=== PATIENT | male | born 1955 | race Caucasian/White ===

== ENCOUNTER → 2016-12-18 | Outpatient (CLI) | payer OTHER | END | disposition home or self-care (01) | LOC: C.PATHSPEC 14:05 | PROVIDERS: ATTEND Dermatology | DX: L83 Acanthosis nigricans (principal); L85.9 Epidermal thickening, unspecified; L30.9 Dermatitis, unspecified ==

== ENCOUNTER → 2016-12-18 | Outpatient (CLI) | payer OTHER | END | disposition home or self-care (01) | LOC: C.LABSPEC 13:50 | PROVIDERS: ATTEND Dermatology | DX: L30.9 Dermatitis, unspecified (principal) ==

== ENCOUNTER → 2017-02-26 | Outpatient (CLI) | payer OTHER | END | disposition home or self-care (01) | LOC: C.LABSPEC 16:31 | PROVIDERS: ATTEND Dermatology | DX: Z86.19 Personal history of other infectious and parasitic diseases (principal) ==

== ENCOUNTER → 2017-04-24 | Outpatient (CLI) | payer OTHER | END | disposition home or self-care (01) | LOC: C.PATHSPEC 16:40 | PROVIDERS: ATTEND Dermatology | DX: L57.0 Actinic keratosis (principal); L72.0 Epidermal cyst ==

== ENCOUNTER → 2017-06-12 | Outpatient (CLI) | payer OTHER ==
[2017-06-12 13:32] LABS: ALT/SGPT 70 U/L (12-78); AST/SGOT 31 U/L (15-37); BLOOD UREA NITROGEN 14 mg/dl (7-18); CALCIUM 9.4 mg/dl (8.5-10.1); CARBON DIOXIDE 23 mmol/L (21-32); CHLORIDE 109 mmol/L (98-107); CHOLESTEROL 190 mg/dl (0-200); GLUCOSE 113 mg/dl (70-99); SODIUM 140 mmol/L (136-145); TRIGLYCERIDES 226 mg/dl (0-150); VERY LOW DENSITY LIPOPROT CALC 45 mg/dl
[2017-06-12 13:35] LABS: HDL CHOLESTEROL 27 mg/dl; LDL CHOLESTEROL CALCULATED 118 mg/dl
== END | disposition home or self-care (01) ==
LOC: C.LABMFLN 09:15
PROVIDERS: ATTEND Family Medicine
DX: N40.0 Benign prostatic hyperplasia without lower urinary tract symptoms (principal); E78.5 Hyperlipidemia, unspecified; Z11.59 Encounter for screening for other viral diseases

== ENCOUNTER → 2017-12-24 | Outpatient (CLI) | payer OTHER ==
[2017-12-24 18:10] LABS: ALT/SGPT 70 U/L (12-78); AST/SGOT 33 U/L (15-37); BLOOD UREA NITROGEN 17 mg/dl (7-18); CALCIUM 9.5 mg/dl (8.5-10.1); CARBON DIOXIDE 23 mmol/L (21-32); CHOLESTEROL 187 mg/dl (0-200); CREATININE 1.01 mg/dl (0.60-1.40); GLUCOSE 107 mg/dl (70-99); POTASSIUM 4.1 mmol/L (3.5-5.1); SODIUM 138 mmol/L (136-145)
[2017-12-24 18:14] LABS: LDL CHOLESTEROL CALCULATED 124 mg/dl
== END | disposition home or self-care (01) ==
LOC: C.LABMFLN 10:53
PROVIDERS: ATTEND Family Medicine
DX: Z12.5 Encounter for screening for malignant neoplasm of prostate (principal); E78.5 Hyperlipidemia, unspecified

== ENCOUNTER → 2018-07-17 | Outpatient (CLI) | payer OTHER | END | disposition home or self-care (01) | LOC: C.LABMFLN 10:08 | PROVIDERS: ATTEND Family Medicine | DX: E78.5 Hyperlipidemia, unspecified (principal) ==

== ENCOUNTER 2025-02-16 07:48 | Inpatient (IN) ==
--- NOTE | 2025-02-16 08:07 | Emergency Department Note ---
Impression & Plan Hypoxia, Right-sided chest pain, Metastatic primary lung cancer ED Provider Note HISTORY OF PRESENT ILLNESS: Patient is a 69-year-old male presenting with shortness of breath and right- sided chest pain. Patient reports that he had a biopsy done of a right lung nodule 6 days ago. He reports he has had progressively worsening pain in his right chest ever since. He had called his doctor last night and they referred him to the emergency department. Patient reports that he cannot lay flat or even lay on his left side secondary to how short of breath he is and how much pain he has in his right lung. He denies any anticoagulation use. Denies any DVT or PE history. He denies any recent fevers. He has had a cough productive of white sputum. He denies any hemoptysis other than the day after his biopsy. He does state that he has been having blood when he blows his nose. He denies any fevers. Denies any recent sick contact exposures. ROS: as above PHYSICAL EXAM: Constitutional: Patient appears in no acute distress. HENT: Head: Normocephalic and atraumatic. Eyes: EOMI, PERRL Mouth/Throat: Mucous membranes moist. Neck: Trachea midline. Neck supple. Cardiovascular: RRR, No murmurs, rubs or gallops. Intact distal pulses. Pulmonary/Chest: No respiratory distress. Breath sounds clear and equal bilaterally. No wheezes or rales. Abdominal: Abdomen soft, no tenderness, rebound or guarding. Musculoskeletal: No edema, tenderness or deformity noted. Skin: Warm and dry. No rash, erythema, pallor or cyanosis Psychiatric: Appropriate mood and affect for situation. Neurological: Alert and keenly responsive. CN II-XII grossly intact, moving all extremities equally and fully. MDM: - Vitals signs showed tachycardia and borderline hypoxia - History obtained via patient. History as above. - Chronic conditions affecting care: BPH; HLD; COPD; right lung mass; HTN - Differential diagnoses include, but are not limited to: Congestive heart failure; acute coronary syndrome; COPD/asthma exacerbation; pulmonary edema; pulmonary embolism; pneumonia; pneumothorax; viral syndrome - Order placed for continuous cardiac monitoring. At this time, monitor showed rate of 80 bpm with normal sinus rhythm, per my interpretation. - External medical records reviewed. Procedure note dated 02/11/2025 was reviewed. Patient had an endobronchial ultrasound and transbronchial needle aspiration of lymph nodes. - EKG image interpreted by myself showed normal sinus rhythm. Rate 88 bpm. QT 356. No acute ischemic changes. Noted to have significant artifact on EKG - Laboratory workup interpreted by myself showed slight leukocytosis (WBC 11.46); normal PT/INR; stable electrolytes; elevated ALT (55); normal troponin - Viral respiratory panel negative - CXR image reviewed by myself showed what looks like a potential pneumonia in the right lung base, per my interpretation. - Patient was borderline hypoxic on arrival. Given 0.5 mg IV Dilaudid for pain management and patient became hypoxic to 88%. He was placed on 4 L nasal cannula. - CT chest with IV contrast negative for acute abnormality. Noted to have cervical, thoracic and abdominal lymphadenopathy. Noted to have an infiltrative mass in the right hilum. Also noted to have interval development of T8 vertebral body fracture likely pathologic. - Discussed results with patient and his son at bedside. Patient initially was appearing very comfortable after Dilaudid, but he is now complaining of increasing pain. Given additional 50 mcg IV fentanyl. Will admit the patient for his new hypoxia and for pain management to the hospitalist service - Discussion was had with business case analyst about patient's case and need for admission - Hospitalist, Dr. Casillas, consulted for admission - Patient admitted to [facility] hospitalist service for further evaluation and management. ASSESSMENT AND PLAN: Diagnosis: Hypoxia; right-sided chest pain; metastatic primary lung cancer Plan: Admit Past Med/Surg History Problem List (Updated 02/16/25 @ 12:14 by Kellie Saavedra MD) Metastatic primary lung cancer (Acute) Right-sided chest pain (Acute) Hypoxia (Acute) Lung cancer Mass of right lung Pleuritic chest pain Open wound of left foot Intractable left upper quadrant abdominal pain COPD exacerbation Cervical lymphadenopathy Bacterial sinusitis Anxiety and depression Hypertension, benign essential, goal below 140/90 Dyslipidemia Left foot drop Left lumbar radiculitis Postlaminectomy syndrome of lumbosacral region Lumbar facet joint syndrome Colon cancer screening Prediabetes Chronic low back pain Hx of adenomatous colonic polyps Colon cancer screening Prostate cancer screening Steatohepatitis Elevated liver function tests Prostate cancer screening COPD (chronic obstructive pulmonary disease) with chronic bronchitis Hyperlipidemia (Acute) GERD without esophagitis (Acute) Essential hypertriglyceridemia (Acute) Chronic obstructive pulmonary disease (Acute) Allergic rhinitis BPH (benign prostatic hyperplasia) Medicare annual wellness visit, subsequent Prostate cancer screening Constipation (Acute) Situational anxiety (Acute) Medical History Hyperlipidemia Surgical History H/O hernia repair History of back surgery Family History Mother Osteoarthritis Other No pertinent family history Social History Smoking Status: Former smoker Tobacco Type: Cigarettes Age Started Using Tobacco: 17; Age Quit Using Tobacco: 58; packs per day: 2; Second Hand Exposure: No; Do You Dip or Chew Tobacco: No; Hx Alcohol Use: No Hx Substance Use: No Preferred Language: Norwegian Beliefs That Will Affect Care: None marital status: Current Living Situation: Spouse current occupational status: disabled Feels Safe at Home: Yes caffeine: Yes Seatbelt Use: always Assistive Devices: Glasses Allergies Allergies Allergy/AdvReac Type Severity Reaction Status Date / Time No Known Drug Allergies Allergy Unknown Verified 02/11/25 07:30 Home Meds Home Medications Medication Instructions Recorded Confirmed Medical Marijuana 1 inh inhalation DAILY 04/29/23 02/16/25 Previous Rx's Medication Instructions Recorded fluticasone propionate 50 2 sprays intranasal DAILY #47.4 06/01/19 mcg/actuation nasal grams spray,suspension omeprazole 20 mg capsule,delayed 20 mg PO DAILY #90 caps 06/01/19 release ketoconazole 2 % shampoo 1 applic topical DAILY #120 mL 06/30/20 triamcinolone acetonide 0.1 % 1 applic topical BID PRN skin 03/27/21 topical cream irritation #80 grams amlodipine 10 mg tablet 10 mg PO DAILY #90 tabs 03/11/24 finasteride 5 mg tablet 5 mg PO DAILY #100 tabs 03/12/24 tamsulosin 0.4 mg capsule 0.8 mg (2 x 0.4 mg) PO DAILY #200 03/12/24 caps fluticasone fur. 200 mcg-umeclid 1 inh inhalation DAILY #180 ea 03/17/24 62.5 mcg-vilant 25 mcg inhalat.powder (Trelegy Ellipta) fluorouracil 5 % topical cream 1 applic topical DAILY #40 grams 11/09/24 albuterol sulfate 90 mcg/actuation 2 puff inhalation Q4H PRN 01/31/25 aerosol inhaler shortness of breath or wheezing #6.7 grams Results & Data (ED) Vital Signs Vital Signs - 24 hr 02/16/25 07:54 02/16/25 08:06 02/16/25 08:31 Temperature 36.4 C L Temperature Source Temporal Artery Scan Pulse Rate 94 H 92 H Pulse Rate [Right] 80 Pulse Rhythm Pulse Rhythm [Right] Regular Pulse Strength [Right] Normal Respiratory Rate 24 20 Respiratory Effort / Characteristics Non-Labored Respiratory Depth Normal Respiratory Pattern Regular Blood Pressure 134/90 Blood Pressure [Right Arm] 146/93 H Blood Pressure Mean 104 Blood Pressure Mean [Right Arm] 110 Blood Pressure Position [Right Arm] Pulse Oximetry 91 92 Oxygen Delivery Method Room Air Nasal Cannula Oxygen Flow Rate 4 Sepsis New/Unexplained Change in Mental Status No Sepsis Action Taken by Nursing No Action Required 02/16/25 08:34 02/16/25 08:40 02/16/25 08:46 Temperature Temperature Source Pulse Rate 85 Pulse Rate [Right] 84 Pulse Rhythm Regular Pulse Rhythm [Right] Regular Pulse Strength [Right] Normal Respiratory Rate 20 21 Respiratory Effort / Characteristics Respiratory Depth Normal Respiratory Pattern Regular Blood Pressure Blood Pressure [Right Arm] 137/98 Blood Pressure Mean Blood Pressure Mean [Right Arm] 111 Blood Pressure Position [Right Arm] Lying Pulse Oximetry 91 92 92 Oxygen Delivery Method Room Air Nasal Cannula Nasal Cannula Oxygen Flow Rate 4 4 Sepsis New/Unexplained Change in Mental Status Sepsis Action Taken by Nursing 02/16/25 10:00 Temperature Temperature Source Pulse Rate Pulse Rate [Right] 79 Pulse Rhythm Pulse Rhythm [Right] Regular Pulse Strength [Right] Normal Respiratory Rate 20 Respiratory Effort / Characteristics Non-Labored Respiratory Depth Normal Respiratory Pattern Regular Blood Pressure Blood Pressure [Right Arm] 146/93 H Blood Pressure Mean Blood Pressure Mean [Right Arm] 110 Blood Pressure Position [Right Arm] Lying Pulse Oximetry 92 Oxygen Delivery Method Nasal Cannula Oxygen Flow Rate 4 Sepsis New/Unexplained Change in Mental Status Sepsis Action Taken by Nursing Laboratory Data 02/16/25 08:29 02/16/25 09:55 Lab Results 02/16/25 02/16/25 02/16/25 Range/Units 08:29 08:43 09:55 WBC 11.46 H (4.8-10.8) K/ul RBC 5.83 (4.70-6.10) M/uL Hgb 17.6 (14.0-18.0) g/dl Hct 52.2 H (42.0-52.0) % MCV 89.5 (80.0-100.0) fL MCH 30.2 (25.0-34.0) pg MCHC 33.7 (32.0-36.0) g/dL RDW Std Deviation 46.1 (36.4-46.3) fL RDW Coeff of Benjamin 14.3 (11.5-14.5) % Plt Count 288 (130-400) K/uL MPV 11.5 (9.4-12.4) fL Immature Gran % (Auto) 1.0 % Neut % (Auto) 74.1 % Lymph % (Auto) 17.5 % [place] % (Auto) 6.1 % Eos % (Auto) 0.8 % Baso % (Auto) 0.5 % Neut # (Auto) 8.48 H (1.40-6.50) K/uL Lymph # (Auto) 2.01 (1.20-3.40) K/uL [place] # (Auto) 0.70 H (0.11-0.59) K/uL Eos # (Auto) 0.09 (0.00-0.50) K/uL Baso # (Auto) 0.06 (0.00-0.20) K/uL Immature Gran # (Auto) 0.12 (0.01-0.20) K/uL PT Cancelled 11.4 INR Cancelled 1.1 Sodium TNP 137 Potassium TNP 3.6 Chloride 104 (98-107) mmol/L Carbon Dioxide 26 (21-32) mmol/L Anion Gap TNP BUN 15 (6-23) mg/dl Creatinine 0.96 (0.6-1.4) mg/dl Est Cr Clr Drug Dosing Not Reportable eGFR 86.63 BUN/Creatinine Ratio 15.6 (10-20) Glucose 116 H (70-99(Fasting)) mg/dl Calcium 10.0 (8.6-10.3) mg/dl Magnesium TNP 1.8 Total Bilirubin 0.7 (0.2-1.0) mg/dl AST TNP 30 ALT 55 H (7-52) U/L Alkaline Phosphatase 123 H (34-104) U/L Troponin I High Sens 4.9 (0-20) pg/ml Total Protein 7.2 (6.0-8.3) gm/dl Albumin 4.2 (3.4-5.0) gm/dl Globulin 3.0 (2.5-4.0) gm/dl Albumin/Globulin Ratio 1.4 (0.9-2) Adenovirus (PCR) Not Detected (NotDetected) B. pertussis DNA (PCR) Not Detected (NotDetected) B.parapertussis DNA PCR Not Detected (NotDetected) C. pneumoniae DNA (PCR) Not Detected (NotDetected) Coronavirus OC43 (PCR) Not Detected (NotDetected) Coronavirus HKU1 (PCR) Not Detected (NotDetected) Coronavirus 229E (PCR) Not Detected (NotDetected) SARS-CoV-2 (PCR) Not Detected (NotDetected) Coronavirus NL63 (PCR) Not Detected (NotDetected) Human Metapneumovir PCR Not Detected (NotDetected) Influenza Type A (PCR) Not Detected (NotDetected) Influenza Type B (PCR) Not Detected (NotDetected) M. pneumoniae (PCR) Not Detected (NotDetected) Parainfluenza 1 (PCR) Not Detected (NotDetected) Parainfluenza 2 (PCR) Not Detected (NotDetected) Parainfluenza 3 (PCR) Not Detected (NotDetected) Parainfluenza 4 (PCR) Not Detected (NotDetected) RSV (PCR) Not Detected (NotDetected) Entero/Rhino (PCR) Not Detected (NotDetected) Administered Medications Discontinued Medications Hydromorphone HCl (Hydromorphone Inj 0.5 Mg/0.5 Ml Syr) 0.5 mg IV NOW STA Stop: 02/16/25 08:20 Last Admin: 02/16/25 08:41 Dose: 0.5 mg Documented By: CLAUDIA Ioversol (Optiray 320 100ml) 94 ml IV ONCE ONE Stop: 02/16/25 09:44 Last Admin: 02/16/25 09:43 Dose: 94 ml Documented By: OBINNA Imaging Data Radiologist's Impression: Chest X-Ray 02/16/25 08:06 XR chest 1V portable CLINICAL HISTORY: Dyspnea COMPARISON STUDY: 02/08/2025 FINDINGS: Large right hilar mass with adjacent mild reticular pulmonary opacity is stable. There is stable emphysema. There is increased stranding opacity at the right base with partial obscuration of the right hemidiaphragm. No pleural effusion or pneumothorax. IMPRESSION: Increased atelectasis versus pneumonia right lung base. ACT 112: Negative or not required by law. Electronically signed by: Estevan Huston M.D. 02/16/2025 8:[address] 02/16/25 08:19 CT OF THE CHEST WITH IV CONTRAST CLINICAL HISTORY: Right sided chest pain s/p biopsy. COMPARISON STUDY: Chest CT February 08, 2025. Chest radiograph performed earlier today. TECHNIQUE: Following IV administration of 94 mL of Optiray, helical axial images of the chest were obtained. Sagittal and coronal reconstructions were viewed as well as maximal intensity projections on an independent 3-D workstation. Automated exposure control was utilized for the study. A dose lowering technique was utilized adhering to the principles of ALARA. CT DOSE: 957.82 mGy.cm FINDINGS: There is no pneumothorax or mediastinal hematoma. No pneumomediastinum is present. A trace pericardial effusion is unchanged. The size the heart is normal. Extensive cervical, mediastinal, right hilar, bilateral axillary and upper abdominal lymphadenopathy is again noted. This is similar to CT of February 08, 2025. Index right supraclavicular lymph node on image 19 of 269 measures 2.9 x 2.3 cm. Right paratracheal lymph node measures 5.3 x 3.7 cm. A peripancreatic lymph node measures 3.3 x 2.6 cm. An infiltrative mass like opacity centered on the right hilum measures 7.9 x 7.7 cm. This may represent the central lung mass or conglomerate adenopathy. As before, the right upper lobe bronchus and bronchus intermedius are occluded. Severe narrowing of the right lower lobe bronchus has increased. Right lower lobe airspace opacities with volume loss have progressed since prior exam. Multiple nodular opacities within the right lung are again noted. There is asymmetric interlobular septal thickening within the right lung with numerous small nodules. Additional small nodules within the left lung are noted. There is underlying emphysema. Trace right pleural effusion is unchanged. A 2.5 x 1 cm pleural implant within the posterior right lower hemithorax is present. There is mild loss of height of the superior endplate of T8 consistent with a fracture is developed since prior CT. There is a probable underlying lytic lesion. Additional smaller lytic lesions within the thoracic spine cannot be excluded IMPRESSION: 1. No pneumothorax. No pneumomediastinum. No mediastinal hematoma. 2. Redemonstration of extensive lower cervical, thoracic and upper abdominal lymphadenopathy consistent with jo ann spread of malignancy. Lymphoma is within the differential but considered less likely. 3. Infiltrative mass centered on the right hilum which measures approximately 7.9 x 7.7 cm which results in extensive airway narrowing, as described above. This may represent a central lung malignancy or conglomerate adenopathy. Severe narrowing of the right lower lobe bronchus which has increased with increasing right lower lobe volume atelectasis. 4. Interval development of a T8 vertebral body fracture likely representing a pathologic fracture underlying lytic lesion. 5. 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 6. Emphysema. ACT 112: Negative or not required by law. Electronically signed by: Freddie Stubbs M.D. 02/16/2025 10:11 AM Discharge Plan Visit Data Chief Complaint: Shortness of Breath/Dyspnea Stated Complaint: LOW/VARIABLE OX AND SEVERE RT LUNG PAIN, SOB ED Provider: Kellie Saavedra Discharge Problem: Hypoxia, Right-sided chest pain, Metastatic primary lung cancer Forms Stand Alone Forms: My [facility] Prescriptions Prescriptions: No Action amlodipine 10 mg tablet 10 mg PO DAILY Qty: 90 3RF finasteride 5 mg tablet 5 mg PO DAILY Qty: 100 3RF tamsulosin 0.4 mg capsule 0.8 mg PO DAILY Qty: 200 3RF fluorouracil 5 % cream 1 applic topical DAILY Qty: 40 0RF Rx Instructions: Apply to areas of the face daily at bedtime x 3 weeks as directed. Wash off in AM. Medical Marijuana 1 inh inhalation DAILY Rx Instructions: Unable to verify OTC meds at this date/time. fluticasone propionate 50 mcg/actuation spray,suspension 2 sprays intranasal DAILY Qty: 47.4 3RF omeprazole 20 mg capsule,delayed release(DR/EC) 20 mg PO DAILY Qty: 90 3RF Rx Instructions: Not on file w/ pharmacy ketoconazole 2 % shampoo 1 applic TOP DAILY Qty: 120 2RF Rx Instructions: Wash scalp 2-3 times weekly. Let sit for 3-5 minutes prior to rinsing. triamcinolone acetonide 0.1 % cream 1 applic topical BID PRN (Reason: skin irritation) Qty: 80 3RF albuterol sulfate 90 mcg/actuation HFA aerosol inhaler 2 puff inhalation Q4H PRN (Reason: shortness of breath or wheezing) Qty: 6.7 5RF Trelegy Ellipta 200-62.5-25 mcg blister with device 1 inh inhalation DAILY Qty: 180 3RF Referrals Referrals: Dinesh Washington MD [Primary Care Provider] -
--- NOTE | 2025-02-16 08:25 | XRay Report ---
XR chest 1V portable CLINICAL HISTORY: Dyspnea COMPARISON STUDY: 02/08/2025 FINDINGS: Large right hilar mass with adjacent mild reticular pulmonary opacity is stable. There is s table emphysema. There is increased stranding opacity at the right base with partial obscuration of t he right hemidiaphragm. No pleural effusion or pneumothorax. IMPRESSION: Increased atelectasis versus pneumonia right lung base. ACT 112: Negative or not required by law. Electronically signed by: Estevan Huston M.D. 02/16/2025 8:24 AM
[2025-02-16] MEDS: HYDROmorphone INJ 0.5 MG/0.5 ML SYR IV STA (08:41)
[2025-02-16 08:52] LABS: Basophils # (auto) 0.06 K/uL (0.00-0.20); Basophils % (auto) 0.5 %; Eosinophils # (auto) 0.09 K/uL (0.00-0.50); Eosinophils % (auto) 0.8 %; Hematocrit (blood only) 52.2 % (42.0-52.0); Hemoglobin 17.6 g/dl (14.0-18.0); Immature Granulocytes # (auto) 0.12 K/uL (0.01-0.20); Lymphocytes # (auto) 2.01 K/uL (1.20-3.40); Lymphocytes % (auto) 17.5 %; Mean Corpuscular Hemoglobin 30.2 pg (25.0-34.0); Mean Corpuscular Hgb Conc 33.7 g/dL (32.0-36.0); Mean Corpuscular Volume 89.5 fL (80.0-100.0); Mean Platelet Volume 11.5 fL (9.4-12.4); Monocytes % (auto) 6.1 %; Neutrophils # (auto) 8.48 K/uL (1.40-6.50); Neutrophils % (auto) 74.1 %; Platelet Count 288 K/uL (130-400); RDW Coefficient of Variation 14.3 % (11.5-14.5); RDW Standard Deviation 46.1 fL (36.4-46.3); Red Blood Count 5.83 M/uL (4.70-6.10); White Blood Count 11.46 K/ul (4.8-10.8)
[2025-02-16 09:16] LABS: Alanine Aminotransferase 55 U/L (7-52); Albumin Globulin Ratio 1.4 (0.9-2); Albumin Level 4.2 gm/dl (3.4-5.0); Alkaline Phosphatase 123 U/L (34-104); BUN Creatinine Ratio 15.6 (10-20); Bilirubin,Total 0.7 mg/dl (0.2-1.0); Blood Urea Nitrogen 15 mg/dl (6-23); Carbon Dioxide 26 mmol/L (21-32); Chloride 104 mmol/L (98-107); Glucose 116 mg/dl (70-99(Fasting)); Total Protein 7.2 gm/dl (6.0-8.3)
[2025-02-16 09:22] LABS: Troponin I High Sensitivity 4.9 pg/ml (0-20)
[2025-02-16] MEDS: OPTIRAY 320 100ml IV ONE ×2 (09:43→21:10)
[2025-02-16 09:53] LABS: Adenovirus PCR Not Detected (NotDetected); Bordetella parapertussis PCR Not Detected (NotDetected); Bordetella pertussis PCR Not Detected (NotDetected); Chlamydia pneumoniae PCR Not Detected (NotDetected); Coronavirus 229E PCR Not Detected (NotDetected); Coronavirus CoV-2 (COVID19)PCR Not Detected (NotDetected); Coronavirus HKU1 PCR Not Detected (NotDetected); Coronavirus NL63 PCR Not Detected (NotDetected); Coronavirus OC43PCR Not Detected (NotDetected); Human Metapneumovirus PCR Not Detected (NotDetected); Influenza A PCR Not Detected (NotDetected); Influenza B PCR Not Detected (NotDetected); Mycoplasma pneumoniae PCR Not Detected (NotDetected); Parainfluenza Virus 1 PCR Not Detected (NotDetected); Parainfluenza Virus 2 PCR Not Detected (NotDetected); Parainfluenza Virus 3 PCR Not Detected (NotDetected); Parainfluenza Virus 4 PCR Not Detected (NotDetected); Respiratory Syncytial VirusPCR Not Detected (NotDetected); Rhinovirus/Enterovirus PCR Not Detected (NotDetected)
--- NOTE | 2025-02-16 10:12 | CT Scan Report ---
CT OF THE CHEST WITH IV CONTRAST CLINICAL HISTORY: Right sided chest pain s/p biopsy. COMPARISON STUDY: Chest CT February 08, 2025. Chest radiograph performed earlier today. TECHNIQUE: Following IV administration of 94 mL of Optiray, helical axial images of the chest were o btained. Sagittal and coronal reconstructions were viewed as well as maximal intensity projections o n an independent 3-D workstation. Automated exposure control was utilized for the study. A dose low ering technique was utilized adhering to the principles of ALARA. CT DOSE: 957.82 mGy.cm FINDINGS: There is no pneumothorax or mediastinal hematoma. No pneumomediastinum is present. A trace pericardial effusion is unchanged. The size the heart is normal. Extensive cervical, mediastinal, ri ght hilar, bilateral axillary and upper abdominal lymphadenopathy is again noted. This is similar to CT of February 08, 2025. Index right supraclavicular lymph node on image 19 of 269 measures 2.9 x 2.3 cm . Right paratracheal lymph node measures 5.3 x 3.7 cm. A peripancreatic lymph node measures 3.3 x 2.6 cm. An infiltrative mass like opacity centered on the right hilum measures 7.9 x 7.7 cm. This may re present the central lung mass or conglomerate adenopathy. As before, the right upper lobe bronchus an d bronchus intermedius are occluded. Severe narrowing of the right lower lobe bronchus has increased. Right lower lobe airspace opacities with volume loss have progressed since prior exam. Multiple nodu lar opacities within the right lung are again noted. There is asymmetric interlobular septal thickeni ng within the right lung with numerous small nodules. Additional small nodules within the left lung a re noted. There is underlying emphysema. Trace right pleural effusion is unchanged. A 2.5 x 1 cm pleu ral implant within the posterior right lower hemithorax is present. There is mild loss of height of t he superior endplate of T8 consistent with a fracture is developed since prior CT. There is a probabl e underlying lytic lesion. Additional smaller lytic lesions within the thoracic spine cannot be exclu ded IMPRESSION: 1. No pneumothorax. No pneumomediastinum. No mediastinal hematoma. 2. Redemonstration of extensive lower cervical, thoracic and upper abdominal lymphadenopathy consiste nt with jo ann spread of malignancy. Lymphoma is within the differential but considered less likely. 3. Infiltrative mass centered on the right hilum which measures approximately 7.9 x 7.7 cm which resu lts in extensive airway narrowing, as described above. This may represent a central lung malignancy o r conglomerate adenopathy. Severe narrowing of the right lower lobe bronchus which has increased with increasing right lower lobe volume atelectasis. 4. Interval development of a T8 vertebral body fracture likely representing a pathologic fracture und erlying lytic lesion. 5. Numerous pulmonary metastases and findings suggestive of lymphangitic carcinomatosis within the ri ght lung. 6. Emphysema. ACT 112: Negative or not required by law. Electronically signed by: Freddie Stubbs M.D. 02/16/2025 10:11 AM
[2025-02-16 10:44] LABS: Magnesium 1.8 mg/dl (1.7-2.4); Potassium 3.6 mmol/L (3.5-5.1)
[2025-02-16 10:53] LABS: INR 1.1 (0.9-1.1); Prothrombin Time 11.4 Seconds (9.0-12.0)
--- NOTE | 2025-02-16 11:38 | Electrocardiogram Report ---
Test Reason : Blood Pressure : */* mmHG Vent. Rate : 88 BPM Atrial Rate : 88 BPM P-R Int : 150 ms QRS Dur : 78 ms QT Int : 356 ms P-R-T Axes : 44 35 62 degrees QTcB Int : 430 ms Normal sinus rhythm No previous ECGs available Confirmed by Dre Norwood ([id number]) on 02/16/2025 11:38:29 AM Referred By: Confirmed By: Dre Norwood
--- NOTE | 2025-02-16 11:45 | History & Physical Report ---
<Statement entered by Alise Casillas MD - 02/16/25 18:07> I have reviewed vital signs, chart notes, labs and imaging. I have personally seen, evaluated and examined the patient. I have also discussed the management of the patient with the ZOILA and I agree with the exam findings documented in the history and physical examination and the documented assessment and plan unless otherwise stated below. I saw Mr. Swanson after arriving up to 3 W. he is currently having right-sided chest pain that he describes as fairly severe. He states that when he is at rest it is a reasonable amount of pain but as soon as he is coughing it goes straight to a 10 out of 10. He has been having frequent coughing. On my exam he is awake alert sitting in the edge of the bed lungs are diminished in both bases. He is tender to palpation of his right anterior chest wall, he has mild tenderness to palpation at the T8 level. He denies any pain radiating around his chest from T8. the right chest wall pain is at a higher level, above the nipple line newly diagnosed small cell carcinoma which is widespread, we have consulted medical oncology . Plan for tonight will be pain control for his right-sided chest pain is probably some component of cancer related pain also he feels that he pulled a muscle in his right anterior chest this is possible it is severely aggravated by coughing. Current dose of morphine 2 mg IV every 2 has not been adequate after 2 doses will increase to 4 mg IV. If this is ineffective we can try hydromorphone. He is on Tessalon and we added cough syrup with codeine. We will consult palliative care to help with pain and symptom management, he is not ready to talk about hospice/comfort measures he is likely to need home oxygen at this time, will obtain a two-step Date of Service February 16, 2025 Assessment & Plan (1) Metastatic primary lung cancer: (2) Hypoxia: (3) Compression fracture of T8 vertebra: Plan Christopher is a 69M with a PMHx of tobacco use, COPD, GERD, HLD who presents to the ED with shortness of breath and uncontrollable pain. He had a recent bronchoscopy [facility] Dr. 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 Now requiring supplemental oxygen. CT chest without signs of infection or fluid overload. Admit for pain control, oncology evaluation, possible palliative consultation. #Small cell carcinoma | Hypoxia | Intractable Pain CT chest without infectious cause/fluid overload - suspect hypoxia is related to metastasis. Continue home maintenance inhalers. PRN nebs Reports "wants aggressive treatment" open to chemo and/or radiation. However, if things are working reports "okay with going home with hospice" - oncology consulted. Palliative consult for help with symptom management Would like cut off saw operator visit later in stay (not consulted on admission) Scheduled Mucinex and prn robutussuin/coedine, prn Tessalon for symptom control for cough/mucus Pain control: prn morphine - deferred PO on admission, suspect MS Contin could be utilized in this pt, so stick with IV morphine for now for dose titration Bowel regimen: schedule miralax and senna, prn miralax Mild leukocytosis (11.4) - possibly stress induced, no other signs on infection, will trend. Baseline is room air, wean as oxygen as able. #T8 Compression fracture Area is tender to palpation. Mild Alk Phos elevation probably due to fracture/bone mets Calcitonin Nasal spray. Lidocaine patch HTN - continue amlodipine BPH - continue finasteride, flomax. Dispo: admit to med surg DVT proh: lovenox CODE STATUS: CONDITIONAL CODE (no chest compression) - please revisit as stay progresses, is considering DNR/DNI History of Present Illness Chief Complaint: pain and SOB Primary Care Provider: Dinesh Washington MD Christopher is a 69M with a PMHx of tobacco use, COPD, GERD, HLD who presents to the ED with shortness of breath and uncontrollable pain. He had a recent bronchoscopy wt Dr. 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 He has not seen oncology outpatient yet. Has been having to use his albuterol more frequently, does feel like it helps. Has been using medical marijuana for the pain. Reports that he has a plethora of narcotic pain medi cations at home for his lower back pain and history of fusion. He has not been taking these. He states that Dr. Monteiro instructed him to come last night but he could not get to the ER until this morning. States that he is here to try to get his pain controlled and get things figured out from an oncology perspective as he is having no quality of life at home. For now he states he wants to be aggressive and do everything possible, but knows that this ultimately might end up with him returning home with hospice. Pain is worse when he is coughing or trying to blow his nose. Has had increased mucus production over the last 2 to 3 weeks sometimes coughing up full handfuls. Has been trying to avoid coughing up mucus because it is painful however coughing up usually makes him feel better Lives alone about 1 hour from here, his son is his major support system who lives about 1 hour away from him. He would like to be a conditional code he is okay with defibrillation and intubation if needed and other life-saving measures he just does not want chest compressions. He states to me that he will likely become a DNR this admission. Patient is very insightful and has been doing his own research onto possible options for his oncologic treatment ED course: Dilaudid 0.5mg IV x1 Fentanyl 50 mcq IV Allergies Allergy/AdvReac Type Severity Reaction Status Date / Time No Known Drug Allergies Allergy Unknown Verified 02/11/25 07:30 Home Medications Medication Instructions Recorded Confirmed Type fluticasone propionate 50 2 sprays intranasal DAILY #47.4 06/01/19 02/16/25 Rx mcg/actuation nasal grams spray,suspension omeprazole 20 mg capsule,delayed 20 mg PO DAILY #90 caps 06/01/19 02/16/25 Rx release ketoconazole 2 % shampoo 1 applic topical DAILY #120 mL 06/30/20 02/16/25 Rx triamcinolone acetonide 0.1 % 1 applic topical BID PRN skin 03/27/21 02/16/25 Rx topical cream irritation #80 grams Medical Marijuana 1 inh inhalation DAILY 04/29/23 02/16/25 History amlodipine 10 mg tablet 10 mg PO DAILY #90 tabs 03/11/24 02/16/25 Rx finasteride 5 mg tablet 5 mg PO DAILY #100 tabs 03/12/24 02/16/25 Rx tamsulosin 0.4 mg capsule 0.8 mg (2 x 0.4 mg) PO DAILY #200 03/12/24 02/16/25 Rx caps fluticasone fur. 200 mcg-umeclid 1 inh inhalation DAILY #180 ea 03/17/24 02/16/25 Rx 62.5 mcg-vilant 25 mcg inhalat.powder (Trelegy Ellipta) fluorouracil 5 % topical cream 1 applic topical DAILY #40 grams 11/09/24 02/16/25 Rx albuterol sulfate 90 mcg/actuation 2 puff inhalation Q4H PRN 01/31/25 02/16/25 Rx aerosol inhaler shortness of breath or wheezing #6.7 grams Past Med/Surg History Problem List (Updated 02/16/25 @ 13:52 by Jenny Wolfe PA-C) Compression fracture of T8 vertebra Metastatic primary lung cancer (Acute) Right-sided chest pain (Acute) Hypoxia (Acute) Lung cancer Mass of right lung Pleuritic chest pain Open wound of left foot Intractable left upper quadrant abdominal pain COPD exacerbation Cervical lymphadenopathy Bacterial sinusitis Anxiety and depression Hypertension, benign essential, goal below 140/90 Dyslipidemia Left foot drop Left lumbar radiculitis Postlaminectomy syndrome of lumbosacral region Lumbar facet joint syndrome Colon cancer screening Prediabetes Chronic low back pain Hx of adenomatous colonic polyps Colon cancer screening Prostate cancer screening Steatohepatitis Elevated liver function tests Prostate cancer screening COPD (chronic obstructive pulmonary disease) with chronic bronchitis Hyperlipidemia (Acute) GERD without esophagitis (Acute) Essential hypertriglyceridemia (Acute) Chronic obstructive pulmonary disease (Acute) Allergic rhinitis BPH (benign prostatic hyperplasia) Medicare annual wellness visit, subsequent Prostate cancer screening Constipation (Acute) Situational anxiety (Acute) Medical History Hyperlipidemia Surgical History H/O hernia repair History of back surgery Family History Mother Osteoarthritis Other No pertinent family history Social History Smoking Status: Former smoker Tobacco Type: Cigarettes Age Started Using Tobacco: 17; Age Quit Using Tobacco: 58; packs per day: 2; Second Hand Exposure: No; Do You Dip or Chew Tobacco: No; Hx Alcohol Use: No Hx Substance Use: No Preferred Language: Chinese Communication Ability: Effective Beliefs That Will Affect Care: None marital status: Current Living Situation: Spouse current occupational status: disabled Feels Safe at Home: Yes caffeine: Yes Seatbelt Use: always Assistive Devices: Cane Review of Systems Review of Systems: All systems reviewed & are unremarkable except as noted in Subjective Physical Exam Physical Exam: General: NAD, VS as above, appears painful, tearing at times when talking about the pain that he is indoors at home Resp: normal respiratory effort, diminished in the bases, on 4 L nasal cannula CV: RRR, no murmur, Abd: normal bowel sounds, non tender, soft Extremities: Moves all extremities, Neuro: A&O x3, Results & Data Results & Data Vital Signs (Past 12 Hours) Vital Signs Temp Pulse Pulse Resp BP BP Pulse Ox 02/16/25 10:00 79 20 146/93 H 92 02/16/25 08:46 92 02/16/25 08:40 84 21 137/98 92 02/16/25 08:34 85 20 91 02/16/25 08:31 92 H 02/16/25 08:06 80 20 146/93 H 92 02/16/25 07:54 97.5 F L 94 H 24 134/90 91 O2 Del Method O2 Flow Rate 02/16/25 10:00 Nasal Cannula 4 02/16/25 08:46 Nasal Cannula 4 02/16/25 08:40 Nasal Cannula 4 02/16/25 08:34 Room Air 02/16/25 08:31 02/16/25 08:06 Nasal Cannula 4 02/16/25 07:54 Room Air Laboratory Results CBC, chemistry, coagulation reviewed UA reviewed Respiratory BioFire reviewed Diagnostic Findings chest x-ray reviewed Chest CT reviewed PG Care Time/CCT Total # of Minutes Spent Total Time Spent with Patient: Total time spent is greater than 50% in coordination of care (as documented) at patient's floor/unit and/or counseling patient: Coding Level of Care Code 31577 INT INP/OBS CARE 3/75MIN Diagnoses Metastatic primary lung cancer C34.90 Hypoxia R09.02 Compression fracture of T8 vertebra S22.060A
[2025-02-16] MEDS: guaiFENesin 600 MG TABCR PO SCH ×2 (12:08→20:06)
[2025-02-16] MEDS: fentaNYL citrate PF 100 MCG/2 ML VIAL IV STA (12:12)
[2025-02-16 12:14] LABS: Appearance Urine Clear (Clear); Bilirubin Urine Negative (Negative); Blood Urine Negative (Negative); Color Urine Yellow; Glucose Urine UA Negative (Negative); Ketones Urine Negative (Negative); Leukocyte Esterase Urine Negative (Negative); Nitrite Urine Negative (Negative); Protein Urine Negative (Negative); Specific Gravity Urine > 1.045 (1.000-1.030); Urobilinogen Urine Negative (Negative)
[2025-02-16] MEDS: POLYETHYLENE (MIRALAX) 17 GM PACK PO SCH (14:30)
[2025-02-16] MEDS: CALCITONIN SALMON NA 200 IU/AC 3.7 ML BTL SCH (14:30)
[2025-02-16] MEDS: MoRPHine SULFATE 2 MG/ML CARP IV PRN (14:41)
[2025-02-16] MEDS: Patient's HEIGHT &/or WEIGHT Needed SCH (15:40)
[2025-02-16] MEDS: BENZONATATE 100 MG CAPSULE PO PRN (15:52)
--- NOTE | 2025-02-16 17:32 | Oncology Consultation ---
Date of Consultation February 16, 2025 Assessment & Plan (1) Metastatic primary lung cancer: (2) Compression fracture of T8 vertebra: (3) Right-sided chest pain: (4) Lung cancer: Plan -Gentleman recently diagnosed with metastatic small cell lung cancer. Presents with increasing symptoms. He understands that he has stage IV disease for which goals of treatment would be to prolong life and improve symptoms and indicates he wants to be aggressive. Recommend inpatient chemotherapy with carboplatin AUC 5-day 1/etoposide 100 mg/m day 1-3 q. 21-day cycle x 4 cycles. Will add atezolizumab to treatment regimen upon discharge from hospital. -Recommend obtaining CT abdomen and pelvis and brain MRI since he has not had complete staging.Will plan to obtain PET/CT upon discharge from hospital. Thank you for this consult. Will continue following patient while in the hospital. Please feel free to call if you have any further questions. History of Present Illness Reason for Consultation: Metastatic small cell lung cancer Attending Physician: Alise Casillas MD History of Present Illness 69-year-old gentleman who was recently diagnosed with extensive stage/metastatic small cell lung cancer. Presented to the ER with shortness of breath and chest pain. Admitted for hypoxia and intractable pain due to metastasis. Oncology consulted to discuss role of inpatient chemotherapy. He complains of chest pain, shortness of breath. Has not had full imaging studies with brain MRI/PET/CT. 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 Allergies Allergy/AdvReac Type Severity Reaction Status Date / Time No Known Drug Allergies Allergy Unknown Verified 02/11/25 07:30 Home Medications Medication Instructions Recorded Confirmed Type fluticasone propionate 50 2 sprays intranasal DAILY #47.4 06/01/19 02/16/25 Rx mcg/actuation nasal grams spray,suspension omeprazole 20 mg capsule,delayed 20 mg PO DAILY #90 caps 06/01/19 02/16/25 Rx release ketoconazole 2 % shampoo 1 applic topical DAILY #120 mL 06/30/20 02/16/25 Rx triamcinolone acetonide 0.1 % 1 applic topical BID PRN skin 03/27/21 02/16/25 Rx topical cream irritation #80 grams Medical Marijuana 1 inh inhalation DAILY 04/29/23 02/16/25 History amlodipine 10 mg tablet 10 mg PO DAILY #90 tabs 03/11/24 02/16/25 Rx finasteride 5 mg tablet 5 mg PO DAILY #100 tabs 03/12/24 02/16/25 Rx tamsulosin 0.4 mg capsule 0.8 mg (2 x 0.4 mg) PO DAILY #200 03/12/24 02/16/25 Rx caps fluticasone fur. 200 mcg-umeclid 1 inh inhalation DAILY #180 ea 03/17/24 02/16/25 Rx 62.5 mcg-vilant 25 mcg inhalat.powder (Trelegy Ellipta) fluorouracil 5 % topical cream 1 applic topical DAILY #40 grams 11/09/24 02/16/25 Rx albuterol sulfate 90 mcg/actuation 2 puff inhalation Q4H PRN 01/31/25 02/16/25 Rx aerosol inhaler shortness of breath or wheezing #6.7 grams Patient History Medical History Hyperlipidemia Surgical History H/O hernia repair History of back surgery Family History Mother Osteoarthritis Other No pertinent family history Social History Smoking Status: Former smoker Tobacco Type: Cigarettes Age Started Using Tobacco: 17; Age Quit Using Tobacco: 58; packs per day: 2; Second Hand Exposure: No; Do You Dip or Chew Tobacco: No; Hx Alcohol Use: No Hx Substance Use: No Preferred Language: Ukrainian Communication Ability: Effective Beliefs That Will Affect Care: None marital status: Current Living Situation: Spouse current occupational status: disabled Feels Safe at Home: Yes caffeine: Yes Seatbelt Use: always Assistive Devices: Cane Results & Data Vital Signs (Past 12 Hours) Vital Signs Temp Pulse Pulse Resp BP BP Pulse Ox 02/16/25 13:30 95 H 22 125/89 90 02/16/25 13:06 90 24 136/93 91 02/16/25 12:30 97 H 26 H 142/92 H 90 02/16/25 12:29 88 02/16/25 12:09 92 H 26 H 161/108 H 92 02/16/25 10:00 79 20 146/93 H 92 02/16/25 08:46 92 02/16/25 08:40 84 21 137/98 92 02/16/25 08:34 85 20 91 02/16/25 08:31 92 H 02/16/25 08:06 80 20 146/93 H 92 02/16/25 07:54 36.4 C L 94 H 24 134/90 91 O2 Del Method O2 Flow Rate 02/16/25 13:30 Nasal Cannula 4 02/16/25 13:06 Nasal Cannula 4 02/16/25 12:30 Nasal Cannula 4 02/16/25 12:29 02/16/25 12:09 Nasal Cannula 4 02/16/25 10:00 Nasal Cannula 4 02/16/25 08:46 Nasal Cannula 4 02/16/25 08:40 Nasal Cannula 4 02/16/25 08:34 Room Air 02/16/25 08:31 02/16/25 08:06 Nasal Cannula 4 02/16/25 07:54 Room Air
[2025-02-16] MEDS: MoRPHine SULFATE 2 MG/ML CARP IV STA ×2 (18:30→20:36)
[2025-02-16] MEDS: ENOXAPARIN INJ 40 MG/0.4 ML SYR SQ SCH (20:07)
[2025-02-16] MEDS: ACETAMINOPHEN 500 MG TAB PO PRN (20:39)
--- NOTE | 2025-02-16 21:55 | CT Scan Report ---
Exam(s): CT ABDOMEN + PELVIS With Contrast EXAM: CT Abdomen and Pelvis With Intravenous Contrast CLINICAL HISTORY: Reason for exam: lung cancer, r/o mets. TECHNIQUE: Axial computed tomography images of the abdomen and pelvis with intravenous contrast. CTDI is 21.8 mGy and DLP is 1114.58 mGy-cm. Automated exposure control was utilized for the study. A dose lowering technique was utilized adhering to the principles of ALARA. CONTRAST: Contrast type and volume not available at completion of the exam. COMPARISON: CT abdomen and pelvis: 01/31/2025 FINDINGS: Lung bases: There is increase in right infrahilar and right basilar consolidation suggestive of pneumonia. Postobstructive pneumonia is not excluded. Follow-up evaluation with a complete CT chest with IV contrast is recommended. . Heart: There are mild scattered coronary artery atherosclerotic calcifications. There is a small pericardial effusion. ABDOMEN: Liver: Unremarkable. No mass. Gallbladder and bile ducts: There is focal fundal gallbladder wall thickening and a small retained gallstones. Findings are suggestive of a phrygian cap. No intrahepatic bile duct dilatation is noted. Pancreas: Unremarkable. No mass. No ductal dilation. Spleen: Unremarkable. No splenomegaly. Adrenals: Unremarkable. No mass. Kidneys and ureters: There is a small simple left renal cyst. No solid renal mass or hydronephrosis. Stomach and bowel: There is a moderate stool burden suggestive of constipation. No bowel thickening or obstruction. No free air or abscess. PELVIS: Appendix: No findings to suggest acute appendicitis. Bladder: Unremarkable. No mass. Reproductive: Unremarkable as visualized. ABDOMEN and PELVIS: Intraperitoneal space: See above. Bones/joints: No acute fracture. No dislocation. Soft tissues: Unremarkable. Vasculature: There is scattered aortoiliac atherosclerotic calcifications. There is mid aortic ectasia measuring up to 2.8 cm. No abdominal aortic aneurysm. Lymph nodes: There are bulky enlarged genaro hepatis lymph node suspicious for metastatic jo ann disease. The largest periportal lymph node measures up to 2.4 cm. IMPRESSION: 1. There is increase in right infrahilar and right basilar consolidation suggestive of pneumonia. Postobstructive pneumonia is a consideration. Follow-up evaluation with a complete CT chest with IV contrast is recommended to evaluate for an associated right hilar lung mass.. 2. There are bulky enlarged genaro hepatis lymph node suspicious for metastatic jo ann disease. The largest periportal lymph node measures up to 2.4 cm. 3. Mild to moderate stool burden suggestive of constipation. Electronically signed by: Sebas Diaz MD 02/16/25 21:54 PM
[2025-02-17] MEDS: GADOBUTROL 65ML VIAL IV ONE (00:03)
[2025-02-17] MEDS: MoRPHine SULFATE 2 MG/ML CARP IV PRN (00:30)
--- NOTE | 2025-02-17 01:26 | Magnetic Resonance Report ---
EXAM: MR brain wo/w con CLINICAL HISTORY: lung cancer, r/o mets TECHNIQUE: MRI of the brain was performed with and without intravenous 8cc gadavist contrast administration. Sequences obtained include pre-contrast and post-contrast T1-weighted, T2-weighted, FLAIR (Fluid-Attenuated Inversion Recovery), DWI (Diffusion-Weighted Imaging), and ADC (Apparent Diffusion Coefficient) sequences. COMPARISON: No previous studies are available for comparison. FINDINGS: Brain Parenchyma: No evidence of infarction or hemorrhage. Mild diffuse T2 and FLAIR hyperintense signals are identified in the periventricular deep white matter Few tiny FLAIR hyperintense signals are identified periventricular region bilaterally Monsalve-white matter differentiation is preserved. No abnormal signal-intensity lesions identified. Post-Contrast Findings: No abnormal enhancement of the brain parenchyma or meninges. Ventricles and Sulci: Age-appropriate changes seen in the brain parenchyma with mild to moderate widening of sulci and mild dilatation of the ventricular system seen. Brainstem and Cerebellum: Normal appearance of the brainstem and cerebellum without focal lesions or abnormal enhancement. Vessels: Intracranial vessels appear normal without evidence of vascular malformations or aneurysms. Skull and Calvarium: No evidence of skull vault lesions or abnormal marrow signal within the calvarium. Mild mucosal thickening identified in bilateral ethmoid sinus IMPRESSION: 1. No lesions identified in brain parenchyma to suggest metastatic deposits. 2. Age appropriate volume loss in brain parenchyma and bilateral periventricular deep white matter ischemic changes. 3. Few tiny FLAIR hyperintense signals are identified in periventricular deep white matter likely due to microvascular ischemic changes. 4. Mild bilateral ethmoid sinusitis. 5. Electronically signed by Abelardo Ocasio 02-17-2025 01:25 AM
[2025-02-17] MEDS: ALBUT/IPRATROP 3MG/0.5MG NEB 3 ML VIAL NEB PRN (05:27)
[2025-02-17 07:22] LABS: Hematocrit (blood only) 47.6 % (42.0-52.0); Mean Corpuscular Hemoglobin 30.7 pg (25.0-34.0); Mean Corpuscular Hgb Conc 33.6 g/dL (32.0-36.0); Mean Corpuscular Volume 91.2 fL (80.0-100.0); Platelet Count 277 K/uL (130-400); RDW Coefficient of Variation 14.3 % (11.5-14.5); RDW Standard Deviation 47.8 fL (36.4-46.3); Red Blood Count 5.22 M/uL (4.70-6.10); White Blood Count 8.78 K/ul (4.8-10.8)
[2025-02-17 07:47] LABS: BUN Creatinine Ratio 13.7 (10-20); Calcium 9.2 mg/dl (8.6-10.3); Creatinine Clr Calc Pharmacy 74.8 ml/min; Potassium 4.1 mmol/L (3.5-5.1)
[2025-02-17] MEDS: FINASTERIDE 5 MG TAB PO SCH (08:17)
[2025-02-17] MEDS: PANTOprazole 40 MG TAB PO SCH (08:18)
[2025-02-17] MEDS: TAMSULOSIN HCL 0.4 MG CAP PO SCH (08:18)
[2025-02-17] MEDS: amLODIPine BESYLATE 5 MG TAB PO SCH (08:18)
[2025-02-17] MEDS: FLUTICASONE PROPIONATE NA SPR 16 GM BTL SCH (08:19)
[2025-02-17] MEDS: UMECLIDINIUM/VILANTEROL 62.5/25MCG 7 PUFFS/INHALER INH SCH (08:19)
[2025-02-17] MEDS: FLUTICASONE FUROATE 200MCG 14 PUFFS/INHALER INH SCH (08:19)
[2025-02-17] MEDS: LIDOCAINE 5% 1 PATCH TD SCH (08:25)
[2025-02-17] MEDS: DOCUSATE SODIUM/SENNA 50/8.6MG TAB PO SCH (08:30)
[2025-02-17] MEDS: ONDANSETRON INJ 2 MG/ML 2 ML VIAL IV PRN (08:40)
[2025-02-17] MEDS: ALUMINUM/MAGNESIUM/SIMETH (MAALOX MAX) 30 ML UDC PO ONE (11:32)
[2025-02-17] MEDS: PALONOSETRON 0.25 MG, dexAMETHasone 12 MG in DEXTROSE 5% 50 ML IV SCH (11:43)
[2025-02-17] MEDS: FOSAPREPITANT DIMEGLUMINE 150 MG in SODIUM CHLORIDE 0.9% 145 ML IV ONE (11:44)
--- NOTE | 2025-02-17 12:10 | Radiation OncologyConsultation ---
Date of Consultation February 17, 2025 Assessment & Plan (1) Extensive stage primary small cell carcinoma of lung: Plan ATTENDING ADDENDUM Assessment: Mr. Sawnson is a 69-year-old gentleman who presents with extensive stage small cell lung carcinoma. The patient is currently symptomatic with chest pain associated with his lung mass. The patient was going to be seen in the outpatient setting however his symptoms were getting progressively worse and he did present to the emergency room and has been admitted. The patient has been seen by Dr. Jones for medical oncology who is recommending inpatient chemotherapy. We have been asked to evaluate the patient regarding the role of radiation therapy. Plan: 1. Inpatient chemotherapy. 2. No role for radiation therapy at this point. Radiation therapy can be reconsidered if patient is not tolerating chemotherapy well or is having a poor response to chemotherapy and require symptomatic relief. 3. Consider palliative care consultation. 4. Please call us with any further questions or concerns. History of Present Illness Reason for Consultation: Metastatic small cell carcinoma with pathologic fracture of T8 Requesting Physician: Alise Casillas MD Attending Physician: Alise Casillas MD History of Present Illness Patient has a [id number] history of smoking. He quit 15 years ago. He has had ongoing back pain. He then followed by pain management. Saw primary care due to abdominal pain and cervical lymphadenopathy. CT scans were ordered. Referral to interventional radiology for biopsy of lymph nodes was ordered. 02/08/2025. CTA of the chest. 1. No definite sign of pulmonary embolism 2. Large 13 cm invasive mass involving the right hilum and mediastinum, consistent with bronchogenic carcinoma. This encases and narrows the right pulmonary artery and occludes the right middle lobe and right upper lobe bronchi 3. Mediastinal, axillary, and supraclavicular adenopathy, consistent with metastatic disease 4. Multiple pulmonary nodules, concerning for metastatic disease 5. Right middle lobe collapse 6. Severe emphysema 7. Irregular alveolar opacities in the right upper lobe and right lower lobe that could be due to postobstructive pneumonia 02/08/2025. CT of the neck. Bilateral cervical adenopathy, concerning for lymphoma. Multiple enlarged cervical lymph nodes with loss of CMD. Requires histopathologic correlation. 02/08/2025. Primary care follow-up. Patient has been found to have a right lung mass. Referral to pulmonary. 02/11/2025. Pulmonary consultation (Dr. Monteiro). Recommendation for navigational bronchoscopy with biopsies. 02/11/2025. Fiberoptic bronchoscopy. Endobronchial ultrasound and transit bronchial needle aspiration of lymph nodes at 2 stations. 1. Abnormal respiratory mucosa extending from the right mainstem bronchus down into the right lower lobe bronchus consistent with malignancy. 2. Bulky adenopathy present within the level 7 and level 4R station status post biopsy with 21-gauge needle under ultrasound guidance. Await final path. 02/11/2025. Pathology report reveals: Lymph node, ST 7 (fine-needle aspiration): - Metastatic small cell carcinoma of pulmonary origin is seen. Lung, 4 R lymph node (fine-needle aspiration): - Metastatic small cell carcinoma of pulmonary origin is seen. 02/16/2025. Patient presented to the emergency room with intractable pain. He was having pain in the mid back. He also had a pain of the right upper chest region. 02/16/2025. CT of the chest. 1. No pneumothorax. No pneumomediastinum. No mediastinal hematoma. 2. Redemonstration of extensive lower cervical, thoracic and upper abdominal lymphadenopathy consistent with jo ann spread of malignancy. Lymphoma is within the differential but considered less likely. 3. Infiltrative mass centered on the right hilum which measures approximately 7.9 x 7.7 cm which results in extensive airway narrowing, as described above. This may represent a central lung malignancy or conglomerate adenopathy. Severe narrowing of the right lower lobe bronchus which has increased with increasing right lower lobe volume atelectasis. 4. Interval development of a T8 vertebral body fracture likely representing a pathologic fracture underlying lytic lesion. 5. 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 6. Emphysema. 02/16/2025. CT of the abdomen and pelvis. 1. There is increase in right infrahilar and right basilar consolidation suggestive of pneumonia. Postobstructive pneumonia is a consideration. Follow- up evaluation with a complete CT chest with IV contrast is recommended to evaluate for an associated right hilar lung mass.. 2. There are bulky enlarged genaro hepatis lymph node suspicious for metastatic jo ann disease. The largest periportal lymph node measures up to 2.4 cm. 3. Mild to moderate stool burden suggestive of constipation. 02/16/2025. MRI of the brain. 1. No lesions identified in brain parenchyma to suggest metastatic deposits. 2. Age appropriate volume loss in brain parenchyma and bilateral periventricular deep white matter ischemic changes. 3. Few tiny FLAIR hyperintense signals are identified in periventricular deep white matter likely due to microvascular ischemic changes. 4. Mild bilateral ethmoid sinusitis. 02/16/2025. Medical oncology consultation (Dr. Jones). Patient has stage IV small cell carcinoma of the lung. Recommendation for inpatient chemotherapy. Carboplatin and etoposide. After discharge atezolizumab will be added to the regimen of therapy. 02/17/2025. Radiation oncology consultation ([facility]/John). Our office was consulted due to the patient's intractable back pain on admission. Since he was admitted he has been receiving morphine. His pain is now tolerable in his back. He has a pain level of 3 out of 10. Pain of the right anterior chest is also improved. He now gives a pain level of 5 out of 10. He has completed the recommended brain MRI. This did not show metastatic disease. He has been seen by medical oncology. He will start inpatient chemotherapy. Patient has stated he wants to be aggressive with treatment. There are plans for PET/CT following discharge. Allergies Allergy/AdvReac Type Severity Reaction Status Date / Time No Known Drug Allergies Allergy Unknown Verified 02/11/25 07:30 Home Medications Medication Instructions Recorded Confirmed Type fluticasone propionate 50 2 sprays intranasal DAILY #47.4 06/01/19 02/16/25 Rx mcg/actuation nasal grams spray,suspension omeprazole 20 mg capsule,delayed 20 mg PO DAILY #90 caps 06/01/19 02/16/25 Rx release ketoconazole 2 % shampoo 1 applic topical DAILY #120 mL 06/30/20 02/16/25 Rx triamcinolone acetonide 0.1 % 1 applic topical BID PRN skin 03/27/21 02/16/25 Rx topical cream irritation #80 grams Medical Marijuana 1 inh inhalation DAILY 04/29/23 02/16/25 History amlodipine 10 mg tablet 10 mg PO DAILY #90 tabs 03/11/24 02/16/25 Rx finasteride 5 mg tablet 5 mg PO DAILY #100 tabs 03/12/24 02/16/25 Rx tamsulosin 0.4 mg capsule 0.8 mg (2 x 0.4 mg) PO DAILY #200 03/12/24 02/16/25 Rx caps fluticasone fur. 200 mcg-umeclid 1 inh inhalation DAILY #180 ea 03/17/24 02/16/25 Rx 62.5 mcg-vilant 25 mcg inhalat.powder (Trelegy Ellipta) fluorouracil 5 % topical cream 1 applic topical DAILY #40 grams 11/09/24 02/16/25 Rx albuterol sulfate 90 mcg/actuation 2 puff inhalation Q4H PRN 01/31/25 02/16/25 Rx aerosol inhaler shortness of breath or wheezing #6.7 grams Patient History Medical History Hyperlipidemia Surgical History H/O hernia repair History of back surgery Family History Mother Osteoarthritis Other No pertinent family history Social History Smoking Status: Former smoker Tobacco Type: Cigarettes Age Started Using Tobacco: 17; Age Quit Using Tobacco: 58; packs per day: 2; Second Hand Exposure: No; Do You Dip or Chew Tobacco: No; Hx Alcohol Use: No Hx Substance Use: Yes (Medical marijuana) Last Used Substance: Days (ago) Last Used Substance Other:: 3 weeks ago Preferred Language: Taiwanese Communication Ability: Effective Group Fitness Manager Required: No Beliefs That Will Affect Care: None marital status: Current Living Situation: Alone current occupational status: disabled Other Information That Helps Us Care for You: Yes (Currently under a lot of stress with mother's affairs.) Feels Safe at Home: Yes Safety Concerns: Feels Safe At This Time caffeine: Yes Seatbelt Use: always Assistive Devices: Cane Review of Systems Review of Systems: 13 point review of systems completed. F indings in the history of present illness. Physical Exam Constitutional: WD/WN, vitals as above He is on oxygen therapy via nasal cannula. Eyes: PERRL, conjunctivae normal, anicteric sclerae ENMT: Ears: no hearing impairment Neck: trachea midline, no thyromegaly Conglomeration of enlarged lymph nodes of the right cervical chain. Adenopathy extends from the supraclavicular area to the upper neck. Respiratory: normal respiratory effort, lungs clear to auscultation Auscultation: + diminished lung sounds Cardiovascular: RRR, no murmur, no edema Chest (Breasts): Additional Comments: Mild tenderness noted of the right anterior upper chest. Gastrointestinal (Abdomen): normal bowel sounds, soft, nontender, no hepatosplenomegaly Skin: no rashes, warm and dry Psychiatric: A+Ox3, euthymic affect Lymphatic: + cervical lymphadenopathy (Left) and + subclavicular lymphadenopathy (Left) Results (Rad Onc) Pathology Results: were reviewed and pertinent findings noted in HPI Imaging Studies: were reviewed and pertinent findings noted in HPI Time Spent Midlevel I spent [20] minutes in preparation for this follow up evaluation including reviewing all the clinical records, reviewing laboratory studies, pathology reports and imaging results. I spent [20] minutes with direct face to face interaction with the patient and/or family including performing a physical exam and answering all questions. I spent [10] minutes documenting this patient's visit. Attending I spent 20 minutes taking care of this patient including reviewing the patient's chart, reviewing the clinical findings with the mid-level provider and providing treatment recommendations. PG Care Time/CCT Total # of Minutes Spent Total Time Spent with Patient: Total time spent is greater than 50% in coordination of care (as documented) at patient's floor/unit and/or counseling patient: [place] [address] IN/OBS CONSULT LVL 5,80M Patient Type New History Problem Focused Exam Problem Focused Medical Decision Making Low Complexity Diagnoses Extensive stage primary small cell carcinoma of lung C34.90
[2025-02-17] MEDS ORDERED: ETOPOSIDE 200 MG in SODIUM CHLORIDE 0.9% 500 ML IV SCH (12:30)
[2025-02-17] MEDS: ETOPOSIDE 200 MG in SODIUM CHLORIDE 0.9% 500 ML IV SCH (12:42)
--- NOTE | 2025-02-17 13:14 | Palliative Care Consultation ---
Date of Consultation February 17, 2025 Assessment & Plan (1) Palliative care by specialist: Introduced Palliative Medicine and explained our role in advanced care planning, symptom management and navigation through the progression of life limiting disease. Patient was receptive to palliative services for goals of care discussions. Reviewed we are different from hospice, a home health nurse visiting service. (2) Right-sided chest pain: Pt describes pain as heartburn like as well as muscular and is nonradiating. He states it is brought on by stress and relieved with morphine and zofran. He does have associated nausea and anxiety. Pt states pain currently well managed with morphine q3h and denies need for any change in regime. Discussed need to transition away from IV analgesia prior to discharge. Pt has been consistently using PRNs every 3-4hrs. No changes in medication at this time, will reassess tomorrow and use 24hr use to assist dose finding to transition to long acting analgesia. (3) Anxiety associated with cancer diagnosis: Pt states that he has long standing anxiety and depression and has been on "mood medications" previously, but they did not help. He shares that he has much anxiety lately Re: mother's and possibility of loosing becoming homeless as her home (in which he has lived) is currently in probate and he may not be able to return to it on discharge. Throughout our conversation he was focused on his fear and anxiety provoked by thoughts of discharge. He shared hope that his chemotherapy could continue as an inpatient as he has no way to get back and forth from home to oncology clinic. He shared that prior to his hospitalization he was managing his anxiety with marijuana which has been both medical and non-medical grade. He states he has used marijuana since his early 20s for both mood stabilization and recreation. He currently consumes marijuana through vape and edibles when available, but mostly through smoking, multiple times per day. He denied offer of mood stabil izing medication or anxiolytic, but did agree to PRN order for ativan, which has been placed. (4) Counseling regarding advanced directives and goals of care: Met with pt at bedside and discussed GOC and AD for 35 minutes. Patient exhibits current decisional capacity based on the ability to convey understanding of personal PMHx, current medical condition, treatment options nor the risks / benefits of those options, and lack of ability to make decisions based on such knowledge. Hospital does not have written documentation of patient wishes concerning his chosen proxy for medical decisions. Per PA [id number], in absence of written documentation of patient wishes, pt's proxy for medical decisions would be his adult son Estevan Swanson and a daughter who lives in [place] with equal authority. However, pt reports that he has been estranged from his daughter for many years and would not want her involved in medical decisions for him. He reports that he is very close with his son and would like Estevan to be first contact and his MDM proxy in event he lacks decisional capacity during this or any future admissions. Pt currently does not require a proxy for medical decisions. We discussed importance of establishing an advanced directive to document his chosen MDM proxy and his wishes for EOL care. Pt agrees with importance of this and paperwork supplied for him to review. Pt clearly stated that he knows that he has wide spread cancer and that it will kill him at some point, but he wants to "get aggressive treatment to attack and kill this cancer". He expressed understanding that his cancer can not be cured, but is eager to start chemotherapy with goal of prolonging his life. His goals of care arae well established for ongoing life prolonging and cancer directed treatments. Discussed code status and helped him understand that CPR is only done after a person has and involves uncomfortable and invasive procedures that, if successful. have high risk of multiple complications including but not limited to rib fractures, pneumo/hemothorax, ALEXANDRA, ventilator dependence, anoxic brain injury, and buttermaker helper/permanent cognitive and functional deficits. CPR survival: Only about 10% of patients who have [id number] sudden cardiac arrest survive to hospital discharge, with many survivors having neur ologic impairment. This rate is even lower among patients with serious coexisting conditions, ie chance of survival to hospital discharge for in- hospital CPR in older people is low to moderate (15%) and decreases with age, comorbidities, performance status and frailty: for pts > 70 yo, more than half of the patients who initially survived resuscitation in the hospital before hospital discharge. The pooled survival to discharge after in-hospital CPR was 18% for patients between 70 and 79 years old, 15% for patients between 80 and 89 years old and 11% for patients of 90 years and older. (Clarence JACOBO, Juan J LJ, Glen F, et al. Trends in short- and long-term survival among [id number] cardiac arrest patients alive at hospital arrival. Circulation 2014;130:1883- 1890. AND Toya C, Leena T, Patricia R, et al. Performance of clinical risk scores to predict mortality and neurological outcome in cardiac arrest patients. 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 He is acceptant of intubation for respiratory failure but not long-term mechanical ventilation. Plan as above History of Present Illness Reason for Consultation: pain management iso grossly metastatic SCLC Requesting Physician: Jenny Wolfe Attending Physician: Alise Casillas MD History of Present Illness 69-year-old gentleman who was recently diagnosed with extensive stage/metastatic small cell lung cancer. Presented to the ER with shortness of breath and chest pain. Admitted for hypoxia and intractable pain due to metastasis. Oncology co nsulted and pt has been started on inpatient chemotherapy. He complains of chest pain, shortness of breath. 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 Palliative care has been consulted for pain management and navigation. Allergies Allergy/AdvReac Type Severity Reaction Status Date / Time No Known Drug Allergies Allergy Unknown Verified 02/11/25 07:30 Home Medications Medication Instructions Recorded Confirmed Type fluticasone propionate 50 2 sprays intranasal DAILY #47.4 06/01/19 02/16/25 Rx mcg/actuation nasal grams spray,suspension omeprazole 20 mg capsule,delayed 20 mg PO DAILY #90 caps 06/01/19 02/16/25 Rx release ketoconazole 2 % shampoo 1 applic topical DAILY #120 mL 06/30/20 02/16/25 Rx triamcinolone acetonide 0.1 % 1 applic topical BID PRN skin 03/27/21 02/16/25 Rx topical cream irritation #80 grams Medical Marijuana 1 inh inhalation DAILY 04/29/23 02/16/25 History amlodipine 10 mg tablet 10 mg PO DAILY #90 tabs 03/11/24 02/16/25 Rx finasteride 5 mg tablet 5 mg PO DAILY #100 tabs 03/12/24 02/16/25 Rx tamsulosin 0.4 mg capsule 0.8 mg (2 x 0.4 mg) PO DAILY #200 03/12/24 02/16/25 Rx caps fluticasone fur. 200 mcg-umeclid 1 inh inhalation DAILY #180 ea 03/17/24 02/16/25 Rx 62.5 mcg-vilant 25 mcg inhalat.powder (Trelegy Ellipta) fluorouracil 5 % topical cream 1 applic topical DAILY #40 grams 11/09/24 02/16/25 Rx albuterol sulfate 90 mcg/actuation 2 puff inhalation Q4H PRN 01/31/25 02/16/25 Rx aerosol inhaler shortness of breath or wheezing #6.7 grams Patient History Medical History Hyperlipidemia Surgical History H/O hernia repair History of back surgery Family History Mother Osteoarthritis Other No pertinent family history Social History Smoking Status: Former smoker Tobacco Type: Cigarettes Age Started Using Tobacco: 17; Age Quit Using Tobacco: 58; packs per day: 2; Second Hand Exposure: No; Do You Dip or Chew Tobacco: No; Hx Alcohol Use: No Hx Substance Use: Yes (Medical marijuana) Last Used Substance: Days (ago) Last Used Substance Other:: 3 weeks ago Preferred Language: Croatian Communication Ability: Effective Bar Host Required: No Beliefs That Will Affect Care: None marital status: Current Living Situation: Alone current occupational status: disabled Other Information That Helps Us Care for You: Yes (Currently under a lot of stress with mother's affairs.) Feels Safe at Home: Yes Safety Concerns: Feels Safe At This Time caffeine: Yes Seatbelt Use: always Assistive Devices: Cane Review of Systems Review of Systems: All systems reviewed & are unremarkable except as noted in HPI & below Gastrointestinal: + heartburn and + nausea Musculoskeletal: + back pain and + muscle weakness Psychiatric: + anxiety Physical Exam Constitutional: + ill appearing, + thin, + frail appeari ng and cooperative Eyes: PERRL, conjunctivae normal, anicteric sclerae ENMT: external ear and nose normal, oropharynx normal Neck: trachea midline, no thyromegaly Respiratory: normal respiratory effort, lungs clear to auscultation Cardiovascular: RRR, no murmur, no edema Gastrointestinal (Abdomen): normal bowel sounds, soft, nontender, no hepatosplenomegaly Musculoskeletal: no cyanosis or clubbing, extremities motor strength 5/5 Neurologic: PERRL, EOMI, accommodation nl, no face palsy, no dysarthria Psychiatric: Orientation: alert, oriented x 3 and cooperative Eye Contact: good eye contact Speech: + pressured speech Affect: + anxious affect, + tearful affect and + labile affect Thought Process: goal directed thought process Thought Content: + preoccupation Judgment: good judgement Pt preoccupied with discharge and concerned about being homeless Results & Data Vital Signs (Past 12 Hours) Vital Signs Temp Pulse Pulse Resp BP Pulse Ox O2 Del Method 02/17/25 09:43 Nasal Cannula 02/17/25 07:45 Nasal Cannula 02/17/25 07:45 36.6 C 75 18 132/92 93 Nasal Cannula 02/17/25 05:27 82 18 92 Nasal Cannula O2 Flow Rate 02/17/25 09:43 4 02/17/25 07:45 4 02/17/25 07:45 4 02/17/25 05:27 4 Laboratory Results Abnormal lab results 02/17/25 Range/Units 06:33 RDW Std Deviation 47.8 H (36.4-46.3) fL Glucose 112 H (70-99(Fasting)) mg/dl Diagnostic Findings Chest X-Ray 02/16/25 08:06 XR chest 1V portable CLINICAL HISTORY: Dyspnea COMPARISON STUDY: 02/08/2025 FINDINGS: Large right hilar mass with adjacent mild reticular pulmonary opacity is stable. There is stable emphysema. There is increased stranding opacity at the right base with partial obscuration of the right hemidiaphragm. No pleural effusion or pneumothorax. IMPRESSION: Increased atelectasis versus pneumonia right lung base. ACT 112: Negative or not required by law. Electronically signed by: Estevan Huston M.D. 02/16/2025 8:[address] 02/16/25 08:19 CT OF THE CHEST WITH IV CONTRAST CLINICAL HISTORY: Right sided chest pain s/p biopsy. COMPARISON STUDY: Chest CT February 08, 2025. Chest radiograph performed earlier today. TECHNIQUE: Following IV administration of 94 mL of Optiray, helical axial images of the chest were obtained. Sagittal and coronal reconstructions were viewed as well as maximal intensity projections on an independent 3-D workstation. Automated exposure control was utilized for the study. A dose lowering technique was utilized adhering to the principles of ALARA. CT DOSE: 957.82 mGy.cm FINDINGS: There is no pneumothorax or mediastinal hematoma. No pneumomed iastinum is present. A trace pericardial effusion is unchanged. The size the heart is normal. Extensive cervical, mediastinal, right hilar, bilateral axillary and upper abdominal lymphadenopathy is again noted. This is similar to CT of February 08, 2025. Index right supraclavicular lymph node on image 19 of 269 measures 2.9 x 2.3 cm. Right paratracheal lymph node measures 5.3 x 3.7 cm. A peripancreatic lymph node measures 3.3 x 2.6 cm. An infiltrative mass like opacity centered on the right hilum measures 7.9 x 7.7 cm. This may represent the central lung mass or conglomerate adenopathy. As before, the right upper lobe bronchus and bronchus intermedius are occluded. Severe narrowing of the right lower lobe bronchus has increased. Right lower lobe airspace opacities with volume loss have progressed since prior exam. Multiple nodular opacities within the right lung are again noted. There is asymmetric interlobular septal thickening within the right lung with numerous small nodules. Additional small nodules within the left lung are noted. There is underlying emphysema. Trace right pleural effusion is unchanged. A 2.5 x 1 cm pleural implant within the posterior right lower hemithorax is present. There is mild loss of height of the superior endplate of T8 consistent with a fracture is developed since prior CT. There is a probable underlying lytic lesion. Additional smaller lytic lesions within the thoracic spine cannot be excluded IMPRESSION: 1. No pneumothorax. No pneumomediastinum. No mediastinal hematoma. 2. Redemonstration of extensive lower cervical, thoracic and upper abdominal lymphadenopathy consistent with jo ann spread of malignancy. Lymphoma is within the differential but considered less likely. 3. Infiltrative mass centered on the right hilum which measures approximately 7.9 x 7.7 cm which results in extensive airway narrowing, as described above. This may represent a central lung malignancy or conglomerate adenopathy. Severe narrowing of the right lower lobe bronchus which has increased with increasing right lower lobe volume atelectasis. 4. Interval development of a T8 vertebral body fracture likely representing a pathologic fracture underlying lytic lesion. 5. 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 6. Emphysema. ACT 112: Negative or not required by law. Electronically signed by: Freddie Stubbs M.D. 02/16/2025 10:11 AM Abdomen/Pelvis CT 02/16/25 18:16 Exam(s): CT ABDOMEN + PELVIS With Contrast EXAM: CT Abdomen and Pelvis With Intravenous Contrast CLINICAL HISTORY: Reason for exam: lung cancer, r/o mets. TECHNIQUE: Axial computed tomography images of the abdomen and pelvis with intravenous contrast. CTDI is 21.8 mGy and DLP is 1114.58 mGy-cm. Automated exposure control was utilized for the study. A dose lowering technique was utilized adhering to the principles of ALARA. CONTRAST: Contrast type and volume not available at completion of the exam. COMPARISON: CT abdomen and pelvis: 01/31/2025 FINDINGS: Lung bases: There is increase in right infrahilar and right basilar consolidation suggestive of pneumonia. Postobstructive pneumonia is not excluded. Follow-up evaluation with a complete CT chest with IV contrast is recommended. . Heart: There are mild scattered coronary artery atherosclerotic calcifications. There is a small pericardial effusion. ABDOMEN: Liver: Unremarkable. No mass. Gallbladder and bile ducts: There is focal fundal gallbladder wall thickening and a small retained gallstones. Findings are suggestive of a phrygian cap. No intrahepatic bile duct dilatation is noted. Pancreas: Unremarkable. No mass. No ductal dilation. Spleen: Unremarkable. No splenomegaly. Adrenals: Unremarkable. No mass. Kidneys and ureters: There is a small simple left renal cyst. No solid renal mass or hydronephrosis. Stomach and bowel: There is a moderate stool burden suggestive of constipation. No bowel thickening or obstruction. No free air or abscess. PELVIS: Appendix: No findings to suggest acute appendicitis. Bladder: Unremarkable. No mass. Reproductive: Unremarkable as visualized. ABDOMEN and PELVIS: Intraperitoneal space: See above. Bones/joints: No acute fracture. No dislocation. Soft tissues: Unremarkable. Vasculature: There is scattered aortoiliac atherosclerotic calcifications. There is mid aortic ectasia measuring up to 2.8 cm. No abdominal aortic aneurysm. Lymph nodes: There are bulky enlarged genaro hepatis lymph node suspicious for metastatic jo ann disease. The largest periportal lymph node measures up to 2.4 cm. IMPRESSION: 1. There is increase in right infrahilar and right basilar consolidation suggestive of pneumonia. Postobstructive pneumonia is a consideration. Follow-up evaluation with a complete CT chest with IV contrast is recommended to evaluate for an associated right hilar lung mass.. 2. There are bulky enlarged genaro hepatis lymph node suspicious for metastatic jo ann disease. The largest periportal lymph node measures up to 2.4 cm. 3. Mild to moderate stool burden suggestive of constipation. Electronically signed by: Sebas Diaz MD 02/16/25 21:54 PM Brain MRI 02/16/25 18:16 EXAM: MR brain wo/w con CLINICAL HISTORY: lung cancer, r/o mets TECHNIQUE: MRI of the brain was performed with and without intravenous 8cc gadavist contrast administration. Sequences obtained include pre-contrast and post-contrast T1-weighted, T2-weighted, FLAIR (Fluid-Attenuated Inversion Recovery), DWI (Diffusion-Weighted Imaging), and ADC (Apparent Diffusion Coefficient) sequences. COMPARISON: No previous studies are available for comparison. FINDINGS: Brain Parenchyma: No evidence of infarction or hemorrhage. Mild diffuse T2 and FLAIR hyperintense signals are identified in the periventricular deep white matter Few tiny FLAIR hyperintense signals are identified periventricular region bilaterally Monsalve-white matter differentiation is preserved. No abnormal signal-intensity lesions identified. Post-Contrast Findings: No abnormal enhancement of the brain parenchyma or meninges. Ventricles and Sulci: Age-appropriate changes seen in the brain parenchyma with mild to moderate widening of sulci and mild dilatation of the ventricular system seen. Brainstem and Cerebellum: Normal appearance of the brainstem and cerebellum without focal lesions or abnormal enhancement. Vessels: Intracranial vessels appear normal without evidence of vascular malformations or aneurysms. Skull and Calvarium: No evidence of skull vault lesions or abnormal marrow signal within the calvarium. Mild mucosal thickening identified in bilateral ethmoid sinus IMPRESSION: 1. No lesions identified in brain parenchyma to suggest metastatic deposits. 2. Age appropriate volume loss in brain parenchyma and bilateral periventricular deep white matter ischemic changes. 3. Few tiny FLAIR hyperintense signals are identified in periventricular deep white matter likely due to microvascular ischemic changes. 4. Mild bilateral ethmoid sinusitis. 5. Electronically signed by Abelardo Ocasio 02-17-2025 01:25 AM Medications Administered Current Inpatient Medications Acetaminophen (Acetaminophen 500 Mg Tab) 1,000 mg PO Q8H PRN PRN Reason: Fever Stop: 03/18/25 13:14 Last Admin: 02/17/25 04:29 Dose: 1,000 mg Albuterol (Albut/Ipratrop 3mg/0.5mg Neb 3 Ml Vial) 3 ml NEB Q4R PRN; Protocol PRN Reason: Shortness Of Breath Or Wheezing Stop: 03/18/25 14:07 Last Admin: 02/17/25 05:27 Dose: 3 ml Amlodipine Besylate (Amlodipine Besylate 5 Mg Tab) 10 mg PO DAILY [facility] Stop: 03/19/25 08:59 Last Admin: 02/17/25 08:18 Dose: 10 mg Benzonatate (Benzonatate 100 Mg Capsule) 100 mg PO TID PRN PRN Reason: Cough Stop: 03/18/25 13:59 Last Admin: 02/17/25 00:30 Dose: 100 mg Calcitonin [place]on (Calcitonin [place] Na 200 Iu/Ac 3.7 Ml Btl) 1 sprays NA DAILY [place] Stop: 03/18/25 13:29 Last Admin: 02/17/25 08:20 Dose: 1 sprays Calcium Carbonate (Calcium Carbonate 500 Mg Chewable Tab) 1,000 mg PO Q6H PRN PRN Reason: Indigestion Stop: 03/19/25 13:22 Dexamethasone (Dexamethasone 4 Mg Tab) 8 mg PO DAILY@1130 [facility] Stop: 02/19/25 11:31 Enoxaparin Sodium (Enoxaparin Inj 40 Mg/0.4 Ml Syr) 40 mg SQ Q24H [place] Stop: 03/18/25 20:59 Last Admin: 02/16/25 20:07 Dose: 40 mg Filgrastim (Filgrastim 480 Mcg/1.6 Ml Vial) 480 mcg SQ DAILY [place] Stop: 02/21/25 09:01 Finasteride (Finasteride 5 Mg Tab) 5 mg PO DAILY [place] Stop: 03/19/25 08:59 Last Admin: 02/17/25 08:17 Dose: 5 mg Fluticasone Furoate (Fluticasone Furoate 200mcg 14 Puffs/Inhaler) 1 puffs INH DAILY [facility] Stop: 03/19/25 08:59 Last Admin: 02/17/25 08:19 Dose: 1 puffs Fluticasone Propionate (Fluticasone Propionate Na Spr 16 Gm Btl) 2 sprays NA DAILY [facility] Stop: 03/19/25 08:59 Last Admin: 02/17/25 08:19 Dose: 2 sprays Guaifenesin (Guaifenesin 600 Mg Tabcr) 600 mg PO Q12 [facility] Stop: 03/18/25 20:59 Last Admin: 02/17/25 08:18 Dose: 600 mg Guaifenesin/Codeine Phosphate (Guaifenesin/Codeine 200mg/20mg 10ml Udc) 10 ml PO Q6H PRN PRN Reason: Cough Stop: 03/18/25 17:19 Last Admin: 02/17/25 04:29 Dose: 10 ml Palonosetron 0.25 mg/ Syringe 5 mls @ 10 mls/min IV TODAY@1130 [facility] Stop: 02/19/25 11:31 Etoposide 200 mg/ Sodium (Chloride) 510 mls @ 510 mls/hr IV DAILY@1200 [facility]; Protocol Stop: 02/19/25 12:59 Lidocaine (Lidocaine 5% 1 Patch) 1 patch TD QAM [facility] Stop: 03/19/25 08:59 Last Admin: 02/17/25 08:25 Dose: 1 patch Melatonin (Melatonin 3 Mg Tab) 3 mg PO HS PRN PRN Reason: Insomnia Stop: 03/18/25 13:14 Miscellaneous (Remove Lidoderm Patch) 1 each N/A DAILY@2100 [facility] Stop: 03/18/25 20:59 Last Admin: 02/16/25 20:06 Dose: Not Given Morphine Sulfate (Morphine Sulfate 2 Mg/Ml Carp) 4 mg IV Q3H PRN PRN Reason: Pain Stop: 03/02/25 12:03 Last Admin: 02/17/25 11:32 Dose: 4 mg Nystatin (Nystatin 500,000 Unit Tab) 500,000 units PO QID [facility] Stop: 02/27/25 12:59 Ondansetron HCl (Ondansetron Inj 2 Mg/Ml 2 Ml Vial) 4 mg IV Q6H PRN PRN Reason: Nausea Stop: 03/18/25 13:14 Last Admin: 02/17/25 08:40 Dose: 4 mg Pantoprazole Sodium (Pantoprazole 40 Mg Tab) 40 mg PO DAILY [facility] Stop: 03/19/25 08:59 Last Admin: 02/17/25 08:18 Dose: 40 mg Polyethylene Glycol (Polyethylene (Miralax) 17 Gm Pack) 17 gm PO DAILY PRN PRN Reason: Constipation Stop: 03/18/25 13:14 Polyethylene Glycol (Polyethylene (Miralax) 17 Gm Pack) 17 gm PO DAILY [facility] Stop: 03/18/25 13:14 Last Admin: 02/17/25 08:30 Dose: 17 gm Senna/Docusate Sodium (Docusate Sodium/Senna 50/8.6mg Tab) 1 tab PO QAM [facility] Stop: 03/19/25 08:59 Last Admin: 02/17/25 08:30 Dose: 1 tab Tamsulosin HCl (Tamsulosin Hcl 0.4 Mg Cap) 0.8 mg PO DAILY [facility] Stop: 03/19/25 08:59 Last Admin: 02/17/25 08:18 Dose: 0.8 mg Umeclidinium/Vilanterol (Umeclidinium/Vilanterol 62.5/25mcg 7 Puffs/Inhaler) 1 puffs INH DAILY [facility] Stop: 03/19/25 08:59 Last Admin: 02/17/25 08:19 Dose: 1 puffs PG Care Time/CCT Total # of Minutes Spent Total Time Spent with Patient: Total time spent is greater than 50% in coordination of care (as documented) at patient's floor/unit and/or counseling patient: Advanced Care Planning 46465 Advanced Care Planning 30 [place] [address] IN/OBS CONSULT LVL 3,45M Patient Type New Medical Decision Making Moderate Complexity Diagnoses Palliative care by specialist Z51.5 Right-sided chest pain R07.9 Anxiety associated with cancer diagnosis F41.1; C80.1 Counseling regarding advanced directives and goals of care Z71.89 Additional Codes Advanced Care Planning - 25916 Advanced Care Planning 30 Min: 99784 Advanced Care Planning 30 Min ([id number])
[2025-02-17] MEDS: NYSTATIN 500,000 UNIT TAB PO SCH (13:39)
[2025-02-17] MEDS: CALCIUM CARBONATE 500 MG CHEWABLE TAB PO PRN (13:39)
--- NOTE | 2025-02-17 14:33 | Hematology/Oncology Prog Note ---
Date of Service February 17, 2025 Assessment & Plan (1) Extensive stage primary small cell carcinoma of lung: Plan Plan to proceed with cycle 1, day 1 of treatment today with carboplatin/etoposide. Admission and Anticipated Discharge Date Admission Date: February 16, 2025 Results & Data Vital Signs (Past 12 Hours) Vital Signs Temp Pulse Pulse Resp BP BP Pulse Ox 02/17/25 13:42 120/75 02/17/25 09:43 02/17/25 07:45 02/17/25 07:45 36.6 C 75 18 132/92 93 02/17/25 05:27 82 18 92 O2 Del Method O2 Flow Rate 02/17/25 13:42 02/17/25 09:43 Nasal Cannula 4 02/17/25 07:45 Nasal Cannula 4 02/17/25 07:45 Nasal Cannula 4 02/17/25 05:27 Nasal Cannula 4
[2025-02-17] MEDS: FAMOTIDINE 20MG IV PUSH 20 MG/5 ML SYR IV STA (15:15)
[2025-02-17] MEDS: SODIUM CHLORIDE 0.65% NA SOLN 45 ML (OCEAN) ONE (18:42)
--- NOTE | 2025-02-17 19:14 | Hospitalist Progress Note ---
Date of Service February 17, 2025 Assessment & Plan (1) Metastatic primary lung cancer: (2) Hypoxia: (3) Compression fracture of T8 vertebra: Plan Christopher is a 69M with a PMHx of tobacco use, COPD, GERD, HLD who presents to the ED with shortness of breath and uncontrollable pain. He had a recent bronchoscopy wt Dr. 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 Now requiring supplemental oxygen. CT chest without signs of infection or fluid overload though right lower lobe bronchus appears obstructed. Admitted for pain control, oncology evaluation. Review of imaging in ED and on admission: - large right hilar primary mass obstructing RLL bronchus, numerous pulmonary mets, lymphangitic carcinomatosis, extensive lymphadenopathy above and below the diaphragm on CT chest, abd/pelvis. brain MRI negative for mets #Metastatic small cell lung carcinoma #Pathologic T8 vertebral fracture caused by underlying metastasis #severe cancer related pain -reviewed recommendations by Dr. Jones - day /3 of cycle 1 carboplatin/etoposide -radiation oncology consulted -palliative care consulted - discussed plan of care with Jennifer Magallon - continue morphine 4 mg IV prn for now, reviewed PDMP no recent rx's, may transition to fentanyl patch for discharge -scheduled and PRN antitussives since cough severely aggravates pain -I doubt postobstructive pneumonia at this time, though he is at risk of this -hypoxia related to metastatic lung cancer - dyspnea better on supp O2, will need 2-step prior to discharge #T8 Compression fracture Not an area where TLSO bracing is effective Calcitonin Nasal spray. Lidocaine patch, opioids as above #severe heartburn. Just got antiemetics for chemo -TUMS partially effective, maalox not effective -already on PPI -ordered pepcid 20 mg IV HTN - continue amlodipine BPH - continue finasteride, flomax. CBC, BMP reviewed today - Hg normal 16, Cr 1, potassium and Na normal Social difficulties - discussed with palliative care. He is about to lose his house which is in probate and will be sold. Son is helping but is few hours away, lives in [facility]. Its a 5-6h round trip for his son to bring him to [place] for appointments. Has been getting by poorly alone at home last few weeks because of severe pain. We are making referral to outpatient case management. DVT proh: lovenox CODE STATUS: CONDITIONAL CODE (no chest compression) - please revisit as stay progresses, is considering DNR/DNI Admission and Anticipated Discharge Date Admission Date: February 16, 2025 Subjective chest pain is controlled with morphine 4 mg IV prn, back pain improved with lidoderm and morphine currently having severe heartburn, partially improved by tums no nausea/emesis chemo infusion running now Physical Exam 2 Physical Exam: PHYSICAL EXAMINATION Last 24h vital signs reviewed, see documentation in flowsheet General: comfortable appearing, no distress, lying in bed HEENT: Normocephalic, atraumatic, pupils round and equal, sclerae anicteric, no conjunctival injection, moist mucus membranes Lungs: Normal respiratory effort. Clear to auscultation bilaterally. No RRW Heart: Regular rate and rhythm, no murmurs. No JVD Abdomen: Soft, nontender, nondistended. Bowel sounds present. Extremities: Warm, dry, well-perfused. No extremity edema. Neuro: Alert and oriented x 4, face symmetric, moves 4 extremities well Psych: Normal affect and behavior Results & Data Results & Data Vital Signs (Past 12 Hours) Vital Signs Temp Pulse Resp BP BP Pulse Ox O2 Del Method 02/17/25 15:38 36.4 C L 85 20 135/82 92 Nebulizer 02/17/25 15:34 18 Nasal Cannula 02/17/25 13:42 120/75 02/17/25 09:43 Nasal Cannula 02/17/25 07:45 Nasal Cannula 02/17/25 07:45 36.6 C 75 18 132/92 93 Nasal Cannula O2 Flow Rate 02/17/25 15:38 02/17/25 15:34 4 02/17/25 13:42 02/17/25 09:43 4 02/17/25 07:45 4 02/17/25 07:45 4 Laboratory Results 02/17/25 06:33 02/17/25 06:33 PG Care Time/CCT Total # of Minutes Spent Total Time Spent with Patient: Total time spent is greater than 50% in coordination of care (as documented) at patient's floor/unit and/or counseling patient: Coding Level of Care Code 41350 SUB INP/OBS CARE 3/50MIN Diagnoses Metastatic primary lung cancer C34.90 Hypoxia R09.02 Compression fracture of T8 vertebra S22.060A
[2025-02-17] MEDS: POLYETHYLENE (MIRALAX) 17 GM PACK PO PRN (20:17)
[2025-02-18] MEDS: MoRPHine SULFATE 4 MG/ML 1 ML CARP\\VIAL IV ONE ×2 (09:45→12:24)
[2025-02-18] MEDS: dexAMETHasone 4 MG TAB PO SCH (11:35)
[2025-02-18] MEDS: ETOPOSIDE 200 MG in SODIUM CHLORIDE 0.9% 500 ML IV SCH (12:20)
[2025-02-18] MEDS: ONDANSETRON INJ 2 MG/ML 2 ML VIAL IV SCH (12:34)
[2025-02-18] MEDS: fentaNYL 25 MCG/HR TDSY TD SCH (12:35)
[2025-02-18] MEDS: LORazepam 2 MG/1 ML VIAL IV STA (12:39)
--- NOTE | 2025-02-18 14:06 | Palliative Care Progress Note ---
Date of Service February 18, 2025 Assessment & Plan (1) Palliative care by specialist: Plan: Palliative care will continue to follow for ongoing symptom management and patient support. Pt will follow with outpt palliative care team after discharge. (2) Anxiety associated with cancer diagnosis: Plan: Pt appears very anxious, refusing any anxiolytics or mood stabilizing medications. PRN ativan is ordered and encouraged with pt. Discussed that pain and insomnia can be lessened with an anxiolytic. Helped pt understand that anxiety can cause insomnia as well as worsen pain. He again denied anxiety of need for mood stabilizing medication. He refuses any "psych meds". (3) Counseling regarding advanced directives and goals of care: Plan: Goals of carea clearly established for ongoing life prolonging therapy and cancer directed treatments. (4) Cancer related pain: Plan: Pt continues to require frequent IV morphine for pain. Discussed adding Duragesic and Remeron to his medications for better pain control and better sleep. Pt acceptant of Duragesic, but refuses any "psych meds". He again denied anxiety of need for mood stabilizing medication. Pt consistently using morphine q3-4h, with 28mg IVP over last 24h (84OMEs). Pt is not opiate naive and OME equivalency would amount to approximately 42mg/hr TD fentanyl. Will start pt on one 25mcg/hr duragesic patch q72h and continue 4mg IV morphine q3h prn for BTP. Will reassess on Friday for adequate dosing. Discussed with pt, who is agreeable, and attending Dr. Casillas. Plan as above Admission and Anticipated Discharge Date Admission Date: February 16, 2025 Subjective Assessed pt at bedside today, he was being prepared for chemotherapy infusion and appeared very anxious although he denied anxiety. He expressed concern and fear about his cancer and that he continues to have pain "around my tumor" that requires frequent morphine. He shared that he did not sleep last night and has not moved hi bowels in five days other than a very small black BM this morning. He is concerned for GIB. Review of Systems Review of Systems: All systems reviewed & are unremarkable except as noted in HPI & below Right shoulder/chest pain continues as previous Gastrointestinal: + heartburn and + nausea Musculoskeletal: + back pain and + muscle weakness Psychiatric: + anxiety Physical Exam Constitutional: + ill appearing, + thin, + frail appeari ng and cooperative Eyes: PERRL, conjunctivae normal, anicteric sclerae ENMT: external ear and nose normal, oropharynx normal Neck: trachea midline, no thyromegaly Respiratory: normal respiratory effort, lungs clear to auscultation Cardiovascular: RRR, no murmur, no edema Gastrointestinal (Abdomen): normal bowel sounds, soft, nontender, no hepatosplenomegaly Musculoskeletal: no cyanosis or clubbing, extremities motor strength 5/5 Neurologic: PERRL, EOMI, accommodation nl, no face palsy, no dysarthria Psychiatric: Orientation: alert, oriented x 3 and cooperative Eye Contact: good eye contact Speech: + pressured speech Affect: + anxious affect, + tearful affect and + labile affect Thought Process: goal directed thought process Thought Content: + preoccupation Judgment: good judgement Pt preoccupied with discharge and concerned about being homeless Results & Data Vital Signs (Past 12 Hours) Vital Signs Temp Pulse Resp BP Pulse Ox O2 Del Method O2 Flow Rate 02/18/25 12:02 80 20 130/72 92 Nasal Cannula 4 02/18/25 11:16 76 16 91 Nasal Cannula 4 02/18/25 11:07 36.6 C 63 22 132/65 89 L Nasal Cannula 4 02/18/25 07:29 36.4 C L 81 20 114/71 90 Nasal Cannula 4 Diagnostic Findings Chest X-Ray 02/16/25 08:06 XR chest 1V portable CLINICAL HISTORY: Dyspnea COMPARISON STUDY: 02/08/2025 FINDINGS: Large right hilar mass with adjacent mild reticular pulmonary opacity is stable. There is stable emphysema. There is increased stranding opacity at the right base with partial obscuration of the right hemidiaphragm. No pleural effusion or pneumothorax. IMPRESSION: Increased atelectasis versus pneumonia right lung base. ACT 112: Negative or not required by law. Electronically signed by: Estevan Huston M.D. 02/16/2025 8:[address] 02/16/25 08:19 CT OF THE CHEST WITH IV CONTRAST CLINICAL HISTORY: Right sided chest pain s/p biopsy. COMPARISON STUDY: Chest CT February 08, 2025. Chest radiograph performed earlier today. TECHNIQUE: Following IV administration of 94 mL of Optiray, helical axial images of the chest were obtained. Sagittal and coronal reconstructions were viewed as well as maximal intensity projections on an independent 3-D workstation. Automated exposure control was utilized for the study. A dose lowering technique was utilized adhering to the principles of ALARA. CT DOSE: 957.82 mGy.cm FINDINGS: There is no pneumothorax or mediastinal hematoma. No pneumomediastinum is present. A trace pericardial effusion is unchanged. The size the heart is normal. Extensive cervical, mediastinal, right hilar, bilateral axillary and upper abdominal lymphadenopathy is again noted. This is similar to CT of February 08, 2025. Index right supraclavicular lymph node on image 19 of 269 measures 2.9 x 2.3 cm. Right paratracheal lymph node measures 5.3 x 3.7 cm. A peripancreatic lymph node measures 3.3 x 2.6 cm. An infiltrative mass like opacity centered on the right hilum measures 7.9 x 7.7 cm. This may represent the central lung mass or conglomerate adenopathy. As before, the right upper lobe bronchus and bronchus intermedius are occluded. Severe narrowing of the right lower lobe bronchus has increased. Right lower lobe airspace opacities with volume loss have progressed since prior exam. Multiple nodular opacities within the right lung are again noted. There is asymmetric interlobular septal thickening within the right lung with numerous small nodules. Additional small nodules within the left lung are noted. There is underlying emphysema. Trace right pleural effusion is unchanged. A 2.5 x 1 cm pleural implant within the posterior right lower hemithorax is present. There is mild loss of height of the superior endplate of T8 consistent with a fracture is developed since prior CT. There is a probable underlying lytic lesion. Additional smaller lytic lesions within the thoracic spine cannot be excluded IMPRESSION: 1. No pneumothorax. No pneumomediastinum. No mediastinal hematoma. 2. Redemonstration of extensive lower cervical, thoracic and upper abdominal lymphadenopathy consistent with jo ann spread of malignancy. Lymphoma is within the differential but considered less likely. 3. Infiltrative mass centered on the right hilum which measures approximately 7.9 x 7.7 cm which results in extensive airway narrowing, as described above. This may represent a central lung malignancy or conglomerate adenopathy. Severe narrowing of the right lower lobe bronchus which has increased with increasing right lower lobe volume atelectasis. 4. Interval development of a T8 vertebral body fracture likely representing a pathologic fracture underlying lytic lesion. 5. 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 6. Emphysema. ACT 112: Negative or not required by law. Electronically signed by: Freddie Stubbs M.D. 02/16/2025 10:11 AM Abdomen/Pelvis CT 02/16/25 18:16 Exam(s): CT ABDOMEN + PELVIS With Contrast EXAM: CT Abdomen and Pelvis With Intravenous Contrast CLINICAL HISTORY: Reason for exam: lung cancer, r/o mets. TECHNIQUE: Axial computed tomography images of the abdomen and pelvis with intravenous contrast. CTDI is 21.8 mGy and DLP is 1114.58 mGy-cm. Automated exposure control was utilized for the study. A dose lowering technique was utilized adhering to the principles of ALARA. CONTRAST: Contrast type and volume not available at completion of the exam. COMPARISON: CT abdomen and pelvis: 01/31/2025 FINDINGS: Lung bases: There is increase in right infrahilar and right basilar consolidation suggestive of pneumonia. Postobstructive pneumonia is not excluded. Follow-up evaluation with a complete CT chest with IV contrast is recommended. . Heart: There are mild scattered coronary artery atherosclerotic calcifications. There is a small pericardial effusion. ABDOMEN: Liver: Unremarkable. No mass. Gallbladder and bile ducts: There is focal fundal gallbladder wall thickening and a small retained gallstones. Findings are suggestive of a phrygian cap. No intrahepatic bile duct dilatation is noted. Pancreas: Unremarkable. No mass. No ductal dilation. Spleen: Unremarkable. No splenomegaly. Adrenals: Unremarkable. No mass. Kidneys and ureters: There is a small simple left renal cyst. No solid renal mass or hydronephrosis. Stomach and bowel: There is a moderate stool burden suggestive of constipation. No bowel thickening or obstruction. No free air or abscess. PELVIS: Appendix: No findings to suggest acute appendicitis. Bladder: Unremarkable. No mass. Reproductive: Unremarkable as visualized. ABDOMEN and PELVIS: Intraperitoneal space: See above. Bones/joints: No acute fracture. No dislocation. Soft tissues: Unremarkable. Vasculature: There is scattered aortoiliac atherosclerotic calcifications. There is mid aortic ectasia measuring up to 2.8 cm. No abdominal aortic aneurysm. Lymph nodes: There are bulky enlarged genaro hepatis lymph node suspicious for metastatic jo ann disease. The largest periportal lymph node measures up to 2.4 cm. IMPRESSION: 1. There is increase in right infrahilar and right basilar consolidation suggestive of pneumonia. Postobstructive pneumonia is a consideration. Follow-up evaluation with a complete CT chest with IV contrast is recommended to evaluate for an associated right hilar lung mass.. 2. There are bulky enlarged genaro hepatis lymph node suspicious for metastatic jo ann disease. The largest periportal lymph node measures up to 2.4 cm. 3. Mild to moderate stool burden suggestive of constipation. Electronically signed by: Sebas Diaz MD 02/16/25 21:54 PM Brain MRI 02/16/25 18:16 EXAM: MR brain wo/w con CLINICAL HISTORY: lung cancer, r/o mets TECHNIQUE: MRI of the brain was performed with and without intravenous 8cc gadavist contrast administration. Sequences obtained include pre-contrast and post-contrast T1-weighted, T2-weighted, FLAIR (Fluid-Attenuated Inversion Recovery), DWI (Diffusion-Weighted Imaging), and ADC (Apparent Diffusion Coefficient) sequences. COMPARISON: No previous studies are available for comparison. FINDINGS: Brain Parenchyma: No evidence of infarction or hemorrhage. Mild diffuse T2 and FLAIR hyperintense signals are identified in the periventricular deep white matter Few tiny FLAIR hyperintense signals are identified periventricular region bilaterally Monsalve-white matter differentiation is preserved. No abnormal signal-intensity lesions identified. Post-Contrast Findings: No abnormal enhancement of the brain parenchyma or meninges. Ventricles and Sulci: Age-appropriate changes seen in the brain parenchyma with mild to moderate widening of sulci and mild dilatation of the ventricular system seen. Brainstem and Cerebellum: Normal appearance of the brainstem and cerebellum without focal lesions or abnormal enhancement. Vessels: Intracranial vessels appear normal without evidence of vascular malformations or aneurysms. Skull and Calvarium: No evidence of skull vault lesions or abnormal marrow signal within the calvarium. Mild mucosal thickening identified in bilateral ethmoid sinus IMPRESSION: 1. No lesions identified in brain parenchyma to suggest metastatic deposits. 2. Age appropriate volume loss in brain parenchyma and bilateral periventricular deep white matter ischemic changes. 3. Few tiny FLAIR hyperintense signals are identified in periventricular deep white matter likely due to microvascular ischemic changes. 4. Mild bilateral ethmoid sinusitis. 5. Electronically signed by Abelardo Ocasio 02-17-2025 01:25 AM Medications Administered Current Inpatient Medications Acetaminophen (Acetaminophen 500 Mg Tab) 1,000 mg PO Q8H PRN PRN Reason: Fever Stop: 03/18/25 13:14 Last Admin: 02/18/25 12:16 Dose: 1,000 mg Albuterol (Albut/Ipratrop 3mg/0.5mg Neb 3 Ml Vial) 3 ml NEB Q4R PRN; Protocol PRN Reason: Shortness Of Breath Or Wheezing Stop: 03/18/25 14:07 Last Admin: 02/18/25 11:15 Dose: 3 ml Amlodipine Besylate (Amlodipine Besylate 5 Mg Tab) 10 mg PO DAILY [facility] Stop: 03/19/25 08:59 Last Admin: 02/18/25 09:06 Dose: 10 mg Benzonatate (Benzonatate 100 Mg Capsule) 100 mg PO TID PRN PRN Reason: Cough Stop: 03/18/25 13:59 Last Admin: 02/18/25 06:50 Dose: 100 mg Calcitonin Scott (Calcitonin Scott Na 200 Iu/Ac 3.7 Ml Btl) 1 sprays NA DAILY [facility] Stop: 03/18/25 13:29 Last Admin: 02/18/25 09:07 Dose: 1 sprays Calcium Carbonate (Calcium Carbonate 500 Mg Chewable Tab) 1,000 mg PO Q6H PRN PRN Reason: Indigestion Stop: 03/19/25 13:22 Last Admin: 02/17/25 20:07 Dose: 1,000 mg Dexamethasone (Dexamethasone 4 Mg Tab) 8 mg PO DAILY@1130 [facility] Stop: 02/19/25 11:31 Last Admin: 02/18/25 11:35 Dose: 8 mg Enoxaparin Sodium (Enoxaparin Inj 40 Mg/0.4 Ml Syr) 40 mg SQ Q24H [facility] Stop: 03/18/25 20:59 Last Admin: 02/17/25 20:08 Dose: Not Given Fentanyl (Fentanyl 25 Mcg/Hr Tdsy) 1 patch TD Q3D [facility] Stop: 03/04/25 12:29 Last Admin: 02/18/25 12:35 Dose: 1 patch Filgrastim (Filgrastim 480 Mcg/1.6 Ml Vial) 480 mcg SQ DAILY [facility] Stop: 02/21/25 09:01 Finasteride (Finasteride 5 Mg Tab) 5 mg PO DAILY [facility] Stop: 03/19/25 08:59 Last Admin: 02/18/25 10:00 Dose: 5 mg Fluticasone Furoate (Fluticasone Furoate 200mcg 14 Puffs/Inhaler) 1 puffs INH DAILY [facility] Stop: 03/19/25 08:59 Last Admin: 02/18/25 09:09 Dose: 1 puffs Fluticasone Propionate (Fluticasone Propionate Na Spr 16 Gm Btl) 2 sprays NA DAILY [facility] Stop: 03/19/25 08:59 Last Admin: 02/18/25 09:07 Dose: 2 sprays Guaifenesin (Guaifenesin 600 Mg Tabcr) 600 mg PO Q12 [facility] Stop: 03/18/25 20:59 Last Admin: 02/18/25 09:06 Dose: 600 mg Guaifenesin/Codeine Phosphate (Guaifenesin/Codeine 200mg/20mg 10ml Udc) 10 ml PO Q6H PRN PRN Reason: Cough Stop: 03/18/25 17:19 Last Admin: 02/18/25 09:47 Dose: 10 ml Palonosetron 0.25 mg/ Syringe 5 mls @ 10 mls/min IV TODAY@1130 [facility] Stop: 02/19/25 11:31 Etoposide 200 mg/ Sodium (Chloride) 510 mls @ 510 mls/hr IV DAILY@1200 [facility]; Protocol Stop: 02/19/25 12:59 Last Admin: 02/18/25 12:20 Dose: 510 mls/hr Pantoprazole Sodium (Protonix) 40 mg in 10 mls @ 5 mls/min IV BID [facility] Stop: 03/20/25 20:59 Lidocaine (Lidocaine 5% 1 Patch) 1 patch TD QAM [facility] Stop: 03/19/25 08:59 Last Admin: 02/18/25 09:06 Dose: 1 patch Lorazepam (Lorazepam 2 Mg/1 Ml Vial) 0.5 mg IV Q6H PRN PRN Reason: Anxiety/Agitation Stop: 03/20/25 12:15 Melatonin (Melatonin 3 Mg Tab) 3 mg PO HS PRN PRN Reason: Insomnia Stop: 03/18/25 13:14 Miscellaneous (Remove Lidoderm Patch) 1 each N/A DAILY@2100 [facility] Stop: 03/18/25 20:59 Last Admin: 02/17/25 20:09 Dose: 1 each Miscellaneous (Fentanyl Patch Remove & Waste) 1 each N/A Q3D [facility] Stop: 03/20/25 12:29 Last Admin: 02/18/25 12:35 Dose: Not Given Miscellaneous (Check Fentanyl Patch Placement) 1 each N/A QS [facility] Stop: 03/20/25 15:59 Morphine Sulfate (Morphine Sulfate 2 Mg/Ml Carp) 4 mg IV Q3H PRN PRN Reason: Pain Stop: 03/02/25 12:03 Last Admin: 02/18/25 12:15 Dose: 4 mg Nystatin (Nystatin 500,000 Unit Tab) 500,000 units PO QID [facility] Stop: 02/27/25 12:59 Last Admin: 02/18/25 12:35 Dose: 500,000 units Ondansetron HCl (Ondansetron Inj 2 Mg/Ml 2 Ml Vial) 4 mg IV Q6H [facility] Stop: 03/20/25 12:29 Last Admin: 02/18/25 12:34 Dose: 4 mg Pantoprazole Sodium (Pantoprazole 40 Mg Tab) 40 mg PO DAILY [facility] Stop: 03/19/25 08:59 Last Admin: 02/18/25 09:06 Dose: 40 mg Polyethylene Glycol (Polyethylene (Miralax) 17 Gm Pack) 17 gm PO DAILY PRN PRN Reason: Constipation Stop: 03/18/25 13:14 Last Admin: 02/18/25 06:46 Dose: 17 gm Polyethylene Glycol (Polyethylene (Miralax) 17 Gm Pack) 17 gm PO DAILY [facility] Stop: 03/18/25 13:14 Last Admin: 02/17/25 20:16 Dose: 17 gm Senna/Docusate Sodium (Docusate Sodium/Senna 50/8.6mg Tab) 1 tab PO QAM [facility] Stop: 03/19/25 08:59 Last Admin: 02/18/25 09:12 Dose: Not Given Tamsulosin HCl (Tamsulosin Hcl 0.4 Mg Cap) 0.8 mg PO DAILY [facility] Stop: 03/19/25 08:59 Last Admin: 02/18/25 09:06 Dose: 0.8 mg Umeclidinium/Vilanterol (Umeclidinium/Vilanterol 62.5/25mcg 7 Puffs/Inhaler) 1 puffs INH DAILY [facility] Stop: 03/19/25 08:59 Last Admin: 02/18/25 09:08 Dose: 1 puffs PG Care Time/CCT Total # of Minutes Spent Total Time Spent with Patient: Total time spent is greater than 50% in coordination of care (as documented) at patient's floor/unit and/or counseling patient: Coding [place] [address] SUB INP/OBS CARE 350MIN Patient Type Established History Problem Focused Exam Expanded Problem Focused Medical Decision Making Moderate Complexity Diagnoses Palliative care by specialist Z51.5 Anxiety associated with cancer diagnosis F41.1; C80.1 Counseling regarding advanced directives and goals of care Z71.89 Cancer related pain G89.3
[2025-02-18] MEDS: CHECK fentaNYL PATCH PLACEMENT SCH (15:19)
[2025-02-18] MEDS: MoRPHine SULFATE 2 MG/ML CARP IV PRN (15:19)
--- NOTE | 2025-02-18 16:02 | XRay Report ---
XR chest 1V portable CLINICAL HISTORY: cough COMPARISON STUDY: 02/16/2025 FINDINGS: There is abrupt cut off of the right mainstem bronchus with interval opacification of the m ajority of the right hemithorax with shift of the heart and mediastinum to the right suggesting volum e loss. Left lung remains well aerated. No pneumothorax. IMPRESSION: Likely obstruction of the right mainstem bronchus with partial collapse of the right romero g. Underlying lung mass, pulmonary consolidation, and pleural fluid not excluded. ACT 112: Negative or not required by law. Electronically signed by: Estevan Huston M.D. 02/18/2025 4:00 PM
--- NOTE | 2025-02-18 17:24 | Hospitalist Progress Note ---
Date of Service February 18, 2025 Assessment & Plan (1) Metastatic primary lung cancer: (2) Hypoxia: (3) Compression fracture of T8 vertebra: Plan Christopher is a 69M with a PMHx of tobacco use, COPD, GERD, HLD who presents to the ED with shortness of breath and uncontrollable pain. He had a recent bronchoscopy [facility] Dr. 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 Now requiring supplemental oxygen. CT chest without signs of infection or fluid overload though right lower lobe bronchus appears obstructed. Admitted for pain control, oncology evaluation. Review of imaging in ED and on admission: - large right hilar primary mass obstructing RLL bronchus, numerous pulmonary mets, lymphangitic carcinomatosis, extensive lymphadenopathy above and below the diaphragm on CT chest, abd/pelvis. brain MRI negative for mets #Metastatic small cell lung carcinoma #Pathologic T8 vertebral fracture caused by underlying metastasis #severe cancer related pain -chemo per Dr. Jones - day 2/3 of cycle 1 carboplatin/etoposide -radiation oncology consulted -palliative care consulted - discussed plan of care with Jennifer Magallon - starting 25 mcg fentanyl patch. Required increase in morphine dose from 4-->6 mg for pain today. -scheduled and PRN antitussives since cough severely aggravates pain -hypoxia related to metastatic lung cancer - dyspnea better on supp O2, will need 2-step prior to discharge #Postobstructive pneumonia - today he had increased purulent sputum, increased chest pain (same location) and increased O2 requirement. CXR with RLL collapse, opacification of right middle and lower escalera, some apical infiltrate per my interpretation of the film. Significantly worse than admission film -start pip-tazo -sputum culture and MRSA nares -recheck procal in AM, CBC, BMP #Black stool - reports black stool this AM, not seen by myself or nursing. Is at risk for upper GI bleeding from esophagitis, ulcers etc. Had severe heartburn yesterday. Changed PPI to IV bid. Ordered midday CBC but it was never done - reordered. AM CBC. Held enoxaparin. May need GI consult #T8 Compression fracture Not an area where TLSO bracing is effective Calcitonin Nasal spray. Lidocaine patch, opioids as above HTN - continue amlodipine BPH - continue finasteride, flomax. Social difficulties - He is about to lose his house which is in probate and will be sold. Son is helping but is few hours away, lives in [facility]. Its a 5-6h round trip for his son to bring him to [place] for appointments. Has been getting by poorly alone at home last few weeks because of severe pain. made referral to outpatient case management. PT/OT evals ordered DVT proh: lovenox - HELD CODE STATUS: CONDITIONAL CODE (no chest compression) - please revisit as stay progresses, is considering DNR/DNI Admission and Anticipated Discharge Date Admission Date: February 16, 2025 Subjective R chest pain - same pain but seems worse today. got several doses of morphine early and req dose increase Coughing up thick sputum Physical Exam 2 Physical Exam: PHYSICAL EXAMINATION Last 24h vital signs reviewed, see documentation in flowsheet General: sitting on EOB HEENT: Normocephalic, atraumatic, pupils round and equal, sclerae anicteric, no conjunctival injection, moist mucus membranes Lungs: Normal respiratory effort. breath sounds diminished R mid/base Heart: Regular rate and rhythm, no murmurs. No JVD Abdomen: Soft, nontender, nondistended. Bowel sounds present. Extremities: Warm, dry, well-perfused. No extremity edema. Neuro: Alert and oriented x 4, face symmetric, moves 4 extremities well Psych: Normal affect and behavior Results & Data Results & Data Vital Signs (Past 12 Hours) Vital Signs Temp Pulse Resp BP Pulse Ox O2 Del Method O2 Flow Rate 02/18/25 15:28 36.7 C 66 17 148/75 H 88 L Nasal Cannula 4 02/18/25 12:02 80 20 130/72 92 Nasal Cannula 4 02/18/25 11:16 76 16 91 Nasal Cannula 4 02/18/25 11:07 36.6 C 63 22 132/65 89 L Nasal Cannula 4 02/18/25 09:00 Nasal Cannula 4 02/18/25 07:29 36.4 C L 81 20 114/71 90 Nasal Cannula 4 Laboratory Results 02/17/25 06:33 02/17/25 06:33 PG Care Time/CCT Total # of Minutes Spent Total Time Spent with Patient: Total time spent is greater than 50% in coordination of care (as documented) at patient's floor/unit and/or counseling patient: Coding Level of Care Code 34746 SUB INP/OBS CARE 3/50MIN Diagnoses Metastatic primary lung cancer C34.90 Hypoxia R09.02 Compression fracture of T8 vertebra S22.060A
[2025-02-18 17:47] LABS: Hematocrit (blood only) 49.4 % (42.0-52.0); Hemoglobin 16.6 g/dl (14.0-18.0); Mean Corpuscular Hemoglobin 31.1 pg (25.0-34.0); Mean Corpuscular Hgb Conc 33.6 g/dL (32.0-36.0); Mean Corpuscular Volume 92.7 fL (80.0-100.0); Mean Platelet Volume 11.8 fL (9.4-12.4); Platelet Count 324 K/uL (130-400); RDW Coefficient of Variation 14.4 % (11.5-14.5); RDW Standard Deviation 48.7 fL (36.4-46.3); Red Blood Count 5.33 M/uL (4.70-6.10); White Blood Count 18.75 K/ul (4.8-10.8)
[2025-02-18 18:01] LABS: BUN Creatinine Ratio 30.6 (10-20); Calcium 9.6 mg/dl (8.6-10.3); Creatinine Clr Calc Pharmacy 77.9 ml/min; Potassium 4.9 mmol/L (3.5-5.1)
[2025-02-18] MEDS: PIPERACILLIN/TAZOBACTAM 4.5 GM/100 ML BAG IV STA (18:30)
[2025-02-18] MEDS: PANTOprazole 40 MG/10 ML SYR IV SCH (20:38)
[2025-02-18] MEDS: PIPERACILLIN/TAZOBACTAM 4.5 GM/100 ML BAG IV SCH (21:31)
[2025-02-19 06:25] LABS: Hematocrit (blood only) 47.3 % (42.0-52.0); Hemoglobin 15.6 g/dl (14.0-18.0); Mean Corpuscular Hemoglobin 30.9 pg (25.0-34.0); Mean Corpuscular Volume 93.7 fL (80.0-100.0); Mean Platelet Volume 12.2 fL (9.4-12.4); Platelet Count 293 K/uL (130-400); RDW Coefficient of Variation 14.5 % (11.5-14.5); RDW Standard Deviation 49.8 fL (36.4-46.3); Red Blood Count 5.05 M/uL (4.70-6.10); White Blood Count 16.39 K/ul (4.8-10.8)
[2025-02-19 07:07] LABS: Calcium 9.2 mg/dl (8.6-10.3); Creatinine Clr Calc Pharmacy 68.2 ml/min; Potassium 4.9 mmol/L (3.5-5.1)
--- NOTE | 2025-02-19 08:58 | Pulmonary Consultation ---
Date of Consultation February 19, 2025 Assessment & Plan (1) Extensive stage primary small cell carcinoma of lung: (2) Metastatic primary lung cancer: (3) Pleuritic chest pain: (4) COPD (chronic obstructive pulmonary disease) with chronic bronchitis: (5) Situational anxiety: (6) Multifocal pneumonia: (7) Postobstructive pneumonia: Plan CT chest 02/16/2025 personally reviewed: Centrilobular emphysema appreciated bilaterally Bulky mediastinal as well as right hilar lymphadenopathy with significant narrowing of the RBI Consolidative changes appreciated in the right middle as well as right lower lobe likely postobstructive pneumonia Supraclavicular as well as axillary lymphadenopathy appreciated --Acute hypoxic respiratory failure There is worsening on the chest x-ray compared to the time of presentation especially on the right side This is likely from tumor obstructing the RBI. He also has postobstructive pneumonia in the right lower lobe as well as right middle lobe Procalcitonin 0.86, nasal MRSA negative Respiratory BioFire was negative for everything -- Extensive small cell lung cancer Diagnosed 02/11/2025 MRI of the brain was negative for any lesions Currently getting chemotherapy Plan: Continue with broad-spectrum antibiotics Unsure if the patient is aspirating especially given that he is given pain medication for the intractable pain I think majority of the issue is extensive compression of the RBI from the bulky mediastinal and hilar lymphadenopathy Trial of hypertonic saline with flutter valve could be thought of, keeping in mind that he is in pain from the metastatic disease that he has. Pain management along with this might be the best option here along with antibiotics I do not think intervention like bronchoscopy is going to make any difference here given that it is anatomical issue. If the patient's oxygen requirement continues to increase then high flow would be a better option the nasal cannula. I would recommend against intubation in this patient in future because the issue is anatomical secondary to the hilar lymphadenopathy and mass and it would not be reversible with intubation. Overall prognosis is guarded Case was discussed with primary team as well as RN at bedside Please note the above document was generated using voice recognition software. It may contain grammatical, syntax or spelling errors.Any formal questions or concerns about the content, text or information contained within the body of this dictation should be directly addressed to the provider for clarification. History of Present Illness Attending Physician: Alise Casillas MD History of Present Illness 69-year-old male was admitted to the hospital for shortness of breath and uncontrollable pain Past medical history: Recently diagnosed extensive small cell lung cancer, COPD, GERD, dyslipidemia Pulmonary consulted for worsening right sided opacity At the time of examination patient had just returned from the washroom. He had taken his inhalers which is Arnuity and Anoro. His saturation was 79-80% on 5 L nasal cannula., I initially bumped oxygen to 8 L but he was still 85-86% so had to increase it to 10 L He does seem to have some underlying anxiety. He was on morphine 6 mg but it was decreased to 4 mg as his oxygen requirement went up overnight. He was concerned about that and he was still complaining of significant chest pain on the right side which is worse when he is coughing or taking deep breaths in. When he came in his phlegm was very thick and difficult to bring up. It has improved in the sense that is less thick but still not easy to bring up He denies any hemoptysis right now. No abdominal pain No unusual headache or blurry vision No fever or chills Social history: [id number]-[id number] smoking history, quit at the age of 58 Allergies Allergy/AdvReac Type Severity Reaction Status Date / Time No Known Drug Allergies Allergy Unknown Verified 02/11/25 07:30 Home Medications Medication Instructions Recorded Confirmed Type fluticasone propionate 50 2 sprays intranasal DAILY #47.4 06/01/19 02/16/25 Rx mcg/actuation nasal grams spray,suspension omeprazole 20 mg capsule,delayed 20 mg PO DAILY #90 caps 06/01/19 02/16/25 Rx release ketoconazole 2 % shampoo 1 applic topical DAILY #120 mL 06/30/20 02/16/25 Rx triamcinolone acetonide 0.1 % 1 applic topical BID PRN skin 03/27/21 02/16/25 Rx topical cream irritation #80 grams Medical Marijuana 1 inh inhalation DAILY 04/29/23 02/16/25 History amlodipine 10 mg tablet 10 mg PO DAILY #90 tabs 03/11/24 02/16/25 Rx finasteride 5 mg tablet 5 mg PO DAILY #100 tabs 03/12/24 02/16/25 Rx tamsulosin 0.4 mg capsule 0.8 mg (2 x 0.4 mg) PO DAILY #200 03/12/24 02/16/25 Rx caps fluticasone fur. 200 mcg-umeclid 1 inh inhalation DAILY #180 ea 03/17/24 02/16/25 Rx 62.5 mcg-vilant 25 mcg inhalat.powder (Trelegy Ellipta) fluorouracil 5 % topical cream 1 applic topical DAILY #40 grams 11/09/24 02/16/25 Rx albuterol sulfate 90 mcg/actuation 2 puff inhalation Q4H PRN 01/31/25 02/16/25 Rx aerosol inhaler shortness of breath or wheezing #6.7 grams Patient History Medical History Hyperlipidemia Surgical History H/O hernia repair History of back surgery Family History Mother Osteoarthritis Other No pertinent family history Social History Smoking Status: Former smoker Tobacco Type: Cigarettes Age Started Using Tobacco: 17; Age Quit Using Tobacco: 58; packs per day: 2; Second Hand Exposure: No; Do You Dip or Chew Tobacco: No; Hx Alcohol Use: No Hx Substance Use: Yes (Medical marijuana) Last Used Substance: Days (ago) Last Used Substance Other:: 3 weeks ago Preferred Language: Chinese Communication Ability: Effective Credit Assistant Required: No Beliefs That Will Affect Care: None marital status: Current Living Situation: Alone current occupational status: disabled Other Information That Helps Us Care for You: Yes (Currently under a lot of stress with mother's affairs.) Feels Safe at Home: Yes Safety Concerns: Feels Safe At This Time caffeine: Yes Seatbelt Use: always Assistive Devices: Cane Review of Systems 2 Review of Systems: All systems reviewed & are unremarkable except as noted in HPI & below Physical Exam 2 Physical Exam: Constitutional: No acute distress HEENT: EOMI, PERRLA Respiratory system: Decreased air entry on the right side, no wheeze, no rhonchi, positive crackles appreciated on the right side, Velcro-like in the right lower lobe CVS: S1-S2 positive, no murmurs or gallops Abdomen: Soft, nontender, nondistended, positive bowel sounds x4 Extremities: +2 pulses bilaterally radialis/ dorsalis pedis, no cyanosis, no edema Neuro: Awake alert oriented x3 Psych: Normal mood and affect G/U: No Zamarripa Skin: no rashes, warm and dry Lymphatic: no cervical or axillary lymphadenopathy Results & Data Results & Data Vital Signs (Past 12 Hours) Vital Signs Temp Pulse Resp BP Pulse Ox O2 Del Method O2 Flow Rate 02/19/25 07:49 86 L Nasal Cannula 5 02/19/25 07:47 36.8 C 75 19 139/83 85 L Nasal Cannula 5 Laboratory Results 02/19/25 05:38 02/19/25 05:38 PG Care Time/CCT Total # of Minutes Spent Total Time Spent with Patient: Total time spent is greater than 50% in coordination of care (as documented) at patient's floor/unit and/or counseling patient: Coding Level of Care Code 55896 INT INP/OBS CARE 3/75MIN Diagnoses Extensive stage primary small cell carcinoma of lung C34.90 Metastatic primary lung cancer C34.90 Pleuritic chest pain R07.81 COPD (chronic obstructive pulmonary disease) with chronic bronchitis J44.9 Situational anxiety F41.8 Multifocal pneumonia J18.9 Postobstructive pneumonia J18.9
[2025-02-19] MEDS ORDERED: BENZONATATE 100 MG CAPSULE PO PRN (09:00)
--- NOTE | 2025-02-19 09:14 | Hospitalist Progress Note ---
Date of Service February 19, 2025 Assessment & Plan (1) Metastatic primary lung cancer: (2) Hypoxia: (3) Compression fracture of T8 vertebra: Plan Christopher is a 69M with a PMHx of tobacco use, COPD, GERD, HLD who presents to the ED with shortness of breath and uncontrollable pain. He had a recent bronchoscopy wt Dr. 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 Now requiring supplemental oxygen. Admission CT chest without signs of infection or fluid overload though right lower lobe bronchus obstructed. Admitted for pain control, oncology evaluation. Review of imaging in ED and on admission: - large right hilar primary mass obstructing RLL bronchus, numerous pulmonary mets, lymphangitic carcinomatosis, extensive lymphadenopathy above and below the diaphragm on CT chest, abd/pelvis. brain MRI negative for mets #Metastatic small cell lung carcinoma #Pathologic T8 vertebral fracture caused by underlying metastasis #severe cancer related pain -chemo per Dr. Jones - day 3 of cycle 1 carboplatin/etoposide -radiation oncology consulted -palliative care consulted - 25 mcg fentanyl patch started 02/18. Required increase in morphine dose from 4-->6 mg for pain - 4 mg not effective this AM and increased back to 6 which was effective -consider adding gabapentin in case neuropathic component -scheduled and PRN antitussives since cough severely aggravates pain - increased guaifenasin/tessalon -hypoxia related to metastatic lung cancer - will need 2-step prior to discharge #Postobstructive pneumonia, RLL collapse progressed on CXR 02/18, RML collapse new, acute hypoxic respiratory failure needing 8-10L oxygen pnc this am (previously 2L) -pip-tazo started 02/18. Leukocytosis 16K relatively unchanged may be all or in part from filgrastim. Serial procal only minimally elevated. Sputum culture pending. MRSA nares negative. Sputum has thinned since yest -Repeat CXR report reviewed, film not loaded - unchanged from yesterday. Transfer PCU. Consulted Dr. Galeas, pulmonology - discussed with him. cont abx chemo flutter valve, trial saline nebs and/or Mucomyst nebs. Procedural intervention unlikely to be helpful at this time. #Black stool - reported black stool 02/18, not seen by myself or nursing. Nursing recorded large BROWN stool last night. Christopher reports another black stool this AM Is at risk for upper GI bleeding from esophagitis, ulcers etc. Has had severe heartburn type pain, improved. Cont PPI IV bid. Hg has gone down from 16-->15.6. Held enoxaparin. Monitor stools. #T8 Compression fracture Not an area where TLSO bracing is effective Calcitonin Nasal spray. Lidocaine patch, opioids as above HTN - continue amlodipine BPH - continue finasteride, flomax. Social difficulties - He is about to lose his house which is in probate and will be sold. Son is helping but is few hours away, lives in the [facility]. Its a 5-6h round trip for his son to bring him to [facility] for appointments. Has been getting by poorly alone at home last few weeks because of severe pain. made referral to outpatient case management. PT/OT evals ordered, not completed yesterday since getting chemo DVT proh: lovenox - HELD - resume tonight or tomorrow AM if no further concern for GI bleeding CODE STATUS: CONDITIONAL CODE (no chest compression) - please revisit as stay progresses, is considering DNR/DNI Admission and Anticipated Discharge Date Admission Date: February 16, 2025 Subjective increased hypoxia - 2L yesterday AM now 5L sats mid 80s - turned up to 8-10L and satting 87-88%. Doesn't feel short of breath. Stabbing Rt upper chest pain continues - 6 mg of morphine was effective but 4 mg was not this am Coughing up sputum - thinner today compared to prior 48h Physical Exam 2 Physical Exam: PHYSICAL EXAMINATION Last 24h vital signs reviewed, see documentation in flowsheet General: up on EOB HEENT: Normocephalic, atraumatic, pupils round and equal, sclerae anicteric, no conjunctival injection, moist mucus membranes Lungs: Normal respiratory effort. breath sounds diminished to absent R mid/base, clear on L Heart: Regular rate and rhythm, no murmurs. No JVD. Rt upper chest wall is tender Abdomen: Soft, nontender, nondistended. Bowel sounds present. Extremities: Warm, dry, well-perfused. No extremity edema. Neuro: Alert and oriented x 4, face symmetric, moves 4 extremities well Psych: anxious affect and behavior Results & Data Results & Data Vital Signs (Past 12 Hours) Vital Signs Temp Pulse Resp BP Pulse Ox O2 Del Method O2 Flow Rate 02/19/25 07:49 86 L Nasal Cannula 5 02/19/25 07:47 36.8 C 75 19 139/83 85 L Nasal Cannula 5 Laboratory Results 02/19/25 05:38 02/19/25 05:38 PG Care Time/CCT Total # of Minutes Spent Total Time Spent with Patient: Total time spent is greater than 50% in coordination of care (as documented) at patient's floor/unit and/or counseling patient: Coding Level of Care Code 48066 SUB INP/OBS CARE 3/50MIN Diagnoses Metastatic primary lung cancer C34.90 Hypoxia R09.02 Compression fracture of T8 vertebra S22.060A
[2025-02-19] MEDS: MoRPHine SULFATE 2 MG/ML CARP IV PRN ×2 (09:29→12:47)
[2025-02-19] MEDS: guaiFENesin 600 MG TABCR PO SCH (09:51)
--- NOTE | 2025-02-19 10:09 | XRay Report ---
XR chest 1V portable CLINICAL HISTORY: postobstructive pneumonia COMPARISON STUDY: Chest CT February 16, 2025. Chest radiograph February 18, 2025. FINDINGS: There is no pneumothorax. Extensive opacification of the right hemithorax with volume loss is unchanged since chest radiograph of February 18, 2025. This has significantly increased since chest r adiograph and chest CT of February 16, 2025. There is no pneumothorax. Suspected small right pleural eff usion. Pulmonary vascular congestion persists. Mediastinal and right hilar lymphadenopathy and [place]ire[place] central right lung mass are better depicted on chest CT of February 16, 2025. IMPRESSION: 1. Extensive right lung airspace opacity with volume loss, similar to chest radiograph of February 18 but increased since earlier exam of February 16, 2025. This represents partial right lung collapse d ue to underlying lymphadenopathy/central right lung mass better depicted on chest CT. 2. Pulmonary vascular congestion with possible mild pulmonary edema. ACT 112: Negative or not required by law. Electronically signed by: Freddie Stubbs M.D. 02/19/2025 10:06 AM
[2025-02-19] MEDS: MoRPHine SULFATE 2 MG/ML CARP IV STA (10:39)
[2025-02-19] MEDS: PALONOSETRON 0.25 MG in SYRINGE 0 ML IV SCH (12:46)
[2025-02-19] MEDS: FAMOTIDINE 20MG IV PUSH 20 MG/5 ML SYR IV PRN (14:33)
[2025-02-19] MEDS: SODIUM CHLOR 7% 4 ML NEB NEB SCH (19:46)
[2025-02-19] MEDS: MELATONIN 3 MG TAB PO PRN (20:51)
[2025-02-20 06:37] LABS: Hematocrit (blood only) 44.8 % (42.0-52.0); Hemoglobin 14.8 g/dl (14.0-18.0); Mean Corpuscular Hemoglobin 30.3 pg (25.0-34.0); Mean Corpuscular Volume 91.8 fL (80.0-100.0); Mean Platelet Volume 11.7 fL (9.4-12.4); Platelet Count 230 K/uL (130-400); RDW Standard Deviation 47.4 fL (36.4-46.3); Red Blood Count 4.88 M/uL (4.70-6.10); White Blood Count 9.32 K/ul (4.8-10.8)
[2025-02-20 06:54] LABS: Calcium 8.8 mg/dl (8.6-10.3); Creatinine Clr Calc Pharmacy 90.9 ml/min; Potassium 4.3 mmol/L (3.5-5.1)
[2025-02-20] MEDS: FILGRASTIM 480 MCG/1.6 ML VIAL SQ SCH (10:15)
--- NOTE | 2025-02-20 12:12 | Pulmonology Progress Note ---
Date of Service February 20, 2025 Assessment & Plan (1) Extensive stage primary small cell carcinoma of lung: (2) Metastatic primary lung cancer: (3) Pleuritic chest pain: (4) COPD (chronic obstructive pulmonary disease) with chronic bronchitis: (5) Situational anxiety: (6) Multifocal pneumonia: (7) Postobstructive pneumonia: Plan CT chest 02/16/2025 personally reviewed: Centrilobular emphysema appreciated bilaterally Bulky mediastinal as well as right hilar lymphadenopathy with significant narrowing of the RBI Consolidative changes appreciated in the right middle as well as right lower lobe likely postobstructive pneumonia Supraclavicular as well as axillary lymphadenopathy appreciated --Acute hypoxic respiratory failure There is worsening on the chest x-ray compared to the time of presentation especially on the right side This is likely from tumor obstructing the RBI. He also has postobstructive pneumonia in the right lower lobe as well as right middle lobe Procalcitonin 0.86, nasal MRSA negative Respiratory BioFire was negative for everything -- Extensive small cell lung cancer Diagnosed 02/11/2025 MRI of the brain was negative for any lesions Currently getting chemotherapy Plan: I think majority of the issue is extensive compression of the RBI from the bulky mediastinal and hilar lymphadenopathy Pain management along with this might be the best option here along with antibiotics I do not think intervention like bronchoscopy is going to make any difference here given that it is anatomical issue. Continue with antibiotics Continue with hypertonic saline along with flutter valve If the patient's oxygen requirement continues to increase then high flow would be a better option the nasal cannula. I would recommend against intubation in this patient in future because the issue is anatomical secondary to the hilar lymphadenopathy and mass and it would not be reversible with intubation. Overall prognosis is guarded Case was discussed with RN at bedside Please note the above document was generated using voice recognition software. It may contain grammatical, syntax or spelling errors.Any formal questions or concerns about the content, text or information contained within the body of this dictation should be directly addressed to the provider for clarification. Admission and Anticipated Discharge Date Admission Date: February 16, 2025 Subjective Patient seen and examined at bedside. No acute distress, no adverse events overnight Patient was saturating 88-89% on 6 L nasal cannula He has been getting morphine [id number] along with lidocaine patch Still complaining of pain. He says the cough is easier to bring up now. Still has pain when he takes deep breath or coughs Review of Systems 2 Review of Systems: All systems reviewed & are unremarkable except as noted in Subjective Physical Exam 2 Physical Exam: Constitutional: No acute distress HEENT: EOMI, PERRLA Respiratory system: Decreased air entry on the right side, no wheeze, no rhonchi, positive crackles appreciated on the right side, Velcro-like in the right lower lobe CVS: S1-S2 positive, no murmurs or gallops Abdomen: Soft, nontender, nondistended, positive bowel sounds x4 Extremities: +2 pulses bilaterally radialis/ dorsalis pedis, no cyanosis, no edema Neuro: Awake alert oriented x3 Psych: Normal mood and affect G/U: No Zamarripa Skin: no rashes, warm and dry Lymphatic: no cervical or axillary lymphadenopathy Results & Data Results & Data Vital Signs (Past 12 Hours) Vital Signs Temp Pulse Resp BP Pulse Ox O2 Del Method O2 Flow Rate 02/20/25 11:25 37.1 C 73 20 108/67 93 Nasal Cannula 6.0 02/20/25 08:06 36.9 C 86 141/95 H 91 Nasal Cannula 6 02/20/25 07:16 86 18 936 H Nasal Cannula 7 02/20/25 05:03 36.7 C 89 18 150/90 H 90 Nasal Cannula 8 02/20/25 04:12 96 H 17 91 Nasal Cannula 8 Laboratory Results 02/20/25 06:06 02/20/25 06:06 PG Care Time/CCT Total # of Minutes Spent Total Time Spent with Patient: Total time spent is greater than 50% in coordination of care (as documented) at patient's floor/unit and/or counseling patient: Coding Level of Care Code 18850 SUB INP/OBS CARE 2/35MIN Diagnoses Extensive stage primary small cell carcinoma of lung C34.90 Metastatic primary lung cancer C34.90 Pleuritic chest pain R07.81 COPD (chronic obstructive pulmonary disease) with chronic bronchitis J44.9 Situational anxiety F41.8 Multifocal pneumonia J18.9 Postobstructive pneumonia J18.9
[2025-02-20] MEDS ORDERED: MoRPHine Bolus from PCA IV PRN (14:10)
[2025-02-20] MEDS ORDERED: MoRPHine Bolus from PCA IV STA (14:10)
[2025-02-20] MEDS ORDERED: NALOXONE HCL 0.4 MG/1 ML VIAL/CARP IV PRN ×2 (14:10→16:42)
[2025-02-20] MEDS: SODIUM CHLORIDE 0.9% 1,000 ML IV SCH (15:44)
[2025-02-20] MEDS: SODIUM CHLOR 7% 4 ML NEB NEB SCH (15:53)
--- NOTE | 2025-02-20 16:59 | Hospitalist Progress Note ---
Date of Service February 20, 2025 Assessment & Plan (1) Metastatic primary lung cancer: (2) Hypoxia: (3) Compression fracture of T8 vertebra: Plan Christopher is a 69M with a PMHx of tobacco use, COPD, GERD, HLD who presents to the ED with shortness of breath and uncontrollable pain. He had a recent bronchoscopy wt Dr. 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 Now requiring supplemental oxygen. Admission CT chest without signs of infection or fluid overload though right lower lobe bronchus obstructed. Admitted for pain control, oncology evaluation. Review of imaging in ED and on admission: - large right hilar primary mass obstructing RLL bronchus, numerous pulmonary mets, lymphangitic carcinomatosis, extensive lymphadenopathy above and below the diaphragm on CT chest, abd/pelvis. brain MRI negative for mets #Metastatic small cell lung carcinoma #Pathologic T8 vertebral fracture caused by underlying metastasis #severe cancer related pain -chemo per Dr. 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 Leukocytosis 16K relatively unchanged may be all or in part from filgrastim. Serial procal only minimally elevated. Sputum culture grew normal godwin. MRSA nares negative. - continue pip-tazo, flutter valve, I-S - reviewed pulmonary recs in Dr. Galeas's note - hypertonic saline nebs ordered, chest x-ray ordered for tomorrow #Black stool - reported black stool 02/18, not seen by myself or nursing. Nursing recorded large BROWN stool last night. Christopher reports another black stool this AM Is at risk for upper GI bleeding from esophagitis, ulcers etc. Has had severe heartburn type pain, improved. Cont PPI IV bid. Held enoxaparin. Monitor stools. - no stools today, hemoglobin adequate at 14.8 - possibly this was related to swallowed blood prior to admission he had been coughing up bloody mucus #T8 Compression fracture Not an area where TLSO bracing is effective Calcitonin Nasal spray. Lidocaine patch, opioids as above HTN - continue amlodipine BPH - continue finasteride, flomax. Social difficulties - He is about to lose his house which is in probate and will be sold. Son is helping but is few hours away, lives in [facility]. Its a 5-6h round trip for his son to bring him to [place] for appointments. Has been getting by poorly alone at home last few weeks because of severe pain. made referral to outpatient case management. PT/OT evals ordered, not completed yesterday since getting chemo DVT proh: lovenox - HELD resume when no further concern for GI bleeding CODE STATUS: CONDITIONAL CODE (no chest compression) - please revisit as stay progresses, is considering DNR/DNI Admission and Anticipated Discharge Date Admission Date: February 16, 2025 Subjective continues to have severe right-sided chest pain "like a knife" whenever he is coughing, has been on 6 mg IV morphine every 3 on the clock he feels sleepier today did sleep for a while last night today feels lightheaded when he gets up to go to the bathroom continues to cough up large quantity of thick green mucus no BMs today Physical Exam 2 Physical Exam: PHYSICAL EXAMINATION Last 24h vital signs reviewed, see documentation in flowsheet General: awake sitting on the edge of the bed no change to exam 02/20, he did cough up some globs of green mucus into a cup for me HEENT: Normocephalic, atraumatic, pupils round and equal, sclerae anicteric, no conjunctival injection, moist mucus membranes Lungs: Normal respiratory effort. breath sounds diminished to absent R mid/base, clear on L Heart: Regular rate and rhythm, no murmurs. No JVD. Rt upper chest wall is tender Abdomen: Soft, nontender, nondistended. Bowel sounds present. Extremities: Warm, dry, well-perfused. No extremity edema. Neuro: Alert and oriented x 4, face symmetric, moves 4 extremities well Psych: anxious affect and behavior Results & Data Results & Data Vital Signs (Past 12 Hours) Vital Signs Temp Pulse Resp BP Pulse Ox O2 Del Method O2 Flow Rate 02/20/25 15:06 37.0 C 95 H 20 158/82 H 89 L Nasal Cannula 6.0 02/20/25 11:25 37.1 C 73 20 108/67 93 Nasal Cannula 6.0 02/20/25 08:06 36.9 C 86 141/95 H 91 Nasal Cannula 6 02/20/25 07:16 86 18 936 H Nasal Cannula 7 02/20/25 05:03 36.7 C 89 18 150/90 H 90 Nasal Cannula 8 Laboratory Results 02/20/25 06:06 02/20/25 06:06 PG Care Time/CCT Total # of Minutes Spent Total Time Spent with Patient: Total time spent is greater than 50% in coordination of care (as documented) at patient's floor/unit and/or counseling patient: Coding Level of Care Code 82139 SUB INP/OBS CARE 3/50MIN Diagnoses Metastatic primary lung cancer C34.90 Hypoxia R09.02 Compression fracture of T8 vertebra S22.060A
[2025-02-20] MEDS: MoRPHine SULFATE PCA 30 MG/30 ML IV PRN (17:38)
[2025-02-21 01:40] LABS: Magnesium 1.9 mg/dl (1.7-2.4)
[2025-02-21] MEDS: MoRPHine Bolus from PCA IV PRN (03:14)
[2025-02-21] MEDS: METOPROLOL TARTRATE 25 MG TAB PO STA (06:24)
--- NOTE | 2025-02-21 07:30 | Pulmonology Progress Note ---
Date of Service February 21, 2025 Assessment & Plan (1) Extensive stage primary small cell carcinoma of lung: (2) Metastatic primary lung cancer: (3) Pleuritic chest pain: (4) COPD (chronic obstructive pulmonary disease) with chronic bronchitis: (5) Situational anxiety: (6) Multifocal pneumonia: (7) Postobstructive pneumonia: Plan CT chest 02/16/2025 personally reviewed: Centrilobular emphysema appreciated bilaterally Bulky mediastinal as well as right hilar lymphadenopathy with significant narrowing of the RBI Consolidative changes appreciated in the right middle as well as right lower lobe likely postobstructive pneumonia Supraclavicular as well as axillary lymphadenopathy appreciated --Acute hypoxic respiratory failure There is worsening on the chest x-ray compared to the time of presentation especially on the right side This is likely from tumor obstructing the RBI. He also has postobstructive pneumonia in the right lower lobe as well as right middle lobe Procalcitonin 0.86, nasal MRSA negative Respiratory BioFire was negative for everything -- Extensive small cell lung cancer Diagnosed 02/11/2025 MRI of the brain was negative for any lesions Currently getting chemotherapy Plan: I think majority of the issue is extensive compression of the RBI from the bulky mediastinal and hilar lymphadenopathy Pain management along with this might be the best option here along with antibiotics I do not think intervention like bronchoscopy is going to make any difference here given that it is anatomical issue. Continue with antibiotics Continue with hypertonic saline along with flutter valve. Add Mucomyst to the regimen If the patient's oxygen requirement continues to increase then high flow would be a better option the nasal cannula. I would recommend against intubation in this patient in future because the issue is anatomical secondary to the hilar lymphadenopathy and mass and it would not be reversible with intubation. Overall prognosis is guarded Case was discussed with RN at bedside Please note the above document was generated using voice recognition software. It may contain grammatical, syntax or spelling errors.Any formal questions or concerns about the content, text or information contained within the body of this dictation should be directly addressed to the provider for clarification. Admission and Anticipated Discharge Date Admission Date: February 16, 2025 Subjective Patient seen and examined at bedside. 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 He was saturating 90% on 9 L nasal cannula Has been complaining of dryness in the nose. Appetite is fair. Still complaining of diffuse pain especially in the back as well as right anterior chest when he takes a deep breath and No hemoptysis The phlegm seems to be still thick and difficult to bring up Review of Systems 2 Review of Systems: All systems reviewed & are unremarkable except as noted in Subjective Physical Exam 2 Physical Exam: Constitutional: No acute distress HEENT: EOMI, PERRLA Respiratory system: Decreased air entry on the right side, no wheeze, no rhonchi, positive crackles appreciated on the right side CVS: S1-S2 positive, no murmurs or gallops Abdomen: Soft, nontender, nondistended, positive bowel sounds x4 Extremities: +2 pulses bilaterally radialis/ dorsalis pedis, no cyanosis, no edema Neuro: Awake alert oriented x3 Psych: Normal mood and affect G/U: No Zamarripa Skin: no rashes, warm and dry Lymphatic: no cervical or axillary lymphadenopathy Results & Data Results & Data Vital Signs (Past 12 Hours) Vital Signs Temp Pulse Pulse Resp BP Pulse Ox O2 Del Method 02/21/25 07:12 105 H 20 89 L Nasal Cannula 02/21/25 02:59 36.8 C 84 20 112/74 89 L Nasal Cannula 02/20/25 23:01 36.8 C 146 H 18 116/61 88 L Nasal Cannula 02/20/25 21:52 108 H 02/20/25 21:00 High Flow Nasal Cannula 02/20/25 19:55 104 H 18 85 L Nasal Cannula 02/20/25 19:41 36.5 C 67 18 117/70 89 L Nasal Cannula O2 Flow Rate 02/21/25 07:12 10 02/21/25 02:59 10.0 02/20/25 23:01 10.0 02/20/25 21:52 02/20/25 21:00 10 02/20/25 19:55 9 02/20/25 19:41 8.0 Laboratory Results 02/20/25 06:06 02/20/25 06:06 PG Care Time/CCT Total # of Minutes Spent Total Time Spent with Patient: Total time spent is greater than 50% in coordination of care (as documented) at patient's floor/unit and/or counseling patient: Coding Level of Care Code 91953 SUB INP/OBS CARE 2/35MIN Diagnoses Extensive stage primary small cell carcinoma of lung C34.90 Metastatic primary lung cancer C34.90 Pleuritic chest pain R07.81 COPD (chronic obstructive pulmonary disease) with chronic bronchitis J44.9 Situational anxiety F41.8 Multifocal pneumonia J18.9 Postobstructive pneumonia J18.9
[2025-02-21 08:53] LABS: BUN Creatinine Ratio 25.4 (10-20); Calcium 8.5 mg/dl (8.6-10.3); Creatinine Clr Calc Pharmacy 64.7 ml/min
[2025-02-21] MEDS ORDERED: METOPROLOL TARTRATE 25 MG TAB PO SCH (09:00)
[2025-02-21] MEDS: METOPROLOL TARTRATE 25 MG TAB PO SCH (09:25)
--- NOTE | 2025-02-21 10:19 | Hospitalist Progress Note ---
Date of Service February 21, 2025 Assessment & Plan (1) Metastatic primary lung cancer: (2) Hypoxia: (3) Compression fracture of T8 vertebra: Plan Christopher is a 69M with a PMHx of tobacco use, COPD, GERD, HLD who presents to the ED with shortness of breath and uncontrollable pain. He had a recent bronchoscopy [facility] Dr. 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 Now requiring supplemental oxygen. Admission CT chest without signs of infection or fluid overload though right lower lobe bronchus obstructed. Admitted for pain control, oncology evaluation. initial imaging with large right hilar primary mass obstructing RLL bronchus, numerous pulmonary mets, lymphangitic carcinomatosis, extensive lymphadenopathy above and below the diaphragm on CT chest, abd/pelvis. brain MRI negative for mets #Metastatic small cell lung carcinoma #Pathologic T8 vertebral fracture caused by underlying metastasis #severe cancer related pain -chemo per Dr. 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 Leukocytosis 16K may be all or in part from filgrastim. Serial procal only minimally elevated. Sputum culture grew normal godwin. MRSA nares negative. - continue pip-tazo, flutter valve, I-S - reviewed pulmonary note recs by Dr. Galeas today - hypertonic saline and Mucomyst nebscontinue - continue Mucomyst and antitussives - continues to have severe hypoxia requiring high flow 8 L, we are going to relax his sat goals because he experiences hiccups whenever his sats are above 92% or so - keep sat 88-90% as long as asymptomatic - chest x-ray done this morning - no report yet, I reviewed film - continues to show RML, RLL collapse with mediastinal shift, increased opacity RUL and visible part of RML, left lung field fairly clear atelectasis in LLL # sinus tachycardia with ectopyPVCs and fusion complexes, PACs overnight - tachycardia resolved, magnesium ordered this morning was normal, chemistry panel this morning with normal potassium - ordered some extra IV magnesium to bring his level 2.0 or greater - the tachycardia and ectopy could be hypoxia related and aggravated by pain - continue metoprolol #Black stool - reported black stool 02/18 and 02/20, intermittently was brown Is at risk for upper GI bleeding from esophagitis, ulcers etc. Has had severe heartburn type pain, improved. Cont PPI IV bid. Held enoxaparin. Monitor stools. - a.m. CBC - possibly this was related to swallowed blood prior to admission he had been coughing up bloody mucus #T8 Compression fracture Not an area where TLSO bracing is effective Calcitonin Nasal spray. Lidocaine patch, opioids as above he reports lightheadedness and tunnel vision when he is sitting on the commode trying to urinate or have a bowel movement, this sounds like vagal reaction, gave liter of normal saline since yesterday but symptoms did not change HTN - continue amlodipine, metoprolol BPH - continue finasteride, flomax. Social difficulties - He is about to lose his house which is in probate and will be sold. Son is helping but is few hours away, lives in [facility]. Its a 5-6h round trip for his son to bring him to [place] for appointments. Has been getting by poorly alone at home last few weeks because of severe pain. made referral to outpatient case management. PT/OT evals ordered, not completed over the weekend DVT proh: lovenox - HELD resume when no further concern for GI bleeding - probably tomorrow CODE STATUS: CONDITIONAL CODE (no chest compression) - please revisit as stay progresses, is considering DNR/DNI Admission and Anticipated Discharge Date Admission Date: February 16, 2025 Subjective continues with right sided chest pain that is very severe and never get aggravated by coughing, he notes that when his oxygen level gets above 92% he starts to have hiccups Pain still not well-controlled and went through to 30 mg TRANSMISSION CALIBRATION ENGINEER cartridges since yesterday afternoon problem is when he has coughing episode he needs more than a 1 mg dose to control his pain, only to 2 mg nurse boluses given overnight today coughing up very very thick brown sputum, ED he is tolerating the nebulizers and he thinks they are helping with mucus clearance he had tachycardia episode last night with ectopy, telemetry and EKG showed sinus tachycardia with lots of PVCs and PACs Physical Exam 2 Physical Exam: PHYSICAL EXAMINATION Last 24h vital signs reviewed, see documentation in flowsheet General: awake lying in bed HEENT: Normocephalic, atraumatic, pupils round and equal, sclerae anicteric, no conjunctival injection, moist mucus membranes Lungs: Normal respiratory effort. Heart: deferred Abdomen: nondistended Extremities: Warm, dry, well-perfused. No extremity edema. Neuro: Alert and oriented x 4, face symmetric, moves 4 extremities well Psych: anxious affect and behavior Results & Data Results & Data Vital Signs (Past 12 Hours) Vital Signs Temp Pulse Resp BP Pulse Ox O2 Del Method O2 Flow Rate 02/21/25 08:00 High Flow Nasal Cannula 02/21/25 07:56 36.4 C L 80 18 125/71 90 High Flow Nasal Cannula 9 02/21/25 07:12 105 H 20 89 L Nasal Cannula 10 02/21/25 02:59 36.8 C 84 20 112/74 89 L Nasal Cannula 10.0 02/20/25 23:01 36.8 C 146 H 18 116/61 88 L Nasal Cannula 10.0 FiO2 02/21/25 08:00 10 02/21/25 07:56 02/21/25 07:12 02/21/25 02:59 02/20/25 23:01 Laboratory Results 02/20/25 06:06 02/21/25 00:57 Diagnostic Findings personally reviewed EKG tracing shows sinus rhythm with PVCs and fusion beats otherwise normal PG Care Time/CCT Total # of Minutes Spent Total Time Spent with Patient: Total time spent is greater than 50% in coordination of care (as documented) at patient's floor/unit and/or counseling patient: Coding Level of Care Code 94223 SUB INP/OBS CARE 3/50MIN Diagnoses Metastatic primary lung cancer C34.90 Hypoxia R09.02 Compression fracture of T8 vertebra S22.060A
[2025-02-21] MEDS: ACETYLCYSTEINE 20% INHAL SOLN 4ML ***DISPENSED BY RESP. INH SCH (10:23)
--- NOTE | 2025-02-21 10:44 | XRay Report ---
XR chest 1V portable CLINICAL HISTORY: f/u COMPARISON STUDY: 02/19/2025 FINDINGS: Stable cardiomegaly without pulmonary vascular congestion. Stable opacity at the right mid and lower lung with obscuration of the right hemidiaphragm and shift of the heart and mediastinum to the right consistent with volume loss due to the central right lung mass better seen on the prior CT. There is stable stranding opacity at the left base. No pneumothorax. IMPRESSION: Stable exam. ACT 112: Negative or not required by law. Electronically signed by: Estevan Huston M.D. 02/21/2025 10:42 AM
[2025-02-21] MEDS: MAGNESIUM SULFATE / D5W 1 GM/100 ML BAG IV SCH (11:35)
--- NOTE | 2025-02-21 14:26 | Electrocardiogram Report ---
Test Reason : Blood Pressure : */* mmHG Vent. Rate : 95 BPM Atrial Rate : 95 BPM P-R Int : 130 ms QRS Dur : 88 ms QT Int : 356 ms P-R-T Axes : 51 43 45 degrees QTcB Int : 447 ms Sinus rhythm with frequent Premature ventricular complexes and Fusion complexes Otherwise normal ECG When compared with ECG of 16-Feb-2025 08:12, Fusion complexes are now Present Premature ventricular complexes are now Present Criteria for Septal infarct are no longer Present Confirmed by Kush Patterson ([id number]) on 02/21/2025 2:26:29 PM Referred By: Dinesh Washington Confirmed By: Kush Patterson
--- NOTE | 2025-02-21 16:07 | Palliative Care Progress Note ---
Date of Service February 21, 2025 Assessment & Plan (1) Palliative care by specialist: Plan: Palliative care will continue to follow for ongoing symptom management and patient support. Pt will follow with outpt palliative care team after discharge. (2) Anxiety associated with cancer diagnosis: Plan: Pt appears very anxious, refusing any anxiolytics or mood stabilizing medications. PRN ativan is ordered and encouraged with pt. Again discussed that pain and insomnia can be lessened with an anxiolytic. Helped pt understand that anxiety can cause insomnia as well as worsen pain. He again denied anxiety of need for mood stabilizing medication. He refuses any "psych meds". (3) Counseling regarding advanced directives and goals of care: Plan: Goals of carea clearly established for ongoing life prolonging therapy and cancer directed treatments. (4) Cancer related pain: Plan: Pt has been placed on COST REPORT CLERK morphine for pain and c/o no sleep for days 2/2 pain. Discussed increasing Duragesic dosing for better pain control and better sleep. Pt acceptant of Duragesic increase, but continues to refuse any "psych meds". He again denied anxiety of need for mood stabilizing medication, despite overt signs of anxiety. Pt has frequent retching and nausea during my visit, but is refusing zofran as well. He attributes his pain and nausea to a high pulse ox reading and continues to refuse treatment other than reducing oxygen delivery until his pulse ox is under 85%. Attempted to address with him that hyoxia can aggravate pain and confusion, he defends his belief that his "body works best at a oxygen level lower that 86". Pt consistently using morphine COST REPORT CLERK with with significantly more attempts at COST REPORT CLERK than medication delivered. Pt is adamant that he is at the 'right COST REPORT CLERK dose for me" and resistant to any changesin COST REPORT CLERK dosing - including increase in dose for better pain mgmt. He shared fear of over dose and we discussed that COST REPORT CLERK is designed to prevent pt from receiving too much opiate. He remains steadfast in his desire for no change in COST REPORT CLERK, but agrees to change in Duragesic. Will increase duragesic to 50mcg/hr duragesic patch q72h and continue COST REPORT CLERK morphine for BTP. Will reassess after 24h for adequate dosing. Discussed with pt, who is agreeable, and attending Dr. Casillas. increase duragesic to 50ucg/hr TD q72h continue COST REPORT CLERK morphine 2mg/20min with NO continuous and clinician bolus of 4mg morphine q1h PRN Additional lidocaine patch for lower back pain(2 patches QD) Plan as above Given pt's mulitple psychosocial and financial challenges that may impede care, Carolina Gann was notified for assistance in identifying resources to housing and possible financial assistance for medications and food. Admission and Anticipated Discharge Date Admission Date: February 16, 2025 Subjective Assessed pt at bedside, he was drowsy but arousable and focused on getting sleep. He aired muliple complaints about needing to sleep today and that he would "need to limit the number of people allowed to be in" his room. He remains on duragesic 25ucg/hr TD and has been started on morphine COST REPORT CLERK over weekend with frequent COST REPORT CLERK use. Review of Systems Review of Systems: All systems reviewed & are unremarkable except as noted in HPI & below Right shoulder/chest pain continues as previous Gastrointestinal: + heartburn and + nausea Musculoskeletal: + back pain and + muscle weakness Psychiatric: + anxiety Physical Exam Constitutional: + ill appearing, + thin, + frail appeari ng and cooperative Eyes: PERRL, conjunctivae normal, anicteric sclerae ENMT: external ear and nose normal, oropharynx normal Neck: trachea midline, no thyromegaly Respiratory: normal respiratory effort, lungs clear to auscultation Cardiovascular: RRR, no murmur, no edema Gastrointestinal (Abdomen): normal bowel sounds, soft, nontender, no hepatosplenomegaly Musculoskeletal: no cyanosis or clubbing, extremities motor strength 5/5 Neurologic: PERRL, EOMI, accommodation nl, no face palsy, no dysarthria Psychiatric: Orientation: alert, oriented x 3 and cooperative Eye Contact: good eye contact Speech: + pressured speech Affect: + anxious affect, + tearful affect and + labile affect Thought Process: goal directed thought process Thought Content: + preoccupation Judgment: good judgement Pt preoccupied with discharge and lack of sleep through day 2/2 multiple caretakers interrupting him. Results & Data Vital Signs (Past 12 Hours) Vital Signs Temp Pulse Pulse Resp BP Pulse Ox O2 Del Method 02/21/25 11:30 36.8 C 90 22 124/74 87 L High Flow Nasal Cannula 02/21/25 10:24 87 20 89 L Nasal Cannula 02/21/25 08:00 High Flow Nasal Cannula 02/21/25 07:56 36.4 C L 80 18 125/71 90 High Flow Nasal Cannula 02/21/25 07:12 105 H 20 89 L Nasal Cannula O2 Flow Rate FiO2 02/21/25 11:30 6 02/21/25 10:24 8 02/21/25 08:00 10 02/21/25 07:56 9 02/21/25 07:12 10 Laboratory Results Abnormal lab results 02/21/25 Range/Units 00:57 BUN 30 H (6-23) mg/dl BUN/Creatinine Ratio 25.4 H (10-20) Glucose 120 H (70-99(Fasting)) mg/dl Calcium 8.5 L (8.6-10.3) mg/dl Diagnostic Findings Chest CT 02/16/25 08:19 CT OF THE CHEST WITH IV CONTRAST CLINICAL HISTORY: Right sided chest pain s/p biopsy. COMPARISON STUDY: Chest CT February 08, 2025. Chest radiograph performed earlier today. TECHNIQUE: Following IV administration of 94 mL of Optiray, helical axial images of the chest were obtained. Sagittal and coronal reconstructions were viewed as well as maximal intensity projections on an independent 3-D workstation. Automated exposure control was utilized for the study. A dose lowering technique was utilized adhering to the principles of ALARA. CT DOSE: 957.82 mGy.cm FINDINGS: There is no pneumothorax or mediastinal hematoma. No pneumomediastinum is present. A trace pericardial effusion is unchanged. The size the heart is normal. Extensive cervical, mediastinal, right hilar, bilateral axillary and upper abdominal lymphadenopathy is again noted. This is similar to CT of February 08, 2025. Index right supraclavicular lymph node on image 19 of 269 measures 2.9 x 2.3 cm. Right paratracheal lymph node measures 5.3 x 3.7 cm. A peripancreatic lymph node measures 3.3 x 2.6 cm. An infiltrative mass like opacity centered on the right hilum measures 7.9 x 7.7 cm. This may represent the central lung mass or conglomerate adenopathy. As before, the right upper lobe bronchus and bronchus intermedius are occluded. Severe narrowing of the right lower lobe bronchus has increased. Right lower lobe airspace opacities with volume loss have progressed since prior exam. Multiple nodular opacities within the right lung are again noted. There is asymmetric interlobular septal thickening within the right lung with numerous small nodules. Additional small nodules within the left lung are noted. There is underlying emphysema. Trace right pleural effusion is unchanged. A 2.5 x 1 cm pleural implant within the posterior right lower hemithorax is present. There is mild loss of height of the superior endplate of T8 consistent with a fracture is developed since prior CT. There is a probable underlying lytic lesion. Additional smaller lytic lesions within the thoracic spine cannot be excluded IMPRESSION: 1. No pneumothorax. No pneumomediastinum. No mediastinal hematoma. 2. Redemonstration of extensive lower cervical, thoracic and upper abdominal lymphadenopathy consistent with jo ann spread of malignancy. Lymphoma is within the differential but considered less likely. 3. Infiltrative mass centered on the right hilum which measures approximately 7.9 x 7.7 cm which results in extensive airway narrowing, as described above. This may represent a central lung malignancy or conglomerate adenopathy. Severe narrowing of the right lower lobe bronchus which has increased with increasing right lower lobe volume atelectasis. 4. Interval development of a T8 vertebral body fracture likely representing a pathologic fracture underlying lytic lesion. 5. 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 6. Emphysema. ACT 112: Negative or not required by law. Electronically signed by: Freddie Stubbs M.D. 02/16/2025 10:11 AM Abdomen/Pelvis CT 02/16/25 18:16 Exam(s): CT ABDOMEN + PELVIS With Contrast EXAM: CT Abdomen and Pelvis With Intravenous Contrast CLINICAL HISTORY: Reason for exam: lung cancer, r/o mets. TECHNIQUE: Axial computed tomography images of the abdomen and pelvis with intravenous contrast. CTDI is 21.8 mGy and DLP is 1114.58 mGy-cm. Automated exposure control was utilized for the study. A dose lowering technique was utilized adhering to the principles of ALARA. CONTRAST: Contrast type and volume not available at completion of the exam. COMPARISON: CT abdomen and pelvis: 01/31/2025 FINDINGS: Lung bases: There is increase in right infrahilar and right basilar consolidation suggestive of pneumonia. Postobstructive pneumonia is not excluded. Follow-up evaluation with a complete CT chest with IV contrast is recommended. . Heart: There are mild scattered coronary artery atherosclerotic calcifications. There is a small pericardial effusion. ABDOMEN: Liver: Unremarkable. No mass. Gallbladder and bile ducts: There is focal fundal gallbladder wall thickening and a small retained gallstones. Findings are suggestive of a phrygian cap. No intrahepatic bile duct dilatation is noted. Pancreas: Unremarkable. No mass. No ductal dilation. Spleen: Unremarkable. No splenomegaly. Adrenals: Unremarkable. No mass. Kidneys and ureters: There is a small simple left renal cyst. No solid renal mass or hydronephrosis. Stomach and bowel: There is a moderate stool burden suggestive of constipation. No bowel thickening or obstruction. No free air or abscess. PELVIS: Appendix: No findings to suggest acute appendicitis. Bladder: Unremarkable. No mass. Reproductive: Unremarkable as visualized. ABDOMEN and PELVIS: Intraperitoneal space: See above. Bones/joints: No acute fracture. No dislocation. Soft tissues: Unremarkable. Vasculature: There is scattered aortoiliac atherosclerotic calcifications. There is mid aortic ectasia measuring up to 2.8 cm. No abdominal aortic aneurysm. Lymph nodes: There are bulky enlarged genaro hepatis lymph node suspicious for metastatic jo ann disease. The largest periportal lymph node measures up to 2.4 cm. IMPRESSION: 1. There is increase in right infrahilar and right basilar consolidation suggestive of pneumonia. Postobstructive pneumonia is a consideration. Follow-up evaluation with a complete CT chest with IV contrast is recommended to evaluate for an associated right hilar lung mass.. 2. There are bulky enlarged genaro hepatis lymph node suspicious for metastatic jo ann disease. The largest periportal lymph node measures up to 2.4 cm. 3. Mild to moderate stool burden suggestive of constipation. Electronically signed by: Sebas Diaz MD 02/16/25 21:54 PM Brain MRI 02/16/25 18:16 EXAM: MR brain wo/w con CLINICAL HISTORY: lung cancer, r/o mets TECHNIQUE: MRI of the brain was performed with and without intravenous 8cc gadavist contrast administration. Sequences obtained include pre-contrast and post-contrast T1-weighted, T2-weighted, FLAIR (Fluid-Attenuated Inversion Recovery), DWI (Diffusion-Weighted Imaging), and ADC (Apparent Diffusion Coefficient) sequences. COMPARISON: No previous studies are available for comparison. FINDINGS: Brain Parenchyma: No evidence of infarction or hemorrhage. Mild diffuse T2 and FLAIR hyperintense signals are identified in the periventricular deep white matter Few tiny FLAIR hyperintense signals are identified periventricular region bilaterally Monsalve-white matter differentiation is preserved. No abnormal signal-intensity lesions identified. Post-Contrast Findings: No abnormal enhancement of the brain parenchyma or meninges. Ventricles and Sulci: Age-appropriate changes seen in the brain parenchyma with mild to moderate widening of sulci and mild dilatation of the ventricular system seen. Brainstem and Cerebellum: Normal appearance of the brainstem and cerebellum without focal lesions or abnormal enhancement. Vessels: Intracranial vessels appear normal without evidence of vascular malformations or aneurysms. Skull and Calvarium: No evidence of skull vault lesions or abnormal marrow signal within the calvarium. Mild mucosal thickening identified in bilateral ethmoid sinus IMPRESSION: 1. No lesions identified in brain parenchyma to suggest metastatic deposits. 2. Age appropriate volume loss in brain parenchyma and bilateral periventricular deep white matter ischemic changes. 3. Few tiny FLAIR hyperintense signals are identified in periventricular deep white matter likely due to microvascular ischemic changes. 4. Mild bilateral ethmoid sinusitis. 5. Electronically signed by Abelardo Ocasio 02-17-2025 01:25 AM Chest X-Ray 02/21/25 07:00 XR chest 1V portable CLINICAL HISTORY: f/u COMPARISON STUDY: 02/19/2025 FINDINGS: Stable cardiomegaly without pulmonary vascular congestion. Stable opacity at the right mid and lower lung with obscuration of the right hemidiaphragm and shift of the heart and mediastinum to the right consistent with volume loss due to the central right lung mass better seen on the prior CT. There is stable stranding opacity at the left base. No pneumothorax. IMPRESSION: Stable exam. ACT 112: Negative or not required by law. Electronically signed by: Estevan Huston M.D. 02/21/2025 10:42 AM Medications Administered Current Inpatient Medications Acetaminophen (Acetaminophen 500 Mg Tab) 1,000 mg PO Q8H PRN PRN Reason: Fever Stop: 03/18/25 13:14 Last Admin: 02/20/25 15:46 Dose: 1,000 mg Acetylcysteine (Acetylcysteine 20% Inhal Soln 4ml Dispensed By Resp.) 5 ml INH Q12R [place] Stop: 03/23/25 09:29 Last Admin: 02/21/25 10:23 Dose: 5 ml Albuterol (Albut/Ipratrop 3mg/0.5mg Neb 3 Ml Vial) 3 ml NEB Q4R PRN; Protocol PRN Reason: Shortness Of Breath Or Wheezing Stop: 03/18/25 14:07 Last Admin: 02/21/25 10:23 Dose: 3 ml Amlodipine Besylate (Amlodipine Besylate 5 Mg Tab) 10 mg PO DAILY [place] Stop: 03/19/25 08:59 Last Admin: 02/21/25 09:45 Dose: 10 mg Benzonatate (Benzonatate 100 Mg Capsule) 100 mg PO TID PRN PRN Reason: Cough Stop: 03/18/25 13:59 Last Admin: 02/19/25 20:51 Dose: 100 mg Calcitonin Lolo (Calcitonin Lolo Na 200 Iu/Ac 3.7 Ml Btl) 1 sprays NA DAILY [place] Stop: 03/18/25 13:29 Last Admin: 02/21/25 09:48 Dose: 1 sprays Calcium Carbonate (Calcium Carbonate 500 Mg Chewable Tab) 1,000 mg PO Q6H PRN PRN Reason: Indigestion Stop: 03/19/25 13:22 Last Admin: 02/19/25 10:40 Dose: 1,000 mg Enoxaparin Sodium (Enoxaparin Inj 40 Mg/0.4 Ml Syr) 40 mg SQ Q24H [place] Stop: 03/18/25 20:59 Last Admin: 02/17/25 20:08 Dose: Not Given Fentanyl (Fentanyl 25 Mcg/Hr Tdsy) 1 patch TD Q3D [place] Stop: 02/24/25 12:29 Last Admin: 02/21/25 11:35 Dose: 1 patch Finasteride (Finasteride 5 Mg Tab) 5 mg PO DAILY [place] Stop: 03/19/25 08:59 Last Admin: 02/21/25 08:07 Dose: 5 mg Fluticasone Furoate (Fluticasone Furoate 200mcg 14 Puffs/Inhaler) 1 puffs INH DAILY [place] Stop: 03/19/25 08:59 Last Admin: 02/21/25 08:15 Dose: 1 puffs Fluticasone Propionate (Fluticasone Propionate Na Spr 16 Gm Btl) 2 sprays NA DAILY [place] Stop: 03/19/25 08:59 Last Admin: 02/21/25 09:48 Dose: 2 sprays Guaifenesin (Guaifenesin 600 Mg Tabcr) 1,200 mg PO Q12 [place] Stop: 03/21/25 08:59 Last Admin: 02/21/25 09:49 Dose: 1,200 mg Guaifenesin/Codeine Phosphate (Guaifenesin/Codeine 200mg/20mg 10ml Udc) 10 ml PO Q6H PRN PRN Reason: Cough Stop: 03/18/25 17:19 Last Admin: 02/18/25 09:47 Dose: 10 ml Pantoprazole Sodium (Protonix) 40 mg in 10 mls @ 5 mls/min IV BID [facility] Stop: 03/20/25 20:59 Last Admin: 02/21/25 08:18 Dose: 5 mls/min Piperacillin Sod/Tazobactam Sod (Zosyn) 4.5 gm in 100 mls @ 25 mls/hr IV Q8H [facility]; Protocol Stop: 02/23/25 21:59 Last Admin: 02/21/25 14:41 Dose: 25 mls/hr Famotidine (Pepcid 20mg Iv Push) 20 mg in 5 mls @ 2.5 mls/min IV DAILY PRN PRN Reason: severe heartburn Stop: 03/21/25 13:27 Last Admin: 02/19/25 14:33 Dose: 2.5 mls/min Lidocaine (Lidocaine 5% 1 Patch) 1 patch TD QAM [facility] Stop: 03/19/25 08:59 Last Admin: 02/21/25 08:16 Dose: 1 patch Lorazepam (Lorazepam 2 Mg/1 Ml Vial) 0.5 mg IV Q6H PRN PRN Reason: Anxiety/Agitation Stop: 03/20/25 12:15 Melatonin (Melatonin 3 Mg Tab) 3 mg PO HS PRN PRN Reason: Insomnia Stop: 03/18/25 13:14 Last Admin: 02/19/25 20:51 Dose: 3 mg Metoprolol Tartrate (Metoprolol Tartrate 25 Mg Tab) 25 mg PO DAILY [facility] Stop: 03/23/25 00:54 Last Admin: 02/21/25 09:25 Dose: Not Given Miscellaneous (Remove Lidoderm Patch) 1 each N/A DAILY@2100 [facility] Stop: 03/18/25 20:59 Last Admin: 02/20/25 23:05 Dose: 1 each Miscellaneous (Fentanyl Patch Remove & Waste) 1 each N/A Q3D [facility] Stop: 03/20/25 12:29 Last Admin: 02/21/25 11:36 Dose: 1 each Miscellaneous (Check Fentanyl Patch Placement) 1 each N/A QS [facility] Stop: 03/20/25 15:59 Last Admin: 02/21/25 09:47 Dose: 1 each Miscellaneous (Remove Lidoderm Patch) 1 each N/A DAILY@2100 [facility] Stop: 03/23/25 20:59 Morphine Sulfate (Morphine Sulfate Machinery Mechanic 30 Mg/30 Ml) 30 mg IV PRN PRN; Protocol PRN Reason: COST REPORT CLERK Pain Titration Stop: 03/06/25 16:41 Last Admin: 02/21/25 10:58 Dose: 30 mg Morphine Sulfate (Morphine Bolus From Machinery Mechanic) 2 mg IV Q2H PRN PRN Reason: cough/prior to neb Stop: 03/06/25 16:41 Last Admin: 02/21/25 06:26 Dose: 2 mg Naloxone HCl (Naloxone Hcl 0.4 Mg/1 Ml Vial/Carp) 0.1 mg IV Q5M PRN; Protocol PRN Reason: Oversedation/Resp Depression Stop: 03/06/25 16:41 Nystatin (Nystatin 500,000 Unit Tab) 500,000 units PO QID [facility] Stop: 02/27/25 12:59 Last Admin: 02/21/25 14:41 Dose: 500,000 units Ondansetron HCl (Ondansetron Inj 2 Mg/Ml 2 Ml Vial) 4 mg IV Q6H [facility] Stop: 03/20/25 12:29 Last Admin: 02/21/25 11:39 Dose: 4 mg Pantoprazole Sodium (Pantoprazole 40 Mg Tab) 40 mg PO DAILY [facility] Stop: 03/19/25 08:59 Last Admin: 02/18/25 09:06 Dose: 40 mg Polyethylene Glycol (Polyethylene (Miralax) 17 Gm Pack) 17 gm PO DAILY PRN PRN Reason: Constipation Stop: 03/18/25 13:14 Last Admin: 02/18/25 06:46 Dose: 17 gm Polyethylene Glycol (Polyethylene (Miralax) 17 Gm Pack) 17 gm PO DAILY [facility] Stop: 03/18/25 13:14 Last Admin: 02/21/25 09:46 Dose: 17 gm Senna/Docusate Sodium (Docusate Sodium/Senna 50/8.6mg Tab) 1 tab PO QAM [facility] Stop: 03/19/25 08:59 Last Admin: 02/21/25 09:46 Dose: 1 tab Sodium Chloride (Sodium Chlor 7% 4 Ml Neb) 4 ml NEB BIDR [facility] Stop: 03/21/25 18:59 Last Admin: 02/21/25 07:11 Dose: 4 ml Tamsulosin HCl (Tamsulosin Hcl 0.4 Mg Cap) 0.8 mg PO DAILY [place] Stop: 03/19/25 08:59 Last Admin: 02/21/25 08:07 Dose: 0.8 mg Umeclidinium/Vilanterol (Umeclidinium/Vilanterol 62.5/25mcg 7 Puffs/Inhaler) 1 puffs INH DAILY [place] Stop: 03/19/25 08:59 Last Admin: 02/21/25 08:15 Dose: 1 puffs PG Care Time/CCT Total # of Minutes Spent Total Time Spent with Patient: Total time spent is greater than 50% in coordination of care (as documented) at patient's floor/unit and/or counseling patient: Coding [place] [id number] SUB INP/OBS CARE 3/50MIN Patient Type Established Medical Decision Making Moderate Complexity Diagnoses Palliative care by specialist Z51.5 Anxiety associated with cancer diagnosis F41.1; C80.1 Counseling regarding advanced directives and goals of care Z71.89 Cancer related pain G89.3
[2025-02-21] MEDS: LIDOCAINE 5% 1 PATCH TD STA (16:18)
[2025-02-21] MEDS: fentaNYL 25 MCG/HR TDSY TD ONE (16:24)
[2025-02-22] MEDS ORDERED: ONDANSETRON INJ 2 MG/ML 2 ML VIAL IV PRN (01:13)
[2025-02-22 08:36] LABS: Hematocrit (blood only) 45.4 % (42.0-52.0); Mean Corpuscular Hemoglobin 30.7 pg (25.0-34.0); Mean Platelet Volume 12.2 fL (9.4-12.4); Platelet Count 208 K/uL (130-400); RDW Coefficient of Variation 13.9 % (11.5-14.5); RDW Standard Deviation 47.6 fL (36.4-46.3); Red Blood Count 4.88 M/uL (4.70-6.10)
[2025-02-22] MEDS: CHECK fentaNYL PATCH PLACEMENT SCH (08:57)
[2025-02-22] MEDS: fentaNYL 50 MCG/HR TDSY TD SCH (08:57)
--- NOTE | 2025-02-22 08:57 | Pulmonology Progress Note ---
Date of Service February 22, 2025 Assessment & Plan (1) Extensive stage primary small cell carcinoma of lung: (2) Metastatic primary lung cancer: (3) Pleuritic chest pain: (4) COPD (chronic obstructive pulmonary disease) with chronic bronchitis: (5) Situational anxiety: (6) Multifocal pneumonia: (7) Postobstructive pneumonia: Plan CT chest 02/16/2025 personally reviewed: Centrilobular emphysema appreciated bilaterally Bulky mediastinal as well as right hilar lymphadenopathy with significant narrowing of the RBI Consolidative changes appreciated in the right middle as well as right lower lobe likely postobstructive pneumonia Supraclavicular as well as axillary lymphadenopathy appreciated --Acute hypoxic respiratory failure There is worsening on the chest x-ray compared to the time of presentation especially on the right side This is likely from tumor obstructing the RBI. He also has postobstructive pneumonia in the right lower lobe as well as right middle lobe Procalcitonin 0.86, nasal MRSA negative Respiratory BioFire was negative for everything -- Extensive small cell lung cancer Diagnosed 02/11/2025 MRI of the brain was negative for any lesions Currently getting chemotherapy Admission and Anticipated Discharge Date Admission Date: February 16, 2025 Supervising Physician Co-Signing Physician Notes I saw and evaluated the patient with Fernandez Angel PA-C, and agree with findings and plan as documented in the note. Patient seen and examined at bedside. No acute distress, no adverse events overnight He was saturating 90% on 4 L nasal cannula. I added Mucomyst to his regimen yesterday and he did find benefit from it He is able to bring up the phlegm without any issues Denies any hemoptysis Getting morphine through [employer] MAIL CLERK. Constitutional: No acute distress HEENT: EOMI, PERRLA Respiratory system: Decreased air entry on the right side, no wheeze, no rhonchi, positive crackles appreciated on the right side CVS: S1-S2 positive, no murmurs or gallops Abdomen: Soft, nontender, nondistended, positive bowel sounds x4 Extremities: +2 pulses bilaterally radialis/ dorsalis pedis, no cyanosis, no edema Neuro: Awake alert oriented x3 Psych: Normal mood and affect G/U: No Zamarripa Plan: I think majority of the issue is extensive compression of the RBI from the bulky mediastinal and hilar lymphadenopathy Pain management along with this might be the best option here along with antibiotics I do not think intervention like bronchoscopy is going to make any difference here given that it is anatomical issue. Chest x-ray from today shows improvement compared to 2 days ago, mediastinal shift to the right with collapse of the right lung still present Continue with antibiotics Continue with hypertonic saline along with flutter valve and Mucomyst. Continue with goal O2 saturation of 88-92% (Patient requests to be maintained between 87-90% as he "feels weird" when above 90%. I would recommend against intubation in this patient in future because the issue is anatomical secondary to the hilar lymphadenopathy and mass and it would not be reversible with intubation. Overall prognosis is guarded Case was discussed with RN and primary team No further recommendation from pulmonary perspective, will sign off Please call directly with any questions Please note the above document was generated using voice recognition software. It may contain grammatical, syntax or spelling errors.Any formal questions or concerns about the content, text or information contained within the body of this dictation should be directly addressed to the provider for clarification. Subjective Patient seen and evaluated at bedside. He reports the best night sleep he has had since being in the hospital. He is requesting his oxygen levels remain below 90. He has been out of bed today and his main complaint is pain to the RIGHT sided chest which is worse with coughing. He does feel as though the DIRECT MAIL CLERK pump has been effective, however. No hemoptysis. No new symptoms otherwise. Review of Systems Review of Systems: Per subjective Physical Exam Physical Exam: VITAL SIGNS Vital signs and nursing notes were reviewed. GENERAL 69-year-old male appearing his stated age who is in no acute distress. Communicates well with provider and answers questions appropriately. NOSE Midline and without cyanosis. MOUTH/OROPHARYNX Without perioral cyanosis. LUNGS Chest wall evaluation demonstrates a normal chest wall A:P diameter. Auscultation reveals diminished breath sounds with slight end expiratory wheeze. CARDIAC RRR with S1/S2. No murmur, rubs, or gallops appreciated. PSYCH A&Ox3 and cooperates fully with examiner. Pt is very pleasant and interacts well with examiner. Skin: no rashes, warm and dry Lymphatic: no cervical or axillary lymphadenopathy Results & Data Results & Data Vital Signs (Past 12 Hours) Vital Signs Temp Pulse Pulse Pulse Resp BP BP 02/22/ 08:06 36.4 C L 91 H 22 157/101 H 02/22/25 07:13 93 H 18 02/22/25 02:00 36.8 C 94 H 16 154/86 H 02/21/25 22:56 36.5 C 79 18 119/73 02/21/25 21:55 85 Pulse Ox O2 Del Method O2 Flow Rate 02/22/25 08:06 88 L Nasal Cannula 02/22/25 07:13 87 L Nasal Cannula 7 02/22/25 02:00 93 Nasal Cannula 4 02/21/25 22:56 90 Room Air 02/21/25 21:55 PG Care Time/CCT Total # of Minutes Spent Total Time Spent with Patient: Total time spent is greater than 50% in coordination of care (as documented) at patient's floor/unit and/or counseling patient: Coding Level of Care Code 41415 SUB INP/OBS CARE 2/35MIN Diagnoses Extensive stage primary small cell carcinoma of lung C34.90 Metastatic primary lung cancer C34.90 Pleuritic chest pain R07.81 COPD (chronic obstructive pulmonary disease) with chronic bronchitis J44.9 Situational anxiety F41.8 Multifocal pneumonia J18.9 Postobstructive pneumonia J18.9
[2025-02-22 09:02] LABS: Calcium 8.6 mg/dl (8.6-10.3)
[2025-02-22 09:17] LABS: BUN Creatinine Ratio 25.3 (10-20); Creatinine Clr Calc Pharmacy 96.6 ml/min
[2025-02-22] MEDS: MoRPHine SULFATE PCA 30 MG/30 ML ONE (09:48)
[2025-02-22] MEDS: LIDOCAINE 5% 1 PATCH TD STA (10:51)
--- NOTE | 2025-02-22 11:08 | XRay Report ---
XR chest 1V portable CLINICAL HISTORY: f/u COMPARISON STUDY: 02/21/2025 FINDINGS: Stable dense opacity at the right mid and lower lung with shift of the heart and mediastinu m to the right consistent with known obstructing central right lung mass and postobstructive consolid ation/collapse. No pneumothorax. Stable mild stranding opacity at the left lung base. IMPRESSION: Stable exam. ACT 112: Negative or not required by law. Electronically signed by: Estevan Huston M.D. 02/22/2025 11:07 AM
--- NOTE | 2025-02-22 15:03 | Hospitalist Progress Note ---
Date of Service February 22, 2025 Assessment & Plan (1) Metastatic primary lung cancer: (2) Hypoxia: (3) Compression fracture of T8 vertebra: Plan Christopher is a 69M with a PMHx of tobacco use, COPD, GERD, HLD who presents to the ED with shortness of breath and uncontrollable right chest pain. He had a recent bronchoscopy wt Dr. 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 Now requiring supplemental oxygen. Admission CT chest without signs of infection or fluid overload though right lower lobe bronchus obstructed. Admitted for pain control, oncology evaluation. initial imaging with large right hilar primary mass obstructing RLL bronchus, numerous pulmonary mets, lymphangitic carcinomatosis, extensive lymphadenopathy above and below the diaphragm on CT chest, abd/pelvis. brain MRI negative for mets. he underwent his first cycle of chemotherapy last week. He also developed worsening collapse of the right lung including right lower lobe and right middle lobe and acute hypoxic respiratory failure. this issue has now started to improve though remains significantly more hypoxic than he was at admission #Metastatic small cell lung carcinoma #Pathologic T8 vertebral fracture caused by underlying metastasis #severe cancer related pain -chemo per Dr. Jones - completed 3 days of cycle 1 carboplatin/etoposide ending 02/18 -radiation oncology consulted - no immediate plans -palliative care consulted - discussed with MIKE Magallon today -hypoxia related to metastatic lung cancer - will need 2-step prior to discharge - follow CBC for approaching florentin. W16 and Hg, Plt normal today. 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 fentanyl patch increased to 50 mcg 02/22 [employer]OMATION SOFTWARE ENGINEER started 02/20 evening, still with inadequate pain control he thinks that he would be better off on 2 mg bolus with 20-minute lockout rather than the reverse, which is equivalent dosing overall so I made this change in the past he has been refusing Tylenol, I discussed option of adding a gabapentinoid with him because there may be a neuropathic component he wants to think about this -has anxiety and depressive symptoms but has refused medication for this #Postobstructive pneumonia, RLL collapse progressed on CXR 02/18, RML collapse new, acute hypoxic respiratory failure -pip-tazo started 02/18. Leukocytosis 16K may be all or in part from filgrastim. Serial procal only minimally elevated. Sputum culture grew normal godwin. MRSA nares negative. - pulmonary consulted, discussed with Dr. Galeas today - signed off - continue pip-tazo, flutter valve, I-S - hypertonic saline and Mucomyst nebscontinue - continue antitussives, guaifenasin - continues to have severe hypoxia but has improved now on 5L pnc. - keep sat 88-90% as long as asymptomatic. he says he feels bad when sats 90% or higher. high 80s is ok - chest x-ray today reviewed film RML RLL collapse persists, RUL infiltrate unchanged, mediastinal shift, LLL linear opacity improved - pneumonia vs atelectasis # sinus tachycardia with ectopyPVCs and fusion complexes, PACs overnight 02/20- 02/21 - replaced electrolytes, cont metoprolol - ectopy much improved, no longer tachycardic. may have been related to hypoxia and slightly low mag #Black stool - reported black stool 02/18 and 02/20, intermittently was brown Is at risk for upper GI bleeding from esophagitis, ulcers etc. Has had severe heartburn type pain, improved. Was treated with IV PPI bid, enox was held. No further melena and Hg remains normal. 15 today - monitor CBC - possibly this was related to swallowed blood prior to admission he had been coughing up bloody mucus - changed PPI to po and resumed DVT ppx with enoxaparin #T8 Compression fracture Not an area where TLSO bracing is effective Calcitonin Nasal spray. Lidocaine patch, opioids as above he reports lightheadedness and tunnel vision when he is sitting on the commode trying to urinate or have a bowel movement, this sounds like vagal reaction, gave liter of normal saline but symptoms did not change HTN - continue amlodipine, metoprolol BPH - continue finasteride, flomax. Social difficulties - He is about to lose his house which is in probate and will be sold. Son is helping but is few hours away, lives in [facility]. Its a 5-6h round trip for his son to bring him to [place] for appointments. Has been getting by poorly alone at home last few weeks because of severe pain. made referral to outpatient case management. PT/OT evals ordered- he refused. I encouraged him to participate to preserve his ambulatory status. 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 left side is clear right side with diminished breath sounds in mid and basilar escalera however I can now hear air movement in these areas which is a big improvement, coarse breath sounds right lung no wheezing Heart: regular no murmurs rubs or gallops no JVD Abdomen: nondistended Extremities: Warm, dry, well-perfused. No extremity edema. Neuro: Alert and oriented x 4, face symmetric, moves 4 extremities well Psych: anxious affect and behavior Results & Data Results & Data Vital Signs (Past 12 Hours) Vital Signs Temp Pulse Pulse Resp BP BP Pulse Ox 02/22/25 11:00 88 02/22/25 10:57 36.4 C L 81 20 128/76 90 02/22/25 09:00 02/22/25 08:06 36.4 C L 91 H 22 157/101 H 88 L 02/22/25 07:13 93 H 18 87 L O2 Del Method O2 Flow Rate 02/22/25 11:00 02/22/25 10:57 Nasal Cannula 4 02/22/25 09:00 Nasal Cannula 4 02/22/25 08:06 Nasal Cannula 02/22/25 07:13 Nasal Cannula 7 Laboratory Results 02/22/25 07:55 02/22/25 07:55 PG Care Time/CCT Total # of Minutes Spent Total Time Spent with Patient: Total time spent is greater than 50% in coordination of care (as documented) at patient's floor/unit and/or counseling patient: Coding Level of Care Code 69828 SUB INP/OBS CARE 3/50MIN Diagnoses Metastatic primary lung cancer C34.90 Hypoxia R09.02 Compression fracture of T8 vertebra S22.060A
--- NOTE | 2025-02-22 15:37 | Palliative Care Progress Note ---
Date of Service February 22, 2025 Assessment & Plan (1) Palliative care by specialist: Plan: Palliative care will continue to follow for ongoing symptom management and patient support. Pt will follow with outpt palliative care team after discharge. (2) Anxiety associated with cancer diagnosis: Plan: Pt appears less anxious, has refused any anxiolytics or mood stabilizing medications. PRN ativan is ordered and encouraged with pt. Again discussed that pain and insomnia can be lessened with an anxiolytic. Helped pt understand that anxiety can cause insomnia as well as worsen pain. He again denied anxiety of need for mood stabilizing medication. He has refused any "psych meds". (3) Counseling regarding advanced directives and goals of care: Plan: Goals of carea clearly established for ongoing life prolonging therapy and cancer directed treatments. (4) Cancer related pain: Plan: Pt shared that his pain is well managed and he had a "great night with very deep sleep". He shared that his pain is well managed and wants no changes in current medications today. We discussed plan to balance his TD fentanyl dosing against the BLACK[employer] PAVER OPERATOR to offer more consistent 24hr pain management and better rest. He c/o hiccups again today that he believes are triggered by normal oxygen saturation and requests reducing oxygen delivery until his pulse ox is under 85%. Attempted to address with him that hyoxia can aggravate pain and confusi on, he defends his belief that his "body works best at a oxygen level lower that 86". No changes at this time, will reassess after 24h for continued titration off iv pain medications. Discussed with pt, who is agreeable, and attending Dr. Casillas. Continue duragesic to 50ucg/hr TD q72h continue BLACKTOP PAVER OPERATOR morphine 2mg/20min with NO continuous and clinician bolus of 4mg morphine q1h PRN 5% Lidoderm patch x2 for back pain Plan as above Admission and Anticipated Discharge Date Admission Date: February 16, 2025 Subjective Assessed pt at bedside, he was more alert and pleasantly communicative today. He shared that he slept much better last night with the increase in duragesic dose. He remains on duragesic 50ucg/hr TD with morphine BLACKTOP PAVER OPERATOR for BTP Review of Systems Review of Systems: All systems reviewed & are unremarkable except as noted in HPI & below Right shoulder/chest pain continues as previous Musculoskeletal: + back pain and + muscle weakness Psychiatric: + anxiety Physical Exam Constitutional: + ill appearing, + thin, + frail appeari ng and cooperative Eyes: PERRL, conjunctivae normal, anicteric sclerae ENMT: external ear and nose normal, oropharynx normal Neck: trachea midline, no thyromegaly Respiratory: normal respiratory effort, lungs clear to auscultation Cardiovascular: RRR, no murmur, no edema Gastrointestinal (Abdomen): normal bowel sounds, soft, nontender, no hepatosplenomegaly Musculoskeletal: no cyanosis or clubbing, extremities motor strength 5/5 Neurologic: PERRL, EOMI, accommodation nl, no face palsy, no dysarthria Psychiatric: Orientation: alert, oriented x 3 and cooperative Eye Contact: good eye contact Speech: + pressured speech Affect: + anxious affect, + tearful affect and + labile affect Thought Process: goal directed thought process Thought Content: + preoccupation Judgment: good judgement Pt preoccupied with discharge and lack of sleep through day 01/02 multiple caretakers interrupting him. Results & Data Vital Signs (Past 12 Hours) Vital Signs Temp Pulse Pulse Resp BP BP Pulse Ox 02/22/25 11:00 88 02/22/25 10:57 36.4 C L 81 20 128/76 90 02/22/25 09:00 02/22/25 08:06 36.4 C L 91 H 22 157/101 H 88 L 02/22/25 07:13 93 H 18 87 L O2 Del Method O2 Flow Rate 02/22/25 11:00 02/22/25 10:57 Nasal Cannula 4 02/22/25 09:00 Nasal Cannula 4 02/22/25 08:06 Nasal Cannula 02/22/25 07:13 Nasal Cannula 7 Laboratory Results Abnormal lab results 02/22/25 Range/Units 07:55 WBC 16.60 H (4.8-10.8) K/ul RDW Std Deviation 47.6 H (36.4-46.3) fL Carbon Dioxide 34 H (21-32) mmol/L Anion Gap 2 L (3-11) BUN/Creatinine Ratio 25.3 H (10-20) Medications Administered Current Inpatient Medications Acetaminophen (Acetaminophen 500 Mg Tab) 1,000 mg PO Q8H PRN PRN Reason: Fever Stop: 03/18/25 13:14 Last Admin: 02/22/25 08:57 Dose: 1,000 mg Acetylcysteine (Acetylcysteine 20% Inhal Soln 4ml Dispensed By Resp.) 5 ml INH Q12R [place] Stop: 03/23/25 09:29 Last Admin: 02/22/25 07:13 Dose: 5 ml Albuterol (Albut/Ipratrop 3mg/0.5mg Neb 3 Ml Vial) 3 ml NEB Q4R PRN; Protocol PRN Reason: Shortness Of Breath Or Wheezing Stop: 03/18/25 14:07 Last Admin: 02/22/25 07:13 Dose: 3 ml Amlodipine Besylate (Amlodipine Besylate 5 Mg Tab) 10 mg PO DAILY [place] Stop: 03/19/25 08:59 Last Admin: 02/22/25 08:46 Dose: 10 mg Benzonatate (Benzonatate 100 Mg Capsule) 100 mg PO TID PRN PRN Reason: Cough Stop: 03/18/25 13:59 Last Admin: 02/22/25 08:57 Dose: 100 mg Calcitonin Everson (Calcitonin Everson Na 200 Iu/Ac 3.7 Ml Btl) 1 sprays NA DAILY [place] Stop: 03/18/25 13:29 Last Admin: 02/22/25 08:46 Dose: 1 sprays Calcium Carbonate (Calcium Carbonate 500 Mg Chewable Tab) 1,000 mg PO Q6H PRN PRN Reason: Indigestion Stop: 03/19/25 13:22 Last Admin: 02/19/25 10:40 Dose: 1,000 mg Enoxaparin Sodium (Enoxaparin Inj 40 Mg/0.4 Ml Syr) 40 mg SQ Q24H [place] Stop: 03/18/25 20:59 Last Admin: 02/17/25 20:08 Dose: Not Given Fentanyl (Fentanyl 50 Mcg/Hr Tdsy) 1 patch TD Q3D [place] Stop: 03/08/25 07:59 Last Admin: 02/22/25 08:57 Dose: 1 patch Finasteride (Finasteride 5 Mg Tab) 5 mg PO DAILY [place] Stop: 03/19/25 08:59 Last Admin: 02/22/25 08:48 Dose: 5 mg Fluticasone Furoate (Fluticasone Furoate 200mcg 14 Puffs/Inhaler) 1 puffs INH DAILY [facility] Stop: 03/19/25 08:59 Last Admin: 02/22/25 08:49 Dose: 1 puffs Fluticasone Propionate (Fluticasone Propionate Na Spr 16 Gm Btl) 2 sprays NA DAILY [facility] Stop: 03/19/25 08:59 Last Admin: 02/22/25 08:45 Dose: 2 sprays Guaifenesin (Guaifenesin Sugar Free 200 Mg/10 Ml Udc) 200 mg PO QID [facility] Stop: 03/24/25 16:59 Guaifenesin/Codeine Phosphate (Guaifenesin/Codeine 200mg/20mg 10ml Udc) 10 ml PO Q6H PRN PRN Reason: Cough Stop: 03/18/25 17:19 Last Admin: 02/18/25 09:47 Dose: 10 ml Piperacillin Sod/Tazobactam Sod (Zosyn) 4.5 gm in 100 mls @ 25 mls/hr IV Q8H [facility]; Protocol Stop: 02/23/25 21:59 Last Admin: 02/22/25 14:25 Dose: 25 mls/hr Famotidine (Pepcid 20mg Iv Push) 20 mg in 5 mls @ 2.5 mls/min IV DAILY PRN PRN Reason: severe heartburn Stop: 03/21/25 13:27 Last Admin: 02/19/25 14:33 Dose: 2.5 mls/min Lansoprazole (Lansoprazole 30 Mg Soltab) 30 mg PO BID [facility] Stop: 03/24/25 20:59 Lidocaine (Lidocaine 5% 1 Patch) 2 patch TD QAM [facility] Stop: 03/25/25 08:59 Lorazepam (Lorazepam 2 Mg/1 Ml Vial) 0.5 mg IV Q6H PRN PRN Reason: Anxiety/Agitation Stop: 03/20/25 12:15 Melatonin (Melatonin 3 Mg Tab) 3 mg PO HS PRN PRN Reason: Insomnia Stop: 03/18/25 13:14 Last Admin: 02/19/25 20:51 Dose: 3 mg Metoprolol Tartrate (Metoprolol Tartrate 25 Mg Tab) 25 mg PO DAILY [facility] Stop: 03/23/25 00:54 Last Admin: 02/22/25 08:46 Dose: 25 mg Miscellaneous (Remove Lidoderm Patch) 1 each N/A DAILY@2100 [facility] Stop: 03/18/25 20:59 Last Admin: 02/21/25 20:07 Dose: 1 each Miscellaneous (Remove Lidoderm Patch) 1 each N/A DAILY@2100 [facility] Stop: 03/23/25 20:59 Last Admin: 02/21/25 20:07 Dose: 1 each Miscellaneous (Fentanyl Patch Remove & Waste) 1 each N/A Q3D [facility] Stop: 03/24/25 07:59 Last Admin: 02/22/25 08:57 Dose: 1 each Miscellaneous (Check Fentanyl Patch Placement) 1 each N/A QS [facility] Stop: 03/24/25 07:59 Last Admin: 02/22/25 08:57 Dose: 1 each Miscellaneous (Remove Lidoderm Patch) 1 each N/A DAILY@2100 [facility] Stop: 03/24/25 20:59 Morphine Sulfate (Morphine Sulfate Specimen Processor 30 Mg/30 Ml) 30 mg IV PRN PRN; Protocol PRN Reason: BLACK[employer] PAVER OPERATOR Pain Titration Stop: 03/06/25 16:41 Last Admin: 02/22/25 10:16 Dose: 30 mg Morphine Sulfate (Morphine Bolus From Specimen Processor) 2 mg IV Q2H PRN PRN Reason: cough/prior to neb Stop: 03/06/25 16:41 Last Admin: 02/21/25 06:26 Dose: 2 mg Naloxone HCl (Naloxone Hcl 0.4 Mg/1 Ml Vial/Carp) 0.1 mg IV Q5M PRN; Protocol PRN Reason: Oversedation/Resp Depression Stop: 03/06/25 16:41 Nystatin (Nystatin 500,000 Unit Tab) 500,000 units PO QID [facility] Stop: 02/27/25 12:59 Last Admin: 02/22/25 14:25 Dose: 500,000 units Ondansetron HCl (Ondansetron Inj 2 Mg/Ml 2 Ml Vial) 4 mg IV Q6H PRN PRN Reason: Nausea Stop: 03/20/25 12:29 Polyethylene Glycol (Polyethylene (Miralax) 17 Gm Pack) 17 gm PO DAILY PRN PRN Reason: Constipation Stop: 03/18/25 13:14 Last Admin: 02/18/25 06:46 Dose: 17 gm Polyethylene Glycol (Polyethylene (Miralax) 17 Gm Pack) 17 gm PO DAILY [facility] Stop: 03/18/25 13:14 Last Admin: 02/22/25 08:57 Dose: 17 gm Sennosides (Sennosides 8.8 Mg/5 Ml Udc) 8.8 mg PO QAM [facility] Stop: 03/25/25 08:59 Sodium Chloride (Sodium Chlor 7% 4 Ml Neb) 4 ml NEB BIDR [facility] Stop: 03/21/25 18:59 Last Admin: 02/22/25 08:02 Dose: 4 ml Tamsulosin HCl (Tamsulosin Hcl 0.4 Mg Cap) 0.8 mg PO DAILY [facility] Stop: 03/19/25 08:59 Last Admin: 02/22/25 08:46 Dose: 0.8 mg Umeclidinium/Vilanterol (Umeclidinium/Vilanterol 62.5/25mcg 7 Puffs/Inhaler) 1 puffs INH DAILY [facility] Stop: 03/19/25 08:59 Last Admin: 02/22/25 08:48 Dose: 1 puffs PG Care Time/CCT Total # of Minutes Spent Total Time Spent with Patient: Total time spent is greater than 50% in coordination of care (as documented) at patient's floor/unit and/or counseling patient: Coding [place] [address] SUB INP/OBS CARE 3/50MIN Patient Type Established History Expanded Problem Focused Exam Expanded Problem Focused Medical Decision Making Moderate Complexity Diagnoses Palliative care by specialist Z51.5 Anxiety associated with cancer diagnosis F41.1; C80.1 Counseling regarding advanced directives and goals of care Z71.89 Cancer related pain G89.3
[2025-02-22] MEDS: guaiFENesin SUGAR FREE 200 MG/10 ML UDC PO SCH (17:50)
[2025-02-22] MEDS: LANSOPRAZOLE 30 MG SOLTAB PO SCH (20:46)
[2025-02-23 06:07] LABS: Hematocrit (blood only) 43.6 % (42.0-52.0); Hemoglobin 14.8 g/dl (14.0-18.0); Mean Corpuscular Hgb Conc 33.9 g/dL (32.0-36.0); Mean Corpuscular Volume 91.4 fL (80.0-100.0); Mean Platelet Volume 11.8 fL (9.4-12.4); Platelet Count 214 K/uL (130-400); RDW Coefficient of Variation 13.5 % (11.5-14.5); RDW Standard Deviation 46.2 fL (36.4-46.3); Red Blood Count 4.77 M/uL (4.70-6.10); White Blood Count 9.52 K/ul (4.8-10.8)
[2025-02-23 06:20] LABS: BUN Creatinine Ratio 21.8 (10-20); Calcium 8.6 mg/dl (8.6-10.3); Creatinine Clr Calc Pharmacy 97.9 ml/min
[2025-02-23] MEDS: LIDOCAINE 5% 1 PATCH TD SCH (09:13)
[2025-02-23] MEDS: LORazepam 2 MG/1 ML VIAL IV PRN (09:19)
[2025-02-23] MEDS: SENNOSIDES 8.8 MG/5 ML UDC PO SCH (09:20)
[2025-02-23 10:58] LABS: ALC (manual) 1.33 K/uL (1.2-3.4); Blast Cells % (manual) 1 %; Eosinophils % (manual) 1 %; Lymphocytes # (manual) 1.33 K/uL (1.2-3.4); Lymphocytes % (manual) 14 %; Monocytes % (manual) 1 %; Neutrophils % (manual) 83 %
--- NOTE | 2025-02-23 15:27 | Hospitalist Progress Note ---
Date of Service February 23, 2025 Assessment & Plan (1) Metastatic primary lung cancer: (2) Hypoxia: (3) Compression fracture of T8 vertebra: Plan 69yo male with h/o tobacco use, COPD, GERD, Hyperlipidemia. Presented with shortness of breath and uncontrollable right chest pain. s/p recent bronchoscopy by Dr. Douglas Monteiro on 02/11 with biopsies confirming metastatic small cell lung cancer. 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 * Pathologic T8 vertebral fracture * brain MRI negative for mets. * s/p cycle 1 of carboplatin/etoposide ending 02/18/25 * appreciate oncology & palliative care consults/recs * rad onc consult - no plans for any radiation at this time (could consider T8 XRT if pain remains refractory) #acute hypoxic respiratory failure - * 2nd to post-obstructive RML/RLL pneumonia * 2nd to extensive small cell lung ca * right hilar mass is obstructing the RLL and RML bronchi with resulting collapse of these lobes * cont nebs, antibiotics, O2, supportive care #Pathologic T8 vertebral fracture caused by underlying metastasis - * cont fentanyl patch - just increased to 50mcg q3d on 02/22/25 * 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 #severe cancer related pain - as above #RML/RLL post-obstructive pneumonia - * cont IV zosyn - day # 5 of such * plan 7 days in total * cont mucomyst BID and saline nebs BID * duonebs prn * mucinex #Black stool - * reported black stool 02/18 and 02/20; intermittently brown * H/H stable * cont PPI * observe carefully * ?possibly this was related to swallowed blood prior to admission as he had been coughing up bloody mucus at home? #opiate-induced constipation - * cont miralax daily * increase senna to 17.6mg daily #COPD - cont inhalers, nebs, O2, etc. #HTN - continue amlodipine, metoprolol #BPH - continue finasteride, flomax #Insomnia - schedule melatonin; offered him a dedicated sleep aid - declined for now. #Social difficulties - He is about to lose his house which is in probate and will be sold. Son is helping but is few hours away, lives in [facility]. It is a 5-6h round trip for his son to bring him to [facility] for appointments. Has been getting by poorly alone at home last few weeks because of severe pain. made referral to outpatient case management. PT/OT ann ordered- he refused. He is willing to sit in recliner chair - nursing to secure one. Dispo is very uncertain at this time. #DVT prophylaxis - lovenox daily CODE STATUS: CONDITIONAL CODE (no chest compression) - was considering DNR/DNI status but on 02/22 he reported he wants to continue aggressive treatment for cancer Admission and Anticipated Discharge Date Admission Date: February 16, 2025 Subjective overnight - tele with NSR morphine SPRAYER LEATHER - 8 total doses delivered between 11pm and 7am this am patient reports feeling very tired but having significant difficulties with sleep he is nearly afraid to go to sleep for fear of having difficulty with breathing he declines a dedicated sleep aid he reports that the timing of our evening neb treatments (7pm) causes coughing for several hours, sometimes 8 hours later, and this messes with his sleep as well cough is productive at times he reports ongoing pain in his back from the vertebral fracture appetite is fair last BM about 3 days ago he has chronic constipation even at home and typically takes miralax daily at home for such he knows he has to get out of bed and 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 Review of Systems Review of Systems: gen - no fevers cv - no chest pain (previous right-sided chest discomfort now resolved) pulm - cough, congested, wheezing GI - no N/V Physical Exam Physical Exam: gen - no distress, talkative, pleasant neck - no JVD mouth - MMM, no lesions heart - RRR, s1 s2, no murmur; heart tones are distant lungs - mild end-exp wheezing; decreased BS right base about 1/[address] up back; only RUL has air movement; left lung clear; no respiratory distress abd - mildly distended, BS+, NT, no HSM, no masses ext - no edema, pulses 2+ b/l psych - flat effect, poor eye contact Results & Data Results & Data Vital Signs (Past 12 Hours) Vital Signs Temp Pulse Resp BP Pulse Ox O2 Del Method O2 Flow Rate 02/23/25 14:00 88 20 88 L Nasal Cannula 4 02/23/25 10:58 36.6 C 58 L 19 128/73 92 Nasal Cannula 2 02/23/25 10:00 78 89 L Nasal Cannula 4 02/23/25 08:00 Nasal Cannula 4 02/23/25 07:41 36.5 C 50 L 20 150/68 H 90 Aerosol Mask 2 Laboratory Results Laboratory Results - last 24 hr 02/23/25 05:38 WBC 9.52 RBC 4.77 Hgb 14.8 Hct 43.6 MCV 91.4 MCH 31.0 MCHC 33.9 RDW Std Deviation 46.2 RDW Coeff of Benjamin 13.5 Plt Count 214 MPV 11.8 Neutrophils % (Manual) 83 Lymphocytes % (Manual) 14 Monocytes % (Manual) 1 Eosinophils % (Manual) 1 Blast Cells % (Manual) 1 Neutrophils # (Manual) 7.90 H Total Absolute Neuts 7.90 H Lymphocytes # (Manual) 1.33 Total Abs Lymphocytes 1.33 Monocytes # (Manual) 0.10 L Eosinophils # (Manual) 0.10 Blast Cells # (Man) 0.10 H Blood Smear Review Sodium 136 Potassium 4.0 Chloride 100 Carbon Dioxide 33 H Anion Gap 3 BUN 17 Creatinine 0.78 Est Cr Clr Drug Dosing 97.9 eGFR 97.74 BUN/Creatinine Ratio 21.8 H Glucose 101 H Calcium 8.6 PG Care Time/CCT Total # of Minutes Spent Total Time Spent with Patient: Total time spent is greater than 50% in coordination of care (as documented) at patient's floor/unit and/or counseling patient: Coding Level of Care Code 04211 SUB INP/OBS CARE 3/50MIN Diagnoses Metastatic primary lung cancer C34.90 Hypoxia R09.02 Compression fracture of T8 vertebra S22.060A
[2025-02-23] MEDS: MELATONIN 3 MG TAB PO SCH (20:53)
[2025-02-24] MEDS: SODIUM CHLOR 7% 4 ML NEB NEB SCH ×2 (06:03→17:50)
[2025-02-24] MEDS: ACETYLCYSTEINE 20% INHAL SOLN 4ML ***DISPENSED BY RESP. INH SCH ×2 (06:03→17:49)
[2025-02-24] MEDS: SENNOSIDES 8.8 MG/5 ML UDC PO SCH (08:57)
[2025-02-24] MEDS: FAMOTIDINE 20 MG TAB PO PRN (08:57)
[2025-02-24] MEDS: fentaNYL 12 MCG/HR TDSY TD SCH (11:45)
[2025-02-24] MEDS: fentaNYL 50 MCG/HR TDSY TD SCH (11:45)
[2025-02-24] MEDS: [UNRECOGNIZED DRUG - REMARK] SCH (11:47)
--- NOTE | 2025-02-24 12:19 | Hospitalist Progress Note ---
Date of Service February 24, 2025 Assessment & Plan (1) Metastatic primary lung cancer: (2) Hypoxia: (3) Compression fracture of T8 vertebra: Plan 69yo male with h/o tobacco use, COPD, GERD, Hyperlipidemia. Presented with shortness of breath and uncontrollable right chest pain. s/p recent bronchoscopy by Dr. Douglas Monteiro on 02/11 with biopsies confirming metastatic small cell lung cancer. 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 * Pathologic T8 vertebral fracture * brain MRI negative for mets. * s/p cycle 1 of carboplatin/etoposide ending 02/18/25 * appreciate oncology & palliative care consults/recs * rad onc consult - no plans for any radiation at this time (could consider T8 XRT if pain remains refractory) #acute hypoxic respiratory failure - * 2nd to post-obstructive RML/RLL pneumonia * 2nd to extensive small cell lung ca * right hilar mass is obstructing the RLL and RML bronchi with resulting collapse of these lobes * cont nebs, antibiotics, O2, supportive care * add dexamethasone 4mg daily for pain control (bone pain, etc) as well as wheezing #Pathologic T8 vertebral fracture caused by underlying metastasis - * cont fentanyl patch - increased to 50mcg q3d on 02/22/25, and increased again to 62mcg today by palliative care * 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 #severe cancer related pain - as above #RML/RLL post-obstructive pneumonia - * cont IV zosyn - day # 6 of such * plan 7 days in total * cont mucomyst and saline nebs - at least once daily * duonebs prn * mucinex #Black stool - * reported black stool 02/18 and 02/20; intermittently brown * H/H stable * cont PPI * observe carefully * ?possibly this was related to swallowed blood prior to admission as he had been coughing up bloody mucus at home? #opiate-induced constipation - * cont miralax daily * cont senna 17.6mg daily #COPD - cont inhalers, nebs, O2, etc. #HTN - continue amlodipine, metoprolol #BPH - continue finasteride, flomax #Insomnia - schedule melatonin; offered him a dedicated sleep aid - declined #Social difficulties - Pt reports his house is about to listed for sale. His son is helping with the above process. Son lives in [place] in a trailer. Today case management spoke with the pt's son. Son confirmed that his father CAN return to the pt's home in contrary to what the patient is telling me (patient stated he could not return to his house post- discharge). Son is prepping a bedroom on the first floor for post-d/c. Increase mobility; PT/OT when able. #DVT prophylaxis - lovenox daily CODE STATUS: CONDITIONAL CODE (no chest compression) - was considering DNR/DNI status but on 02/22 he reported he wants to continue aggressive treatment for cancer Admission and Anticipated Discharge Date Admission Date: February 16, 2025 Subjective tele overnight wnl patient slept better last night he was up in the middle of the night for about an hour, but before and after such he rested well breathing is improved in comparison to earlier this admission can take deeper breaths he still has coughing fits along with dyspnea on exertion he continues with thoracic back pain 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 last 48 hours eating improved son visited yesterday when asked about where he will go post-d/c Mr Swanson stated his house is being put up for sale he states his house is all boxed up and his beds are disassembled, etc he states he can't return to his home because of this he also mentions he can't go live with his son as his son's trailer is "too small" when asked where he will go post-d/c Mr Swanson states he doesn't know patient refused his neb treatments this am has been up to the commode today and has sat in in the chair Review of Systems Review of Systems: cv - no chest pain pulm - cough, occasional mucous, no dyspnea at rest GI - no abd pain, no N/V Physical Exam Physical Exam: gen - looks better today, NAD, less anxious as well neck - no JVD mouth - MMM, no lesions heart - RRR, s1 s2, no murmur; heart tones distant lungs - mild end-exp wheezing; decreased BS right base; left lung clear abd - soft, BS+, NT, no HSM, no masses ext - no edema, pulses 2+ b/l psych - affect more full today Results & Data Results & Data Vital Signs (Past 12 Hours) Vital Signs Temp Pulse Resp BP Pulse Ox O2 Del Method O2 Flow Rate 02/24/25 09:02 Nasal Cannula 3 02/24/25 08:07 36.7 C 96 H 20 113/88 88 L Nasal Cannula 2 02/24/25 03:39 36.6 C 91 H 18 119/77 88 L Nasal Cannula PG Care Time/CCT Total # of Minutes Spent Total Time Spent with Patient: Total time spent is greater than 50% in coordination of care (as documented) at patient's floor/unit and/or counseling patient: Coding Level of Care Code 61678 SUB INP/OBS CARE 2/35MIN Diagnoses Metastatic primary lung cancer C34.90 Hypoxia R09.02 Compression fracture of T8 vertebra S22.060A
--- NOTE | 2025-02-24 12:31 | Palliative Care Progress Note ---
Date of Service February 24, 2025 Assessment & Plan (1) Palliative care by specialist: Plan: Palliative care will continue to follow for ongoing symptom management and patient support. Pt will follow with outpt palliative care team after discharge. (2) Anxiety associated with cancer diagnosis: Plan: Pt appears relaxed today, sitting up in chair. He has previously refused any anxiolytics or mood stabilizing "psych meds". PRN ativan is ordered and encouraged with pt. Again discussed that pain and insomnia can be lessened with an anxiolytic. Helped pt understand that anxiety can cause insomnia as well as worsen pain. (3) Counseling regarding advanced directives and goals of care: Plan: Goals of carea clearly established for ongoing life prolonging therapy and cancer directed treatments. (4) Cancer related pain: Plan: Pt shared that his pain is well managed and he continues to sleep well. He shared that his pain is well managed at this time with only occasional BTP requiring clinician bolus. We discussed increasing TD fentanyl dosing again based on 24hr FIRE CH[employer] use. He is in agreement. His [employer] use has decreased significantly with initiation of duragesic. We discussed liberation from the [employer] CH[employer] to offer more consistent 24hr pain management and better rest. Christopher is agreeable and remains hopeful to continue to "kill as many cancer cells as I can". He seems motivated for outpt follow up with oncology team to pursue "any cutting edge treatment that will help me get revenge on cancer". Pt agreeable to titrating duragesic to allow for weaning of IV analgesia. Will plan to reassess need for FIRE CH[employer] DE[employer]Y tomorrow. Increase duragesic to 62ucg/hr TD q72h continue FI[employer] CHIE[employer]Y morphine 2mg/20min with NO continuous and clinician bolus of 4mg morphine q1h PRN 5% Lidoderm patch x2 for back pain Plan as above Admission and Anticipated Discharge Date Admission Date: February 16, 2025 Subjective Assessed pt at bedside, he was sitting upright in chair and pleasantly communicative. He shared that he feels tired despite sleeping well and that his pain is well controlled with current regime. Review of Systems Review of Systems: All systems reviewed & are unremarkable except as noted in HPI & below Right shoulder/chest pain continues as previous Musculoskeletal: + back pain and + muscle weakness Psychiatric: + anxiety Physical Exam Constitutional: + ill appearing, + thin, + frail appeari ng and cooperative Eyes: PERRL, conjunctivae normal, anicteric sclerae ENMT: external ear and nose normal, oropharynx normal Neck: trachea midline, no thyromegaly Respiratory: normal respiratory effort, lungs clear to auscultation Cardiovascular: RRR, no murmur, no edema Gastrointestinal (Abdomen): normal bowel sounds, soft, nontender, no hepatosplenomegaly Musculoskeletal: no cyanosis or clubbing, extremities motor strength 5/5 Neurologic: PERRL, EOMI, accommodation nl, no face palsy, no dysarthria Psychiatric: Orientation: alert, oriented x 3 and cooperative Eye Contact: good eye contact Speech: + pressured speech Affect: + anxious affect, + tearful affect and + labile affect Thought Process: goal directed thought process Thought Content: + preoccupation Judgment: good judgement Pt preoccupied with discharge and lack of sleep through day 01/02 multiple caretakers interrupting him. Results & Data Vital Signs (Past 12 Hours) Vital Signs Temp Pulse Resp BP Pulse Ox O2 Del Method O2 Flow Rate 02/24/25 09:02 Nasal Cannula 3 02/24/25 08:07 36.7 C 96 H 20 113/88 88 L Nasal Cannula 2 02/24/25 03:39 36.6 C 91 H 18 119/77 88 L Nasal Cannula Diagnostic Findings Chest CT 02/16/25 08:19 CT OF THE CHEST WITH IV CONTRAST CLINICAL HISTORY: Right sided chest pain s/p biopsy. COMPARISON STUDY: Chest CT February 08, 2025. Chest radiograph performed earlier today. TECHNIQUE: Following IV administration of 94 mL of Optiray, helical axial images of the chest were obtained. Sagittal and coronal reconstructions were vi ewed as well as maximal intensity projections on an independent 3-D workstation. Automated exposure control was utilized for the study. A dose lowering technique was utilized adhering to the principles of ALARA. CT DOSE: 957.82 mGy.cm FINDINGS: There is no pneumothorax or mediastinal hematoma. No pneumomediastinum is present. A trace pericardial effusion is unchanged. The size the heart is normal. Extensive cervical, mediastinal, right hilar, bilateral axillary and upper abdominal lymphadenopathy is again noted. This is similar to CT of February 08, 2025. Index right supraclavicular lymph node on image 19 of 269 measures 2.9 x 2.3 cm. Right paratracheal lymph node measures 5.3 x 3.7 cm. A peripancreatic lymph node measures 3.3 x 2.6 cm. An infiltrative mass like opacity centered on the right hilum measures 7.9 x 7.7 cm. This may represent the central lung mass or conglomerate adenopathy. As before, the right upper lobe bronchus and bronchus intermedius are occluded. Severe narrowing of the right lower lobe bronchus has increased. Right lower lobe airspace opacities with volume loss have progressed since prior exam. Multiple nodular opacities within the right lung are again noted. There is asymmetric interlobular septal thickening within the right lung with numerous small nodules. Additional small nodules within the left lung are noted. There is underlying emphysema. Trace right pleural effusion is unchanged. A 2.5 x 1 cm pleural implant within the posterior right lower hemithorax is present. There is mild loss of height of the superior endplate of T8 consistent with a fracture is developed since prior CT. There is a probable underlying lytic lesion. Additional smaller lytic lesions within the thoracic spine cannot be excluded IMPRESSION: 1. No pneumothorax. No pneumomediastinum. No mediastinal hematoma. 2. Redemonstration of extensive lower cervical, thoracic and upper abdominal lymphadenopathy consistent with jo ann spread of malignancy. Lymphoma is within the differential but considered less likely. 3. Infiltrative mass centered on the right hilum which measures approximately 7.9 x 7.7 cm which results in extensive airway narrowing, as described above. This may represent a central lung malignancy or conglomerate adenopathy. Severe narrowing of the right lower lobe bronchus which has increased with increasing right lower lobe volume atelectasis. 4. Interval development of a T8 vertebral body fracture likely representing a pathologic fracture underlying lytic lesion. 5. 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 6. Emphysema. ACT 112: Negative or not required by law. Electronically signed by: Freddie Stubbs M.D. 02/16/2025 10:11 AM Abdomen/Pelvis CT 02/16/25 18:16 Exam(s): CT ABDOMEN + PELVIS With Contrast EXAM: CT Abdomen and Pelvis With Intravenous Contrast CLINICAL HISTORY: Reason for exam: lung cancer, r/o mets. TECHNIQUE: Axial computed tomography images of the abdomen and pelvis with intravenous contrast. CTDI is 21.8 mGy and DLP is 1114.58 mGy-cm. Automated exposure control was utilized for the study. A dose lowering technique was utilized adhering to the principles of ALARA. CONTRAST: Contrast type and volume not available at completion of the exam. COMPARISON: CT abdomen and pelvis: 01/31/2025 FINDINGS: Lung bases: There is increase in right infrahilar and right basilar consolidation suggestive of pneumonia. Postobstructive pneumonia is not excluded. Follow-up evaluation with a complete CT chest with IV contrast is recommended. . Heart: There are mild scattered coronary artery atherosclerotic calcifications. There is a small pericardial effusion. ABDOMEN: Liver: Unremarkable. No mass. Gallbladder and bile ducts: There is focal fundal gallbladder wall thickening and a small retained gallstones. Findings are suggestive of a phrygian cap. No intrahepatic bile duct dilatation is noted. Pancreas: Unremarkable. No mass. No ductal dilation. Spleen: Unremarkable. No splenomegaly. Adrenals: Unremarkable. No mass. Kidneys and ureters: There is a small simple left renal cyst. No solid renal mass or hydronephrosis. Stomach and bowel: There is a moderate stool burden suggestive of constipation. No bowel thickening or obstruction. No free air or abscess. PELVIS: Appendix: No findings to suggest acute appendicitis. Bladder: Unremarkable. No mass. Reproductive: Unremarkable as visualized. ABDOMEN and PELVIS: Intraperitoneal space: See above. Bones/joints: No acute fracture. No dislocation. Soft tissues: Unremarkable. Vasculature: There is scattered aortoiliac atherosclerotic calcifications. There is mid aortic ectasia measuring up to 2.8 cm. No abdominal aortic aneurysm. Lymph nodes: There are bulky enlarged genaro hepatis lymph node suspicious for metastatic jo ann disease. The largest periportal lymph node measures up to 2.4 cm. IMPRESSION: 1. There is increase in right infrahilar and right basilar consolidation suggestive of pneumonia. Postobstructive pneumonia is a consideration. Follow-up evaluation with a complete CT chest with IV contrast is recommended to evaluate for an associated right hilar lung mass.. 2. There are bulky enlarged genaro hepatis lymph node suspicious for metastatic jo ann disease. The largest periportal lymph node measures up to 2.4 cm. 3. Mild to moderate stool burden suggestive of constipation. Electronically signed by: Sebas Diaz MD 02/16/25 21:54 PM Brain MRI 02/16/25 18:16 EXAM: MR brain wo/w con CLINICAL HISTORY: lung cancer, r/o mets TECHNIQUE: MRI of the brain was performed with and without intravenous 8cc gadavist contrast administration. Sequences obtained include pre-contrast and post-contrast T1-weighted, T2-weighted, FLAIR (Fluid-Attenuated Inversion Recovery), DWI (Diffusion-Weighted Imaging), and ADC (Apparent Diffusion Coefficient) sequences. COMPARISON: No previous studies are available for comparison. FINDINGS: Brain Parenchyma: No evidence of infarction or hemorrhage. Mild diffuse T2 and FLAIR hyperintense signals are identified in the periventricular deep white matter Few tiny FLAIR hyperintense signals are identified periventricular region bilaterally Monsalve-white matter differentiation is preserved. No abnormal signal-intensity lesions identified. Post-Contrast Findings: No abnormal enhancement of the brain parenchyma or meninges. Ventricles and Sulci: Age-appropriate changes seen in the brain parenchyma with mild to moderate widening of sulci and mild dilatation of the ventricular system seen. Brainstem and Cerebellum: Normal appearance of the brainstem and cerebellum without focal lesions or abnormal enhancement. Vessels: Intracranial vessels appear normal without evidence of vascular malformations or aneurysms. Skull and Calvarium: No evidence of skull vault lesions or abnormal marrow signal within the calvarium. Mild mucosal thickening identified in bilateral ethmoid sinus IMPRESSION: 1. No lesions identified in brain parenchyma to suggest metastatic deposits. 2. Age appropriate volume loss in brain parenchyma and bilateral periventricular deep white matter ischemic changes. 3. Few tiny FLAIR hyperintense signals are identified in periventricular deep white matter likely due to microvascular ischemic changes. 4. Mild bilateral ethmoid sinusitis. 5. Electronically signed by Abelardo Ocasio 02-17-2025 01:25 AM Chest X-Ray 02/22/25 08:51 XR chest 1V portable CLINICAL HISTORY: f/u COMPARISON STUDY: 02/21/2025 FINDINGS: Stable dense opacity at the right mid and lower lung with shift of the heart and mediastinum to the right consistent with known obstructing central right lung mass and postobstructive consolidation/collapse. No pneumothorax. Stable mild stranding opacity at the left lung base. IMPRESSION: Stable exam. ACT 112: Negative or not required by law. Electronically signed by: Estevan Huston M.D. 02/22/2025 11:07 AM Medications Administered Current Inpatient Medications Acetaminophen (Acetaminophen 500 Mg Tab) 1,000 mg PO Q8H PRN PRN Reason: Fever Stop: 03/18/25 13:14 Last Admin: 02/24/25 08:56 Dose: 1,000 mg Acetylcysteine (Acetylcysteine 20% Inhal Soln 4ml Dispensed By Resp.) 5 ml INH DAILY@1700 [facility] Stop: 03/26/25 16:59 Albuterol (Albut/Ipratrop 3mg/0.5mg Neb 3 Ml Vial) 3 ml NEB Q4R PRN; Protocol PRN Reason: Shortness Of Breath Or Wheezing Stop: 03/18/25 14:07 Last Admin: 02/23/25 17:50 Dose: 3 ml Amlodipine Besylate (Amlodipine Besylate 5 Mg Tab) 10 mg PO DAILY [facility] Stop: 03/19/25 08:59 Last Admin: 02/24/25 08:50 Dose: 10 mg Benzonatate (Benzonatate 100 Mg Capsule) 100 mg PO TID PRN PRN Reason: Cough Stop: 03/18/25 13:59 Last Admin: 02/24/25 08:55 Dose: 100 mg Calcitonin [place] (Calcitonin [place] Na 200 Iu/Ac 3.7 Ml Btl) 1 sprays NA DAILY [facility] Stop: 03/18/25 13:29 Last Admin: 02/24/25 08:50 Dose: 1 sprays Calcium Carbonate (Calcium Carbonate 500 Mg Chewable Tab) 1,000 mg PO Q6H PRN PRN Reason: Indigestion Stop: 03/19/25 13:22 Last Admin: 02/19/25 10:40 Dose: 1,000 mg Enoxaparin Sodium (Enoxaparin Inj 40 Mg/0.4 Ml Syr) 40 mg SQ Q24H [facility] Stop: 03/18/25 20:59 Last Admin: 02/23/25 20:53 Dose: 40 mg Famotidine (Famotidine 20 Mg Tab) 20 mg PO DAILY PRN PRN Reason: SEVERE HEARTBURN Stop: 03/25/25 13:50 Last Admin: 02/24/25 08:57 Dose: 20 mg Fentanyl (Fentanyl 12 Mcg/Hr Tdsy) 1 patch TD Q72H [facility] Stop: 03/10/25 09:59 Last Admin: 02/24/25 11:45 Dose: 1 patch Fentanyl (Fentanyl 50 Mcg/Hr Tdsy) 1 patch TD Q72H [facility] Stop: 03/10/25 09:59 Last Admin: 02/24/25 11:45 Dose: 1 patch Finasteride (Finasteride 5 Mg Tab) 5 mg PO DAILY [facility] Stop: 03/19/25 08:59 Last Admin: 02/24/25 08:50 Dose: 5 mg Fluticasone Furoate (Fluticasone Furoate 200mcg 14 Puffs/Inhaler) 1 puffs INH DAILY [facility] Stop: 03/19/25 08:59 Last Admin: 02/24/25 08:50 Dose: 1 puffs Fluticasone Propionate (Fluticasone Propionate Na Spr 16 Gm Btl) 2 sprays NA DAILY [facility] Stop: 03/19/25 08:59 Last Admin: 02/24/25 08:50 Dose: 2 sprays Guaifenesin (Guaifenesin Sugar Free 200 Mg/10 Ml Udc) 200 mg PO QID [facility] Stop: 03/24/25 16:59 Last Admin: 02/24/25 08:49 Dose: 200 mg Guaifenesin/Codeine Phosphate (Guaifenesin/Codeine 200mg/20mg 10ml Udc) 10 ml PO Q6H PRN PRN Reason: Cough Stop: 03/18/25 17:19 Last Admin: 02/18/25 09:47 Dose: 10 ml Lansoprazole (Lansoprazole 30 Mg Soltab) 30 mg PO BID [facility] Stop: 03/24/25 20:59 Last Admin: 02/24/25 08:49 Dose: 30 mg Lidocaine (Lidocaine 5% 1 Patch) 2 patch TD QAM [facility] Stop: 03/25/25 08:59 Last Admin: 02/24/25 08:49 Dose: 2 patch Lorazepam (Lorazepam 2 Mg/1 Ml Vial) 0.5 mg IV Q6H PRN PRN Reason: Anxiety/Agitation Stop: 03/20/25 12:15 Last Admin: 02/23/25 09:19 Dose: 0.5 mg Melatonin (Melatonin 3 Mg Tab) 3 mg PO HS [facility] Stop: 03/25/25 20:59 Last Admin: 02/23/25 20:53 Dose: 3 mg Metoprolol Tartrate (Metoprolol Tartrate 25 Mg Tab) 25 mg PO DAILY [facility] Stop: 03/23/25 00:54 Last Admin: 02/24/25 08:51 Dose: 25 mg Miscellaneous (Remove Lidoderm Patch) 1 each N/A DAILY@2100 [facility] Stop: 03/24/25 20:59 Last Admin: 02/23/25 20:59 Dose: 1 each Miscellaneous (12mcg Patch: Fentanyl Patch Remove & Waste) 1 each N/A Q72H [facility] Stop: 03/29/25 09:58 Miscellaneous (12mcg Patch: Check Fentanyl Patch Placement) 1 each N/A QS [facility] Stop: 03/26/25 15:59 Miscellaneous (50mcg Patch: Fentanyl Patch Remove & Waste) 1 each N/A Q72H [facility] Stop: 03/26/25 09:58 Last Admin: 02/24/25 11:47 Dose: 1 each Miscellaneous (50mcg Patch: Check Fentanyl Patch Placement) 1 each N/A QS [facility] Stop: 03/26/25 15:59 Morphine Sulfate (Morphine Sulfate Tuber Helper 30 Mg/30 Ml) 30 mg IV PRN PRN; Protocol PRN Reason: [employer] Pain Titration Stop: 03/06/25 16:41 Last Admin: 02/23/25 18:58 Dose: 30 mg Morphine Sulfate (Morphine Bolus From Tuber Helper) 2 mg IV Q2H PRN PRN Reason: cough/prior to neb Stop: 03/06/25 16:41 Last Admin: 02/23/25 12:00 Dose: 2 mg Naloxone HCl (Naloxone Hcl 0.4 Mg/1 Ml Vial/Carp) 0.1 mg IV Q5M PRN; Protocol PRN Reason: Oversedation/Resp Depression Stop: 03/06/25 16:41 Nystatin (Nystatin 500,000 Unit Tab) 500,000 units PO QID [facility] Stop: 02/27/25 12:59 Last Admin: 02/24/25 08:49 Dose: 500,000 units Ondansetron HCl (Ondansetron Inj 2 Mg/Ml 2 Ml Vial) 4 mg IV Q6H PRN PRN Reason: Nausea Stop: 03/20/25 12:29 Polyethylene Glycol (Polyethylene (Miralax) 17 Gm Pack) 17 gm PO DAILY PRN PRN Reason: Constipation Stop: 03/18/25 13:14 Last Admin: 02/18/25 06:46 Dose: 17 gm Polyethylene Glycol (Polyethylene (Miralax) 17 Gm Pack) 17 gm PO DAILY [facility] Stop: 03/18/25 13:14 Last Admin: 02/24/25 08:57 Dose: 17 gm Sennosides (Sennosides 8.8 Mg/5 Ml Udc) 17.6 mg PO QAM [facility] Stop: 03/26/25 08:59 Last Admin: 02/24/25 08:57 Dose: 17.6 mg Sodium Chloride (Sodium Chlor 7% 4 Ml Neb) 4 ml NEB DAILY@1700 [facility] Stop: 03/26/25 16:59 Tamsulosin HCl (Tamsulosin Hcl 0.4 Mg Cap) 0.8 mg PO DAILY [facility] Stop: 03/19/25 08:59 Last Admin: 02/24/25 08:49 Dose: 0.8 mg Umeclidinium/Vilanterol (Umeclidinium/Vilanterol 62.5/25mcg 7 Puffs/Inhaler) 1 puffs INH DAILY [facility] Stop: 03/19/25 08:59 Last Admin: 02/24/25 08:50 Dose: 1 puffs PG Care Time/CCT Total # of Minutes Spent Total Time Spent with Patient: Total time spent is greater than 50% in coordination of care (as documented) at patient's floor/unit and/or counseling patient: Coding [place] [address] SUB INP/OBS CARE 3/50MIN Patient Type Established History Expanded Problem Focused Exam Expanded Problem Focused Medical Decision Making Moderate Complexity Diagnoses Palliative care by specialist Z51.5 Anxiety associated with cancer diagnosis F41.1; C80.1 Counseling regarding advanced directives and goals of care Z71.89 Cancer related pain G89.3
[2025-02-24] MEDS: CHECK FENTANYL SCH ×2 (16:18)
[2025-02-24] MEDS: dexAMETHasone 4 MG TAB PO SCH (17:15)
[2025-02-25] MEDS ORDERED: oxyCODONE HCL IR 5 MG TAB (IMMEDIATE RELEASE) PO PRN (12:48)
--- NOTE | 2025-02-25 13:00 | Palliative Care Progress Note ---
Date of Service February 25, 2025 Assessment & Plan (1) Palliative care by specialist: Plan: Pt will follow with outpt palliative care team follow for ongoing symptom management and patient support, appt scheduled for 02/28. (2) Anxiety associated with cancer diagnosis: Plan: Pt appears relaxed today, sitting up in chair. He has previously refused any anxiolytics or mood stabilizing "psych meds". PRN ativan is ordered and encouraged with pt. Again discussed that pain and insomnia can be lessened with an anxiolytic. Helped pt understand that anxiety can cause insomnia as well as worsen pain. (3) Counseling regarding advanced directives and goals of care: Plan: Goals of carea clearly established for ongoing life prolonging therapy and cancer directed treatments. Pt has expressed awareness that his prognosis is poor with short life expectancy and is eager to return home to spend time with his son and his pets. (4) Cancer related pain: Plan: Pt shared that his pain is well managed and he continues to sleep well. He has had NO prn use overnight. He is requesting ROASTER HELPER be discontinued and PIV be removed in preparation for discharge. He remains motivated for outpt follow up with oncology team to pursue "any cutting edge treatment that will help me get revenge on cancer". Palliative care will continue to manage pain in outpt clinic after discharge.. Continue duragesic to 62ucg/hr TD q72h Discontinue ROASTER HELPER morphine Add OxyIR 5mg q6h for BTP continue 5% Lidoderm patch x2 for back pain (5) Therapeutic opioid-induced constipation (OIC): Plan: Discusssed OIC and need for daily OIC prevention with pt, he verbalized understanding that he will require preventative bowel regime as long as he remains on scheduled opiate pain medications, likely for the remainder of his life. Continue scheduled senna/miralax as outpt. (6) POLST (Physician Orders for Life-Sustaining Treatment): Plan: Pt shared that he would like to discuss code status and prepare a POLST to reflect previous discussions. Pt initially stated that although he would not want CPR in the event of his , but he would still want everything done to prolong his life while he is still alive. He shared that although he does not want chest compressions, he would want cardiac medications injected directly into his heart tissue and would want defibrillation without CPR. He shared that a nurse had told him that he could have medications injected directly into the heart to avoid the need for chest compressions. Discussed code status and helped pt understand that CPR is only done after a person has and involves uncomfortable and invasive procedures that, if successful. have high risk of multiple complications including but not limited to rib fractures, pneumo/hemothorax, ALEXANDRA, ventilator dependence, anoxic brain injury, and intermediate project manager/permanent cognitive and functional deficits. CPR survival: Only about 10% of patients who have alv-rd-rbhguaac sudden cardiac arrest survive to hospital discharge, with many survivors having neurologic impairment. This rate is even lower among patients with serious coexisting conditions, ie chance of survival to hospital discharge for in- hospital CPR in older people is low to moderate (15%) and decreases with age, comorbidities, performance status and frailty: for pts > 70 yo, more than half of the patients who initially survived resuscitation in the hospital before hospital discharge. The pooled survival to discharge after in-hospital CPR was 18% for patients between 70 and 79 years old, 15% for patients between 80 and 89 years old and 11% for patients of 90 years and older. (Clarence JACOBO, Juan J LJ, Glen F, et al. Trends in short- and long-term survival among [id number] cardiac arrest patients alive at hospital arrival. Circulation 2014;130:1883- 1890. AND Toya C, Leena T, Patricia R, et al. Performance of clinical risk scores to predict mortality and neurological outcome in cardiac arrest patients. Resuscitation 2019;136:21-29.) Pt verbalized understanding of the above and requests NO resuscitation if his heart were to stop, but requests that while his heart is beating we do all interventions medically indicated to keep it beating. POLST for completed to indicate pt wishes for no resuscitation in event of cardiac arrest, however continue all therapies to prevent cardiac arrest, including mechanical ventilation and tube feedings if indicated. Pt did express desire to revisit this discussion should his condition deteriorate to the point of limiting his quality of life. Plan as above Ongoing symptom mgmt and GOC/POLST discussed with pt from 10:00 - 10:40 Admission and Anticipated Discharge Date Admission Date: February 16, 2025 Subjective Assessed pt at bedside, he was sitting upright in chair and pleasantly communicative. He shared that his pain is well controlled with duragesic alone, and he does not need ROASTER HELPER. he reports sleeping well and that he would like to be discharged to home as soon as medically cleared. Review of Systems Review of Systems: All systems reviewed & are unremarkable except as noted in HPI & below Right shoulder/chest pain continues as previous Musculoskeletal: + back pain and + muscle weakness Psychiatric: no anxiety Physical Exam Constitutional: + ill appearing, + thin, + frail appeari ng and cooperative Eyes: PERRL, conjunctivae normal, anicteric sclerae ENMT: external ear and nose normal, oropharynx normal Neck: trachea midline, no thyromegaly Respiratory: normal respiratory effort, lungs clear to auscultation Cardiovascular: RRR, no murmur, no edema Gastrointestinal (Abdomen): normal bowel sounds, soft, nontender, no hepatosplenomegaly Musculoskeletal: no cyanosis or clubbing, extremities motor strength 5/5 Neurologic: PERRL, EOMI, accommodation nl, no face palsy, no dysarthria Psychiatric: Orientation: alert, oriented x 3 and cooperative Eye Contact: good eye contact Speech: + pressured speech Affect: + anxious affect, + tearful affect and + labile affect Thought Process: goal directed thought process Thought Content: + preoccupation Judgment: good judgement Pt preoccupied with discharge and lack of sleep through day 2/ multiple care takers interrupting him. Results & Data Vital Signs (Past 12 Hours) Vital Signs Temp Pulse Resp BP Pulse Ox O2 Del Method O2 Flow Rate 02/25/25 09:07 Nasal Cannula 4 02/25/25 08:00 36.8 C 79 18 118/78 95 Oxymask 3.0 02/25/25 03:20 36.8 C 86 20 128/95 91 Oxymask 3.0 Medications Administered Current Inpatient Medications Acetaminophen (Acetaminophen 500 Mg Tab) 1,000 mg PO Q8H PRN PRN Reason: Fever Stop: 03/18/25 13:14 Last Admin: 02/24/25 08:56 Dose: 1,000 mg Acetylcysteine (Acetylcysteine 20% Inhal Soln 4ml Dispensed By Resp.) 5 ml INH DAILY@1700 [place] Stop: 03/26/25 16:59 Last Admin: 02/24/25 17:49 Dose: 5 ml Albuterol (Albut/Ipratrop 3mg/0.5mg Neb 3 Ml Vial) 3 ml NEB Q4R PRN; Protocol PRN Reason: Shortness Of Breath Or Wheezing Stop: 03/18/25 14:07 Last Admin: 02/24/25 17:49 Dose: 3 ml Amlodipine Besylate (Amlodipine Besylate 5 Mg Tab) 10 mg PO DAILY [place] Stop: 03/19/25 08:59 Last Admin: 02/25/25 08:54 Dose: 10 mg Benzonatate (Benzonatate 100 Mg Capsule) 100 mg PO TID PRN PRN Reason: Cough Stop: 03/18/25 13:59 Last Admin: 02/24/25 08:55 Dose: 100 mg Calcitonin [place] (Calcitonin [place] Na 200 Iu/Ac 3.7 Ml Btl) 1 sprays NA DAILY [place] Stop: 03/18/25 13:29 Last Admin: 02/25/25 08:55 Dose: 1 sprays Calcium Carbonate (Calcium Carbonate 500 Mg Chewable Tab) 1,000 mg PO Q6H PRN PRN Reason: Indigestion Stop: 03/19/25 13:22 Last Admin: 02/19/25 10:40 Dose: 1,000 mg Dexamethasone (Dexamethasone 4 Mg Tab) 4 mg PO DAILY [facility] Stop: 03/26/25 16:14 Last Admin: 02/25/25 08:53 Dose: 4 mg Enoxaparin Sodium (Enoxaparin Inj 40 Mg/0.4 Ml Syr) 40 mg SQ Q24H [facility] Stop: 03/18/25 20:59 Last Admin: 02/24/25 21:44 Dose: 40 mg Famotidine (Famotidine 20 Mg Tab) 20 mg PO DAILY PRN PRN Reason: SEVERE HEARTBURN Stop: 03/25/25 13:50 Last Admin: 02/24/25 08:57 Dose: 20 mg Fentanyl (Fentanyl 12 Mcg/Hr Tdsy) 1 patch TD Q72H [place] Stop: 03/10/25 09:59 Last Admin: 02/24/25 11:45 Dose: 1 patch Fentanyl (Fentanyl 50 Mcg/Hr Tdsy) 1 patch TD Q72H [place] Stop: 03/10/25 09:59 Last Admin: 02/24/25 11:45 Dose: 1 patch Finasteride (Finasteride 5 Mg Tab) 5 mg PO DAILY [place] Stop: 03/19/25 08:59 Last Admin: 02/25/25 08:53 Dose: 5 mg Fluticasone Furoate (Fluticasone Furoate 200mcg 14 Puffs/Inhaler) 1 puffs INH DAILY [facility] Stop: 03/19/25 08:59 Last Admin: 02/25/25 08:54 Dose: 1 puffs Fluticasone Propionate (Fluticasone Propionate Na Spr 16 Gm Btl) 2 sprays NA DAILY [place] Stop: 03/19/25 08:59 Last Admin: 02/25/25 08:55 Dose: 2 sprays Guaifenesin (Guaifenesin Sugar Free 200 Mg/10 Ml Udc) 200 mg PO QID [facility] Stop: 03/24/25 16:59 Last Admin: 02/25/25 08:54 Dose: 200 mg Guaifenesin/Codeine Phosphate (Guaifenesin/Codeine 200mg/20mg 10ml Udc) 10 ml PO Q6H PRN PRN Reason: Cough Stop: 03/18/25 17:19 Last Admin: 02/18/25 09:47 Dose: 10 ml Lansoprazole (Lansoprazole 30 Mg Soltab) 30 mg PO BID [facility] Stop: 03/24/25 20:59 Last Admin: 02/25/25 08:55 Dose: 30 mg Lidocaine (Lidocaine 5% 1 Patch) 2 patch TD QAM [place] Stop: 03/25/25 08:59 Last Admin: 02/25/25 08:53 Dose: 2 patch Lorazepam (Lorazepam 2 Mg/1 Ml Vial) 0.5 mg IV Q6H PRN PRN Reason: Anxiety/Agitation Stop: 03/20/25 12:15 Last Admin: 02/23/25 09:19 Dose: 0.5 mg Melatonin (Melatonin 3 Mg Tab) 3 mg PO HS [place] Stop: 03/25/25 20:59 Last Admin: 02/24/25 21:46 Dose: 3 mg Metoprolol Tartrate (Metoprolol Tartrate 25 Mg Tab) 25 mg PO DAILY [facility] Stop: 03/23/25 00:54 Last Admin: 02/25/25 08:55 Dose: 25 mg Miscellaneous (Remove Lidoderm Patch) 1 each N/A DAILY@2100 [facility] Stop: 03/24/25 20:59 Last Admin: 02/24/25 21:51 Dose: 1 each Miscellaneous (12mcg Patch: Fentanyl Patch Remove & Waste) 1 each N/A Q72H [facility] Stop: 03/29/25 09:58 Miscellaneous (12mcg Patch: Check Fentanyl Patch Placement) 1 each N/A QS [facility] Stop: 03/26/25 15:59 Last Admin: 02/25/25 08:53 Dose: 1 each Miscellaneous (50mcg Patch: Fentanyl Patch Remove & Waste) 1 each N/A Q72H [place] Stop: 03/26/25 09:58 Last Admin: 02/24/25 11:47 Dose: 1 each Miscellaneous (50mcg Patch: Check Fentanyl Patch Placement) 1 each N/A QS [facility] Stop: 03/26/25 15:59 Last Admin: 02/25/25 08:53 Dose: 1 each Naloxone HCl (Naloxone Hcl 0.4 Mg/1 Ml Vial/Carp) 0.1 mg IV Q5M PRN; Protocol PRN Reason: Oversedation/Resp Depression Stop: 03/06/25 16:41 Nystatin (Nystatin 500,000 Unit Tab) 500,000 units PO QID [facility] Stop: 02/27/25 12:59 Last Admin: 02/25/25 08:53 Dose: 500,000 units Ondansetron HCl (Ondansetron Inj 2 Mg/Ml 2 Ml Vial) 4 mg IV Q6H PRN PRN Reason: Nausea Stop: 03/20/25 12:29 Oxycodone HCl (Oxycodone Hcl Ir 5 Mg Tab (Immediate Release)) 10 mg PO Q6H PRN PRN Reason: Pain Stop: 03/11/25 12:47 Polyethylene Glycol (Polyethylene (Miralax) 17 Gm Pack) 17 gm PO DAILY PRN PRN Reason: Constipation Stop: 03/18/25 13:14 Last Admin: 02/18/25 06:46 Dose: 17 gm Polyethylene Glycol (Polyethylene (Miralax) 17 Gm Pack) 17 gm PO DAILY [facility] Stop: 03/18/25 13:14 Last Admin: 02/25/25 09:13 Dose: Not Given Sennosides (Sennosides 8.8 Mg/5 Ml Udc) 17.6 mg PO QAM [facility] Stop: 03/26/25 08:59 Last Admin: 02/25/25 08:54 Dose: 17.6 mg Sodium Chloride (Sodium Chlor 7% 4 Ml Neb) 4 ml NEB DAILY@1700 [facility] Stop: 03/26/25 16:59 Last Admin: 02/24/25 17:50 Dose: Not Given Tamsulosin HCl (Tamsulosin Hcl 0.4 Mg Cap) 0.8 mg PO DAILY [place] Stop: 03/19/25 08:59 Last Admin: 02/25/25 08:54 Dose: 0.8 mg Umeclidinium/Vilanterol (Umeclidinium/Vilanterol 62.5/25mcg 7 Puffs/Inhaler) 1 puffs INH DAILY [place] Stop: 03/19/25 08:59 Last Admin: 02/25/25 08:54 Dose: 1 puffs PG Care Time/CCT Total # of Minutes Spent Total Time Spent with Patient: Total time spent is greater than 50% in coordination of care (as documented) at patient's floor/unit and/or counseling patient: Advanced Care Planning 22143 Advanced Care Planning 30 Min [place] [address] SUB INP/OBS CARE 2/35MIN Patient Type Established History Expanded Problem Focused Exam Expanded Problem Focused Medical Decision Making Moderate Complexity Diagnoses Palliative care by specialist Z51.5 Anxiety associated with cancer diagnosis F41.1; C80.1 Counseling regarding advanced directives and goals of care Z71.89 Cancer related pain G89.3 Therapeutic opioid-induced constipation (OIC) K59.03; T40.2X5A POLST (Physician Orders for Life-Sustaining Treatment) Z78.9 Additional Codes Advanced Care Planning - 39806 Advanced Care Planning 30 Min: 13365 Advanced Care Planning 30 Min ([id number])
--- NOTE | 2025-02-25 18:53 | Hospitalist Progress Note ---
Date of Service February 25, 2025 Assessment & Plan (1) Metastatic primary lung cancer: (2) Compression fracture of T8 vertebra: (3) Postobstructive pneumonia: (4) Therapeutic opioid-induced constipation (OIC): (5) Multifocal pneumonia: (6) Open wound of left foot: (7) Chronic obstructive pulmonary disease: (8) BPH (benign prostatic hyperplasia): (9) Situational anxiety: Plan 69yo male with h/o tobacco use, COPD, GERD, Hyperlipidemia. Presented with shortness of breath and uncontrollable right chest pain. s/p recent bronchoscopy by Dr. Douglas Monteiro on 02/11 with biopsies confirming metastatic small cell lung cancer. 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 * brain MRI negative for mets. * s/p cycle 1 of carboplatin/etoposide ending 02/18/25 * appreciate oncology & palliative care consults/recs * rad onc consult - no plans for any radiation at this time (could consider T8 XRT if pain remains refractory) * [facility] #acute hypoxic respiratory failure - * 2nd to post-obstructive RML/RLL pneumonia * 2nd to extensive small cell lung ca * right hilar mass is obstructing the RLL and RML bronchi with resulting collapse of these lobes * cont nebs, antibiotics, O2, supportive care * added dexamethasone 4mg daily for pain control (bone pain, etc) as well as wheezing - pain, affect, wheezing - all improved with steroids; plan 7 days of 4mg dex in total #Pathologic T8 vertebral fracture caused by underlying metastasis - * cont fentanyl patch - increased to 50mcg q3d on 02/22/25, and increased again to 62mcg 02/24 by palliative care * d/c 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 * oxy 5mg prn breakthrough pain * regimen at d/c --> fentanyl patches 62mcg q3d, next exchange on 02/27/25; oxy prn #severe cancer related pain - as above #RML/RLL post-obstructive pneumonia - * cont IV zosyn - day #7 of such * d/c abx today * cont mucomyst and saline nebs - dc home on saline nebs only; mucomyst is extremely hard to find at any outside pharmacy * duonebs prn; d/c home with such * mucinex #Black stool - * reported black stool 02/18 and 02/20; intermittently brown * H/H stable * cont PPI * observe carefully * ?possibly this was related to swallowed blood prior to admission as he had been coughing up bloody mucus at home? #opiate-induced constipation - * cont miralax daily * cont senna 17.6mg daily #COPD - cont inhalers, nebs, O2, etc. #HTN - continue amlodipine, metoprolol #BPH - continue finasteride, flomax #Insomnia - melatonin #chronic back pain - scheduled for facet joint injection by Dr Green, [facility]; I informed her of pt's newly dx cancer etc. Her office will contact him on Friday to determine if he is candidate for injection next week Will make patient aware #Social difficulties - Pt reports his house is about to listed for sale. His son is helping with the above process. Son lives in [place] in a trailer. Son has been working on the pt's house and has prepared a bedroom for his father on the first floor. Pt to return to his house tomorrow at d/c. Son likely to stay with his father to help. Set up home health services. #DVT prophylaxis - lovenox daily I updated pt's son Estevan by phone this afternoon he is ready to take his father home on 02/26 I spoke with 2 [employer] pharmacies about Mr Swanson's fentanyl patches (1 location did not have the 12mcg strength) care d/w Clementina from palliative care care d/w Dr Green via [facility] text communication care d/w social work and nursing multiple visits to pt's room today very complex care coordination total time spent on all care activities - 90 minutes Admission and Anticipated Discharge Date Admission Date: February 16, 2025 Subjective tele overnight wnl patient reported to Clementina from the palliative care team that he wanted to go home today he is feeling well, pain is largely controlled, and arrangements have been made for him to return to his home in [place] no new complaints moving bowels eating well morphine SECONDARY SPECIAL EDUCATION TEACHER - has not needed any demands in about 24 hours thus, SECONDARY SPECIAL EDUCATION TEACHER discontinued Review of Systems Review of Systems: CV - no chest pain pulm - mild BOWEN and cough but all pulmonary symptoms improved GI - no abd pain or N/V gen - feels good today; no fevers Physical Exam Physical Exam: gen - looks well today, walking around the room, NAD, comfortable neck - no JVD mouth - MMM, no lesions, no thrush heart - RRR, s1 s2, no murmur lungs - decreased BS right base; right apex airation improved; left lung clear; wheezes better; no increased work of breathing abd - soft, BS+, NT, no HSM, no masses ext - no edema, pulses 2+ b/l psych - affect full, a/o x 3, best he has looked all week skin - center of dorsal surface, left foot - scabbed lesion, about 1.5cm in size, no cellulitis Results & Data Results & Data Vital Signs (Past 12 Hours) Vital Signs Temp Pulse Pulse Pulse Pulse Pulse Resp 02/25/25 17:26 89 20 02/25/25 16:00 36.7 C 88 18 02/25/25 14:04 95 H 93 H 86 83 02/25/25 11:20 36.8 C 89 20 02/25/25 09:07 02/25/25 08:00 36.8 C 79 18 Resp Resp Resp Resp BP Pulse Ox Pulse Ox 02/25/25 17:26 86 L 02/25/25 16:00 125/74 02/25/25 14:04 18 18 18 18 86 L 02/25/25 11:20 114/69 96 02/25/25 09:07 02/25/25 08:00 118/78 95 Pulse Ox Pulse Ox Pulse Ox O2 Del Method O2 Flow Rate O2 Flow Rate O2 Flow Rate 02/25/25 17:26 Room Air 02/25/25 16:00 Nasal Cannula 2 02/25/25 14:04 91 85 L 90 2 3 02/25/25 11:20 Nasal Cannula 2 02/25/25 09:07 Nasal Cannula 4 02/25/25 08:00 Oxymask 3.0 PG Care Time/CCT Total # of Minutes Spent Total Time Spent with Patient: Total time spent is greater than 50% in coordination of care (as documented) at patient's floor/unit and/or counseling patient: Prolonged Care Time Prolonged Care Time: Yes Total Prolonged Care Time: 90 Coding Level of Care Code 39548 SUB INP/OBS CARE 3/50MIN (25 - SIGNIFICANT, SEPARATELY IDENTIFIABLE ) Diagnoses Metastatic primary lung cancer C34.90 Compression fracture of T8 vertebra S22.060A Postobstructive pneumonia J18.9 Therapeutic opioid-induced constipation (OIC) K59.03; T40.2X5A Multifocal pneumonia J18.9 Open wound of left foot S91.302A Chronic obstructive pulmonary disease J44.9 BPH (benign prostatic hyperplasia) N40.0 Situational anxiety F41.8 Additional Codes Prolonged Care Time - Prolonged Care Time: Yes ([id number])
[2025-02-25] MEDS: oxyCODONE HCL IR 5 MG TAB (IMMEDIATE RELEASE) PO PRN (22:05)
[2025-02-26 06:57] LABS: Hematocrit (blood only) 38.9 % (42.0-52.0); Hemoglobin 12.9 g/dl (14.0-18.0)
[2025-02-26 07:21] LABS: BUN Creatinine Ratio 27.5 (10-20); Calcium 8.5 mg/dl (8.6-10.3); Creatinine Clr Calc Pharmacy 95.4 ml/min; Potassium 3.9 mmol/L (3.5-5.1)
[2025-02-26 08:02] VITALS: RESP 20; TEMP 98.2; O2SAT 90
[2025-02-26 11:13] VITALS: BP 119/86; PULSE 88
--- NOTE | 2025-02-26 11:24 | Discharge Summary ---
Discharge Summary Date of Service February 26, 2025 Principal Dx & Hospital Course #1 = Principal Diagnosis (1) Metastatic primary lung cancer: (2) Compression fracture of T8 vertebra: (3) Postobstructive pneumonia: (4) Therapeutic opioid-induced constipation (OIC): (5) Multifocal pneumonia: (6) Open wound of left foot: (7) Chronic obstructive pulmonary disease: (8) BPH (benign prostatic hyperplasia): (9) Situational anxiety: Plan 69yo male with h/o tobacco use, COPD, GERD, Hyperlipidemia. Presented with shortness of breath and uncontrollable right chest pain. s/p recent bronchoscopy by Dr. Douglas Monteiro on 02/11 with biopsies confirming metastatic small cell lung cancer. 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 * brain MRI negative for mets. * s/p cycle 1 of carboplatin/etoposide ending 02/18/25 * appreciate oncology & palliative care consults/recs * rad onc consult - no plans for any radiation at this time (could consider T8 XRT if pain remains refractory) * [facility]2 [facility] #acute hypoxic respiratory failure - * 2nd to post-obstructive RML/RLL pneumonia * 2nd to extensive small cell lung ca * right hilar mass is obstructing the RLL and RML bronchi with resulting collapse of these lobes * cont nebs, antibiotics, O2, supportive care * added dexamethasone 4mg daily for pain control (bone pain, etc) as well as wheezing - pain, affect, wheezing - all improved with steroids; plan 7 days of 4mg dex in total #Pathologic T8 vertebral fracture caused by underlying metastasis - * cont fentanyl patch - increased to 50mcg q3d on 02/22/25, and increased again t o 62mcg 02/24 by palliative care * d/c morphine [employer] 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 * oxy 5mg prn breakthrough pain * regimen at d/c --> fentanyl patches 62mcg q3d, next exchange on 02/27/25; oxy prn #severe cancer related pain - as above #RML/RLL post-obstructive pneumonia - * cont IV zosyn - day #7 of such * d/c abx today * cont mucomyst and saline nebs - dc home on saline nebs only; mucomyst is extremely hard to find at any outside pharmacy * duonebs prn; d/c home with such * mucinex #Black stool - * reported black stool 02/18 and 02/20; intermittently brown * H/H stable * cont PPI * observe carefully * ?possibly this was related to swallowed blood prior to admission as he had been coughing up bloody mucus at home? #opiate-induced constipation - * cont miralax daily * cont senna 17.6mg daily #COPD - cont inhalers, nebs, O2, etc. #HTN - continue amlodipine, metoprolol #BPH - continue finasteride, flomax #Insomnia - melatonin #chronic back pain - scheduled for facet joint injection by Dr Green, [facility]; I informed her of pt's newly dx cancer etc. Her office will contact him on Friday to determine if he is candidate for injection next week Will make patient aware #Social difficulties - Pt reports his house is about to listed for sale. His son is helping with the above process. Son lives in [place] in a trailer. Son has been working on the pt's house and has prepared a bedroom for his father on the first floor. Pt to return to his house tomorrow at d/c. Son likely to stay with his father to help. Set up home health services. #DVT prophylaxis - lovenox daily I updated pt's son Estevan by phone this afternoon he is ready to take his father home on 02/26 I spoke with 2 [facility] pharmacies about Mr Swanson's fentanyl patches (1 location did not have the 12mcg strength) care d/w Clementina from palliative care care d/w Dr Green via [place] text communication care d/w social work and nursing multiple visits to pt's room today very complex care coordination total time spent on all care activities - 90 minutes Admission HPI Per Admitting Provider Christopher is a 69M with a PMHx of tobacco use, COPD, GERD, HLD who presents to the ED with shortness of breath and uncontrollable pain. He had a recent bronchoscopy wt Dr. 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 He has not seen oncology outpatient yet. Has been having to use his albuterol more frequently, does feel like it helps. Has been using medical marijuana for the pain. Reports that he has a plethora of narcotic pain medications at home for his lower back pain and history of fusion. He has not been taking these. He states that Dr. Monteiro instructed him to come last night but he could not get to the ER until this morning. States that he is here to try to get his pain controlled and get things figured out from an oncology perspective as he is having no quality of life at home. For now he states he wants to be aggressive and do everything possible, but knows that this ultimately might end up with him returning home with hospice. Pain is worse when he is coughing or trying to blow his nose. Has had increased mucus production over the last 2 to 3 weeks sometimes coughing up full handfuls. Has been trying to avoid coughing up mucus because it is painful however coughing up usually makes him feel better Lives alone about 1 hour from here, his son is his major support system who lives about 1 hour away from him. He would like to be a conditional code he is okay with defibrillation and intubation if needed and other life-saving measures he just does not want chest compressions. He states to me that he will likely become a DNR this admission. Patient is very insightful and has been doing his own research onto possible options for his oncologic treatment ED course: Dilaudid 0.5mg IV x1 Fentanyl 50 mcq IV Discharge Exam gen - looks well today, walking around the room, NAD, comfortable neck - no JVD mouth - MMM, no lesions, no thrush heart - RRR, s1 s2, no murmur lungs - decreased BS right base; right apex airation improved; left lung clear; wheezes better; no increased work of breathing abd - soft, BS+, NT, no HSM, no masses ext - no edema, pulses 2+ b/l psych - affect full, a/o x 3, best he has looked all week skin - center of dorsal surface, left foot - scabbed lesion, about 1.5cm in size, no cellulitis Discharge Plan Discharge Items Patient Disposition: Home - Home Health Services Reason For Visit: LUNG CANCER, HYPOXIA Discharge Diagnosis: 1. stage 4 lung cancer 2. right-sided pneumonia - resolved 3. need for home Oxygen - 2 liters while sitting/sleeping; 3 liters with any activity 4. T8 fracture (level 8 of the thoracic spine) - due to bone metastasis 5. COPD/emphysema 6. severe pain of back due to #4 7. severe pain of chest - multifactorial (cancer, possibly nerve pain from the fracture of T8, etc) Activity: As commented below Activity Comment: light activities only, as tolerated Non-emergency contact: Primary Care Provider and Specialist Call non-emergency contact if: you have any medication questions, your symptoms worsen, your pain is not controlled, your pain is worsening, your pain is unusual for you, your pain is concerning for you and you have a fever Follow-up/Referrals: Courtney Green DO [Physician] - (Dr Green's office to contact you on Friday, 02/28 to determine if injection can still be performed) Dinesh Washington MD [Primary Care Provider] - Mikala Galeas MD, [facility] [Physician] - 03/14/25 1:45 pm (Follow up scheduled for March 14, 2025 at 1:45 pm) Maya Chow DNP [Nurse Practitioner] - 02/28/25 1:00 pm (in [facility]) Nelly Jones MD [Physician] - 03/09/25 (follow-up at the [facility]) Diet: Regular Addtl Attending Provider Instructions: Robson Chaidez were admitted to [facility] due to shortness of breath and severe chest/back pain. You had evidence of pneumonia in the right lung and received a 7-day course of IV antibiotics. The cancer in the right lung is pushing on 2 of your bronchial tubes which contributes to difficulty breathing and low oxygen. During the stay we found that you have a fracture at thoracic level 8 in the middle of the your back. It appears the cancer moved to the T8 bone (metastasis). The fracture and the cancer in the bone itself causes significant pain. Oncology, radiation oncology, and pulmonary saw you during the hospitalization. You received your first cycle of chemotherapy while here. You did well with this. Palliative care also saw you and managed your pain with fentanyl patches and other pain medicine. With all of the above measures you made gradual improvement with your breathing and with your pains. Recommendations - 1. oxygen - please use 2 liters while sleeping, sitting, and at rest. With any activity increase the oxygen to 3 liters. 2. keep a pulse oximeter (reads your oxygen level on your finger) handy at home. You can check your oxygen levels as needed/as desired. Ideally your oxygen levels stay between 88% and 92%. If you are consistently less than 88% please seek medical attention. 3. pain control - * fentanyl patches -- 50mcg patch AND 12mcg patch (62mcg in total); change every 3 days * you are due to change your patches on Friday morning, 02/27/25 * remove the old patches and throw away * then simply put the new patches on your upper arm or upper back * [facility] in [place] to get the 12mcg fentanyl patch * the 50mcg patch of fentanyl and all other prescriptions have otherwise been sent to [facility] in [place] * for "breakthrough pain" you can use oxycodone pain killer medicine * for mild to moderate pain you can take 1 tablet by mouth every 6 hours as needed * for severe pain you can take 2 tablets by mouth every 6 hours as needed * the fentanyl patches and the oxycodone WILL CAUSE constipation * you will need to take a combination of miralax and senna tablets (both txuk-nfb-vdruqge) to keep your bowels regular * DO NOT drink alcohol or drive a car/operate heavy machinery at any time moving forward due to the ongoing narcotic/fentanyl usage and oxycodone usage * Please try to minimize marijuana use as the marijuana with the narcotics could cause sleepiness/sedation/confusion * if desired you can take dimg-ypk-ebmteci tylenol - 1000mg every 8 hours as needed for pain; maximum 3000mg in 24 hours * you can also use vejn-bdg-soozeli "Salonpas" patches - apply up to 3 patches to site(s) of pain for 12 hours, remove for 12 hours 4. dexamethasone steroid - take 1 tablet daily x 4 days starting 02/27/25 5. saline nebulizer treatments - you can do up to 2 treatments per day. BE SURE TO USE AN ALBUTEROL-IPRATROPIUM TREATMENT BEFORE TAKING THE SALINE NEB TREATMENT (in other words do the albuterol-iprotropium treatment first, then follow it up with the saline treatment). Plan to do the saline treatments once or twice a day for about a week, then simply use the saline as needed moving forward. The saline helps get mucous out of the lungs; thus, if you feel congested in the lungs, the saline will help with this. 6. note that the albuterol-iprotropium treatments can be used every 4 hours as needed for cough/wheezing/shortness of breath. Follow-up appointments - see separate section Know that we have set up home health care (visiting nurse) for you; date/time of first visit to be determined but usually within a few days of discharge Return to any hospital if - * your oxygen levels on your finger are consistently less than 88% * you have worsening shortness of breath * you have severe, uncontrolled pain in any location * you have severe diarrhea (3 or more liquid stools in 24 hours) * any other concerns It was our pleasure to care for you! -Dr Charles Pending Studies at Discharge: No Stand-Alone Forms: My [facility], Smoking Cessation Medications and DC Order Prescriptions: New (DME) nebulizers [facility] See Rx Instructions .Route Qty: 1 0RF Rx Instructions: As directed fentanyl 50 mcg/hr Patch 72 Hour 1 patch transdermal Q72H Qty: 10 0RF Rx Instructions: total dose every 3 days = 62mcg (50mcg patch + 12mcg patch) sodium chloride 7 % Solution For Nebulization 4 ml NEB BID Qty: 240 2RF Rx Instructions: take 1 treatment each morning and 1 treatment each evening. Be sure to take an albuterol neb treatment PRIOR to each saline neb. fentanyl 12 mcg/hr patch 72 hour 1 patch transdermal Q72H Qty: 10 0RF Rx Instructions: total 3 day dose = 62mcg (50mcg + 12mcg) polyethylene glycol 3350 [Miralax] 17 gram Powder In Packet 17 g PO DAILY Qty: 30 0RF Rx Instructions: purchase spxk-alq-eppionb. benzonatate 100 mg Capsule 100 - 200 mg PO TID PRN (Reason: cough) Qty: 30 0RF oxycodone 5 mg Tablet 5 mg PO Q6H PRN (Reason: pain) Qty: 30 0RF dexamethasone 4 mg tablet 4 mg PO DAILY 4 Days Qty: 4 0RF Rx Instructions: start 02/27/25, take with food. ipratropium-albuterol 0.5 mg-3 mg(2.5 mg base)/3 mL Solution For Nebulization 3 ml NEB Q4H PRN (Reason: shortness of breath or wheezing or cough) Qty: 180 0RF sennosides [senna] 8.6 mg tablet 17.2 mg PO DAILY Qty: 60 0RF Rx Instructions: purchase zbym-vmi-ebnehfb. (DME) Oxygen Home Liters Per Minute See Rx Instructions .ROUTE .MEDSUPPLY Qty: 1 0RF Rx Instructions: 2 liters with sleep/at rest/while sitting; 3 liters with any activity Continued amlodipine 10 mg tablet 10 mg PO DAILY Qty: 90 3RF finasteride 5 mg tablet 5 mg PO DAILY Qty: 100 3RF tamsulosin 0.4 mg capsule 0.8 mg PO DAILY Qty: 200 3RF fluorouracil 5 % cream 1 applic topical DAILY Qty: 40 0RF Rx Instructions: Apply to areas of the face daily at bedtime x 3 weeks as directed. Wash off in AM. Medical Marijuana 1 inh inhalation DAILY Rx Instructions: Unable to verify OTC meds at this date/time. fluticasone propionate 50 mcg/actuation spray,suspension 2 sprays intranasal DAILY Qty: 47.4 3RF ketoconazole 2 % shampoo 1 applic TOP DAILY Qty: 120 2RF Rx Instructions: Wash scalp 2-3 times weekly. Let sit for 3-5 minutes prior to rinsing. triamcinolone acetonide 0.1 % cream 1 applic topical BID PRN (Reason: skin irritation) Qty: 80 3RF albuterol sulfate 90 mcg/actuation HFA aerosol inhaler 2 puff inhalation Q4H PRN (Reason: shortness of breath or wheezing) Qty: 6.7 5RF Trelegy Ellipta 200-62.5-25 mcg blister with device 1 inh inhalation DAILY Qty: 180 3RF Changed omeprazole 20 mg capsule,delayed release(DR/EC) 20 mg PO BID Qty: 90 3RF Discharge Orders: Discharge Order (Routine); Ordered 02/26/25 Ordered By: Augustine Charles Admission Data Admit Date/Time: 02/16/25 11:55 Attending Provider: Augustine Charles Admit Provider: Alise Casillas Primary Care Provider: Dinesh Washington Other Providers: Alise Casillas; Nelly Jones; Inés Macdonald; Amado Lopez; Rogelio Lopez; Sarah Magallon; Myaa Chow; Mikala Galeas; [facility]; [facility] Stay Data Consultations 02/16/25 11:42 Consult Oncology Routine ED Decision to Admit Stat 02/16/25 14:44 Consult Radiation Oncology Routine 02/16/25 17:38 Consult Palliative Care Routine 02/19/25 08:57 Consult Pulmonology Routine Diagnostic Imagining Performed 02/16/25 08:19 CT chest diagnostic w con Stat 02/16/25 18:16 CT Abd and Pelvis [CT abd pelvis IV con only] Routine MRI Brain [MR brain wo/w con] Routine Pending Results Patient Have Any Pending Studies at Discharge: No Discharge Instructions Given to Patient (Per Discharging Provider) Robson Chaidez were admitted to [facility] due to shortness of breath and severe chest/back pain. You had evidence of pneumonia in the right lung and received a 7-day course of IV antibiotics. The cancer in the right lung is pushing on 2 of your bronchial tubes which contributes to difficulty breathing and low oxygen. During the stay we found that you have a fracture at thoracic level 8 in the middle of the your back. It appears the cancer moved to the T8 bone (metastasis). The fracture and the cancer in the bone itself causes significant pain. Oncology, radiation oncology, and pulmonary saw you during the hospitalization. You received your first cycle of chemotherapy while here. You did well with this. Palliative care also saw you and managed your pain with fentanyl patches and other pain medicine. With all of the above measures you made gradual improvement with your breathing and with your pains. Recommendations - 1. oxygen - please use 2 liters while sleeping, sitting, and at rest. With any activity increase the oxygen to 3 liters. 2. keep a pulse oximeter (reads your oxygen level on your finger) handy at home . You can check your oxygen levels as needed/as desired. Ideally your oxygen levels stay between 88% and 92%. If you are consistently less than 88% please seek medical attention. 3. pain control - * fentanyl patches -- 50mcg patch AND 12mcg patch (62mcg in total); change every 3 days * you are due to change your patches on Friday morning, 02/27/25 * remove the old patches and throw away * then simply put the new patches on your upper arm or upper back * [facility] in [place] to get the 12mcg fentanyl patch * the 50mcg patch of fentanyl and all other prescriptions have otherwise been sent to [facility] in [place] * for "breakthrough pain" you can use oxycodone pain killer medicine * for mild to moderate pain you can take 1 tablet by mouth every 6 hours as needed * for severe pain you can take 2 tablets by mouth every 6 hours as needed * the fentanyl patches and the oxycodone WILL CAUSE constipation * you will need to take a combination of miralax and senna tablets (both djbb-cbo-ayqmqhj) to keep your bowels regular * DO NOT drink alcohol or drive a car/operate heavy machinery at any time moving forward due to the ongoing narcotic/fentanyl usage and oxycodone usage * Please try to minimize marijuana use as the marijuana with the narcotics could cause sleepiness/sedation/confusion * if desired you can take xmky-fal-jyeywds tylenol - 1000mg every 8 hours as needed for pain; maximum 3000mg in 24 hours * you can also use uwyw-rno-bifjaus "Salonpas" patches - apply up to 3 patches to site(s) of pain for 12 hours, remove for 12 hours 4. dexamethasone steroid - take 1 tablet daily x 4 days starting 02/27/25 5. saline nebulizer treatments - you can do up to 2 treatments per day. BE SURE TO USE AN ALBUTEROL-IPRATROPIUM TREATMENT BEFORE TAKING THE SALINE NEB TREATMENT (in other words do the albuterol-iprotropium treatment first, then follow it up with the saline treatment). Plan to do the saline treatments once or twice a day for about a week, then simply use the saline as needed moving forward. The saline helps get mucous out of the lungs; thus, if you feel congested in the lungs, the saline will help with this. 6. note that the albuterol-iprotropium treatments can be used every 4 hours as needed for cough/wheezing/shortness of breath. Follow-up appointments - see separate section Know that we have set up home health care (visiting nurse) for you; date/time of first visit to be determined but usually within a few days of discharge Return to any hospital if - * your oxygen levels on your finger are consistently less than 88% * you have worsening shortness of breath * you have severe, uncontrolled pain in any location * you have severe diarrhea (3 or more liquid stools in 24 hours) * any other concerns It was our pleasure to care for you! -Dr Charles Coding Diagnoses Metastatic primary lung cancer C34.90 Compression fracture of T8 vertebra S22.060A Postobstructive pneumonia J18.9 Therapeutic opioid-induced constipation (OIC) K59.03; T40.2X5A Multifocal pneumonia J18.9 Open wound of left foot S91.302A Chronic obstructive pulmonary disease J44.9 BPH (benign prostatic hyperplasia) N40.0 Situational anxiety F41.8
[2025-02-27] MEDS ORDERED: 12mcg patch: fentaNYL PATCH REMOVE & WASTE SCH (09:59)
== END 2025-02-26 12:58 | disposition home health service (06) | DRG 180 ==
LOC: ED 07:48 → EDINP 11:55 → SUATTDRO 11:55 → EDINP 14:09 → 3W 15:38 → 3E 02-17 09:42 → 2E 02-19 08:44

== ENCOUNTER 2025-03-29 10:30 | Inpatient (IN) ==
[2025-03-29] MEDS ORDERED: HYDROmorphone INJ 0.5 MG/0.5 ML SYR IV PRN (11:00)
[2025-03-29] MEDS: SODIUM CHLORIDE 0.9% 1,000 ML IV SCH (11:11)
--- NOTE | 2025-03-29 11:11 | Emergency Department Note ---
Impression & Plan Weakness, Acute dehydration, Elevated lactic acid level, Acute narcotic withdrawal, Hypomagnesemia, Neutropenia ED Provider Note NAME: SAL JAUREGUI AGE: 69 SEX: M : 1955 ARRIVES VIA: Walk-In INFORMANT: [Patient][son] ED PROVIDER(S): [Dinesh Magallanes MD] CHIEF COMPLAINT: Back pain, weakness, vomiting HISTORY OF PRESENT ILLNESS: The patient is a 69-year-old male who saw his doctor's office today and was referred to the ED for failed outpatient management and hospitalization. The patient has small cell metastatic lung cancer. The patient states that he left the hospital about a month ago and was doing okay. The patient states that he has had around 2 weeks of nausea and vomiting. The patient felt it may be from his fentanyl. He stopped the fentanyl and all pain medication 3 days ago. He states that since stopping the pain meds, his gut is improved such that he is now tolerating some oral intake and he did have 2 large bowel movements however, now, he has severe back pain and feels shaky and chilled and on edge. The patient has lost a significant amount of weight. There has been no cough or respiratory complaint. No urinary complaint. He does have a diagnosis T12 fracture that he thinks is currently causing his complaint of back pain. The patient did have an episode of dizziness and syncope yesterday. He did not suffer any injury. He believes that he is quite dehydrated and that this led to the syncopal spell. PMHx/PSHx/Social Hx: See Below PHYSICAL EXAM: GENERAL: Patient is in mild distress, anxious, tearful HEENT: No acute trauma, normocephalic atraumatic, mucous membranes moist, no nasal congestion. NECK: No stridor, no adenopathy, no meningismus, trachea is midline. LUNGS: Clear to auscultation bilaterally, no wheeze, no rhonchi, breath sounds equal. Breath sounds are diminished bilaterally. HEART: Somewhat irregular rhythm, no obvious murmur, heart tones distant. ABDOMEN: Soft, mildly diffusely tender, no distention. EXTREMITIES: No cyanosis, full range of motion of all the joints without pain or difficulty. NEUROLOGIC: Oriented x 3, no acute motor or sensory deficits, no focal weakness. SKIN: No jaundice, no diaphoresis. Pale. DIFFERENTIAL DIAGNOSIS: Sepsis or bacteremia, UTI, electrolyte imbalance, dehydration, narcotic withdrawal, among others. EMERGENCY DEPARTMENT PROCEDURES: MEDICAL DECISION MAKING: There is no leukocytosis, in fact, the white count was somewhat low. A very mild anemia was seen. There was a slight elevation of the platelet count at 406. The patient was found to be neutropenic by CBC differential. INR is slightly high at 1.2. Magnesium is low at 1.6, no renal failure. Lactic acid level was elevated at over 4, consistent with infection and/or dehydration. No worrisome liver enzyme elevation. ECG showed a sinus rhythm, no obvious ischemia. Cardiac enzyme testing x 1 was not consistent with acute cardiac injury. Urinalysis did not show infection. Respiratory bio fire was negative. Chest x-ray did not show pneumonia or CHF. Abdominal and pelvis CT showed stable findings, no acute surgical process or findings of a source for infection. On exam, the patient was tearful, he was shaky, he appeared agitated and at times, seemed to be hyperventilating. Patient received IV saline for hydration. He received 2250 cc. He was given 30 cc/kg of fluid based on actual body weight. This should cover for sepsis protocol. He received IV cefepime as antibiotic coverage. He received IV Zofran, IV Phenergan and IV Dilaudid. He was given IV magnesium. With the above interventions, the patient has made marked improvement, he is much more comfortable and is no longer in any distress. His lactic acid level has cleared. Capillary refill is excellent. The patient's presentation is multifactorial. Part of his complaints today I believe were secondary to some narcotic withdrawal, h e is dehydrated, his initial lactic acid was quite high. In short, further care in the hospital is warranted. Certainly, sepsis is a consideration but at this time, I find no source. He has received IV fluids, he has received IV antibiotic therapy. I did speak with the patient and case management, the on-call hospitalist was consulted. Prior/Outside records/notes reviewed: Today's outpatient family practice note describing his presentation, findings and need for an ED referral. ECG per my interpretation: Indication was syncope. The ECG shows a sinus rhythm with frequent PVCs. The rate is 84. There is significant baseline artifact. No obvious ST elevation, QTc is 460 Continuous Cardiac Monitoring per my interpretation: An order was placed for continuous cardiac monitoring. The monitor shows a rate of 98 with sinus rhythm with PVCs. Imaging/x-ray results per my interpretation: Chest x-ray does not show pneumonia or CHF. Some chronic changes were seen. Chronic Medical/Social conditions affecting care: Metastatic lung cancer. Care/Management discussed with: Case management, the on-call hospitalist. Level of care consideration(s): After review of the information above and other included data: --I believe the patient requires escalation of care to admission Critical Care Note: I have personally spent 48 minutes of critical care time in the direct management of this patient. This includes bedside care, interpretation of diagnostic studies, and testing, discussion with consultants, patient, and family members, and other required patient management activities. This 48 minutes is in excess of all separately billable procedures. 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 Mass of right lung Open wound of left foot Intractable left upper quadrant abdominal pain COPD exacerbation Cervical lymphadenopathy Bacterial sinusitis Anxiety and depression Hypertension, benign essential, goal below 140/90 Dyslipidemia Left foot drop Left lumbar radiculitis Postlaminectomy syndrome of lumbosacral region Lumbar facet joint syndrome Colon cancer screening Prediabetes Chronic low back pain Hx of adenomatous colonic polyps Colon cancer screening Prostate cancer screening Steatohepatitis Elevated liver function tests Prostate cancer screening Hyperlipidemia (Acute) GERD without esophagitis (Acute) Essential hypertriglyceridemia (Acute) Chronic obstructive pulmonary disease (Acute) Allergic rhinitis BPH (benign prostatic hyperplasia) Medicare annual wellness visit, subsequent Prostate cancer screening Constipation (Acute) Medical History POLST (Physician Orders for Life-Sustaining Treatment) Therapeutic opioid-induced constipation (OIC) Postobstructive pneumonia Anxiety associated with cancer diagnosis Counseling regarding advanced directives and goals of care Cancer related pain Palliative care by specialist Extensive stage primary small cell carcinoma of lung (02/11/25) Compression fracture of T8 vertebra Metastatic primary lung cancer COPD (chronic obstructive pulmonary disease) with chronic bronchitis Situational anxiety Hyperlipidemia Surgical History H/O hernia repair History of back surgery Family History Mother Osteoarthritis Other No pertinent family history Social History Smoking Status: Former smoker Tobacco Type: Cigarettes Age Started Using Tobacco: 17; Age Quit Using Tobacco: 58; packs per day: 2; Second Hand Exposure: No; Do You Dip or Chew Tobacco: No; Hx Alcohol Use: No Hx Substance Use: Yes Last Used Substance: Unknown Last Used Substance Other:: 3 weeks ago Substance Use Type Other:: medica marijuana Preferred Language: Urdu Communication Ability: Effective Battery Tester Required: No Beliefs That Will Affect Care: None marital status: Current Living Situation: Alone current occupational status: disabled Other Information That Helps Us Care for You: No Feels Safe at Home: Yes Safety Concerns: Feels Safe At This Time caffeine: Yes Seatbelt Use: always Assistive Devices: Cane, Glasses and Other Allergies Allergies Allergy/AdvReac Type Severity Reaction Status Date / Time No Known Drug Allergies Allergy Unknown Verified 03/29/25 09:18 Home Meds Home Medications Medication Instructions Recorded Confirmed Medical Marijuana 1 inh inhalation DAILY 04/29/23 03/29/25 finasteride 5 mg tablet 5 mg PO UD 03/29/25 03/29/25 fluorouracil 5 % topical cream 1 applic topical UD 03/29/25 03/29/25 fluticasone fur. 200 mcg-umeclid 1 inh inhalation UD 03/29/25 03/29/25 62.5 mcg-vilant 25 mcg inhalat.powder (Trelegy Ellipta) fluticasone propionate 50 2 sprays intranasal UD 03/29/25 03/29/25 mcg/actuation nasal spray,suspension ketoconazole 2 % shampoo 1 applic topical UD 03/29/25 03/29/25 omeprazole 20 mg capsule,delayed 20 mg PO UD 03/29/25 03/29/25 release tamsulosin 0.4 mg capsule 0.8 mg PO UD 03/29/25 03/29/25 Previous Rx's Medication Instructions Recorded triamcinolone acetonide 0.1 % 1 applic topical BID PRN skin 03/27/21 topical cream irritation #80 grams albuterol sulfate 90 mcg/actuation 2 puff inhalation Q4H PRN 01/31/25 aerosol inhaler shortness of breath or wheezing #6.7 grams ipratropium 0.5 mg-albuterol 3 mg 3 ml NEB Q4H PRN shortness of 02/25/25 (2.5 mg base)/3 mL nebulization breath or wheezing or cough #180 mL soln nebulizers #1 ea 02/25/25 oxycodone 5 mg tablet 5 mg PO Q6H PRN pain #30 tabs 02/25/25 polyethylene glycol 3350 17 gram 17 g PO DAILY #30 ea 02/25/25 oral powder packet (Miralax) sennosides 8.6 mg tablet (senna) 17.2 mg (2 x 8.6 mg) PO DAILY #60 02/25/25 tabs sodium chloride 7 % for 4 ml NEB BID #240 mL 02/25/25 nebulization Oxygen Home #1 ea 02/26/25 nystatin 100,000 unit/mL oral 5 ml PO QID 14 days #280 mL 03/07/25 suspension ondansetron 8 mg disintegrating 8 mg PO Q8H PRN nausea and 03/29/25 tablet vomiting #90 tabs Results & Data (ED) Vital Signs Vital Signs - 24 hr 03/29/25 10:36 03/29/25 11:01 03/29/25 11:15 Temperature 36.3 C L Temperature Source Temporal Artery Scan Pulse Rate 98 H 85 Pulse Rate from SpO2 Sensor 87 Respiratory Rate 18 24 Blood Pressure 100/58 L Blood Pressure Mean 72 91 Blood Pressure Position Sitting Pulse Oximetry 94 88 L Oxygen Delivery Method Room Air Oxygen Flow Rate Sepsis Recent Fever Within 48 Hours No Sepsis New/Unexplained Change in Mental Status No Sepsis Action Taken by Nursing No Action Required 03/29/25 11:30 03/29/25 11:33 03/29/25 11:34 Temperature Temperature Source Pulse Rate 78 82 Pulse Rate from SpO2 Sensor 54 L Respiratory Rate 14 Blood Pressure 112/79 Blood Pressure Mean 98 Blood Pressure Position Pulse Oximetry 92 90 Oxygen Delivery Method Room Air Oxygen Flow Rate Sepsis Recent Fever Within 48 Hours Sepsis New/Unexplained Change in Mental Status Sepsis Action Taken by Nursing 03/29/25 11:34 03/29/25 11:42 03/29/25 11:47 Temperature Temperature Source Pulse Rate 75 Pulse Rate from SpO2 Sensor 49 L Respiratory Rate 16 Blood Pressure 105/61 109/67 Blood Pressure Mean 83 89 Blood Pressure Position Pulse Oximetry 92 Oxygen Delivery Method Oxygen Flow Rate Sepsis Recent Fever Within 48 Hours Sepsis New/Unexplained Change in Mental Status Sepsis Action Taken by Nursing 03/29/25 12:01 03/29/25 12:02 03/29/25 12:30 Temperature Temperature Source Pulse Rate 89 127 H Pulse Rate from SpO2 Sensor Respiratory Rate 27 H Blood Pressure 109/76 Blood Pressure Mean 84 Blood Pressure Position Pulse Oximetry Oxygen Delivery Method Oxygen Flow Rate Sepsis Recent Fever Within 48 Hours Sepsis New/Unexplained Change in Mental Status Sepsis Action Taken by Nursing 03/29/25 12:45 03/29/25 12:45 03/29/25 13:00 Temperature Temperature Source Pulse Rate 93 H 91 H Pulse Rate from SpO2 Sensor 68 83 Respiratory Rate 22 17 Blood Pressure 96/47 L 96/47 L Blood Pressure Mean 63 60 Blood Pressure Position Pulse Oximetry 97 98 Oxygen Delivery Method Oxygen Flow Rate Sepsis Recent Fever Within 48 Hours Sepsis New/Unexplained Change in Mental Status Sepsis Action Taken by Nursing 03/29/25 13:15 03/29/25 13:16 03/29/25 13:24 Temperature Temperature Source Pulse Rate 89 89 Pulse Rate from SpO2 Sensor 67 76 Respiratory Rate 23 25 H Blood Pressure 95/61 L 95/61 L Blood Pressure Mean 72 77 Blood Pressure Position Pulse Oximetry 99 100 Oxygen Delivery Method Nasal Cannula Oxygen Flow Rate 2 Sepsis Recent Fever Within 48 Hours Sepsis New/Unexplained Change in Mental Status Sepsis Action Taken by Nursing 03/29/25 13:31 03/29/25 13:33 03/29/25 13:45 Temperature Temperature Source Pulse Rate 94 H 92 H Pulse Rate from SpO2 Sensor 88 82 Respiratory Rate 18 19 Blood Pressure 91/55 L 114/76 Blood Pressure Mean 73 88 Blood Pressure Position Pulse Oximetry 98 98 Oxygen Delivery Method Nasal Cannula Nasal Cannula Oxygen Flow Rate 2 2 Sepsis Recent Fever Within 48 Hours Sepsis New/Unexplained Change in Mental Status Sepsis Action Taken by Nursing 03/29/25 14:00 03/29/25 14:03 03/29/25 14:09 Temperature Temperature Source Pulse Rate 84 81 Pulse Rate from SpO2 Sensor 82 64 Respiratory Rate 21 16 Blood Pressure 90/70 L Blood Pressure Mean 76 Blood Pressure Position Pulse Oximetry 98 98 Oxygen Delivery Method Nasal Cannula Nasal Cannula Oxygen Flow Rate 2 2 Sepsis Recent Fever Within 48 Hours Sepsis New/Unexplained Change in Mental Status Sepsis Action Taken by Nursing 03/29/25 14:15 Temperature Temperature Source Pulse Rate Pulse Rate from SpO2 Sensor Respiratory Rate Blood Pressure 102/61 Blood Pressure Mean 76 Blood Pressure Position Pulse Oximetry Oxygen Delivery Method Oxygen Flow Rate Sepsis Recent Fever Within 48 Hours Sepsis New/Unexplained Change in Mental Status Sepsis Action Taken by Half-Way Medications Current Medication List: was personally reviewed by me Laboratory Data Attestation: I reviewed the patient's lab results. 03/29/25 10:52 03/29/25 10:52 Lab Results 03/29/25 03/29/25 03/29/25 Range/Units 10:52 11:08 13:18 WBC 2.72 L (4.8-10.8) K/ul RBC 4.31 L (4.70-6.10) M/uL Hgb 13.2 L (14.0-18.0) g/dl Hct 38.4 L (42.0-52.0) % MCV 89.1 (80.0-100.0) fL MCH 30.6 (25.0-34.0) pg MCHC 34.4 (32.0-36.0) g/dL RDW Std Deviation 48.3 H (36.4-46.3) fL RDW Coeff of Benjamin 15.0 H (11.5-14.5) % Plt Count 406 H (130-400) K/uL MPV 10.8 (9.4-12.4) fL Immature Gran % (Auto) 1.5 % Neut % (Auto) 23.1 % Lymph % (Auto) 44.5 % Turner % (Auto) 30.1 % Eos % (Auto) 0.4 % Baso % (Auto) 0.4 % Neut # (Auto) 0.63 L* (1.40-6.50) K/uL Lymph # (Auto) 1.21 (1.20-3.40) K/uL Turner # (Auto) 0.82 H (0.11-0.59) K/uL Eos # (Auto) 0.01 (0.00-0.50) K/uL Baso # (Auto) 0.01 (0.00-0.20) K/uL Immature Gran # (Auto) 0.04 (0.01-0.20) K/uL PT 12.4 H (9.0-12.0) Seconds INR 1.2 H (0.9-1.1) APTT 27 (21-31) Seconds PTT Ratio 1.0 Sodium 140 (136-145) mmol/L Potassium 3.9 (3.5-5.1) mmol/L Chloride 107 (98-107) mmol/L Carbon Dioxide 22 (21-32) mmol/L Anion Gap 11 (3-11) BUN 17 (6-23) mg/dl Creatinine 1.00 (0.6-1.4) mg/dl Est Cr Clr Drug Dosing 64.7 ml/min eGFR 82.49 BUN/Creatinine Ratio 17.0 (10-20) Glucose 135 H (70-99(Fasting)) mg/dl Lactate 4.7 H* 1.7 (0.4-2.0) mmol/L Calcium 9.5 (8.6-10.3) mg/dl Magnesium 1.6 L (1.7-2.4) mg/dl Total Bilirubin 0.5 (0.2-1.0) mg/dl Direct Bilirubin 0.1 (0-0.2) mg/dl AST 22 (13-39) U/L ALT 26 (7-52) U/L Alkaline Phosphatase 166 H (34-104) U/L Troponin I High Sens 5.3 (0-20) pg/ml Total Protein 6.5 (6.0-8.3) gm/dl Albumin 3.9 (3.4-5.0) gm/dl Procalcitonin 0.04 (0-0.5) ng/ml Random Cortisol 17.07 mcg/dl Administered Medications Enoxaparin Sodium (Enoxaparin Inj 40 Mg/0.4 Ml Syr) 40 mg SQ Q24H [place] Stop: 04/28/25 17:59 Last Admin: 03/29/25 17:25 Dose: 40 mg Documented By: OO Fentanyl (Fentanyl 50 Mcg/Hr Tdsy) 1 patch TD Q3D [place] Stop: 04/12/25 17:14 Last Admin: 03/29/25 17:21 Dose: 1 patch Documented By: OO Lactated Ringer's (Lr) 1,000 mls @ 100 mls/hr IV .Q10H [place] Stop: 03/30/25 13:59 Last Admin: 03/29/25 15:00 Dose: 100 mls/hr Documented By: CEF Vancomycin HCl 1,500 mg/ (Sodium Chloride) 530 mls @ 200 mls/hr IV 1700 ONE Stop: 03/29/25 19:38 Last Admin: 03/29/25 17:19 Dose: 200 mls/hr Documented By: OJuliocesar Miscellaneous (Fentanyl Patch Remove & Waste) 1 each N/A Q3D [place] Stop: 04/28/25 17:14 Last Admin: 03/29/25 17:21 Dose: 1 each Documented By: OO Co-signed By: JO-ANN Nystatin (Nystatin Susp 500,000 U/5 Ml Udc) 5 ml PO QID [place] Stop: 04/08/25 16:59 Last Admin: 03/29/25 16:58 Dose: Not Given Documented By: OO Discontinued Medications Hydromorphone HCl (Hydromorphone Inj 0.5 Mg/0.5 Ml Syr) 0.5 mg IV NOW STA Stop: 03/29/25 11:01 Last Admin: 03/29/25 11:22 Dose: 0.5 mg Documented By: SOTO Sodium Chloride (Nss) 1,000 mls @ 999 mls/hr IV .Q1H1M [place] Stop: 03/29/25 12:00 Last Infusion: 03/29/25 12:45 Dose: Infused Documented By: Admin: 03/29/25 11:11 Dose: 999 mls/hr Documented By: SOTO Promethazine HCl (Phenergan) 6.25 mg in 50.25 mls @ 201 mls/hr IV NOW STA Stop: 03/29/25 11:14 Last Infusion: 03/29/25 11:40 Dose: Infused Documented By: Admin: 03/29/25 11:23 Dose: 201 mls/hr Documented By: SOTO Sodium Chloride (Nss) 1,000 mls @ 999 mls/hr IV .Q1H1M ONE Stop: 03/29/25 12:36 Last Infusion: 03/29/25 12:45 Dose: Infused Documented By: Admin: 03/29/25 11:43 Dose: 999 mls/hr Documented By: JOSEFA Sodium Chloride (Nss) 250 mls @ 999 mls/hr IV .Q16M ONE Stop: 03/29/25 11:51 Last Infusion: 03/29/25 12:46 Dose: Infused Documented By: Admin: 03/29/25 11:47 Dose: 999 mls/hr Documented By: GGG Cefepime HCl (Maxipime 2000mg) 2,000 mg in 20 mls @ 5 mls/min IV NOW STA; Protocol Stop: 03/29/25 11:39 Last Admin: 03/29/25 11:42 Dose: 5 mls/min Documented By: GGG Magnesium Sulfate/Dextrose (Magnesium Sulfate / D5w) 1 gm in 100 mls @ 100 mls/hr IV NOW STA Stop: 03/29/25 14:05 Last Infusion: 03/29/25 14:39 Dose: Infused Documented By: Admin: 03/29/25 13:18 Dose: 100 mls/hr Documented By: CEF Pantoprazole Sodium (Protonix) 40 mg in 10 mls @ 5 mls/min IV NOW ONE Stop: 03/29/25 13:58 Last Admin: 03/29/25 14:57 Dose: 5 mls/min Documented By: CEF Ioversol (Optiray 320 100ml) 94 ml IV ONCE ONE Stop: 03/29/25 12:12 Last Admin: 03/29/25 12:11 Dose: 94 ml Documented By: LUZMARIA Ondansetron HCl (Ondansetron Inj 2 Mg/Ml 2 Ml Vial) 4 mg IV NOW STA Stop: 03/29/25 11:01 Last Admin: 03/29/25 11:22 Dose: 4 mg Documented By: SOTO Imaging Data Radiologist's Impression: Chest X-Ray 03/29/25 10:46 XR chest 1V portable HISTORY: 69 years-old Male Sepsis COMPARISON: Head CT 03/16/2025 TECHNIQUE: AP view of the chest FINDINGS: Emphysema with chronic fibrotic changes. Asymmetric right hilar prominence again noted. Small nodular foci better seen on the prior PET/CT. No pneumothorax, pleural effusion or overt pulmonary edema. Degenerative changes of the shoulders and spine. IMPRESSION: 1. No acute process of the chest. 2. Emphysema with pulmonary nodules again noted, better seen on the prior PET/CT. ACT 112: Negative or not required by law. The above report was generated using voice recognition software. It may contain grammatical, syntax or spelling errors. Electronically signed by: Ziyad Paredes M.D. 03/29/2025 11:34 AM Abdomen/Pelvis CT 03/29/25 11:[address] WITH IV CONTRAST CT DOSE: 881.28 mGy.cm HISTORY: Acute onset abdominal pain with nausea and vomiting . Small cell lung cancer. diff pain, vomiting TECHNIQUE: Multiaxial CT images of the abdomen and pelvis were performed following the IV administration of 94 cc of Optiray, A dose lowering technique was utilized adhering to the principles of ALARA. COMPARISON STUDY: PET/CT 03/16/2025, CT abdomen and pelvis 02/17/2020 FINDINGS: Emphysema with pulmonary nodules redemonstrated, better characterized on the prior PET/CT. Mild dependent subsegmental bibasilar atelectasis. There is no pneumatosis or pneumoperitoneum. The spleen measures 13.7 cm in length. Unremarkable pancreas, and adrenal glands. Unchanged appearance of the gallbladder fundus suggestive of adenomyomatosis. The liver is within normal limits. Patency of the hepatic and portal veins. There are a few cysts noted within the kidneys. 3 mm nonobstructing calculus of the mid pole left kidney. Exophytic prominence of the inferior pole right kidney measuring 1.6 cm on image 143 series 3 is unchanged. No ureteral calculi or hydronephrosis. Prostatomegaly. Urinary bladder wall thickening with partial distention. Atherosclerosis of the aorta and branch vessels. Mild dilation of the infrarenal abdominal aorta measures 3.1 x 2.9 cm. Abdominal lymphadenopathy similar to prior including gastrohepatic 1.9 x 2.9 cm adenopathy on image 68. Inflammatory stranding surrounding several of the lymph nodes likely related to posttreatment related changes. No bowel obstruction or bowel wall thickening. Colonic diverticulosis without acute diverticulitis. Moderate colonic fecal retention. Biopsy clip of the cecum. Normal appendix. Tiny fat filled umbilical hernia. Osseous metastasis redemonstrated. Pathologic fracture of T12 is again seen. IMPRESSION: 1. No acute intra-abdominal or intrapelvic abnormality identified. 2. No bowel obstruction or bowel wall thickening. 3. Pulmonary nodules with pathologic lymphadenopathy of the abdomen along with osseous metastasis redemonstrated, stable from the March 16, 2025 PET/CT. 4. Pathologic T12 compression deformity again noted. 5. Additional findings as above. ACT 112: Negative or not required by law. The above report was generated using voice recognition software. It may contain grammatical, syntax or spelling errors. Electronically signed by: Ziyad Paredes M.D. 03/29/2025 12:45 PM Discharge Plan Visit Data Chief Complaint: Back Injury/Pain Stated Complaint: DEHYDRATED, BACK PAIN/INJURY ED Provider: Dinesh Magallanes Discharge Problem: Weakness, Acute dehydration, Elevated lactic acid level, Acute narcotic withdrawal, Hypomagnesemia, Neutropenia Patient Disposition: Admitted As Inpatient Condition: Serious Discharge Instructions Interventions: ED Discharge Assessment Last Done: 03/29/25 15:19 Discharge Problem: Neutropenia Qualifiers: Neutropenia type: unspecified Qualified Code(s): D70.9 - Neutropenia, unspecified
[2025-03-29 11:12] LABS: Hematocrit (blood only) 38.4 % (42.0-52.0); Hemoglobin 13.2 g/dl (14.0-18.0); Mean Corpuscular Hemoglobin 30.6 pg (25.0-34.0); Mean Corpuscular Hgb Conc 34.4 g/dL (32.0-36.0); Mean Corpuscular Volume 89.1 fL (80.0-100.0); Mean Platelet Volume 10.8 fL (9.4-12.4); Platelet Count 406 K/uL (130-400); RDW Standard Deviation 48.3 fL (36.4-46.3); Red Blood Count 4.31 M/uL (4.70-6.10); White Blood Count 2.72 K/ul (4.8-10.8)
[2025-03-29 11:21] LABS: INR 1.2 (0.9-1.1); Partial Thromboplastin Time 27 Seconds (21-31); Prothrombin Time 12.4 Seconds (9.0-12.0)
[2025-03-29] MEDS: HYDROmorphone INJ 0.5 MG/0.5 ML SYR IV STA (11:22)
[2025-03-29] MEDS: ONDANSETRON INJ 2 MG/ML 2 ML VIAL IV STA (11:22)
[2025-03-29] MEDS: PROMETHAZINE 6.25 MG/50.25 ML BAG IV STA (11:23)
--- NOTE | 2025-03-29 11:36 | XRay Report ---
XR chest 1V portable HISTORY: 69 years-old Male Sepsis COMPARISON: Head CT 03/16/2025 TECHNIQUE: AP view of the chest FINDINGS: Emphysema with chronic fibrotic changes. Asymmetric right hilar prominence again noted. Small nodular foci better seen on the prior PET/CT. No pneumothorax, pleural effusion or overt pulmonary edema. De generative changes of the shoulders and spine. IMPRESSION: 1. No acute process of the chest. 2. Emphysema with pulmonary nodules again noted, better seen on the prior PET/CT. ACT 112: Negative or not required by law. The above report was generated using voice recognition software. It may contain grammatical, syntax o r spelling errors. Electronically signed by: Ziyad Paredes M.D. 03/29/2025 11:34 AM
[2025-03-29 11:38] LABS: Albumin Level 3.9 gm/dl (3.4-5.0); Bilirubin Direct 0.1 mg/dl (0-0.2); Bilirubin,Total 0.5 mg/dl (0.2-1.0); Calcium 9.5 mg/dl (8.6-10.3); Magnesium 1.6 mg/dl (1.7-2.4); Potassium 3.9 mmol/L (3.5-5.1)
[2025-03-29 11:41] LABS: Basophils # (auto) 0.01 K/uL (0.00-0.20); Basophils % (auto) 0.4 %; Eosinophils # (auto) 0.01 K/uL (0.00-0.50); Eosinophils % (auto) 0.4 %; Immature Granulocytes # (auto) 0.04 K/uL (0.01-0.20); Immature Granulocytes % (auto) 1.5 %; Lymphocytes # (auto) 1.21 K/uL (1.20-3.40); Lymphocytes % (auto) 44.5 %; Monocytes # (auto) 0.82 K/uL (0.11-0.59); Monocytes % (auto) 30.1 %; Neutrophils # (auto) 0.63 K/uL (1.40-6.50); Neutrophils % (auto) 23.1 %
[2025-03-29 11:42] LABS: Troponin I High Sensitivity 5.3 pg/ml (0-20)
[2025-03-29] MEDS: CEFEPIME 2000MG 2,000 MG/20 ML SYR IV STA (11:42)
[2025-03-29] MEDS: SODIUM CHLORIDE 0.9% 1,000 ML IV ONE (11:43)
[2025-03-29 11:44] LABS: Creatinine Clr Calc Pharmacy 64.7 ml/min; Total Protein 6.5 gm/dl (6.0-8.3)
[2025-03-29] MEDS: SODIUM CHLORIDE 0.9% 250 ML IV ONE (11:47)
[2025-03-29] MEDS: OPTIRAY 320 100ml IV ONE (12:11)
--- NOTE | 2025-03-29 12:47 | CT Scan Report ---
ABDOMEN AND PELVIS CT WITH IV CONTRAST CT DOSE: 881.28 mGy.cm HISTORY: Acute onset abdominal pain with nausea and vomiting . Small cell lung cancer. diff pain, vomiting TECHNIQUE: Multiaxial CT images of the abdomen and pelvis were performed following the IV administrat ion of 94 cc of Optiray, A dose lowering technique was utilized adhering to the principles of ALARA. COMPARISON STUDY: PET/CT 03/16/2025, CT abdomen and pelvis 02/17/2020 FINDINGS: Emphysema with pulmonary nodules redemonstrated, better characterized on the prior PET/CT. Mild dependent subsegmental bibasilar atelectasis. There is no pneumatosis or pneumoperitoneum. The s pleen measures 13.7 cm in length. Unremarkable pancreas, and adrenal glands. Unchanged appearance of the gallbladder fundus suggestive of adenomyomatosis. The liver is within normal limits. Patency of t he hepatic and portal veins. There are a few cysts noted within the kidneys. 3 mm nonobstructing calculus of the mid pole left kid malka. Exophytic prominence of the inferior pole right kidney measuring 1.6 cm on image 143 series 3 is unchanged. No ureteral calculi or hydronephrosis. Prostatomegaly. Urinary bladder wall thickening wi th partial distention. Atherosclerosis of the aorta and branch vessels. Mild dilation of the infraren al abdominal aorta measures 3.1 x 2.9 cm. Abdominal lymphadenopathy similar to prior including gastro hepatic 1.9 x 2.9 cm adenopathy on image 68. Inflammatory stranding surrounding several of the lymph nodes likely related to posttreatment related changes. No bowel obstruction or bowel wall thickening. Colonic diverticulosis without acute diverticulitis. M oderate colonic fecal retention. Biopsy clip of the cecum. Normal appendix. Tiny fat filled umbilical hernia. Osseous metastasis redemonstrated. Pathologic fracture of T12 is again seen. IMPRESSION: 1. No acute intra-abdominal or intrapelvic abnormality identified. 2. No bowel obstruction or bowel wall thickening. 3. Pulmonary nodules with pathologic lymphadenopathy of the abdomen along with osseous metastasis red emonstrated, stable from the March 16, 2025 PET/CT. 4. Pathologic T12 compression deformity again noted. 5. Additional findings as above. ACT 112: Negative or not required by law. The above report was generated using voice recognition software. It may contain grammatical, syntax o r spelling errors. Electronically signed by: Ziyad Paredes M.D. 03/29/2025 12:45 PM
[2025-03-29] MEDS: MAGNESIUM SULFATE / D5W 1 GM/100 ML BAG IV STA (13:18)
--- NOTE | 2025-03-29 13:55 | History & Physical Report ---
Date of Service March 29, 2025 Assessment & Plan (1) Narcotic withdrawal: (2) Extensive stage primary small cell carcinoma of lung: (3) Pathologic compression fracture of lumbar vertebra: (4) Neutropenia: (5) Dehydration: (6) Chronic obstructive pulmonary disease: (7) BPH (benign prostatic hyperplasia): (8) GERD without esophagitis: (9) Hyperlipidemia: (10) Rigors: (11) Anorexia: (12) Hypomagnesemia: (13) Elevated lactic acid level: (14) Anxiety and depression: (15) Therapeutic opioid-induced constipation (OIC): (16) Syncope: (17) Severe protein-calorie malnutrition: Plan 69yo male with stage 4 small cell lung ca with bone mets - well known to me from 01/2025 hospitalization - along with COPD, BPH, GERD, chronic low back pain, HTN, and depression/anxiety -- who presents with severe fatigue, weakness, sleeping/laying in bed frequently, very poor PO intake with ongoing weight loss, nausea with vomiting intermittently for several weeks, severe constipation for several weeks, and an episode of syncope yesterday at home. EMS was summoned to his house yesterday but he declined transport to the hospital at that time. However, he came today after seeing his PCP who strongly recommended that he seek attention in the ER. #narcotic withdrawal - -I believe many of the presenting symptoms are from narcotic withdrawal -on 03/25 he abruptly stopped his fentanyl 75mcg patch and oxycodone prn -since then his back pain has been severe & debilitating, and he has had shivering/chills/nausea/stomach upset/etc. -he initially had told me he did not want to go back to narcotics, but when I consulted palliative care - and after he met with them today - he was agreeable to resuming fentanyl patch -thus, resume fentanyl patch at 50mcg q3d -allow dilaudid prn for severe breakthrough pain -toradol 15mg q6h prn pain #stage 4 small cell lung ca with extensive bony mets - -PET/CT mid-March showed a positive treatment response to his carboplatin/etoposide/atezolizumab -he was due for his 4th treatment tomorrow -he is following with Dr Jones -he is neutropenic today - severe, with ANC of 630 - likely due to recent chemo -viral respiratory panel is negative making viral suppression unlikely -repeat CBC in am -neutropenic precautions -much of his severe back pain is in the lumbar spine, presumably from the L4 met seen on recent PET/CT -I don't know if patient will comply with fentanyl patches at home - will ask rad onc to consult to see if he is candidate for palliative XRT #severe neutropenia - -with lactic acidosis at admission, neutropenia, shakes, vomiting, etc - can't rule out early infectious process -biofire panel neg -u/a negative -blood cx's sent -for empiric coverage while ruling out bacteremia place on IV cefepime/vanco; plan 48 hours of Rx and stop if cultures negative and no source of infection f ound #dehydration / low BP - -received 2.25 L of boluses in the ER -cont LR hydration -hold flomax due to low bp #syncope 03/28 at home - -had prodromal dizziness/lightheadedness -was likely due to low BP in setting of poor PO intake, etc -cortisol level checked & level adequate at 17 -place on telemetry - r/o arrhythmia -consider echo but hold off for now -certainly at HIGH risk of DVT/PE due to extensive cancer and fairly immobile at home - start with dopplers of legs to r/o DVT (he c/o spasms of legs) #opiate-induced constipation - -during prior admit in January and again today he has been counseled on the importance of bowel maintenance -resume miralax and senna -consider Movantik when he transitions back home #COPD - -no exacerbation at this time -at hospital d/c on 02/26/25 he was prescribed O2 -he used for 1 week then stopped it -o2 sats since then have been adequate -follow sats closely -cont home inhalers #BPH - -hold flomax due to low / low-normal BPs; resume flomax when able -cont finasteride #DVT proph - -lovenox 40mg daily #severe protein calorie malnutrition - -5kg weight loss in 1 month -2nd to advanced stage 4 lung ca -boost, MVI, etc #depression/anxiety - -not on meds for such -consider remeron or similar in light of progressive weight loss, mood, decreased PO intake, etc. History of Present Illness Chief Complaint: rigors, muscle spasms, syncope, failure to thrive Primary Care Provider: Dinesh Washington MD 69yo male with stage 4 small cell lung ca with bone mets - well known to me from 01/2025 hospitalization - along with COPD, BPH, GERD, chronic low back pain, HTN, and depression/anxiety -- who presents with severe fatigue, weakness, sleeping/laying in bed frequently, very poor PO intake, nausea with vomiting intermittently for several weeks, severe constipation, and an episode of syncope yesterday at home. EMS was summoned to his house yesterday but he declined transport to the hospital at that time. Patient was on fentanyl patch 75mcg (started 03/03/25 as outpatient) + oxycodone prn over the last month for severe back pain related to his metastatic disease. However, last FridayMarch 25 he abruptly stopped all narcotics thinking this would help his nausea, vomiting, bowel issues, and inability to eat. He has felt even more poorly since then with shivering, shakes, tremors, and inability to ambulate/function at home. He reports "spasms" in his legs b/l. His back pain has worsened significantly. He did have 2 BMs yesterday which made him feel better. He was able to eat a little more yesterday after having these bowel movements. Denies fevers. No dyspnea or BOWEN. He was prescribed O2 at the time of his discharge on 02/26/25 from [facility]. He used the O2 for about 1 week then weaned off, stating his o2 sats on his pulse oximeter were normal. He has not used the O2 since early March. With respect to the syncopal episode yesterday he reports he was very dizzy & lightheaded just prior to the passing out event. He lost consciousness for about 10 minutes. Last chemo was 1.5 weeks ago and was [facility]. Tomorrow's scheduled chemo would have been his 4th treatment. Current chemo regimen per records - Carboplatin/etoposide/atezolizumab. While visiting with him in the ER he was having uncontrollable shakes, looked very poorly, was tachycardic, and SBP was in the upper 90s. He received 2.25 L of fluid boluses prior to my visit. Allergies Allergy/AdvReac Type Severity Reaction Status Date / Time No Known Drug Allergies Allergy Unknown Verified 03/29/25 09:18 Home Medications Medication Instructions Recorded Confirmed Type triamcinolone acetonide 0.1 % 1 applic topical BID PRN skin 03/27/21 03/29/25 Rx topical cream irritation #80 grams Medical Marijuana 1 inh inhalation DAILY 04/29/23 03/29/25 History albuterol sulfate 90 mcg/actuation 2 puff inhalation Q4H PRN 01/31/25 03/29/25 Rx aerosol inhaler shortness of breath or wheezing #6.7 grams ipratropium 0.5 mg-albuterol 3 mg 3 ml NEB Q4H PRN shortness of 02/25/25 03/29/25 Rx (2.5 mg base)/3 mL nebulization breath or wheezing or cough #180 mL soln nebulizers #1 ea 02/25/25 03/29/25 Rx oxycodone 5 mg tablet 5 mg PO Q6H PRN pain #30 tabs 02/25/25 03/29/25 Rx polyethylene glycol 3350 17 gram 17 g PO DAILY #30 ea 02/25/25 03/29/25 Rx oral powder packet (Miralax) sennosides 8.6 mg tablet (senna) 17.2 mg (2 x 8.6 mg) PO DAILY #60 02/25/25 03/29/25 Rx tabs sodium chloride 7 % for 4 ml NEB BID #240 mL 02/25/25 03/29/25 Rx nebulization Oxygen Home #1 ea 02/26/25 03/29/25 Rx nystatin 100,000 unit/mL oral 5 ml PO QID 14 days #280 mL 03/07/25 03/29/25 Rx suspension finasteride 5 mg tablet 5 mg PO UD 03/29/25 03/29/25 History fluorouracil 5 % topical cream 1 applic topical UD 03/29/25 03/29/25 History fluticasone fur. 200 mcg-umeclid 1 inh inhalation UD 03/29/25 03/29/25 History 62.5 mcg-vilant 25 mcg inhalat.powder (Trelegy Ellipta) fluticasone propionate 50 2 sprays intranasal UD 03/29/25 03/29/25 History mcg/actuation nasal spray,suspension ketoconazole 2 % shampoo 1 applic topical UD 03/29/25 03/29/25 History omeprazole 20 mg capsule,delayed 20 mg PO UD 03/29/25 03/29/25 History release ondansetron 8 mg disintegrating 8 mg PO Q8H PRN nausea and 03/29/25 03/29/25 Rx tablet vomiting #90 tabs tamsulosin 0.4 mg capsule 0.8 mg PO UD 03/29/25 03/29/25 History Past Med/Surg History Problem List (Updated 03/30/25 @ 01:27 by Augustine Charles MD) Severe protein-calorie malnutrition Syncope Chronic back pain greater than 3 months duration (Chronic) Neutropenia (Acute) Hypomagnesemia (Acute) Acute narcotic withdrawal (Acute) Elevated lactic acid level (Acute) Acute dehydration (Acute) Weakness (Acute) Pathologic compression fracture of lumbar vertebra Small cell lung cancer Narcotic withdrawal Anorexia Rigors Dehydration 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 Mass of right lung Open wound of left foot Intractable left upper quadrant abdominal pain COPD exacerbation Cervical lymphadenopathy Bacterial sinusitis Anxiety and depression Hypertension, benign essential, goal below 140/90 Dyslipidemia Left foot drop Left lumbar radiculitis Postlaminectomy syndrome of lumbosacral region Lumbar facet joint syndrome Colon cancer screening Prediabetes Chronic low back pain Hx of adenomatous colonic polyps Colon cancer screening Prostate cancer screening Steatohepatitis Elevated liver function tests Prostate cancer screening Hyperlipidemia (Acute) GERD without esophagitis (Acute) Essential hypertriglyceridemia (Acute) Chronic obstructive pulmonary disease (Acute) Allergic rhinitis BPH (benign prostatic hyperplasia) Medicare annual wellness visit, subsequent Prostate cancer screening Constipation (Acute) Medical History POLST (Physician Orders for Life-Sustaining Treatment) Therapeutic opioid-induced constipation (OIC) Postobstructive pneumonia Anxiety associated with cancer diagnosis Counseling regarding advanced directives and goals of care Cancer related pain Palliative care by specialist Extensive stage primary small cell carcinoma of lung (02/11/25) Compression fracture of T8 vertebra Metastatic primary lung cancer COPD (chronic obstructive pulmonary disease) with chronic bronchitis Situational anxiety Hyperlipidemia Surgical History H/O hernia repair History of back surgery Family History Mother Osteoarthritis Other No pertinent family history Social History (Updated 03/30/25 @ 01:16 by Augustine Charles MD) Smoking Status: Former smoker Tobacco Type: Cigarettes Age Started Using Tobacco: 17; Age Quit Using Tobacco: 58; packs per day: 2; Second Hand Exposure: No; Do You Dip or Chew Tobacco: No; Hx Alcohol Use: No Hx Substance Use: Yes Last Used Substance: Unknown Last Used Substance Other:: 3 weeks ago Substance Use Type Other:: medica marijuana Preferred Language: Syriac Communication Ability: Effective Top Lift And Automatic Window Repairer Required: No Beliefs That Will Affect Care: None marital status: Current Living Situation: Alone Current Living Situation Comment: living with his son current occupational status: disabled Feels Safe at Home: Yes caffeine: Yes Seatbelt Use: always Assistive Devices: Cane, Glasses and Other Review of Systems Review of Systems: gen - no fevers, but chills; poor appetite/inability to eat; 5kg of weight loss in 1 month eyes - no vision changes HENT - mouth extremely dry, runny nose only today neck - no pain CV - no chest pain or pleuritic pain, no edema of legs pulm - no cough/wheeze/dyspnea/BOWEN today GI - abdominal upset, nausea/emesis, constipation - but did have 2 Bms yesterday; no blood per rectum - no LUTS at this time musculo - severe lumbar back pain; upper back pain is not as bad as previous psych - ongoing depression/anxiety skin - no rashes endo - no DM Physical Exam Physical Exam: gen - looks very poorly today, sickly, thin, cachectic, shaking eyes - PERRL HENT - TMs clear b/l, nose clear, mouth - dry MM; no thrush neck - no JVD, no lymph nodes, no goiter heart - tachycardic, s1 s2, no murmur lungs - improved airation in the right lung vs my prior exams in January; no wheeze today; no increased work of breathing abd - mildly distended, BS+, tender in multiple locations (mild), no HSM ext - no edema, thin legs, pulses b/l feet 2+ skin - no rash; some bruising on lower legs neuro - mild RLE weakness vs the LLE?; arm strength 5/5 b/l; no facial droop; speech clear musculo - no deformities psych - depressed, anxious, restricted affect Results & Data Results & Data Vital Signs (Past 12 Hours) Vital Signs Temp Pulse Resp BP Pulse Ox O2 Del Method 03/29/25 13:15 89 23 95/61 L 99 03/29/25 13:00 91 H 17 98 03/29/25 12:45 96/47 L 03/29/25 12:45 93 H 22 96/47 L 97 03/29/25 12:30 127 H 27 H 03/29/25 12:02 89 03/29/25 12:01 109/76 03/29/25 11:47 109/67 03/29/25 11:42 75 16 92 03/29/25 11:34 105/61 03/29/25 11:34 82 90 Room Air 03/29/25 11:33 78 14 92 03/29/25 11:30 112/79 03/29/25 11:15 85 24 88 L 03/29/25 10:36 36.3 C L 98 H 18 100/58 L 94 Room Air Laboratory Results Laboratory Results - last 24 hr 03/29/25 03/29/25 03/29/25 10:52 11:08 13:18 WBC 2.72 L RBC 4.31 L Hgb 13.2 L Hct 38.4 L MCV 89.1 MCH 30.6 MCHC 34.4 RDW Std Deviation 48.3 H RDW Coeff of Benjamin 15.0 H Plt Count 406 H MPV 10.8 Immature Gran % (Auto) 1.5 Neut % (Auto) 23.1 Lymph % (Auto) 44.5 Kinney % (Auto) 30.1 Eos % (Auto) 0.4 Baso % (Auto) 0.4 Neut # (Auto) 0.63 L* Lymph # (Auto) 1.21 Kinney # (Auto) 0.82 H Eos # (Auto) 0.01 Baso # (Auto) 0.01 Immature Gran # (Auto) 0.04 PT 12.4 H INR 1.2 H APTT 27 PTT Ratio 1.0 Sodium 140 Potassium 3.9 Chloride 107 Carbon Dioxide 22 Anion Gap 11 BUN 17 Creatinine 1.00 Est Cr Clr Drug Dosing 64.7 eGFR 82.49 BUN/Creatinine Ratio 17.0 Glucose 135 H Lactate 4.7 H* 1.7 Calcium 9.5 Magnesium 1.6 L Total Bilirubin 0.5 Direct Bilirubin 0.1 AST 22 ALT 26 Alkaline Phosphatase 166 H Troponin I High Sens 5.3 Total Protein 6.5 Albumin 3.9 Procalcitonin 0.04 Random Cortisol 17.07 Urine Color Urine Appearance Urine pH Ur Specific Dav[place] Urine Protein Urine Glucose (UA) Urine Ketones Urine Blood Urine Nitrite Urine Bilirubin Urine Urobilinogen Ur Leukocyte Esterase Adenovirus (PCR) B. pertussis DNA (PCR) B.parapertussis DNA PCR C. pneumoniae DNA (PCR) Coronavirus OC43 (PCR) Coronavirus HKU1 (PCR) Coronavirus 229E (PCR) SARS-CoV-2 (PCR) Coronavirus NL63 (PCR) Human Metapneumovir PCR Influenza Type A (PCR) Influenza Type B (PCR) M. pneumoniae (PCR) Parainfluenza 1 (PCR) Parainfluenza 2 (PCR) Parainfluenza 3 (PCR) Parainfluenza 4 (PCR) RSV (PCR) Entero/Rhino (PCR) 03/29/25 14:33 WBC RBC Hgb Hct MCV MCH MCHC RDW Std Deviation RDW Coeff of Benjamin Plt Count MPV Immature Gran % (Auto) Neut % (Auto) Lymph % (Auto) Kinney % (Auto) Eos % (Auto) Baso % (Auto) Neut # (Auto) Lymph # (Auto) Kinney # (Auto) Eos # (Auto) Baso # (Auto) Immature Gran # (Auto) PT INR APTT PTT Ratio Sodium Potassium Chloride Carbon Dioxide Anion Gap BUN Creatinine Est Cr Clr Drug Dosing eGFR BUN/Creatinine Ratio Glucose Lactate Calcium Magnesium Total Bilirubin Direct Bilirubin AST ALT Alkaline Phosphatase Troponin I High Sens Total Protein Albumin Procalcitonin Random Cortisol Urine Color Yellow Urine Appearance Clear Urine pH 6.0 Ur Specific [place] > 1.045 H Urine Protein Negative Urine Glucose (UA) Negative Urine Ketones Negative Urine Blood Negative Urine Nitrite Negative Urine Bilirubin Negative Urine Urobilinogen Negative Ur Leukocyte Esterase Negative Adenovirus (PCR) Not Detected B. pertussis DNA (PCR) Not Detected B.parapertussis DNA PCR Not Detected C. pneumoniae DNA (PCR) Not Detected Coronavirus OC43 (PCR) Not Detected Coronavirus HKU1 (PCR) Not Detected Coronavirus 229E (PCR) Not Detected SARS-CoV-2 (PCR) Not Detected Coronavirus NL63 (PCR) Not Detected Human Metapneumovir PCR Not Detected Influenza Type A (PCR) Not Detected Influenza Type B (PCR) Not Detected M. pneumoniae (PCR) Not Detected Parainfluenza 1 (PCR) Not Detected Parainfluenza 2 (PCR) Not Detected Parainfluenza 3 (PCR) Not Detected Parainfluenza 4 (PCR) Not Detected RSV (PCR) Not Detected Entero/Rhino (PCR) Not Detected Diagnostic Findings Chest X-Ray 03/29/25 10:46 XR chest 1V portable HISTORY: 69 years-old Male Sepsis COMPARISON: Head CT 03/16/2025 TECHNIQUE: AP view of the chest FINDINGS: Emphysema with chronic fibrotic changes. Asymmetric right hilar prominence again noted. Small nodular foci better seen on the prior PET/CT. No pneumothorax, pleural effusion or overt pulmonary edema. Degenerative changes of the shoulders and spine. IMPRESSION: 1. No acute process of the chest. 2. Emphysema with pulmonary nodules again noted, better seen on the prior PET/CT. ACT 112: Negative or not required by law. The above report was generated using voice recognition software. It may contain grammatical, syntax or spelling errors. Electronically signed by: Ziyad Paredes M.D. 03/29/2025 11:34 AM Abdomen/Pelvis CT 03/29/25 11:[address] WITH IV CONTRAST CT DOSE: 881.28 mGy.cm HISTORY: Acute onset abdominal pain with nausea and vomiting . Small cell lung cancer. diff pain, vomiting TECHNIQUE: Multiaxial CT images of the abdomen and pelvis were performed following the IV administration of 94 cc of Optiray, A dose lowering technique was utilized adhering to the principles of ALARA. COMPARISON STUDY: PET/CT 03/16/2025, CT abdomen and pelvis 02/17/2020 FINDINGS: Emphysema with pulmonary nodules redemonstrated, better characterized on the prior PET/CT. Mild dependent subsegmental bibasilar atelectasis. There is no pneumatosis or pneumoperitoneum. The spleen measures 13.7 cm in length. Unremarkable pancreas, and adrenal glands. Unchanged appearance of the gallbladder fundus suggestive of adenomyomatosis. The liver is within normal limits. Patency of the hepatic and portal veins. There are a few cysts noted within the kidneys. 3 mm nonobstructing calculus of the mid pole left kidney. Exophytic prominence of the inferior pole right kidney measuring 1.6 cm on image 143 series 3 is unchanged. No ureteral calculi or hydronephrosis. Prostatomegaly. Urinary bladder wall thickening with partial distention. Atherosclerosis of the aorta and branch vessels. Mild dilation of the infrarenal abdominal aorta measures 3.1 x 2.9 cm. Abdominal lymphadenopathy similar to prior including gastrohepatic 1.9 x 2.9 cm adenopathy on image 68. Inflammatory stranding surrounding several of the lymph nodes likely related to posttreatment related changes. No bowel obstruction or bowel wall thickening. Colonic diverticulosis without acute diverticulitis. Moderate colonic fecal retention. Biopsy clip of the cecum. Normal appendix. Tiny fat filled umbilical hernia. Osseous metastasis redemonstrated. Pathologic fracture of T12 is again seen. IMPRESSION: 1. No acute intra-abdominal or intrapelvic abnormality identified. 2. No bowel obstruction or bowel wall thickening. 3. Pulmonary nodules with pathologic lymphadenopathy of the abdomen along with osseous metastasis redemonstrated, stable from the March 16, 2025 PET/CT. 4. Pathologic T12 compression deformity again noted. 5. Additional findings as above. ACT 112: Negative or not required by law. The above report was generated using voice recognition software. It may contain grammatical, syntax or spelling errors. Electronically signed by: Ziyad Paredes M.D. 03/29/2025 12:45 PM Code Status & VTE Plan Code Status full code PG Care Time/CCT Total # of Minutes Spent Total Time Spent with Patient: Total time spent is greater than 50% in coordination of care (as documented) at patient's floor/unit and/or counseling patient: Coding Level of Care Code 31558 INT INP/OBS CARE 3/75MIN Diagnoses Narcotic withdrawal F11.93 Extensive stage primary small cell carcinoma of lung C34.90 Pathologic compression fracture of lumbar vertebra M48.56XA Neutropenia D70.9 Neutropenia type: unspecified Dehydration E86.0 Chronic obstructive pulmonary disease J44.9 BPH (benign prostatic hyperplasia) N40.0 GERD without esophagitis K21.9 Hyperlipidemia E78.5 Rigors R68.89 Anorexia R63.0 Hypomagnesemia E83.42 Elevated lactic acid level R79.89 Anxiety and depression F41.9; F32.A Therapeutic opioid-induced constipation (OIC) K59.03; T40.2X5A Syncope R55 Severe protein-calorie malnutrition E43 (4) Neutropenia Neutropenia type: unspecified Qualified Code(s): D70.9 - Neutropenia, unspecified
[2025-03-29] MEDS ORDERED: VANCOMYCIN CONSULT ACTIVE PRN (14:16)
[2025-03-29 14:56] LABS: Appearance Urine Clear (Clear); Bilirubin Urine Negative (Negative); Blood Urine Negative (Negative); Color Urine Yellow; Glucose Urine UA Negative (Negative); Ketones Urine Negative (Negative); Leukocyte Esterase Urine Negative (Negative); Nitrite Urine Negative (Negative); Protein Urine Negative (Negative); Specific Gravity Urine > 1.045 (1.000-1.030); Urobilinogen Urine Negative (Negative)
[2025-03-29] MEDS: PANTOprazole 40 MG/10 ML SYR IV ONE (14:57)
[2025-03-29] MEDS: LACTATED RINGER'S 1,000 ML IV SCH (15:00)
[2025-03-29 15:42] LABS: Adenovirus PCR Not Detected (NotDetected); Bordetella parapertussis PCR Not Detected (NotDetected); Bordetella pertussis PCR Not Detected (NotDetected); Chlamydia pneumoniae PCR Not Detected (NotDetected); Coronavirus 229E PCR Not Detected (NotDetected); Coronavirus CoV-2 (COVID19)PCR Not Detected (NotDetected); Coronavirus HKU1 PCR Not Detected (NotDetected); Coronavirus NL63 PCR Not Detected (NotDetected); Coronavirus OC43PCR Not Detected (NotDetected); Human Metapneumovirus PCR Not Detected (NotDetected); Influenza A PCR Not Detected (NotDetected); Influenza B PCR Not Detected (NotDetected); Mycoplasma pneumoniae PCR Not Detected (NotDetected); Parainfluenza Virus 1 PCR Not Detected (NotDetected); Parainfluenza Virus 2 PCR Not Detected (NotDetected); Parainfluenza Virus 3 PCR Not Detected (NotDetected); Parainfluenza Virus 4 PCR Not Detected (NotDetected); Respiratory Syncytial VirusPCR Not Detected (NotDetected); Rhinovirus/Enterovirus PCR Not Detected (NotDetected)
--- NOTE | 2025-03-29 16:02 | Ultrasound Report ---
BILATERAL LOWER EXTREMITY VENOUS DOPPLER HISTORY: Acute pain The lower legs stage 4 lung ca, immobility, muscle pain of legs COMPARISON STUDY: None. FINDINGS: There is normal compressibility, flow, and augmentation within the bilateral lower extremit y deep venous systems. There is a 1.3 x 2.7 x 0.8 cm popliteal cyst on the left. IMPRESSION: No DVT within the right or left lower extremity. ACT 112: Negative or not required by law. Electronically signed by: Ziyad Paredes M.D. 03/29/2025 4:01 PM
[2025-03-29] MEDS ORDERED: ALBUTEROL HFA 8 GM INHALER INH PRN (16:11)
[2025-03-29] MEDS ORDERED: HYDROmorphone INJ 1 MG/ML SYRINGE IV PRN (16:11)
[2025-03-29] MEDS ORDERED: ALBUT/IPRATROP 3MG/0.5MG NEB 3 ML VIAL NEB PRN (16:11)
[2025-03-29] MEDS: NYSTATIN SUSP 500,000 U/5 ML UDC PO SCH (16:58)
[2025-03-29] MEDS: VANCOMYCIN HCL 1,500 MG in SODIUM CHLORIDE 0.9% 500 ML IV ONE (17:19)
[2025-03-29] MEDS: fentaNYL 50 MCG/HR TDSY TD SCH (17:21)
[2025-03-29] MEDS: ENOXAPARIN INJ 40 MG/0.4 ML SYR SQ SCH (17:25)
--- NOTE | 2025-03-29 18:33 | Palliative Care Consultation ---
Date of Consultation March 29, 2025 Assessment & Plan (1) Palliative care by specialist: Introduced Palliative Medicine and explained our role in advanced care planning, symptom management and navigation through the progression of life limiting disease. Patient was receptive to palliative services for goals of care discussions. Reviewed we are different from hospice, a home health nurse visiting service. (2) Counseling regarding advanced directives and goals of care: Met with pt at bedside and discussed GOC for 30 minutes. Patient exhibits current decisional capacity based on the ability to convey understanding of personal PMHx, current medical condition, treatment options nor the risks / benefits of those options, and lack of ability to make decisions based on such knowledge. Hospital does not have written documentation of patient wishes concerning his chosen proxy for medical decisions. Per PA [id number], in absence of written documentation of patient wishes, pt's proxy for medical decisions would be his adult son Estevan Swanson and a daughter who lives in [place] with equal authority. However, pt has been estranged from his daughter for many years and would not want her involved in medical decisions for him. He reports that he is very close with his son and would like Estevan to be first contact and his MDM proxy in event he lacks decisional capacity during this or any future admissions. Pt currently does not require a proxy for medical decisions. Pt clearly expressed understanding that his cancer can not be cured, but wishes to continue cancer directed therapies with goal of prolonging his life. His goals of care are well established for ongoing life prolonging and cancer directed treatments. (3) Anxiety associated with cancer diagnosis: Pt states that he has long standing anxiety and depression and has been on "mood medications" previously, but they did not help. He shared that his depression had previously been well controlled with marijuana and nonpharmacologic alternative therapies. He shares that he has been experiencing increased anxiety and depression since his last admission. He attributes some of these difficulties with housing and shared living space with his son. He c/o anhedonia and shared that he spends much of his days in bed. He deferred suggestion of psych referral and denied need for mood stabilizing or anxiolytic medication. He expressed that he is experiencing a great deal of stress about logistics /transport to chemotherapy hope that his chemotherapy could continue as an inpatient as he has no way to get back and forth from home to oncology clinic. He states that his next 3d treatment cycle was scheduled to begin tomorrow. (4) Therapeutic opioid-induced constipation (OIC): resolving , BM x2 yesterday- Pt will require jail prophylactic bowel regime 2/2 likely requiring jail opiate anagesia. continue senna/miralax SCHEDULED with fleets enema PRN If recurremt OIC refractory to senna/miralax consider relistor. (5) Cancer related pain: Pt well known to palliative care team from previous admission and outpt clinic. We have been following for his cancer related back pain, described as a sharp pain that occurs in the center of the back which radiates across the lower back and down both legs. He is not able to identify any propagating factors, but pain is relieved by immobility and does have affect on his daily activities. Pt reports pain had been well controlled at home with the duragesic patch as o rdered with minimal BTP. He shared that he had been trying to wean off of the duragesic due to concerns for nausea andGI motility/constipation. He shared that he had been only applying a 50mcg patch and on Sunday 03/25 he stopped all opiates due to nausea and constipation. He had been following with our outpt palliative team but has not been taking preventative medications for OIC due to complaints of nausea/vomiting. He also follows with pain management and is on a schedule of outpt injections for his back pain which he has been unable to continue due to difficulties with transportation in addition to hospitalizations. In the ED, pt received one time 0.5mg dilaudid IV which gave him relief of pain. On my assessment he shared that pain was well controlled and that he had significant relief of back and abd pain after moving his bowels x2 yesterday. He did c/o abd cramping, diffuse tremors, feeling "delirious and confused", itching and dramatic increase in his chronic pain since he stopped his opiates 5 days ago. We discussed that these could be signs of withdrawal and discussed need for gradual weaning of opiate medications vs stopping abruptly. Also discussed restarting the duragesic with 50mcg/hr q72h as that seems to be what he had been using most recently. Pt agreeable to restarting duragesic and being more consistent with nausea and OIC preventatives. Radiation oncology has also been consulted to evaluate for possible palliative radiation therapy to the areas of pathologic fractures, appreciate their input. restart duragesic 50mcg/hr TD q72h and oxycodone 5mg PO q4h PRN for BTP. Plan as above History of Present Illness Reason for Consultation: Pain mgmt/goals of care Requesting Physician: Augustine Charles MD;./k, Attending Physician: Augustine Charles MD History of Present Illness Mr Swanson is a 69y M with metastatic stage 4 lung cancer who is well known to the palliative care team. His PMHx includes COPD, BPH, GERD, chronic low back pain, HTN, and depression/anxiety -- who presents to ED on 03/29 with fatigue, weakness, poor oral intake,nausea with vomiting intermittently for several weeks, constipation, and one episode of syncope. He had called EMS to his house yesterday but he felt better when they arrived and declined transport to the hospital. He reports BMx2, yesterday which made him feel better with improved appetite and less nausea. Today he reported to his PCP for these complaints and was referred to ED. Patient leukopenic, hypotensive with elevated lactate on arrival to ED. CT of the abdomen pelvis done without evidence of acute intra-abdominal / intrapelvic abnormality, bowel obstruction or bowel wall thickening. Empiric antibiotics, vanco + cefepime, were started and pt was admitted for concerns of opiate withdrawal and early sepsis in neutropenic patient. Patient was on discharged from [facility] 02/26/25 with duragesic to 62ucg/hr TD q72h and OxyIR 5mg q6h PRN for severe back pain related to his metastatic disease. The duragesic was increased to 75mcg on 03/03/25 in outpt clinic, but pt reports only using his remaining 50mcg patches due to nausea and constipation. Pt reports that on FridayMarch 25 he abruptly stopped all narcotics thinking this would help his nausea, vomiting, bowel issues, and inability to eat. He has since developed shivering, shakes, tremors, leg spasms and inability to ambulate/function at home. He reports that his back pain has worsened significantly. He follows with Dr Jones and last chemo was 1.5 weeks ago and was scheduled for his 4th chemo treatment (Carboplatin/etoposide/atezolizumab) [facility] 03/16/2025. PET/CT. 1. Interval improvement at the chest with mild residual right hilar soft tissue density and residual pulmonary nodules and mild mediastinal adenopathy as described. 2. Interval improvement at the abdomen and pelvis with mild residual abdominal lymphadenopathy. 3. Osseous metastatic disease at the spine with increased size of the L4 metastatic lesion. Allergies Allergy/AdvReac Type Severity Reaction Status Date / Time No Known Drug Allergies Allergy Unknown Verified 03/29/25 09:18 Home Medications Medication Instructions Recorded Confirmed Type triamcinolone acetonide 0.1 % 1 applic topical BID PRN skin 03/27/21 03/29/25 Rx topical cream irritation #80 grams Medical Marijuana 1 inh inhalation DAILY 04/29/23 03/29/25 History albuterol sulfate 90 mcg/actuation 2 puff inhalation Q4H PRN 01/31/25 03/29/25 Rx aerosol inhaler shortness of breath or wheezing #6.7 grams ipratropium 0.5 mg-albuterol 3 mg 3 ml NEB Q4H PRN shortness of 02/25/25 03/29/25 Rx (2.5 mg base)/3 mL nebulization breath or wheezing or cough #180 mL soln nebulizers #1 ea 02/25/25 03/29/25 Rx oxycodone 5 mg tablet 5 mg PO Q6H PRN pain #30 tabs 02/25/25 03/29/25 Rx polyethylene glycol 3350 17 gram 17 g PO DAILY #30 ea 02/25/25 03/29/25 Rx oral powder packet (Miralax) sennosides 8.6 mg tablet (senna) 17.2 mg (2 x 8.6 mg) PO DAILY #60 02/25/25 03/29/25 Rx tabs sodium chloride 7 % for 4 ml NEB BID #240 mL 02/25/25 03/29/25 Rx nebulization Oxygen Home #1 ea 02/26/25 03/29/25 Rx nystatin 100,000 unit/mL oral 5 ml PO QID 14 days #280 mL 03/07/25 03/29/25 Rx suspension finasteride 5 mg tablet 5 mg PO UD 03/29/25 03/29/25 History fluorouracil 5 % topical cream 1 applic topical UD 03/29/25 03/29/25 History fluticasone fur. 200 mcg-umeclid 1 inh inhalation UD 03/29/25 03/29/25 History 62.5 mcg-vilant 25 mcg inhalat.powder (Trelegy Ellipta) fluticasone propionate 50 2 sprays intranasal UD 03/29/25 03/29/25 History mcg/actuation nasal spray,suspension ketoconazole 2 % shampoo 1 applic topical UD 03/29/25 03/29/25 History omeprazole 20 mg capsule,delayed 20 mg PO UD 03/29/25 03/29/25 History release ondansetron 8 mg disintegrating 8 mg PO Q8H PRN nausea and 03/29/25 03/29/25 Rx tablet vomiting #90 tabs tamsulosin 0.4 mg capsule 0.8 mg PO UD 03/29/25 03/29/25 History Patient History Medical History POLST (Physician Orders for Life-Sustaining Treatment) Therapeutic opioid-induced constipation (OIC) Postobstructive pneumonia Anxiety associated with cancer diagnosis Counseling regarding advanced directives and goals of care Cancer related pain Palliative care by specialist Extensive stage primary small cell carcinoma of lung (02/11/25) Compression fracture of T8 vertebra Metastatic primary lung cancer COPD (chronic obstructive pulmonary disease) with chronic bronchitis Situational anxiety Hyperlipidemia Surgical History H/O hernia repair History of back surgery Family History Mother Osteoarthritis Other No pertinent family history Social History (Updated 03/30/25 @ 01:16 by Augustine Charles MD) Smoking Status: Former smoker Tobacco Type: Cigarettes Age Started Using Tobacco: 17; Age Quit Using Tobacco: 58; packs per day: 2; Second Hand Exposure: No; Do You Dip or Chew Tobacco: No; Hx Alcohol Use: No Hx Substance Use: Yes Last Used Substance: Unknown Last Used Substance Other:: 3 weeks ago Substance Use Type Other:: medica marijuana Preferred Language: Divehi Communication Ability: Effective 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 Beliefs That Will Affect Care: None marital status: Current Living Situation: Alone Current Living Situation Comment: living with his son current occupational status: disabled Other Information That Helps Us Care for You: No Feels Safe at Home: Yes Safety Concerns: Feels Safe At This Time caffeine: Yes Seatbelt Use: always Assistive Devices: Cane, Glasses and Other Review of Systems Constitutional: + malaise, + weakness and + weight loss Gastrointestinal: + bloating, + early satiety, + nausea an d + constipation Musculoskeletal: + back pain and + muscle weakness Psychiatric: + depression and + anxiety Physical Exam Constitutional: + ill appearing, + thin, + frail appeari ng and cooperative Eyes: PERRL, conjunctivae normal, anicteric sclerae ENMT: external ear and nose normal, oropharynx normal Neck: trachea midline, no thyromegaly Respiratory: normal respiratory effort, lungs clear to auscultation Cardiovascular: RRR, no murmur, no edema Gastrointestinal (Abdomen): normal bowel sounds, soft, nontender, no hepatosplenomegaly Musculoskeletal: no cyanosis or clubbing, extremities motor strength 5/5 Neurologic: PERRL, EOMI, accommodation nl, no face palsy, no dysarthria Psychiatric: Orientation: alert, oriented x 3 and cooperative Eye Contact: good eye contact Speech: + pressured speech Affect: no anxious affect Thought Process: goal directed thought process Thought Content: + preoccupation Judgment: good judgement Pt c/o feeling "really down and have no desire to do anything", he shared he just stays in bed most days Results & Data Vital Signs (Past 12 Hours) Vital Signs Temp Pulse Pulse Resp BP BP Pulse Ox 03/29/25 17:05 87 03/29/25 16:11 03/29/25 16:11 36.6 C 70 17 110/64 91 03/29/25 15:15 80 15 118/79 97 03/29/25 14:15 102/61 03/29/25 14:09 81 16 98 03/29/25 14:03 84 21 98 03/29/25 14:00 90/70 L 03/29/25 13:45 92 H 19 114/76 98 03/29/25 13:33 94 H 18 98 03/29/25 13:31 91/55 L 03/29/25 13:24 89 25 H 100 03/29/25 13:16 95/61 L 03/29/25 13:15 89 23 95/61 L 99 03/29/25 13:00 91 H 17 98 03/29/25 12:45 96/47 L 03/29/25 12:45 93 H 22 96/47 L 97 03/29/25 12:30 127 H 27 H 03/29/25 12:02 89 03/29/25 12:01 109/76 03/29/25 11:47 109/67 03/29/25 11:42 75 16 92 03/29/25 11:34 105/61 03/29/25 11:34 82 90 03/29/25 11:33 78 14 92 03/29/25 11:30 112/79 03/29/25 11:15 85 24 88 L 03/29/25 10:36 36.3 C L 98 H 18 100/58 L 94 O2 Del Method O2 Flow Rate 03/29/25 17:05 03/29/25 16:11 Room Air 03/29/25 16:11 Room Air 03/29/25 15:15 Room Air 03/29/25 14:15 03/29/25 14:09 Nasal Cannula 2 03/29/25 14:03 Nasal Cannula 2 03/29/25 14:00 03/29/25 13:45 Nasal Cannula 2 03/29/25 13:33 Nasal Cannula 2 03/29/25 13:31 03/29/25 13:24 Nasal Cannula 2 03/29/25 13:16 03/29/25 13:15 03/29/25 13:00 03/29/25 12:45 03/29/25 12:45 03/29/25 12:30 03/29/25 12:02 03/29/25 12:01 03/29/25 11:47 03/29/25 11:42 03/29/25 11:34 03/29/25 11:34 Room Air 03/29/25 11:33 03/29/25 11:30 03/29/25 11:15 03/29/25 10:36 Room Air Laboratory Results Abnormal lab results 03/29/25 03/29/25 03/29/25 Range/Units 10:52 11:08 14:33 WBC 2.72 L (4.8-10.8) K/ul RBC 4.31 L (4.70-6.10) M/uL Hgb 13.2 L (14.0-18.0) g/dl Hct 38.4 L (42.0-52.0) % RDW Std Deviation 48.3 H (36.4-46.3) fL RDW Coeff of Benjamin 15.0 H (11.5-14.5) % Plt Count 406 H (130-400) K/uL Neut # (Auto) 0.63 L* (1.40-6.50) K/uL [place] # (Auto) 0.82 H (0.11-0.59) K/uL PT 12.4 H (9.0-12.0) Seconds INR 1.2 H (0.9-1.1) Glucose 135 H (70-99(Fasting)) mg/dl Lactate 4.7 H* (0.4-2.0) mmol/L Magnesium 1.6 L (1.7-2.4) mg/dl Alkaline Phosphatase 166 H (34-104) U/L Ur Specific [place] > 1.045 H (1.000-1.030) Diagnostic Findings Chest X-Ray 03/29/25 10:46 XR chest 1V portable HISTORY: 69 years-old Male Sepsis COMPARISON: Head CT 03/16/2025 TECHNIQUE: AP view of the chest FINDINGS: Emphysema with chronic fibrotic changes. Asymmetric right hilar prominence again noted. Small nodular foci better seen on the prior PET/CT. No pneumothorax, pleural effusion or overt pulmonary edema. Degenerative changes of the shoulders and spine. IMPRESSION: 1. No acute process of the chest. 2. Emphysema with pulmonary nodules again noted, better seen on the prior PET/CT. ACT 112: Negative or not required by law. The above report was generated using voice recognition software. It may contain grammatical, syntax or spelling errors. Electronically signed by: Ziyad Paredes M.D. 03/29/2025 11:34 AM Abdomen/Pelvis CT 03/29/25 11:[address] WITH IV CONTRAST CT DOSE: 881.28 mGy.cm HISTORY: Acute onset abdominal pain with nausea and vomiting . Small cell lung cancer. diff pain, vomiting TECHNIQUE: Multiaxial CT images of the abdomen and pelvis were performed following the IV administration of 94 cc of Optiray, A dose lowering technique was utilized adhering to the principles of ALARA. COMPARISON STUDY: PET/CT 03/16/2025, CT abdomen and pelvis 02/17/2020 FINDINGS: Emphysema with pulmonary nodules redemonstrated, better characterized on the prior PET/CT. Mild dependent subsegmental bibasilar atelectasis. There is no pneumatosis or pneumoperitoneum. The spleen measures 13.7 cm in length. Unremarkable pancreas, and adrenal glands. Unchanged appearance of the gallbladder fundus suggestive of adenomyomatosis. The liver is within normal limits. Patency of the hepatic and portal veins. There are a few cysts noted within the kidneys. 3 mm nonobstructing calculus of the mid pole left kidney. Exophytic prominence of the inferior pole right kidney measuring 1.6 cm on image 143 series 3 is unchanged. No ureteral calculi or hydronephrosis. Prostatomegaly. Urinary bladder wall thickening with partial distention. Atherosclerosis of the aorta and branch vessels. Mild dilation of the infrarenal abdominal aorta measures 3.1 x 2.9 cm. Abdominal lymphadenopathy similar to prior including gastrohepatic 1.9 x 2.9 cm adenopathy on image 68. Inflammatory stranding surrounding several of the lymph nodes likely related to posttreatment related changes. No bowel obstruction or bowel wall thickening. Colonic diverticulosis without acute diverticulitis. Moderate colonic fecal retention. Biopsy clip of the cecum. Normal appendix. Tiny fat filled umbilical hernia. Osseous metastasis redemonstrated. Pathologic fracture of T12 is again seen. IMPRESSION: 1. No acute intra-abdominal or intrapelvic abnormality identified. 2. No bowel obstruction or bowel wall thickening. 3. Pulmonary nodules with pathologic lymphadenopathy of the abdomen along with osseous metastasis redemonstrated, stable from the March 16, 2025 PET/CT. 4. Pathologic T12 compression deformity again noted. 5. Additional findings as above. ACT 112: Negative or not required by law. The above report was generated using voice recognition software. It may contain grammatical, syntax or spelling errors. Electronically signed by: Ziyad Paredes M.D. 03/29/2025 12:45 PM Venous Doppler Study 03/29/25 14:43 BILATERAL LOWER EXTREMITY VENOUS DOPPLER HISTORY: Acute pain The lower legs stage 4 lung ca, immobility, muscle pain of legs COMPARISON STUDY: None. FINDINGS: There is normal compressibility, flow, and augmentation within the bilateral lower extremity deep venous systems. There is a 1.3 x 2.7 x 0.8 cm popliteal cyst on the left. IMPRESSION: No DVT within the right or left lower extremity. ACT 112: Negative or not required by law. Electronically signed by: Ziyad Paredes M.D. 03/29/2025 4:01 PM Medications Administered Current Inpatient Medications Albuterol (Albuterol Hfa 8 Gm Inhaler) 2 puffs INH Q4H PRN PRN Reason: shortness of breath or wheezing Stop: 04/28/25 16:10 Albuterol (Albut/Ipratrop 3mg/0.5mg Neb 3 Ml Vial) 3 ml NEB Q4H PRN; Protocol PRN Reason: shortness of breath or wheezin Stop: 04/28/25 16:10 Enoxaparin Sodium (Enoxaparin Inj 40 Mg/0.4 Ml Syr) 40 mg SQ Q24H [facility] Stop: 04/28/25 17:59 Last Admin: 03/29/25 17:25 Dose: 40 mg Fentanyl (Fentanyl 50 Mcg/Hr Tdsy) 1 patch TD Q3D [place] Stop: 04/12/25 17:14 Last Admin: 03/29/25 17:21 Dose: 1 patch Finasteride (Finasteride 5 Mg Tab) 5 mg PO DAILY [place] Stop: 04/29/25 08:59 Fluticasone Furoate (Fluticasone Furoate 200mcg 14 Puffs/Inhaler) 1 puffs INH DAILY [facility]; Protocol Stop: 04/29/25 08:59 Fluticasone Propionate (Fluticasone Propionate Na Spr 16 Gm Btl) 2 sprays NA DAILY [facility] Stop: 04/29/25 08:59 Hydromorphone HCl (Hydromorphone Inj 1 Mg/Ml Syringe) 1 mg IV Q3H PRN PRN Reason: Severe Pain Stop: 04/12/25 16:10 Lactated Ringer's (Lr) 1,000 mls @ 100 mls/hr IV .Q10H [facility] Stop: 03/30/25 13:59 Last Admin: 03/29/25 15:00 Dose: 100 mls/hr Cefepime HCl (Maxipime 2000mg) 2,000 mg in 20 mls @ 5 mls/min IV Q8H [facility]; Protocol Stop: 03/31/25 19:59 Last Admin: 03/29/25 19:34 Dose: 5 mls/min Pantoprazole Sodium (Protonix) 40 mg in 10 mls @ 5 mls/min IV DAILY [place] Stop: 04/29/25 08:59 Vancomycin HCl 750 mg/ Sodium (Chloride) 265 mls @ 200 mls/hr IV Q12H [facility] Stop: 03/31/25 17:59 Ketorolac Tromethamine (Ketorolac Tromethamine 15 Mg/Ml Vial) 15 mg IV Q6H PRN PRN Reason: Pain Stop: 04/03/25 16:10 Miscellaneous (Fentanyl Patch Remove & Waste) 1 each N/A Q3D [place] Stop: 04/28/25 17:14 Last Admin: 03/29/25 17:21 Dose: 1 each Miscellaneous (Check Fentanyl Patch Placement) 1 each N/A QS [facility] Stop: 04/29/25 00:00 Miscellaneous Information (Vancomycin Consult Active) 1 each N/A UD PRN PRN Reason: Consult Stop: 04/28/25 14:15 Nystatin (Nystatin Susp 500,000 U/5 Ml Udc) 5 ml PO QID [place] Stop: 04/08/25 16:59 Last Admin: 03/29/25 16:58 Dose: Not Given Ondansetron HCl (Ondansetron Inj 2 Mg/Ml 2 Ml Vial) 4 mg IV Q6H PRN PRN Reason: Nausea Stop: 04/28/25 16:10 Polyethylene Glycol (Polyethylene (Miralax) 17 Gm Pack) 17 gm PO DAILY [facility] Stop: 04/29/25 08:59 Sennosides (Senna 8.6 Mg Tab) 17.2 mg PO DAILY [facility] Stop: 04/29/25 08:59 Umeclidinium/Vilanterol (Umeclidinium/Vilanterol 62.5/25mcg 7 Puffs/Inhaler) 1 puffs INH DAILY [facility]; Protocol Stop: 04/29/25 08:59 PG Care Time/CCT Total # of Minutes Spent Total Time Spent with Patient: Total time spent is greater than 50% in coordination of care (as documented) at patient's floor/unit and/or counseling patient: Advanced Care Planning 61660 Advanced Care Planning 30 Min C[place] [address] INT INP/OBS CARE 2/55MIN Patient Type Established History Detailed Exam Detailed Medical Decision Making Moderate Complexity Diagnoses Palliative care by specialist Z51.5 Counseling regarding advanced directives and goals of care Z71.89 Anxiety associated with cancer diagnosis F41.1; C80.1 Therapeutic opioid-induced constipation (OIC) K59.03; T40.2X5A Cancer related pain G89.3 Additional Codes Advanced Care Planning - 14708 Advanced Care Planning 30 Min: 16430 Advanced Care Planning 30 Min ([id number])
--- NOTE | 2025-03-29 19:15 | Pharmacy Report ---
Pharmacy PK ABX Note - Date of Service March 29, 2025 - Assessment and Plan Assessment 69 year old M with metastatic stage 4 lung cancer who presents with fatigue, weakness, poor oral intake, intermittent vomiting, and an episode of syncope. Patient leukopenic, hypotensive with elevated lactate on arrival to ED. Empiric antibiotics, vanco + cefepime, started for concerns of early sepsis in neutropenic patient. Pertinent microbiologic data includes: 03/29 BC - pending Plan Vancomycin * Loading dose: 1500 mg IV x 1 * Maintenance dose: 750 mg IV every 12 hours * Regimen is predicted to achieve target AUC/PHIL of 400-600 mg/L.hr * Drug level to be obtained if therapy extended (currently ordered x 48 hours only) Pharmacy will continue to follow and will adjust dose/frequency as necessary. Thank you.
[2025-03-29] MEDS: CEFEPIME 2000MG 2,000 MG/20 ML SYR IV SCH (19:34)
[2025-03-30] MEDS: CHECK fentaNYL PATCH PLACEMENT SCH
[2025-03-30] MEDS: CETIRIZINE HCL 10 MG TABLET PO ONE (03:42)
[2025-03-30 05:57] LABS: Hematocrit (blood only) 31.7 % (42.0-52.0); Hemoglobin 10.4 g/dl (14.0-18.0); Mean Corpuscular Hemoglobin 30.5 pg (25.0-34.0); Mean Corpuscular Hgb Conc 32.8 g/dL (32.0-36.0); Mean Platelet Volume 10.7 fL (9.4-12.4); Platelet Count 307 K/uL (130-400); RDW Coefficient of Variation 15.5 % (11.5-14.5); RDW Standard Deviation 51.4 fL (36.4-46.3); Red Blood Count 3.41 M/uL (4.70-6.10); White Blood Count 3.41 K/ul (4.8-10.8)
[2025-03-30] MEDS: VANCOMYCIN 750 MG in SODIUM CHLORIDE 0.9% 250 ML IV SCH (06:08)
[2025-03-30 06:18] LABS: BUN Creatinine Ratio 9.5 (10-20); Calcium 8.4 mg/dl (8.6-10.3); Creatinine Clr Calc Pharmacy 68.1 ml/min; Magnesium 1.5 mg/dl (1.7-2.4)
[2025-03-30 06:38] LABS: Polychromasia 1+
[2025-03-30 06:44] LABS: Basophils # (auto) 0.02 K/uL (0.00-0.20); Basophils % (auto) 0.6 %; Eosinophils # (auto) 0.08 K/uL (0.00-0.50); Eosinophils % (auto) 2.3 %; Immature Granulocytes # (auto) 0.07 K/uL (0.01-0.20); Immature Granulocytes % (auto) 2.1 %; Lymphocytes % (auto) 52.8 %; Monocytes % (auto) 23.5 %; Neutrophils # (auto) 0.64 K/uL (1.40-6.50); Neutrophils % (auto) 18.7 %
[2025-03-30] MEDS: PANTOprazole 40 MG/10 ML SYR IV SCH (09:07)
[2025-03-30] MEDS: FINASTERIDE 5 MG TAB PO SCH (09:07)
[2025-03-30] MEDS: FLUTICASONE FUROATE 200MCG 14 PUFFS/INHALER INH SCH (09:17)
[2025-03-30] MEDS: UMECLIDINIUM/VILANTEROL 62.5/25MCG 7 PUFFS/INHALER INH SCH (09:17)
[2025-03-30] MEDS: FLUTICASONE PROPIONATE NA SPR 16 GM BTL SCH (09:18)
[2025-03-30] MEDS: SENNA 8.6 MG TAB PO SCH (09:18)
[2025-03-30] MEDS: POLYETHYLENE (MIRALAX) 17 GM PACK PO SCH (09:18)
[2025-03-30] MEDS: MAGNESIUM SULFATE / D5W 1 GM/100 ML BAG IV SCH (09:19)
--- NOTE | 2025-03-30 09:59 | Radiation OncologyConsultation ---
Date of Consultation March 30, 2025 Assessment & Plan (1) Metastatic primary lung cancer: Plan ATTENDING ADDENDUM: Assessment: Mr. Swanson is a 69-year-old gentleman with a diagnosis of metastatic small cell lung carcinoma. The patient has been receiving chemotherapy in the outpatient setting and is currently on hold. The patient has been admitted to the hospital for multiple reasons including narcotic medication withdrawal. The patient does have metastatic disease in the thoracic spine and lumbar spine which is currently causing him pain and discomfort. The pain is controlled with medication however the goal is to reduce the overall amount of pain medication the patient requires in the long-term. We have been asked to evaluate the patient regarding the role of palliative radiation therapy. Plan: 1. The patient would like to proceed with palliative radiation therapy to the thoracic and lumbar spine. Plan for [address] simulation today to begin treatment planning for radiation therapy. 3. Continue pain management as per palliative care. 4. Continue follow-up with medical oncology in the outpatient setting. Chemotherapy is on hold temporarily. 5. Patient and authorized individuals are encouraged to call us with any further questions or concerns. Rationale/Explanation of Treatment: I explained the indications, alternatives, benefits, risks and side effects of external beam radiation therapy. I then discussed radiation therapy side effects for treatment which include, but are not limited to, skin erythema, dry/moist desquamation of the skin, hyperpig mentation, telangiectasias, damage to the heart and development of cardiovascular disease, damage to the lungs including radiation pneumonitis, pulmonary fibrosis, decrease in pulmonary function, cough, fistula formation, tracheal stenosis, esophageal stenosis, esophageal perforation, dysphagia, nausea, vomiting, ulcers in stomach/bowel, gastritis, gastric perforation, bowel perforation, bowel obstruction, weight loss, dehydration, decreased appetite, liver damage including hepatitis and liver failure, damage to the kidneys including decreased renal function and renal failure, spinal cord damage including myelopathy, fatigue and secondary malignancy. History of Present Illness Reason for Consultation: Pain from bone metastasis Requesting Physician: Dr. Augustine Charles Attending Physician: Jamari Eldridge DO History of Present Illness Patient has a [id number] history of smoking. He quit 15 years ago. He has had ongoing back pain. He then followed by pain management. Saw primary care due to abdominal pain and cervical lymphadenopathy. CT scans were ordered. Referral to interventional radiology for biopsy of lymph nodes was ordered. 02/08/2025. CTA of the chest. 1. No definite sign of pulmonary embolism 2. Large 13 cm invasive mass involving the right hilum and mediastinum, consistent with bronchogenic carcinoma. This encases and narrows the right pulmonary artery and occludes the right middle lobe and right upper lobe bronchi 3. Mediastinal, axillary, and supraclavicular adenopathy, consistent with metastatic disease 4. Multiple pulmonary nodules, concerning for metastatic disease 5. Right middle lobe collapse 6. Severe emphysema 7. Irregular alveolar opacities in the right upper lobe and right lower lobe that could be due to postobstructive pneumonia 02/08/2025. CT of the neck. Bilateral cervical adenopathy, concerning for lymphoma. Multiple enlarged cervical lymph nodes with loss of CMD. Requires histopathologic correlation. 02/08/2025. Primary care follow-up. Patient has been found to have a right lung mass. Referral to pulmonary. 02/11/2025. Pulmonary consultation (Dr. Monteiro). Recommendation for navigational bronchoscopy with biopsies. 02/11/2025. Fiberoptic bronchoscopy. Endobronchial ultrasound and transit bronchial needle aspiration of lymph nodes at 2 stations. 1. Abnormal respiratory mucosa extending from the right mainstem bronchus down into the right lower lobe bronchus consistent with malignancy. 2. Bulky adenopathy present within the level 7 and level 4R station status post biopsy with 21-gauge needle under ultrasound guidance. Await final path. 02/11/2025. Pathology report reveals: Lymph node, ST 7 (fine-needle aspiration): - Metastatic small cell carcinoma of pulmonary origin is seen. Lung, 4 R lymph node (fine-needle aspiration): - Metastatic small cell carcinoma of pulmonary origin is seen. 02/16/2025. Patient presented to the emergency room with intractable pain. He was having pain in the mid back. He also had a pain of the right upper chest region. 02/16/2025. CT of the chest. 1. No pneumothorax. No pneumomediastinum. No mediastinal hematoma. 2. Redemonstration of extensive lower cervical, thoracic and upper abdominal lymphadenopathy consistent with jo ann spread of malignancy. Lymphoma is within the differential but considered less likely. 3. Infiltrative mass centered on the right hilum which measures approximately 7.9 x 7.7 cm which results in extensive airway narrowing, as described above. This may represent a central lung malignancy or conglomerate adenopathy. Severe narrowing of the right lower lobe bronchus which has increased with increasing right lower lobe volume atelectasis. 4. Interval development of a T8 vertebral body fracture likely representing a pathologic fracture underlying lytic lesion. 5. 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 6. Emphysema. 02/16/2025. CT of the abdomen and pelvis. 1. There is increase in right infrahilar and right basilar consolidation suggestive of pneumonia. Postobstructive pneumonia is a consideration. Follow- up evaluation with a complete CT chest with IV contrast is recommended to evaluate for an associated right hilar lung mass.. 2. There are bulky enlarged genaro hepatis lymph node suspicious for metastatic jo ann disease. The largest periportal lymph node measures up to 2.4 cm. 3. Mild to moderate stool burden suggestive of constipation. 02/16/2025. MRI of the brain. 1. No lesions identified in brain parenchyma to suggest metastatic deposits. 2. Age appropriate volume loss in brain parenchyma and bilateral periventricular deep white matter ischemic changes. 3. Few tiny FLAIR hyperintense signals are identified in periventricular deep white matter likely due to microvascular ischemic changes. 4. Mild bilateral ethmoid sinusitis. 02/16/2025. Medical oncology consultation (Dr. Jones). Patient has stage IV small cell carcinoma of the lung. Recommendation for inpatient chemotherapy. Carboplatin and etoposide. After discharge atezolizumab will be added to the regimen of therapy. 02/17/2025. Radiation oncology consultation ([facility]/John). Our office was consulted due to the patient's intractable back pain on admission. Since he was admitted he has been receiving morphine. His pain is now tolerable in his back. He has a pain level of 3 out of 10. Pain of the right anterior chest is also improved. He now gives a pain level of 5 out of 10. He has completed the recommended brain MRI. This did not show metastatic disease. He has been seen by medical oncology. He will start inpatient chemotherapy. Patient has stated he wants to be aggressive with treatment. There are plans for PET/CT following discharge. 02/17/2025. Cycle 1 day 1 of carboplatin, etoposide and atezolizumab. 03/09/2025. Cycle 2-day 1 of carboplatin, etoposide and atezolizumab. 03/16/2025. PET/CT. 1. Interval improvement at the chest with mild residual right hilar soft tissue density and residual pulmonary nodules and mild mediastinal adenopathy as described. 2. Interval improvement at the abdomen and pelvis with mild residual abdominal lymphadenopathy. 3. Osseous metastatic disease at the spine with increased size of the L4 metastatic lesion. 03/29/2025. Hospital admission due to narcotic withdrawal, uncontrolled pain from pathologic vertebral fractures. He was also having dehydration. He has been following with palliative care. He recently had increase of his fentanyl patch to 75 mcg/h. With this change he had side effects of nausea and vomiting. Because of the side effects he removed the patch and then had increasing uncontrolled pain. He also follows with pain management and is on a schedule of injections. Because he has been in the hospital he has not been able to have any follow-up injections. 03/29/2025. CT of the abdomen pelvis. 1. No acute intra-abdominal or intrapelvic abnormality identified. 2. No bowel obstruction or bowel wall thickening. 3. Pulmonary nodules with pathologic lymphadenopathy of the abdomen along with osseous metastasis redemonstrated, stable from the March 16, 2025 PET/CT. 4. Pathologic T12 compression deformity again noted. 03/30/2025. Radiation oncology inpatient consultation. Patient has been restarted on fentanyl patch. This is now at 50 mcg/h. With the lower dose he is tolerating this better. He does have some brain fog. He is having better control of the pain today. He gave a pain level of 6-7 out of 10. He has a sharp pain that occurs in the center of the back. He has a lower grade pain that occurs across the lower back and radiates down both legs. Our office was consulted to evaluate for possible palliative radiation therapy to the areas of pathologic fractures. Allergies Allergy/AdvReac Type Severity Reaction Status Date / Time No Known Drug Allergies Allergy Unknown Verified 03/29/25 09:18 Home Medications Medication Instructions Recorded Confirmed Type triamcinolone acetonide 0.1 % 1 applic topical BID PRN skin 03/27/21 03/29/25 Rx topical cream irritation #80 grams Medical Marijuana 1 inh inhalation DAILY 04/29/23 03/29/25 History albuterol sulfate 90 mcg/actuation 2 puff inhalation Q4H PRN 01/31/25 03/29/25 Rx aerosol inhaler shortness of breath or wheezing #6.7 grams ipratropium 0.5 mg-albuterol 3 mg 3 ml NEB Q4H PRN shortness of 02/25/25 Rx (2.5 mg base)/3 mL nebulization breath or wheezing or cough #180 mL soln nebulizers #1 ea 02/25/25 03/29/25 Rx oxycodone 5 mg tablet 5 mg PO Q6H PRN pain #30 tabs 02/25/25 03/29/25 Rx polyethylene glycol 3350 17 gram 17 g PO DAILY #30 ea 02/25/25 03/29/25 Rx oral powder packet (Miralax) sennosides 8.6 mg tablet (senna) 17.2 mg (2 x 8.6 mg) PO DAILY #60 02/25/25 03/29/25 Rx tabs sodium chloride 7 % for 4 ml NEB BID #240 mL 02/25/25 03/29/25 Rx nebulization Oxygen Home #1 02/26/25 03/29/25 Rx nystatin 100,000 unit/mL oral 5 ml PO QID 14 days #280 mL 03/07/25 03/29/25 Rx suspension finasteride 5 mg tablet 5 mg PO 03/29/25 03/29/25 History fluorouracil 5 % topical cream 1 applic topical 03/29/25 03/29/25 History fluticasone fur. 200 mcg-umeclid 1 inh inhalation 03/29/25 03/29/25 History 62.5 mcg-vilant 25 mcg inhalat.powder (Trelegy Ellipta) fluticasone propionate 50 2 sprays intranasal 03/29/25 03/29/25 History mcg/actuation nasal spray,suspension ketoconazole 2 % shampoo 1 applic topical 03/29/25 03/29/25 History omeprazole 20 mg capsule,delayed 20 mg PO 03/29/25 03/29/25 History release ondansetron 8 mg disintegrating 8 mg PO Q8H PRN nausea and 03/29/25 03/29/25 Rx tablet vomiting #90 tabs tamsulosin 0.4 mg capsule 0.8 mg PO 03/29/25 03/29/25 History Patient History Medical History POLST (Physician Orders for Life-Sustaining Treatment) Therapeutic opioid-induced constipation (OIC) Postobstructive pneumonia Anxiety associated with cancer diagnosis Counseling regarding advanced directives and goals of care Cancer related pain Palliative care by specialist Extensive stage primary small cell carcinoma of lung (02/11/25) Compression fracture of T8 vertebra Metastatic primary lung cancer COPD (chronic obstructive pulmonary disease) with chronic bronchitis Situational anxiety Hyperlipidemia Surgical History H/O hernia repair History of back surgery Family History Mother Osteoarthritis Other No pertinent family history Social History (Updated 03/30/25 @ 01:16 by Augustine Charles MD) Smoking Status: Former smoker Tobacco Type: Cigarettes Age Started Using Tobacco: 17; Age Quit Using Tobacco: 58; packs per day: 2; Second Hand Exposure: No; Do You Dip or Chew Tobacco: No; Hx Alcohol Use: No Hx Substance Use: Yes Last Used Substance: Unknown Last Used Substance Other:: 3 weeks ago Substance Use Type Other:: medica marijuana Preferred Language: Urdu Communication Ability: Effective Mail Opener Required: No Beliefs That Will Affect Care: None marital status: Current Living Situation: Alone Current Living Situation Comment: living with his son current occupational status: disabled Other Information That Helps Us Care for You: No Feels Safe at Home: Yes Safety Concerns: Feels Safe At This Time caffeine: Yes Seatbelt Use: always Assistive Devices: Cane, Glasses and Other Physical Exam Constitutional: WD/WN, vitals as above Eyes: PERRL, conjunctivae normal, anicteric sclerae ENMT: Ears: + hearing impairment Neck: trachea midline, no thyromegaly Respiratory: normal respiratory effort, lungs clear to auscultation Auscultation: + diminished lung sounds Cardiovascular: RRR, no murmur, no edema Chest (Breasts): Additional Comments: Mild tenderness noted of the right anterior upper chest. Gastrointestinal (Abdomen): normal bowel sounds, soft, nontender, no hepatosplenomegaly Musculoskeletal: He has tenderness in the area of the mid thoracic spine and lumbar spine. Skin: no rashes, warm and dry Psychiatric: A+Ox3, euthymic affect Results (Rad Onc) Pathology Results: were reviewed and pertinent findings noted in HPI Imaging Studies: were reviewed and pertinent findings noted in HPI Time Spent Midlevel I spent [15] minutes in preparation for this follow up evaluation including reviewing all the clinical records, reviewing laboratory studies, pathology reports and imaging results. I spent [20] minutes with direct face to face interaction with the patient and/or family including performing a physical exam and answering all questions. I spent [10] minutes documenting this patient's visit. Attending I spent 15 minutes in preparation for this follow up evaluation including reviewing all the clinical records, reviewing laboratory studies, pathology reports and imaging results. I spent 15 minutes with direct face to face interaction with the patient and/or family including performing a physical exam and answering all questions. I spent 15 minutes documenting this patient's visit. PG Care Time/CCT Total # of Minutes Spent Total Time Spent with Patient: Total time spent is greater than 50% in coordination of care (as documented) at patient's floor/unit and/or counseling patient: [place] [address] IN/OBS CONSULT LVL 3,45M Patient Type Established Medical Decision Making Straight Forward Diagnoses Metastatic primary lung cancer C34.90
--- NOTE | 2025-03-30 11:42 | Palliative Care Progress Note ---
Date of Service March 30, 2025 Assessment & Plan (1) Palliative care by specialist: Plan: Palliative care will continue to follow for pain/symptom management as well as ongoing navigation through progression of disease. (2) Therapeutic opioid-induced constipation (OIC): Plan: Ongoing, last BM 03/28. continue senna/miralax SCHEDULED with fleets enema PRN If recurremt OIC refractory to senna/miralax consider relistor. (3) Cancer related pain: Plan: Pt well known to palliative care team from previous admission and outpt clinic. We have been following for his cancer related back pain, described as a sharp pain that occurs in the center of the back which radiates across the lower back and down both legs. He is not able to identify any propagating factors, but pain is relieved by immobility and does have affect on his daily activities. 03/29: Pt reports pain had been well controlled at home with the duragesic patch as ordered with minimal BTP. He shared that he had been trying to wean off of the duragesic due to concerns for nausea andGI motility/constipation. He shared that he had been only applying a 50mcg patch and on Sunday 03/25 he stopped all opiates due to nausea and constipation. He had been following with our outpt palliative team but has not been taking preventative medications for OIC due to complaints of nausea/vomiting. He also follows with pain management and is on a schedule of outpt injections for his back pain which he has been unable to continue due to difficulties with transportation in addition to hospitalizations. In the ED, pt received one time 0.5mg dilaudid IV which gave him relief of pain. On my assessment he shared that pain was well controlled and that he had significant relief of back and abd pain after moving his bowels x2 yesterday. He did c/o abd cramping, diffuse tremors, feeling "delirious and confused", i tching and dramatic increase in his chronic pain since he stopped his opiates 5 days ago. We discussed that these could be signs of withdrawal and discussed need for gradual weaning of opiate medications vs stopping abruptly. Also discussed restarting the duragesic with 50mcg/hr q72h as that seems to be what he had been using most recently. Pt agreeable to restarting duragesic and being more consistent with nausea and OIC preventatives. Radiation oncology has also been consulted to evaluate for possible palliative radiation therapy to the areas of pathologic fractures, appreciate their input. restart duragesic 50mcg/hr TD q72h and oxycodone 5mg PO q4h PRN for BTP. 03/30: Pt reports pain much improved and he is satisfied with current management. Plan for rad-onc simulation for palliative radiation to spine today. He has had no need for PRN medications since TD fentanyl restarted. Discussed with pt that oxycodone is available to him PRN for BTP. Continue duragesic 50mcg/hr TD q72h and oxycodone 5mg PO q4h PRN for BTP Discontinue IV dilaudid (4) Narcotic withdrawal: Plan: resolved, pt restarted on transdermal fentanyl and counselled on need for weaning of chronic opiate use when appropriate. (5) Anxiety associated with cancer diagnosis: Plan: Pt states that he has long standing anxiety and depression and has been on "mood medications" previously, but they did not help. He shared that his depression had previously been well controlled with marijuana and nonpharmacologic alternative therapies. He shares that he has been experiencing increased anxiety and depression since his last admission. He attributes some of these difficulties with housing and shared living space with his son. He c/o anhedonia and shared that he spends much of his days in bed. He deferred suggestion of psych referral and denied need for mood stabilizing or anxiolytic medication. He expressed that he is experiencing a great deal of stress about logistics /transport to chemotherapy hope that his chemotherapy could continue as an inpatient as he has no way to get back and forth from home to oncology clinic. He states that his next 3d treatment cycle was scheduled to begin today as outpt and he requests this not be delayed, he is hopeful that chemotherapy and palliative radiation can be completed as inpt. Dr Jones made aware of request. Plan as above Admission and Anticipated Discharge Date Admission Date: March 29, 2025 Subjective Assessed pt at bedside, he was sitting upright in chair and stood to talk with me. He is A&Ox4 and pleasantly communicative today. He appears in NAD on RA. He shared that his pain is well controlled and appetite is improved today. NATACHA. Review of Systems Constitutional: + malaise, + weakness and + weight loss Gastrointestinal: + early satiety Musculoskeletal: + back pain and + muscle weakness Psychiatric: + depression and + anxiety Physical Exam Constitutional: WD/WN, vitals as above Eyes: PERRL, conjunctivae normal, anicteric sclerae ENMT: Ears: + hearing impairment Neck: trachea midline, no thyromegaly Respiratory: normal respiratory effort, lungs clear to auscultation Auscultation: + diminished lung sounds Cardiovascular: RRR, no murmur, no edema Chest (Breasts): Additional Comments: Mild tenderness noted of the right anterior upper chest. Gastrointestinal (Abdomen): normal bowel sounds, soft, nontender, no hepatosplenomegaly Musculoskeletal: He has tenderness in the area of the mid thoracic spine and lumbar spine. Skin: no rashes, warm and dry Psychiatric: A+Ox3, euthymic affect Results & Data Vital Signs (Past 12 Hours) Vital Signs Temp Pulse Pulse Resp BP Pulse Ox O2 Del Method 03/30/25 10:48 36.3 C L 56 L 18 126/68 91 Room Air 03/30/25 08:58 75 03/30/25 07:35 36.6 C 44 L 18 150/65 H 92 Room Air 03/30/25 02:40 36.7 C 60 16 114/79 90 Room Air Laboratory Results Abnormal lab results 03/29/25 03/29/25 03/30/25 Range/Units 10:52 14:33 05:38 WBC 3.41 L (4.8-10.8) K/ul RBC 3.41 L (4.70-6.10) M/uL Hgb 10.4 L (14.0-18.0) g/dl Hct 31.7 L (42.0-52.0) % RDW Std Deviation 51.4 H (36.4-46.3) fL RDW Coeff of Benjamin 15.5 H (11.5-14.5) % Neut # (Auto) 0.63 L* 0.64 L* (1.40-6.50) K/uL [place] # (Auto) 0.82 H 0.80 H (0.11-0.59) K/uL Chloride 111 H (98-107) mmol/L BUN/Creatinine Ratio 9.5 L (10-20) Glucose 135 H (70-99(Fasting)) mg/dl Calcium 8.4 L (8.6-10.3) mg/dl Magnesium 1.5 L (1.7-2.4) mg/dl Alkaline Phosphatase 166 H (34-104) U/L Ur Specific [place] > 1.045 H (1.000-1.030) Diagnostic Findings Chest X-Ray 03/29/25 10:46 XR chest 1V portable HISTORY: 69 years-old Male Sepsis COMPARISON: Head CT 03/16/2025 TECHNIQUE: AP view of the chest FINDINGS: Emphysema with chronic fibrotic changes. Asymmetric right hilar prominence again noted. Small nodular foci better seen on the prior PET/CT. No pneumothorax, pleural effusion or overt pulmonary edema. Degenerative changes of the shoulders and spine. IMPRESSION: 1. No acute process of the chest. 2. Emphysema with pulmonary nodules again noted, better seen on the prior PET/CT. ACT 112: Negative or not required by law. The above report was generated using voice recognition software. It may contain grammatical, syntax or spelling errors. Electronically signed by: Ziyad Paredes M.D. 03/29/2025 11:34 AM Abdomen/Pelvis CT 03/29/25 11:[address] WITH IV CONTRAST CT DOSE: 881.28 mGy.cm HISTORY: Acute onset abdominal pain with nausea and vomiting . Small cell lung cancer. diff pain, vomiting TECHNIQUE: Multiaxial CT images of the abdomen and pelvis were performed following the IV administration of 94 cc of Optiray, A dose lowering technique was utilized adhering to the principles of ALARA. COMPARISON STUDY: PET/CT 03/16/2025, CT abdomen and pelvis 02/17/2020 FINDINGS: Emphysema with pulmonary nodules redemonstrated, better characterized on the prior PET/CT. Mild dependent subsegmental bibasilar atelectasis. There is no pneumatosis or pneumoperitoneum. The spleen measures 13.7 cm in length. Unremarkable pancreas, and adrenal glands. Unchanged appearance of the gallbladder fundus suggestive of adenomyomatosis. The liver is within normal li mits. Patency of the hepatic and portal veins. There are a few cysts noted within the kidneys. 3 mm nonobstructing calculus of the mid pole left kidney. Exophytic prominence of the inferior pole right kidney measuring 1.6 cm on image 143 series 3 is unchanged. No ureteral calculi or hydronephrosis. Prostatomegaly. Urinary bladder wall thickening with partial distention. Atherosclerosis of the aorta and branch vessels. Mild dilation of the infrarenal abdominal aorta measures 3.1 x 2.9 cm. Abdominal lymphadenopathy similar to prior including gastrohepatic 1.9 x 2.9 cm adenopathy on image 68. I nflammatory stranding surrounding several of the lymph nodes likely related to posttreatment related changes. No bowel obstruction or bowel wall thickening. Colonic diverticulosis without acute diverticulitis. Moderate colonic fecal retention. Biopsy clip of the cecum. Normal appendix. Tiny fat filled umbilical hernia. Osseous metastasis redemonstrated. Pathologic fracture of T12 is again seen. IMPRESSION: 1. No acute intra-abdominal or intrapelvic abnormality identified. 2. No bowel obstruction or bowel wall thickening. 3. Pulmonary nodules with pathologic lymphadenopathy of the abdomen along with osseous metastasis redemonstrated, stable from the March 16, 2025 PET/CT. 4. Pathologic T12 compression deformity again noted. 5. Additional findings as above. ACT 112: Negative or not required by law. The above report was generated using voice recognition software. It may contain grammatical, syntax or spelling errors. Electronically signed by: Ziyad Paredes M.D. 03/29/2025 12:45 PM Venous Doppler Study 03/29/25 14:43 BILATERAL LOWER EXTREMITY VENOUS DOPPLER HISTORY: Acute pain The lower legs stage 4 lung ca, immobility, muscle pain of legs COMPARISON STUDY: None. FINDINGS: There is normal compressibility, flow, and augmentation within the bilateral lower extremity deep venous systems. There is a 1.3 x 2.7 x 0.8 cm popliteal cyst on the left. IMPRESSION: No DVT within the right or left lower extremity. ACT 112: Negative or not required by law. Electronically signed by: Ziyad Paredes M.D. 03/29/2025 4:01 PM Medications Administered Current Inpatient Medications Albuterol (Albuterol Hfa 8 Gm Inhaler) 2 puffs INH Q4H PRN PRN Reason: shortness of breath or wheezing Stop: 04/28/25 16:10 Albuterol (Albut/Ipratrop 3mg/0.5mg Neb 3 Ml Vial) 3 ml NEB Q4H PRN; Protocol PRN Reason: shortness of breath or wheezin Stop: 04/28/25 16:10 Enoxaparin Sodium (Enoxaparin Inj 40 Mg/0.4 Ml Syr) 40 mg SQ Q24H [facility] Stop: 04/28/25 17:59 Last Admin: 03/29/25 17:25 Dose: 40 mg Fentanyl (Fentanyl 50 Mcg/Hr Tdsy) 1 patch TD Q3D [facility] Stop: 04/12/25 17:14 Last Admin: 03/29/25 17:21 Dose: 1 patch Finasteride (Finasteride 5 Mg Tab) 5 mg PO DAILY [facility] Stop: 04/29/25 08:59 Last Admin: 03/30/25 09:07 Dose: 5 mg Fluticasone Furoate (Fluticasone Furoate 200mcg 14 Puffs/Inhaler) 1 puffs INH DAILY [facility]; Protocol Stop: 04/29/25 08:59 Last Admin: 03/30/25 09:17 Dose: 1 puffs Fluticasone Propionate (Fluticasone Propionate Na Spr 16 Gm Btl) 2 sprays NA DAILY [facility] Stop: 04/29/25 08:59 Last Admin: 03/30/25 09:18 Dose: 2 sprays Hydromorphone HCl (Hydromorphone Inj 1 Mg/Ml Syringe) 1 mg IV Q3H PRN PRN Reason: Severe Pain Stop: 04/12/25 16:10 Lactated Ringer's (Lr) 1,000 mls @ 100 mls/hr IV .Q10H [facility] Stop: 03/30/25 13:59 Last Admin: 03/30/25 02:00 Dose: 100 mls/hr Cefepime HCl (Maxipime 2000mg) 2,000 mg in 20 mls @ 5 mls/min IV Q8H [facility]; Protocol Stop: 03/31/25 19:59 Last Admin: 03/30/25 03:42 Dose: 5 mls/min Pantoprazole Sodium (Protonix) 40 mg in 10 mls @ 5 mls/min IV DAILY [facility] Stop: 04/29/25 08:59 Last Admin: 03/30/25 09:07 Dose: 5 mls/min Vancomycin HCl 750 mg/ Sodium (Chloride) 265 mls @ 200 mls/hr IV Q12H [facility] Stop: 03/31/25 17:59 Last Infusion: 03/30/25 07:30 Dose: Infused Magnesium Sulfate/Dextrose (Magnesium Sulfate / D5w) 1 gm in 100 mls @ 50 mls/hr IV Q2H [facility] Stop: 03/30/25 11:59 Last Admin: 03/30/25 09:19 Dose: 50 mls/hr Ketorolac Tromethamine (Ketorolac Tromethamine 15 Mg/Ml Vial) 15 mg IV Q6H PRN PRN Reason: Pain Stop: 04/03/25 16:10 Miscellaneous (Fentanyl Patch Remove & Waste) 1 each N/A Q3D [facility] Stop: 04/28/25 17:14 Last Admin: 03/29/25 17:21 Dose: 1 each Miscellaneous (Check Fentanyl Patch Placement) 1 each N/A QS [facility] Stop: 04/29/25 00:00 Last Admin: 03/30/25 09:09 Dose: 1 each Miscellaneous Information (Vancomycin Consult Active) 1 each N/A UD PRN PRN Reason: Consult Stop: 04/28/25 14:15 Nystatin (Nystatin Susp 500,000 U/5 Ml Udc) 5 ml PO QID [facility] Stop: 04/08/25 16:59 Last Admin: 03/30/25 09:07 Dose: 5 ml Ondansetron HCl (Ondansetron Inj 2 Mg/Ml 2 Ml Vial) 4 mg IV Q6H PRN PRN Reason: Nausea Stop: 04/28/25 16:10 Polyethylene Glycol (Polyethylene (Miralax) 17 Gm Pack) 17 gm PO DAILY [facility] Stop: 04/29/25 08:59 Last Admin: 03/30/25 09:18 Dose: 17 gm Sennosides (Senna 8.6 Mg Tab) 17.2 mg PO DAILY [facility] Stop: 04/29/25 08:59 Last Admin: 03/30/25 09:18 Dose: 17.2 mg Umeclidinium/Vilanterol (Umeclidinium/Vilanterol 62.5/25mcg 7 Puffs/Inhaler) 1 puffs INH DAILY [facility]; Protocol Stop: 04/29/25 08:59 Last Admin: 03/30/25 09:17 Dose: 1 puffs PG Care Time/CCT Total # of Minutes Spent Total Time Spent with Patient: Total time spent is greater than 50% in coordination of care (as documented) at patient's floor/unit and/or counseling patient: [place] [address] SUB INP/OBS CARE 50MIN Patient Type Established History Expanded Problem Focused Exam Expanded Problem Focused Medical Decision Making Moderate Complexity Diagnoses Palliative care by specialist Z51.5 Therapeutic opioid-induced constipation (OIC) K59.03; T40.2X5A Cancer related pain G89.3 Narcotic withdrawal F11.93 Anxiety associated with cancer diagnosis F41.1; C80.1
--- NOTE | 2025-03-30 12:35 | Hospitalist Progress Note ---
Date of Service March 30, 2025 Assessment & Plan (1) Narcotic withdrawal: (2) Extensive stage primary small cell carcinoma of lung: (3) Pathologic compression fracture of lumbar vertebra: (4) Neutropenia: (5) Dehydration: (6) Chronic obstructive pulmonary disease: (7) BPH (benign prostatic hyperplasia): (8) GERD without esophagitis: (9) Hyperlipidemia: (10) Rigors: (11) Anorexia: (12) Hypomagnesemia: (13) Elevated lactic acid level: (14) Anxiety and depression: (15) Therapeutic opioid-induced constipation (OIC): (16) Syncope: (17) Severe protein-calorie malnutrition: Plan 69yo male with stage 4 small cell lung ca with bone mets - well known to me from 01/2025 hospitalization - along with COPD, BPH, GERD, chronic low back pain, HTN, and depression/anxiety -- who presents with severe fatigue, weakness, sleeping/laying in bed frequently, very poor PO intake with ongoing weight loss, nausea with vomiting intermittently for several weeks, severe constipation for several weeks, and an episode of syncope yesterday at home. EMS was summoned to his house yesterday but he declined transport to the hospital at that time. However, he came today after seeing his PCP who strongly recommended that he seek attention in the ER. #narcotic withdrawal - -I believe many of the presenting symptoms are from narcotic withdrawal -on 03/25 he abruptly stopped his fentanyl 75mcg patch and oxycodone prn -since then his back pain has been severe & debilitating, and he has had shivering/chills/nausea/stomach upset/etc. -he initially had told me he did not want to go back to narcotics, but when I consulted palliative care - and after he met with them today - he was agreeable to resuming fentanyl patch -thus, resume fentanyl patch at 50mcg q3d -allow dilaudid prn for severe breakthrough pain -toradol 15mg q6h prn pain #stage 4 small cell lung ca with extensive bony mets - -PET/CT mid-March showed a positive treatment response to his carboplatin/etoposide/atezolizumab -he was due for his 4th treatment tomorrow -he is following with Dr Jones -he is neutropenic today - improving -Plan to hold chemo in setting of neutropenia -Will be rescheduled on outpatient basis -Plan to meet with rad/onc to determine if patient is candidate for palliative radiation -viral respiratory panel is negative making viral suppression unlikely #severe neutropenia - -improving -biofire panel neg -u/a negative -blood cx's sent -for empiric coverage while ruling out bacteremia place on IV cefepime/vanco; plan 48 hours of Rx and stop if cultures negative and no source of infection found #dehydration / low BP - -received 2.25 L of boluses in the ER -cont LR hydration -hold flomax due to low bp #syncope 03/28 at home - -had prodromal dizziness/lightheadedness -was likely due to low BP in setting of poor PO intake, etc -cortisol level checked & level adequate at 17 -place on telemetry - r/o arrhythmia -consider echo but hold off for now -certainly at HIGH risk of DVT/PE due to extensive cancer and fairly immobile at home - start with dopplers of legs to r/o DVT (he c/o spasms of legs) #opiate-induced constipation - -during prior admit in January and again today he has been counseled on the importance of bowel maintenance -resume miralax and senna -consider Movantik when he transitions back home #COPD - -no exacerbation at this time -at hospital d/c on 02/26/25 he was prescribed O2 -he used for 1 week then stopped it -o2 sats since then have been adequate -follow sats closely -cont home inhalers #BPH - -hold flomax due to low / low-normal BPs; resume flomax when able -cont finasteride #DVT proph - -lovenox 40mg daily #severe protein calorie malnutrition - -5kg weight loss in 1 month -2nd to advanced stage 4 lung ca -boost, MVI, etc #depression/anxiety - -not on meds for such -consider remeron or similar in light of progressive weight loss, mood, decreased PO intake, etc. Admission and Anticipated Discharge Date Admission Date: March 29, 2025 Supervising Physician Co-Signing Physician Notes ATTESTATION I also saw the patient and confirmed arteaga portions of the history and exam. I agree with the impression and plan in the resident documentation, and as summarized below. Had breakfast - mild nausea but no emesis. Feeling a little better today. He would like to continue chemotherapy although discussed that may need to hold given his leukopenia. EXAM VS stable, afebrile NAD CV regular respirations non labored DATA Labs Hgb 10.4 WBC 3.41, Neut 0.64 BMP unremarkable Micro Blood cultures no growth at 24 hours IMPRESSION & PLAN Narcotic withdrawal Metastatic lung CA Neutropenia Opiate induced constipation Appreciate consultants Pain under better control; side effects of withdrawal lessening Chemotherapy on hold due to neutropenia RT simulation today Additional per resident documentation Subjective Patient seen and evaluated at bedside this morning. No acute events overnight. Overall feeling improved from admission. Now with 50mcg fentanyl patch and breakthrough opiates ordered. N/V improved. Able to eat breakfast and take medications. Paitent is neutropenic, chemo will be delayed. Plan to start pallia tive radiation, particularly to bone mets. No acute complaints this am. Review of Systems Review of Systems: reviewed, per HPI Physical Exam Physical Exam: Constitutional: ill-appearing, no acute distress HEENT: NCAT, no conjunctival injection CV: clinically well perfused, extremities well-perfused, no LE edema Resp: no increased work of breathing GI: nondistended MSK: no gross deformities appreciated Skin: warm, dry, no rash appreciated Neuro: alert, oriented, no focal neurologic deficit appreciated Results & Data Results & Data Vital Signs (Past 12 Hours) Vital Signs Temp Pulse Pulse Resp BP Pulse Ox O2 Del Method 03/30/25 10:48 36.3 C L 56 L 18 126/68 91 Room Air 03/30/25 08:58 75 03/30/25 07:35 36.6 C 44 L 18 150/65 H 92 Room Air 03/30/25 02:40 36.7 C 60 16 114/79 90 Room Air Resident Activity Tracking Resident Involvement: Resident Care Provided Care Provided: Adult Hospital Medicine (4) Neutropenia Neutropenia type: unspecified Qualified Code(s): D70.9 - Neutropenia, unspecified
[2025-03-30] MEDS: oxyCODONE HCL IR 5 MG TAB (IMMEDIATE RELEASE) PO PRN (13:40)
[2025-03-31 07:27] LABS: Basophils # (auto) 0.04 K/uL (0.00-0.20); Eosinophils # (auto) 0.06 K/uL (0.00-0.50); Eosinophils % (auto) 1.6 %; Hematocrit (blood only) 33.6 % (42.0-52.0); Hemoglobin 11.1 g/dl (14.0-18.0); Immature Granulocytes # (auto) 0.12 K/uL (0.01-0.20); Immature Granulocytes % (auto) 3.1 %; Lymphocytes % (auto) 38.9 %; Mean Corpuscular Hemoglobin 30.2 pg (25.0-34.0); Mean Corpuscular Volume 91.6 fL (80.0-100.0); Monocytes # (auto) 0.93 K/uL (0.11-0.59); Monocytes % (auto) 24.1 %; Neutrophils # (auto) 1.21 K/uL (1.40-6.50); Neutrophils % (auto) 31.3 %; Platelet Count 315 K/uL (130-400); RDW Coefficient of Variation 15.3 % (11.5-14.5); RDW Standard Deviation 50.7 fL (36.4-46.3); Red Blood Count 3.67 M/uL (4.70-6.10); White Blood Count 3.86 K/ul (4.8-10.8)
[2025-03-31 08:01] LABS: BUN Creatinine Ratio 8.3 (10-20); Calcium 8.6 mg/dl (8.6-10.3); Creatinine Clr Calc Pharmacy 68.8 ml/min; Potassium 3.9 mmol/L (3.5-5.1)
[2025-03-31] MEDS: POLYETHYLENE (MIRALAX) 17 GM PACK PO SCH (09:27)
--- NOTE | 2025-03-31 09:32 | Electrocardiogram Report ---
Test Reason : Blood Pressure : */* mmHG Vent. Rate : 84 BPM Atrial Rate : 84 BPM P-R Int : 154 ms QRS Dur : 86 ms QT Int : 390 ms P-R-T Axes : 46 60 59 degrees QTcB Int : 460 ms Sinus rhythm with frequent Premature ventricular complexes Otherwise normal ECG When compared with ECG of 21-Feb-2025 00:06, Fusion complexes are no longer Present Confirmed by Prashant Skinner ([id number]) on 03/31/2025 9:32:32 AM Referred By: Dinesh [place] Confirmed By: Prashant Skinner
--- NOTE | 2025-03-31 11:48 | Palliative Care Progress Note ---
Date of Service March 31, 2025 Assessment & Plan (1) Palliative care by specialist: Plan: Palliative care will continue to follow for pain/symptom management as well as ongoing navigation through progression of disease. (2) Therapeutic opioid-induced constipation (OIC): Plan: Ongoing, last BM 03/28. continue senna/miralax SCHEDULED with fleets enema PRN If recurremt OIC refractory to senna/miralax consider relistor. (3) Cancer related pain: Plan: Pt well known to palliative care team from previous admission and outpt clinic. We have been following for his cancer related back pain, described as a sharp pain that occurs in the center of the back which radiates across the lower back and down both legs. He is not able to identify any propagating factors, but pain is relieved by immobility and does have affect on his daily activities. 03/29: Pt reports pain had been well controlled at home with the duragesic patch as ordered with minimal BTP. He shared that he had been trying to wean off of the duragesic due to concerns for nausea andGI motility/constipation. He shared that he had been only applying a 50mcg patch and on Sunday 03/25 he stopped all opiates due to nausea and constipation. He had been following with our outpt palliative team but has not been taking preventative medications for OIC due to complaints of nausea/vomiting. He also follows with pain management and is on a schedule of outpt injections for his back pain which he has been unable to continue due to difficulties with transportation in addition to hospitalizations. In the ED, pt received one time 0.5mg dilaudid IV which gave him relief of pain. On my assessment he shared that pain was well controlled and that he had significant relief of back and abd pain after moving his bowels x2 yesterday. He did c/o abd cramping, diffuse tremors, feeling "delirious and confused", itching and dramatic increase in his chronic pain since he stopped his opiates 5 days ago. We discussed that these could be signs of withdrawal and discussed need for gradual weaning of opiate medications vs stopping abruptly. Also discussed restarting the duragesic with 50mcg/hr q72h as that seems to be what he had been using most recently. Pt agreeable to restarting duragesic and being more consistent with nausea and OIC preventatives. Radiation oncology has also been consulted to evaluate for possible palliative radiation therapy to the areas of pathologic fractures, appreciate their input. restart duragesic 50mcg/hr TD q72h and oxycodone 5mg PO q4h PRN for BTP. 03/30: Pt reports pain much improved and he is satisfied with current management. Plan for rad-onc simulation for palliative radiation to spine today. He has had no need for PRN medications since TD fentanyl restarted. Discussed with pt that oxycodone is available to him PRN for BTP. 03/31: Pt requiring no PRN for BTP overnight, pt states pain well managed and requests no changes at this time. Continue duragesic 50mcg/hr TD q72h and oxycodone 5mg PO q4h PRN for BTP (4) Narcotic withdrawal: Plan: resolved, pt restarted on transdermal fentanyl and counselled on need for weaning of chronic opiate use when appropriate. (5) Anxiety associated with cancer diagnosis: Plan: Pt states that he has long standing anxiety and depression and has been on "mood medications" previously, but they did not help. He shared that his depression had previously been well controlled with marijuana and nonpharmacologic alternative therapies. He shares that he has been experiencing increased anxiety and depression since his last admission. He attributes some of these difficulties with housing and shared living space with his son. He c/o anhedonia and shared that he spends much of his days in bed. He deferred suggestion of psych referral and denied need for mood stabilizing or anxiolytic medication. He expressed that he is experiencing a great deal of stress about logistics /transport to chemotherapy hope that his chemotherapy could continue as an inpatient as he has no way to get back and forth from home to oncology clinic. He states that his next 3d treatment cycle was scheduled to begin today as outpt and he requests this not be delayed, he is hopeful that chemotherapy and palliative radiation can be completed as inpt. Dr Jones made aware of request. Plan as above Admission and Anticipated Discharge Date Admission Date: March 29, 2025 Subjective Patient seen and evaluated at bedside this morning. No acute events overnight. Overall feeling improved from admission. States pain well controlled with 50mcg fentanyl patch and oxyIR for BTP. N/V resolved. Able to eat breakfast and take medications. Chemo treatment delayed due to neutropenia per Dr. Jones. Plan to start palliative radiation radha mets in spine. No acute complaints this am. Review of Systems Review of Systems: All systems reviewed & are unremarkable except as noted in Subjective Physical Exam Constitutional: WD/WN, vitals as above Eyes: PERRL, conjunctivae normal, anicteric sclerae ENMT: Ears: + hearing impairment Neck: trachea midline, no thyromegaly Respiratory: normal respiratory effort, lungs clear to auscultation Auscultation: + diminished lung sounds Cardiovascular: RRR, no murmur, no edema Chest (Breasts): Additional Comments: Mild tenderness noted of the right anterior upper chest. Gastrointestinal (Abdomen): normal bowel sounds, soft, nontender, no hepatosplenomegaly Musculoskeletal: He has tenderness in the area of the mid thoracic spine and lumbar spine. Skin: no rashes, warm and dry Psychiatric: A+Ox3, euthymic affect Results & Data Vital Signs (Past 12 Hours) Vital Signs Temp Pulse Pulse Resp BP Pulse Ox O2 Del Method 03/31/25 10:53 36.5 C 56 L 19 111/70 93 Room Air 03/31/25 07:42 36.4 C L 60 19 145/88 H 93 Room Air 03/31/25 07:37 Room Air 03/31/25 07:13 66 03/31/25 02:40 36.8 C 86 17 135/83 92 Room Air 03/31/25 01:29 74 Laboratory Results Abnormal lab results 03/31/25 Range/Units 06:51 WBC 3.86 L (4.8-10.8) K/ul RBC 3.67 L (4.70-6.10) M/uL Hgb 11.1 L (14.0-18.0) g/dl Hct 33.6 L (42.0-52.0) % RDW Std Deviation 50.7 H (36.4-46.3) fL RDW Coeff of Benjamin 15.3 H (11.5-14.5) % Neut # (Auto) 1.21 L (1.40-6.50) K/uL [place] # (Auto) 0.93 H (0.11-0.59) K/uL Carbon Dioxide 33 H (21-32) mmol/L Anion Gap 2 L (3-11) BUN/Creatinine Ratio 8.3 L (10-20) Diagnostic Findings Chest X-Ray 03/29/25 10:46 XR chest 1V portable HISTORY: 69 years-old Male Sepsis COMPARISON: Head CT 03/16/2025 TECHNIQUE: AP view of the chest FINDINGS: Emphysema with chronic fibrotic changes. Asymmetric right hilar prominence again noted. Small nodular foci better seen on the prior PET/CT. No pneumothorax, pleural effusion or overt pulmonary edema. Degenerative changes of the shoulders and spine. IMPRESSION: 1. No acute process of the chest. 2. Emphysema with pulmonary nodules again noted, better seen on the prior PET/CT. ACT 112: Negative or not required by law. The above report was generated using voice recognition software. It may contain grammatical, syntax or spelling errors. Electronically signed by: Ziyad Paredes M.D. 03/29/2025 11:34 AM Abdomen/Pelvis CT 03/29/25 11:[address] WITH IV CONTRAST CT DOSE: 881.28 mGy.cm HISTORY: Acute onset abdominal pain with nausea and vomiting . Small cell lung cancer. diff pain, vomiting TECHNIQUE: Multiaxial CT images of the abdomen and pelvis were performed following the IV administration of 94 cc of Optiray, A dose lowering technique was utilized adhering to the principles of ALARA. COMPARISON STUDY: PET/CT 03/16/2025, CT abdomen and pelvis 02/17/2020 FINDINGS: Emphysema with pulmonary nodules redemonstrated, better characterized on the prior PET/CT. Mild dependent subsegmental bibasilar atelectasis. There is no pneumatosis or pneumoperitoneum. The spleen measures 13.7 cm in length. Unremarkable pancreas, and adrenal glands. Unchanged appearance of the gallbladder fundus suggestive of adenomyomatosis. The liver is within normal limits. Patency of the hepatic and portal veins. There are a few cysts noted within the kidneys. 3 mm nonobstructing calculus of the mid pole left kidney. Exophytic prominence of the inferior pole right kidney measuring 1.6 cm on image 143 series 3 is unchanged. No ureteral calculi or hydronephrosis. Prostatomegaly. Urinary bladder wall thickening with partial distention. Atherosclerosis of the aorta and branch vessels. Mild dilation of the infrarenal abdominal aorta measures 3.1 x 2.9 cm. Abdominal lymphadenopathy similar to prior including gastrohepatic 1.9 x 2.9 cm adenopathy on image 68. Inflammatory stranding surrounding several of the lymph nodes likely related to posttreatment related changes. No bowel obstruction or bowel wall thickening. Colonic diverticulosis without acute diverticulitis. Moderate colonic fecal retention. Biopsy clip of the cecum. Normal appendix. Tiny fat filled umbilical hernia. Osseous metastasis redemonstrated. Pathologic fracture of T12 is again seen. IMPRESSION: 1. No acute intra-abdominal or intrapelvic abnormality identified. 2. No bowel obstruction or bowel wall thickening. 3. Pulmonary nodules with pathologic lymphadenopathy of the abdomen along with osseous metastasis redemonstrated, stable from the March 16, 2025 PET/CT. 4. Pathologic T12 compression deformity again noted. 5. Additional findings as above. ACT 112: Negative or not required by law. The above report was generated using voice recognition software. It may contain grammatical, syntax or spelling errors. Electronically signed by: Ziyad Paredes M.D. 03/29/2025 12:45 PM Venous Doppler Study 03/29/25 14:43 BILATERAL LOWER EXTREMITY VENOUS DOPPLER HISTORY: Acute pain The lower legs stage 4 lung ca, immobility, muscle pain of legs COMPARISON STUDY: None. FINDINGS: There is normal compressibility, flow, and augmentation within the bilateral lower extremity deep venous systems. There is a 1.3 x 2.7 x 0.8 cm popliteal cyst on the left. IMPRESSION: No DVT within the right or left lower extremity. ACT 112: Negative or not required by law. Electronically signed by: Ziyad Paredes M.D. 03/29/2025 4:01 PM Medications Administered Current Inpatient Medications Albuterol (Albuterol Hfa 8 Gm Inhaler) 2 puffs INH Q4H PRN PRN Reason: shortness of breath or wheezing Stop: 04/28/25 16:10 Albuterol (Albut/Ipratrop 3mg/0.5mg Neb 3 Ml Vial) 3 ml NEB Q4H PRN; Protocol PRN Reason: shortness of breath or wheezin Stop: 04/28/25 16:10 Enoxaparin Sodium (Enoxaparin Inj 40 Mg/0.4 Ml Syr) 40 mg SQ Q24H [facility] Stop: 04/28/25 17:59 Last Admin: 03/30/25 17:09 Dose: 40 mg Fentanyl (Fentanyl 50 Mcg/Hr Tdsy) 1 patch TD Q3D [facility] Stop: 04/12/25 17:14 Last Admin: 03/29/25 17:21 Dose: 1 patch Finasteride (Finasteride 5 Mg Tab) 5 mg PO DAILY [facility] Stop: 04/29/25 08:59 Last Admin: 03/31/25 09:20 Dose: 5 mg Fluticasone Furoate (Fluticasone Furoate 200mcg 14 Puffs/Inhaler) 1 puffs INH DAILY [facility]; Protocol Stop: 04/29/25 08:59 Last Admin: 03/31/25 09:20 Dose: 1 puffs Fluticasone Propionate (Fluticasone Propionate Na Spr 16 Gm Btl) 2 sprays NA DAILY [facility] Stop: 04/29/25 08:59 Last Admin: 03/31/25 09:21 Dose: 2 sprays Cefepime HCl (Maxipime 2000mg) 2,000 mg in 20 mls @ 5 mls/min IV Q8H [facility]; Protocol Stop: 03/31/25 19:59 Last Admin: 03/31/25 04:09 Dose: 5 mls/min Pantoprazole Sodium (Protonix) 40 mg in 10 mls @ 5 mls/min IV DAILY [facility] Stop: 04/29/25 08:59 Last Admin: 03/31/25 09:52 Dose: 5 mls/min Vancomycin HCl 750 mg/ Sodium (Chloride) 265 mls @ 200 mls/hr IV Q12H [facility] Stop: 03/31/25 17:59 Last Infusion: 03/31/25 07:43 Dose: Infused Ketorolac Tromethamine (Ketorolac Tromethamine 15 Mg/Ml Vial) 15 mg IV Q6H PRN PRN Reason: Pain Stop: 04/03/25 16:10 Miscellaneous (Fentanyl Patch Remove & Waste) 1 each N/A Q3D [facility] Stop: 04/28/25 17:14 Last Admin: 03/29/25 17:21 Dose: 1 each Miscellaneous (Check Fentanyl Patch Placement) 1 each N/A QS [facility] Stop: 04/29/25 00:00 Last Admin: 03/31/25 07:45 Dose: 1 each Miscellaneous Information (Vancomycin Consult Active) 1 each N/A UD PRN PRN Reason: Consult Stop: 04/28/25 14:15 Ondansetron HCl (Ondansetron Inj 2 Mg/Ml 2 Ml Vial) 4 mg IV Q6H PRN PRN Reason: Nausea Stop: 04/28/25 16:10 Oxycodone HCl (Oxycodone Hcl Ir 5 Mg Tab (Immediate Release)) 5 mg PO Q4H PRN PRN Reason: Break through pain Stop: 04/13/25 13:04 Last Admin: 03/30/25 13:40 Dose: 5 mg Polyethylene Glycol (Polyethylene (Miralax) 17 Gm Pack) 34 gm PO DAILY [facility] Stop: 04/30/25 08:59 Last Admin: 03/31/25 09:27 Dose: 34 gm Sennosides (Senna 8.6 Mg Tab) 17.2 mg PO DAILY [facility] Stop: 04/29/25 08:59 Last Admin: 03/31/25 09:27 Dose: 17.2 mg Umeclidinium/Vilanterol (Umeclidinium/Vilanterol 62.5/25mcg 7 Puffs/Inhaler) 1 puffs INH DAILY [facility]; Protocol Stop: 04/29/25 08:59 Last Admin: 03/31/25 09:20 Dose: 1 puffs PG Care Time/CCT Total # of Minutes Spent Total Time Spent with Patient: Total time spent is greater than 50% in coordination of care (as documented) at patient's floor/unit and/or counseling patient: [place] [address] SUB INP/OBS CARE 2/35MIN Patient Type Established History Problem Focused Exam Problem Focused Medical Decision Making Moderate Complexity Diagnoses Palliative care by specialist Z51.5 Therapeutic opioid-induced constipation (OIC) K59.03; T40.2X5A Cancer related pain G89.3 Narcotic withdrawal F11.93 Anxiety associated with cancer diagnosis F41.1; C80.1
--- NOTE | 2025-03-31 12:29 | Hospitalist Progress Note ---
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: (3) Pathologic compression fracture of lumbar vertebra: (4) Neutropenia: (5) Dehydration: (6) Chronic obstructive pulmonary disease: (7) BPH (benign prostatic hyperplasia): (8) GERD without esophagitis: (9) Hyperlipidemia: (10) Rigors: (11) Anorexia: (12) Hypomagnesemia: (13) Elevated lactic acid level: (14) Anxiety and depression: (15) Therapeutic opioid-induced constipation (OIC): (16) Syncope: (17) Severe protein-calorie malnutrition: Plan 69yo male with stage 4 small cell lung ca with bone mets - well known to me from 01/2025 hospitalization - along with COPD, BPH, GERD, chronic low back pain, HTN, and depression/anxiety -- who presents with severe fatigue, weakness, sleeping/laying in bed frequently, very poor PO intake with ongoing weight loss, nausea with vomiting intermittently for several weeks, severe constipation for several weeks, and an episode of syncope yesterday at home. EMS was summoned to his house yesterday but he declined transport to the hospital at that time. However, he came today after seeing his PCP who strongly recommended that he seek attention in the ER. #narcotic withdrawal - -Improving with re-initiation of opiates -on 03/25 he abruptly stopped his fentanyl 75mcg patch and oxycodone prn -since then his back pain has been severe & debilitating, and he has had shivering/chills/nausea/stomach upset/etc. -he initially had told me he did not want to go back to narcotics, but when I consulted palliative care - and after he met with them today - he was agreeable to resuming fentanyl patch -thus, resume fentanyl patch at 50mcg q3d -allow dilaudid prn for severe breakthrough pain -toradol 15mg q6h prn pain #stage 4 small cell lung ca with extensive bony mets - -PET/CT mid-March showed a positive treatment response to his carboplatin/etoposide/atezolizumab -he was due for his 4th treatment tomorrow -he is following with Dr Jones -he is neutropenic today - improving -Plan to hold chemo in setting of neutropenia -Will be rescheduled on outpatient basis -Had simulation completed with radiation oncology #severe neutropenia - -improving -biofire panel neg -u/a negative -blood cx's sent -for empiric coverage while ruling out bacteremia place on IV cefepime/vanco; plan 48 hours of Rx and stop if cultures negative and no source of infection found #dehydration / low BP - -received 2.25 L of boluses in the ER -cont LR hydration -hold flomax due to low bp #syncope 03/28 at home - -had prodromal dizziness/lightheadedness -was likely due to low BP in setting of poor PO intake, etc -cortisol level checked & level adequate at 17 -place on telemetry - r/o arrhythmia -consider echo but hold off for now -certainly at HIGH risk of DVT/PE due to extensive cancer and fairly immobile at home - start with dopplers of legs to r/o DVT (he c/o spasms of legs) #opiate-induced constipation - -during prior admit in January and again today he has been counseled on the importance of bowel maintenance -resume miralax and senna -consider Movantik when he transitions back home #COPD - -no exacerbation at this time -at hospital d/c on 02/26/25 he was prescribed O2 -he used for 1 week then stopped it -o2 sats since then have been adequate -follow sats closely -cont home inhalers #BPH - -hold flomax due to low / low-normal BPs; resume flomax when able -cont finasteride #DVT proph - -lovenox 40mg daily #severe protein calorie malnutrition - -5kg weight loss in 1 month -2nd to advanced stage 4 lung ca -boost, MVI, etc #depression/anxiety - -not on meds for such -consider remeron or similar in light of progressive weight loss, mood, decreased PO intake, etc. Admission and Anticipated Discharge Date Admission Date: March 29, 2025 Supervising Physician Co-Signing Physician Notes ATTESTATION I also saw the patient and confirmed arteaga portions of the history and exam. I agree with the impression and plan in the resident documentation, and as summarized below. Feels more tired today compared to yesterday. Much of the conversation was about his concerns with transportation to and from hospital (1+ hour each way) for chemotherapy and radiation. Pain seems well controlled today. EXAM VS stable, afebrile NAD CV regular respirations non labored DATA Labs Hgb 11.1 WBC 3.86, Neut 1.21 BMP unremarkable Micro Blood cultures no growth at 48 hours IMPRESSION & PLAN Narcotic withdrawal Metastatic lung CA Chemotherapy induced neutropenia, recovering Opiate induced constipation, improved Appreciate consultants Pain under better control; side effects of withdrawal lessening Chemotherapy on hold due to neutropenia RT sim completed, unsure of start date Logistical issues discussed with case management Additional per resident documentation Subjective Patient seen and evaluated at bedside this morning. No acute events overnight. Feels fatigued this morning. Continues expressing frustration with logistics/transportation related to chemo treatments. Again explained that this is not done as an inpatient basis. Dr. Jones also reached out to patient and expressed this. Review of Systems Review of Systems: reviewed, per HPI Physical Exam Physical Exam: Constitutional: ill-appearing, no acute distress HEENT: NCAT, no conjunctival injection CV: clinically well perfused, extremities well-perfused, no LE edema Resp: no increased work of breathing GI: nondistended MSK: no gross deformities appreciated Skin: warm, dry, no rash appreciated Neuro: alert, oriented, no focal neurologic deficit appreciated Results & Data Results & Data Vital Signs (Past 12 Hours) Vital Signs Temp Pulse Pulse Resp BP Pulse Ox O2 Del Method 03/31/25 10:53 36.5 C 56 L 19 111/70 93 Room Air 03/31/25 07:42 36.4 C L 60 19 145/88 H 93 Room Air 03/31/25 07:37 Room Air 03/31/25 07:13 66 03/31/25 02:40 36.8 C 86 17 135/83 92 Room Air 03/31/25 01:29 74 (4) Neutropenia Neutropenia type: unspecified Qualified Code(s): D70.9 - Neutropenia, unspecified
[2025-03-31] MEDS: KETOROLAC TROMETHAMINE 15 MG/ML VIAL IV PRN (15:41)
[2025-04-01] MEDS: MELATONIN 3 MG TAB PO PRN (02:34)
[2025-04-01 08:45] LABS: Basophils # (auto) 0.05 K/uL (0.00-0.20); Eosinophils % (auto) 2.1 %; Hematocrit (blood only) 34.3 % (42.0-52.0); Hemoglobin 11.5 g/dl (14.0-18.0); Immature Granulocytes % (auto) 2.1 %; Lymphocytes # (auto) 1.56 K/uL (1.20-3.40); Lymphocytes % (auto) 32.4 %; Mean Corpuscular Hemoglobin 30.3 pg (25.0-34.0); Mean Corpuscular Hgb Conc 33.5 g/dL (32.0-36.0); Mean Corpuscular Volume 90.3 fL (80.0-100.0); Mean Platelet Volume 10.8 fL (9.4-12.4); Monocytes # (auto) 1.01 K/uL (0.11-0.59); Neutrophils # (auto) 1.99 K/uL (1.40-6.50); Neutrophils % (auto) 41.4 %; Platelet Count 342 K/uL (130-400); RDW Coefficient of Variation 15.4 % (11.5-14.5); RDW Standard Deviation 50.3 fL (36.4-46.3); White Blood Count 4.81 K/ul (4.8-10.8)
[2025-04-01 09:01] LABS: BUN Creatinine Ratio 9.2 (10-20); Calcium 8.6 mg/dl (8.6-10.3); Creatinine Clr Calc Pharmacy 87.4 ml/min; Potassium 3.6 mmol/L (3.5-5.1)
[2025-04-01] MEDS: TAMSULOSIN HCL 0.4 MG CAP PO SCH (10:58)
--- NOTE | 2025-04-01 11:38 | Palliative Care Progress Note ---
Date of Service April 01, 2025 Assessment & Plan (1) Palliative care by specialist: Plan: Palliative care will continue to follow for pain/symptom management as well as ongoing navigation through progression of disease. (2) Therapeutic opioid-induced constipation (OIC): Plan: Ongoing, last BM 03/28. continue senna/miralax SCHEDULED ADD fleets enema today after radiation Tx If recurrent OIC refractory to senna/miralax/enema consider relistor. Patient should be discharged on SCHEDULED senna/miralax and education on OIC prevention should be reinforced with pt and his son. (3) Cancer related pain: Plan: Pt well known to palliative care team from previous admission and outpt clinic. We have been following for his cancer related back pain, described as a sharp pain that occurs in the center of the back which radiates across the lower back and down both legs. He is not able to identify any propagating factors, but pain is relieved by immobility and does have affect on his daily activities. 03/29: Pt reports pain had been well controlled at home with the duragesic patch as ordered with minimal BTP. He shared that he had been trying to wean off of the duragesic due to concerns for nausea andGI motility/constipation. He shared that he had been only applying a 50mcg patch and on Sunday 03/25 he stopped all opiates due to nausea and constipation. He had been following with our outpt palliative team but has not been taking preventative medications for OIC due to complaints of nausea/vomiting. He also follows with pain management and is on a schedule of outpt injections for his back pain which he has been unable to continue due to difficulties with transportation in addition to hospitalizations. In the ED, pt received one time 0.5mg dilaudid IV which gave him relief of pain. On my assessment he shared that pain was well controlled and that he had si gnificant relief of back and abd pain after moving his bowels x2 yesterday. He did c/o abd cramping, diffuse tremors, feeling "delirious and confused", itching and dramatic increase in his chronic pain since he stopped his opiates 5 days ago. We discussed that these could be signs of withdrawal and discussed need for gradual weaning of opiate medications vs stopping abruptly. Also discussed restarting the duragesic with 50mcg/hr q72h as that seems to be what he had been using most recently. Pt agreeable to restarting duragesic and being more consistent with nausea and OIC preventatives. Radiation oncology has also been consulted to evaluate for possible palliative radiation therapy to the areas of pathologic fractures, appreciate their input. restart duragesic 50mcg/hr TD q72h and oxycodone 5mg PO q4h PRN for BTP. 03/30: Pt reports pain much improved and he is satisfied with current management. Plan for rad-onc simulation for palliative radiation to spine today. He has had no need for PRN medications since TD fentanyl restarted. Discussed with pt that oxycodone is available to him PRN for BTP. 03/31: Pt requiring no PRN for BTP overnight, pt states pain well managed and requests no changes at this time. Continue duragesic 50mcg/hr TD q72h and oxycodone 5mg PO q4h PRN for BTP 04/01: Pt requiring no PRN for BTP overnight, pt states pain well managed and requests no changes at this time. Continue duragesic 50mcg/hr TD q72h and oxycodone 5mg PO q4h PRN for BTP (4) Narcotic withdrawal: Plan: resolved, pt restarted on transdermal fentanyl and counselled on need for weaning of chronic opiate use when appropriate. (5) Anxiety associated with cancer diagnosis: Plan: Pt states that he has long standing anxiety and depression and has been on "mood medications" previously, but they did not help. He shared that his depression had previously been well controlled with marijuana and nonpharmacologic alternative therapies. He shares that he has been experiencing increased anxiety and depression since his last admission. He attributes some of these difficulties with housing and shared living space with his son. He c/o anhedonia and shared that he spends much of his days in bed. He deferred suggestion of psych referral and denied need for mood stabilizing or anxiolytic medication. He expressed that he is experiencing a great deal of stress about logistics /transport to chemotherapy hope that his chemotherapy could continue as an inpatient as he has no way to get back and forth from home to oncology clinic. He states that his next 3d treatment cycle was scheduled to begin today as outpt and he requests this not be delayed, he is hopeful that chemotherapy and palliative radiation can be completed as inpt. Dr Jones made aware of request. 04/01: pt c/o difficulty sleeping at night and that he had a panic attack last night. Discussed anxiolytic medication use PRN for better sleep hygeine but also for better management of his anxiety. Pt agreeable to trial of PRN ativan. He shared that he is anxious about beginning radiation and hopes this will help. Added 0.5mg ativan PO q6h PRN for anxiety Plan as above Plan discussed with pt, BSRN, and attending Dr Marina Lucero. Admission and Anticipated Discharge Date Admission Date: March 29, 2025 Subjective Assessed pt at bedside, OVIDIOEON but pt shared he had a "horrible night". He c/o difficulty falling asleep as well as being awoken multiple times though the night. He shared that he also had a "panic attack" last night after he developed a nose bleed. Pt states that pain is well managed, but requests help maintaining better sleep hygeine and anxiety management. Review of Systems Review of Systems: All systems reviewed & are unremarkable except as noted in Subjective Physical Exam Constitutional: WD/WN, vitals as above Eyes: PERRL, conjunctivae normal, anicteric sclerae ENMT: Ears: + hearing impairment Neck: trachea midline, no thyromegaly Respiratory: normal respiratory effort, lungs clear to auscultation Auscultation: + diminished lung sounds Cardiovascular: RRR, no murmur, no edema Chest (Breasts): Additional Comments: Mild tenderness noted of the right anterior upper chest. Gastrointestinal (Abdomen): normal bowel sounds, soft, nontender, no hepatosplenomegaly Musculoskeletal: He has tenderness in the area of the mid thoracic spine and lumbar spine. Skin: no rashes, warm and dry Psychiatric: A+Ox3, euthymic affect Results & Data Vital Signs (Past 12 Hours) Vital Signs Temp Pulse Resp BP Pulse Ox O2 Del Method 04/01/25 10:44 36.7 C 60 20 116/64 95 Room Air 04/01/25 07:00 36.6 C 61 20 113/67 95 Room Air 04/01/25 02:57 36.5 C 59 L 16 155/92 H 95 Room Air Laboratory Results Abnormal lab results 04/01/25 Range/Units 08:09 RBC 3.80 L (4.70-6.10) M/uL Hgb 11.5 L (14.0-18.0) g/dl Hct 34.3 L (42.0-52.0) % RDW Std Deviation 50.3 H (36.4-46.3) fL RDW Coeff of Benjamin 15.4 H (11.5-14.5) % [place] # (Auto) 1.01 H (0.11-0.59) K/uL BUN/Creatinine Ratio 9.2 L (10-20) Diagnostic Findings Chest X-Ray 03/29/25 10:46 XR chest 1V portable HISTORY: 69 years-old Male Sepsis COMPARISON: Head CT 03/16/2025 TECHNIQUE: AP view of the chest FINDINGS: Emphysema with chronic fibrotic changes. Asymmetric right hilar prominence again noted. Small nodular foci better seen on the prior PET/CT. No pneumothorax, pleural effusion or overt pulmonary edema. Degenerative changes of the shoulders and spine. IMPRESSION: 1. No acute process of the chest. 2. Emphysema with pulmonary nodules again noted, better seen on the prior PET/CT. ACT 112: Negative or not required by law. The above report was generated using voice recognition software. It may contain grammatical, syntax or spelling errors. Electronically signed by: Ziyad Paredes M.D. 03/29/2025 11:34 AM Abdomen/Pelvis CT 03/29/25 11:[address] WITH IV CONTRAST CT DOSE: 881.28 mGy.cm HISTORY: Acute onset abdominal pain with nausea and vomiting . Small cell lung cancer. diff pain, vomiting TECHNIQUE: Multiaxial CT images of the abdomen and pelvis were performed following the IV administration of 94 cc of Optiray, A dose lowering technique was utilized adhering to the principles of ALARA. COMPARISON STUDY: PET/CT 03/16/2025, CT abdomen and pelvis 02/17/2020 FINDINGS: Emphysema with pulmonary nodules redemonstrated, better characterized on the prior PET/CT. Mild dependent subsegmental bibasilar atelectasis. There is no pneumatosis or pneumoperitoneum. The spleen measures 13.7 cm in length. Unremarkable pancreas, and adrenal glands. Unchanged appearance of the gallbladder fundus suggestive of adenomyomatosis. The liver is within normal limits. Patency of the hepatic and portal veins. There are a few cysts noted within the kidneys. 3 mm nonobstructing calculus of the mid pole left kidney. Exophytic prominence of the inferior pole right kidney measuring 1.6 cm on image 143 series 3 is unchanged. No ureteral calculi or hydronephrosis. Prostatomegaly. Urinary bladder wall thickening with partial distention. Atherosclerosis of the aorta and branch vessels. Mild dilation of the infrarenal abdominal aorta measures 3.1 x 2.9 cm. Abdominal lymphadenopathy similar to prior including gastrohepatic 1.9 x 2.9 cm adenopathy on image 68. Inflammatory stranding surrounding several of the lymph nodes likely related to posttreatment related changes. No bowel obstruction or bowel wall thickening. Colonic diverticulosis without acute diverticulitis. Moderate colonic fecal retention. Biopsy clip of the cecum. Normal appendix. Tiny fat filled umbilical hernia. Osseous metastasis redemonstrated. Pathologic fracture of T12 is again seen. IMPRESSION: 1. No acute intra-abdominal or intrapelvic abnormality identified. 2. No bowel obstruction or bowel wall thickening. 3. Pulmonary nodules with pathologic lymphadenopathy of the abdomen along with osseous metastasis redemonstrated, stable from the March 16, 2025 PET/CT. 4. Pathologic T12 compression deformity again noted. 5. Additional findings as above. ACT 112: Negative or not required by law. The above report was generated using voice recognition software. It may contain grammatical, syntax or spelling errors. Electronically signed by: Ziyad Paredes M.D. 03/29/2025 12:45 PM Venous Doppler Study 03/29/25 14:43 BILATERAL LOWER EXTREMITY VENOUS DOPPLER HISTORY: Acute pain The lower legs stage 4 lung ca, immobility, muscle pain of legs COMPARISON STUDY: None. FINDINGS: There is normal compressibility, flow, and augmentation within the bilateral lower extremity deep venous systems. There is a 1.3 x 2.7 x 0.8 cm popliteal cyst on the left. IMPRESSION: No DVT within the right or left lower extremity. ACT 112: Negative or not required by law. Electronically signed by: Ziyad Paredes M.D. 03/29/2025 4:01 PM Medications Administered Current Inpatient Medications Albuterol (Albuterol Hfa 8 Gm Inhaler) 2 puffs INH Q4H PRN PRN Reason: shortness of breath or wheezing Stop: 04/28/25 16:10 Albuterol (Albut/Ipratrop 3mg/0.5mg Neb 3 Ml Vial) 3 ml NEB Q4H PRN; Protocol PRN Reason: shortness of breath or wheezin Stop: 04/28/25 16:10 Enoxaparin Sodium (Enoxaparin Inj 40 Mg/0.4 Ml Syr) 40 mg SQ Q24H [facility] Stop: 04/28/25 17:59 Last Admin: 03/31/25 17:30 Dose: 40 mg Fentanyl (Fentanyl 50 Mcg/Hr Tdsy) 1 patch TD Q3D [place] Stop: 04/12/25 17:14 Last Admin: 03/29/25 17:21 Dose: 1 patch Finasteride (Finasteride 5 Mg Tab) 5 mg PO DAILY [facility] Stop: 04/29/25 08:59 Last Admin: 04/01/25 09:23 Dose: 5 mg Fluticasone Furoate (Fluticasone Furoate 200mcg 14 Puffs/Inhaler) 1 puffs INH DAILY [facility]; Protocol Stop: 04/29/25 08:59 Last Admin: 04/01/25 09:26 Dose: 1 puffs Fluticasone Propionate (Fluticasone Propionate Na Spr 16 Gm Btl) 2 sprays NA DAILY [facility] Stop: 04/29/25 08:59 Last Admin: 04/01/25 09:25 Dose: 2 sprays Pantoprazole Sodium (Protonix) 40 mg in 10 mls @ 5 mls/min IV DAILY [facility] Stop: 04/29/25 08:59 Last Admin: 04/01/25 09:24 Dose: 5 mls/min Ketorolac Tromethamine (Ketorolac Tromethamine 15 Mg/Ml Vial) 15 mg IV Q6H PRN PRN Reason: Pain Stop: 04/03/25 16:10 Last Admin: 03/31/25 21:43 Dose: 15 mg Melatonin (Melatonin 3 Mg Tab) 6 mg PO HS PRN PRN Reason: Sleep Stop: 05/01/25 02:28 Last Admin: 04/01/25 02:34 Dose: 6 mg Miscellaneous (Fentanyl Patch Remove & Waste) 1 each N/A Q3D [facility] Stop: 04/28/25 17:14 Last Admin: 03/29/25 17:21 Dose: 1 each Miscellaneous (Check Fentanyl Patch Placement) 1 each N/A QS [facility] Stop: 04/29/25 00:00 Last Admin: 04/01/25 09:16 Dose: 1 each Ondansetron HCl (Ondansetron Inj 2 Mg/Ml 2 Ml Vial) 4 mg IV Q6H PRN PRN Reason: Nausea Stop: 04/28/25 16:10 Oxycodone HCl (Oxycodone Hcl Ir 5 Mg Tab (Immediate Release)) 5 mg PO Q4H PRN PRN Reason: Break through pain Stop: 04/13/25 13:04 Last Admin: 04/01/25 09:27 Dose: 5 mg Polyethylene Glycol (Polyethylene (Miralax) 17 Gm Pack) 34 gm PO BID [facility] Stop: 05/01/25 20:59 Sennosides (Senna 8.6 Mg Tab) 17.2 mg PO DAILY [facility] Stop: 04/29/25 08:59 Last Admin: 04/01/25 09:22 Dose: 17.2 mg Tamsulosin HCl (Tamsulosin Hcl 0.4 Mg Cap) 0.8 mg PO DAILY [facility] Stop: 05/01/25 09:59 Last Admin: 04/01/25 10:58 Dose: 0.8 mg Umeclidinium/Vilanterol (Umeclidinium/Vilanterol 62.5/25mcg 7 Puffs/Inhaler) 1 puffs INH DAILY [facility]; Protocol Stop: 04/29/25 08:59 Last Admin: 04/01/25 09:26 Dose: 1 puffs PG Care Time/CCT Total # of Minutes Spent Total Time Spent with Patient: Total time spent is greater than 50% in coordination of care (as documented) at patient's floor/unit and/or counseling patient: [place] [address] SUB INP/OBS CARE 2/35MIN Patient Type Established History Expanded Problem Focused Exam Expanded Problem Focused Medical Decision Making Moderate Complexity Diagnoses Palliative care by specialist Z51.5 Therapeutic opioid-induced constipation (OIC) K59.03; T40.2X5A Cancer related pain G89.3 Narcotic withdrawal F11.93 Anxiety associated with cancer diagnosis F41.1; C80.1
--- NOTE | 2025-04-01 11:44 | Hospitalist Progress Note ---
Date of Service April 01, 2025 Assessment & Plan (1) Narcotic withdrawal: (2) Extensive stage primary small cell carcinoma of lung: (3) Pathologic compression fracture of lumbar vertebra: (4) Neutropenia: (5) Dehydration: (6) Chronic obstructive pulmonary disease: (7) BPH (benign prostatic hyperplasia): (8) GERD without esophagitis: (9) Hyperlipidemia: (10) Rigors: (11) Anorexia: (12) Hypomagnesemia: (13) Elevated lactic acid level: (14) Anxiety and depression: (15) Therapeutic opioid-induced constipation (OIC): (16) Syncope: (17) Severe protein-calorie malnutrition: Plan 69 y/o with active cancer - stage 4 small cell lung cancer with bony mets, COPD, BPH, GERD, LBP, HTN, and depression/anxiety. He presented with fatigue, weakness, poor PO intake, nausea/vomiting, constipation, and syncope. Admitted for pain management and further work up. #Bony Pain #?Opioid Withdrawal Presented with symptoms of ?opioid withdrawal. Did self discontinue his opioid medications 03/25 due to constipation. Was restarted and pain is improved. On fentanyl 50 mcg with 5 mg oxys and toradol 15 mg for break through. continue fentanyl patch at current dose, if needing multiple break through doses, may want to increase to 75 mcg #Opiate-induced constipation Patient has not had a BM. Continue senna. Up-titrate MiraLAX. Did get milk of mag today. May need a medication such as Relistor or Movantik if constipation persists. #Stage 4 small cell lung ca with extensive bony mets - PET/CT mid-March showed a positive treatment response to his carboplatin/etoposide/atezolizumab. Held off on chem due to neutropenia. Palpation radiation for pain management prior to resuming chemotherapy. Follows with Dr. Jones. First session of radiation will be done today #Neutropenia - resolved Initially covered with empiric abx. UA non-infectious. BioFire negative. Discontinued as no longer necessary. #Hypotension due to hypovolemia Significant dehydration leading to hypotension and syncope. Cortisol response appropriate. No signs of arrhythmia on tele. Improved with fluid resuscitation. Can resume Flomax. #COPD No exacerbation at this time. Continue home regimen #BPH May resume Flomax. Continue finasteride #Depression/anxiety Not on meds for such. Palliative added ativan PRN. Could consider Remeron initiation if patient is amenable. Code status: full DVT ppx: Lovenox FENGI: regular diet, boosts, nutrition consult Dispo: PCU/Tele Vitals: no overnight vitals to optimize sleep Admission and Anticipated Discharge Date Admission Date: March 29, 2025 Supervising Physician Co-Signing Physician Notes ATTESTATION I also saw the patient and confirmed arteaga portions of the history and exam. I agree with the impression and plan in the resident documentation, and as summarized below. Just waking up when we saw him this morning. Scheduled for RT later this morning. EXAM VS stable, afebrile NAD CV regular respirations non labored DATA Labs Hgb 11.5 WBC 4.81, Neut 1.99 BMP unremarkable Micro Blood cultures no growth at 48 hours IMPRESSION & PLAN Narcotic withdrawal Metastatic lung CA Chemotherapy induced neutropenia, recovering Opiate induced constipation, improved Appreciate consultants Pain under better control; side effects of withdrawal lessening Chemotherapy on hold due to neutropenia RT this morning; second treatment on Friday, 04/04 Additional per resident documentation Subjective Patient had a rough night. Didn't sleep well. Reports pain is controlled. Anticipating radiation therapy today. Review of Systems 2 Review of Systems: reviewed, per HPI Physical Exam 2 Physical Exam: Constitutional: chronically ill-appearing, no acute distress HEENT: NCAT, no conjunctival injection CV: RRR no m/r/g clinically well perfused, extremities well-perfused, no LE edema Resp: CTAB no wheezing no increased work of breathing GI: nondistended MSK: no gross deformities appreciated Skin: warm, dry, no rash appreciated Neuro: alert, oriented, no focal neurologic deficit appreciated Results & Data Results & Data Vital Signs (Past 12 Hours) Vital Signs Temp Pulse Resp BP Pulse Ox O2 Del Method 04/01/25 10:44 36.7 C 60 20 116/64 95 Room Air 04/01/25 07:00 36.6 C 61 20 113/67 95 Room Air 04/01/25 02:57 36.5 C 59 L 16 155/92 H 95 Room Air Laboratory Results 04/01/25 08:09 04/01/25 08:09 Resident Activity Tracking Resident Involvement: Resident Care Provided Care Provided: Adult Hospital Medicine (4) Neutropenia Neutropenia type: unspecified Qualified Code(s): D70.9 - Neutropenia, unspecified
[2025-04-01] MEDS: MAGNESIUM HYDROXIDE SUSP 30 ML UDC PO PRN (12:01)
[2025-04-01] MEDS: LORazepam 0.5 MG TAB PO PRN (13:20)
[2025-04-01] MEDS: POLYETHYLENE (MIRALAX) 17 GM PACK PO SCH (21:13)
[2025-04-02] MEDS: ONDANSETRON INJ 2 MG/ML 2 ML VIAL IV PRN (07:37)
--- NOTE | 2025-04-02 10:41 | Hospitalist Progress Note ---
Date of Service April 02, 2025 Assessment & Plan (1) Narcotic withdrawal: (2) Extensive stage primary small cell carcinoma of lung: (3) Pathologic compression fracture of lumbar vertebra: (4) Neutropenia: (5) Dehydration: (6) Chronic obstructive pulmonary disease: (7) BPH (benign prostatic hyperplasia): (8) GERD without esophagitis: (9) Hyperlipidemia: (10) Rigors: (11) Anorexia: (12) Hypomagnesemia: (13) Elevated lactic acid level: (14) Anxiety and depression: (15) Therapeutic opioid-induced constipation (OIC): (16) Syncope: (17) Severe protein-calorie malnutrition: Plan 69 y/o with active cancer - stage 4 small cell lung cancer with bony mets, COPD, BPH, GERD, LBP, HTN, and depression/anxiety. He presented with fatigue, weakness, poor PO intake, nausea/vomiting, constipation, and syncope. Admitted for pain management and further work up. #Cancer Pain #Opiate-induced constipation #Concern for opioid withdrawal Patient self-discontinued all narcotic therapy. Presented with concern for withdrawal and intractable pain. Patient on chronic opioid therapy for his cancer pain. Patient on fentanyl patch 50 mcg with 5 mg oxys and toradol for break through pain. Significant constipation - on MiraLAX 34 gm BID and senna scheduled. Has milk of mag as needed. Has had 2 BM with this increased regimen. frequent PRN oxycodone needs, will increase to 75 mcg fentanyl patch continue bowel regimen #Stage 4 small cell lung ca with extensive bony mets #Radiation Therapy PET/CT mid-March showed a positive treatment response to his carboplatin/etoposide/atezolizumab. Held off on chem due to neutropenia. Palpation radiation for pain management prior to resuming chemotherapy. Follows with Dr. Jones. First session 04/01. Plan for RT sessions MTWR of next week. He is experiencing nausea, headache, and vomiting which he attributes to the radiation treatment. Patient expresses distress at the thought of needing to go through the side effects of radiation at home. Does not feel like he could do so safely. zofran/compazine tylenol for headache/fever #Neutropenia - resolved Initially covered with empiric abx. UA non-infectious. BioFire negative. BCx NGTD. Discontinued abx. #Hypotension due to hypovolemia - resolved Significant dehydration leading to hypotension and syncope. Cortisol response appropriate. No signs of arrhythmia on tele. Improved with fluid resuscitation. Can resume Flomax. #COPD No exacerbation at this time. Continue home regimen #BPH May resume Flomax. Continue finasteride #Depression/anxiety Not on meds for such. Palliative added Ativan PRN. Could consider Remeron initiation if patient is amenable. Code status: full DVT ppx: Lovenox FENGI: regular diet, boosts, nutrition consult Dispo: PCU/Tele Vitals: hold overnight vitals to optimize sleep Admission and Anticipated Discharge Date Admission Date: March 29, 2025 Supervising Physician Co-Signing Physician Notes ATTESTATION I also saw the patient and confirmed arteaga portions of the history and exam. I agree with the impression and plan in the resident documentation, and as summarized below. Just waking up when we saw him this morning. Had first RT treatment yesterday. Had nausea with yesterday early evening; slept well overnight; vomitted x one this morning around 7 AM. Now has headache and feels "out of it." Ate breakfast (omelet) without nausea. EXAM 125/76, 79, 18 VS stable, afebrile NAD CV regular respirations non labored DATA Micro Blood cultures no growth at 48 hours IMPRESSION & PLAN Narcotic withdrawal Metastatic lung CA Chemotherapy induced neutropenia, recovering Opiate induced constipation, improved Antiemetics for nausea and Tylenol added for headache today Used more PRN pain medications last 24 hours; monitor and consider increase in long acting Additional per resident documentation Subjective Patient slept well last night. Was feeling well until about 6 am. Had a BM and then felt lightheaded/dizzy, hot/cold, and nauseous. He did have an episode of emesis. Nausea improved with Zofran. Has a headache. Review of Systems Review of Systems: reviewed, per HPI Physical Exam Physical Exam: Constitutional: chronically ill-appearing, no acute distress HEENT: NCAT, no conjunctival injection CV: RRR no m/r/g clinically well perfused, extremities well-perfused, no LE edema Resp: CTAB no wheezing no increased work of breathing GI: nondistended MSK: no gross deformities appreciated Skin: warm, dry, no rash appreciated Neuro: alert, oriented, no focal neurologic deficit appreciated Results & Data Results & Data Vital Signs (Past 12 Hours) Vital Signs Temp Pulse Pulse Resp BP Pulse Ox O2 Del Method 04/02/25 07:42 79 125/76 04/02/25 07:00 36.4 C L 67 18 120/78 91 Room Air 04/01/25 23:38 87 Resident Activity Tracking Resident Involvement: Resident Care Provided Care Provided: Adult Hospital Medicine (4) Neutropenia Neutropenia type: unspecified Qualified Code(s): D70.9 - Neutropenia, unspecified
[2025-04-02] MEDS: ACETAMINOPHEN 500 MG TAB PO PRN (11:26)
[2025-04-02] MEDS: PROCHLORPERAZINE 5 MG in SYRINGE 4 ML IV PRN (11:37)
[2025-04-02] MEDS: LORazepam 2 MG/1 ML VIAL IV STA (21:58)
[2025-04-03 06:44] LABS: Basophils # (auto) 0.05 K/uL (0.00-0.20); Basophils % (auto) 0.8 %; Eosinophils % (auto) 1.7 %; Hematocrit (blood only) 35.2 % (42.0-52.0); Hemoglobin 11.5 g/dl (14.0-18.0); Immature Granulocytes # (auto) 0.12 K/uL (0.01-0.20); Lymphocytes # (auto) 1.87 K/uL (1.20-3.40); Lymphocytes % (auto) 31.7 %; Mean Corpuscular Hemoglobin 30.3 pg (25.0-34.0); Mean Corpuscular Hgb Conc 32.7 g/dL (32.0-36.0); Mean Corpuscular Volume 92.9 fL (80.0-100.0); Mean Platelet Volume 10.7 fL (9.4-12.4); Monocytes # (auto) 0.87 K/uL (0.11-0.59); Monocytes % (auto) 14.7 %; Neutrophils # (auto) 2.89 K/uL (1.40-6.50); Neutrophils % (auto) 49.1 %; Platelet Count 341 K/uL (130-400); Red Blood Count 3.79 M/uL (4.70-6.10)
--- NOTE | 2025-04-03 06:58 | Hospitalist Progress Note ---
Date of Service April 03, 2025 Assessment & Plan (1) Narcotic withdrawal: (2) Extensive stage primary small cell carcinoma of lung: (3) Pathologic compression fracture of lumbar vertebra: (4) Neutropenia: (5) Dehydration: (6) Chronic obstructive pulmonary disease: (7) BPH (benign prostatic hyperplasia): (8) GERD without esophagitis: (9) Hyperlipidemia: (10) Rigors: (11) Anorexia: (12) Hypomagnesemia: (13) Elevated lactic acid level: (14) Anxiety and depression: (15) Therapeutic opioid-induced constipation (OIC): (16) Syncope: (17) Severe protein-calorie malnutrition: Plan 69 y/o with active cancer - stage 4 small cell lung cancer with bony mets, COPD, BPH, GERD, LBP, HTN, and depression/anxiety. He presented with fatigue, weakness, poor PO intake, nausea/vomiting, constipation, and syncope. Admitted for pain management - pain now controlled on 50 mcg fentanyl patch and PRN oxys 5 mgs. #Radiation Therapy #Discharge Planning Plan for 5 sessions. First session /. Plan for RT sessions MTWR of next week. He had some nausea, headache, and vomiting following the initial radiation therapy. Patient did require some IV antiemetics initially. We will transition to PO antiemetics and monitor. Extensive discussion has been had with Mr. Swanson regarding discharge planning. Patient continues to express concern, anxiety, and distress about the thought of managing his treatments outpatient. He does not feel that he could do so safely. He lives an hour away and feels that he will be too tired to travel that distance after his treatment. He does have someone who can drive him to treatment sessions. Per CM, he has not missed any chemotherapy treatments. He has also been provided with some gift cards/funds to help offset the cost of gas. Patient insistent that he stay in the hospital for the course of his radiation treatments. He continues to ruminate about these concerns despite reassurance that there are ways to manage radiation therapy side effects on an outpatient basis. #Depression/anxiety Not on meds for such. Palliative added Ativan 0.5 mg Q6H PRN. Will add Ativan 1 mg PRN nightly for sleep. Could consider Remeron initiation on an outpatient basis. #Cancer Pain #Opiate-induced constipation #Concern for opioid withdrawal Patient self-discontinued all narcotic therapy due to constipation. Presented with concern for withdrawal and intractable pain. Patient doing well with fentanyl patch 50 mcg and oxycodone 5 mg PRN for breakthrough pain. No IV analgesic needs. Continue bowel regimen: MiraLAX 34 gm BID, senna daily, and PRN milk of mag. #Stage 4 small cell lung ca with extensive bony mets PET/CT mid-March showed a positive treatment response to his carboplatin/etoposide/atezolizumab. Follows with Dr. oJnes. Held off on most recent chemo due to neutropenia, which has since resolved. Palliative radiation for pain management prior to resuming chemotherapy. COPD - no exacerbation at this time, continue home regimen BPH - continue Flomax and finasteride Code status: full DVT ppx: Lovenox FENGI: regular diet, boosts, nutrition consult Dispo: stable for downgrade to [facility] Vitals: hold overnight vitals to optimize sleep Admission and Anticipated Discharge Date Admission Date: March 29, 2025 Supervising Physician Co-Signing Physician Notes ATTESTATION I also saw the patient and confirmed arteaga portions of the history and exam. I agree with the impression and plan in the resident documentation, and as summarized below. Recurrent bout of emesis last evening after eating. Long discussion today regarding plan for RT. He does not feel as if he can return home and then come back to the hospital each day for his radiation treatments. He is adamant with staying in the hospital thru the end of his RT treatments. EXAM 133/70, 55, 16, 36.4, 94% room air VS stable, afebrile NAD CV regular respirations non labored DATA Micro Blood cultures no growth at 48 hours IMPRESSION & PLAN Nausea with emesis Side effects of cancer treatments Metastatic lung CA Chemotherapy induced neutropenia, recovered Opiate induced constipation, improved Antiemetics prior to meals and PRN nausea Monitor use of break thru medications and consider increase in long acting, although patient hesitant Additional per resident documentation Review of Systems 2 Review of Systems: reviewed, per HPI Physical Exam 2 Physical Exam: Constitutional: chronically ill-appearing, no acute distress HEENT: NCAT, CV: clinically well perfused Resp: no increased work of breathing GI: nondistended MSK: no gross deformities appreciated Skin: warm, dry, no rash appreciated Neuro: alert, oriented, no focal neurologic deficit appreciated Results & Data Results & Data Vital Signs (Past 12 Hours) Vital Signs Temp Pulse Pulse Resp BP Pulse Ox O2 Del Method 04/02/25 22:25 70 04/02/25 20:56 36.5 C 51 L 18 144/88 H 92 Room Air Laboratory Results 04/03/25 06:12 04/03/25 06:12 Resident Activity Tracking Resident Involvement: Resident Care Provided Care Provided: Adult Hospital Medicine (4) Neutropenia Neutropenia type: unspecified Qualified Code(s): D70.9 - Neutropenia, unspecified
[2025-04-03 07:20] LABS: Albumin Globulin Ratio 1.4 (0.9-2); Albumin Level 3.1 gm/dl (3.4-5.0); BUN Creatinine Ratio 11.3 (10-20); Bilirubin,Total 0.4 mg/dl (0.2-1.0); Calcium 8.6 mg/dl (8.6-10.3); Creatinine Clr Calc Pharmacy 77.8 ml/min; Globulin 2.2 gm/dl (2.5-4.0); Potassium 4.5 mmol/L (3.5-5.1); Total Protein 5.3 gm/dl (6.0-8.3)
[2025-04-03] MEDS: LORazepam 1 MG TAB PO PRN (20:46)
[2025-04-03] MEDS: ONDANSETRON 4 MG OD TAB PO PRN (20:48)
--- NOTE | 2025-04-04 10:19 | Hospitalist Progress Note ---
"Date of Service April 04, 2025 Assessment & Plan (1) Narcotic withdrawal: (2) Extensive stage primary small cell carcinoma of lung: (3) Pathologic compression fracture of lumbar vertebra: (4) Neutropenia: (5) Dehydration: (6) Chronic obstructive pulmonary disease: (7) BPH (benign prostatic hyperplasia): (8) GERD without esophagitis: (9) Hyperlipidemia: (10) Rigors: (11) Anorexia: (12) Hypomagnesemia: (13) Elevated lactic acid level: (14) Anxiety and depression: (15) Therapeutic opioid-induced constipation (OIC): (16) Syncope: (17) Severe protein-calorie malnutrition: Plan 69 y/o with active cancer - stage 4 small cell lung cancer with bony mets, COPD, BPH, GERD, LBP, HTN, and depression/anxiety. He presented with fatigue, weakness, poor PO intake, nausea/vomiting, constipation, and syncope. Likely due to his self-discontinuation of all narcotics. Admitted for pain management - pain now controlled on 50 mcg fentanyl patch and PRN oxys 5 mgs. #Stage 4 small cell lung ca with extensive bony mets | Need for radiation therapy PET/CT mid-March showed a positive treatment response to his carboplatin/etoposide/atezolizumab. Follows with Dr. Jones. Held off on most recent chemo due to neutropenia, since resolved. Palliative radiation ( 5 sessions) for pain management prior to resuming chemotherapy. Continue radiation MTWR. He had some nausea, headache, and vomiting following the initial radiation therapy - requried IV zofran. Has now been transitioned to PO Pt desires to stay through until Radaition complete - main barrier is concerns about how he will feel on the drive (does have a independent driver, has not missed Chemo treatments). Discussion today to monitor side effects of radiation today, if able to be managed with PO then can do so safely at home as well. Discussed the benefits for healing at home as well. #Depression/anxiety Not on meds for such. Palliative added Ativan 0.5 mg Q6H PRN. Will add Ativan 1 mg PRN nightly for sleep. Could consider Remeron initiation on an outpatient basis. #Cancer Pain | Opiate-induced constipation | Concern for opioid withdrawal Patient self-discontinued all narcotic therapy due to constipation then presented with concern for withdrawal and intractable pain. Patient doing well with fentanyl patch 50 mcg and oxycodone 5 mg PRN for breakthrough pain. No IV analgesic needs. Continue bowel regimen: MiraLAX 34 gm BID, senna daily, and PRN milk of mag. COPD - no exacerbation at this time, continue home regimen, no longer using home oxygen BPH - continue Flomax and finasteride DVT ppx: Lovenox Dispo: continued inpatient stay monitoring response to radiation treatment, possible d/c home tomorrow after radiation Son updated by phone 04/04 - aware of tentative discharge plan garrick Discussed care with pallaiitve braydon doe Admission and Anticipated Discharge Date Admission Date: March 29, 2025 Subjective Patient seen sitting up in the chair. reports feeling well currently - mild pain but waiting to take medications until radiation. Very worried about going home and having to make the drive back for radaition because he reports getting so worn down with radiation moving bowels. discussed monitoring response to radiation today, he could pretreat for radiation at home just like he is doing here and would likely rest better in the comfort of his home. Review of Systems Review of Systems: All systems reviewed & are unremarkable except as noted in Subjective Physical Exam Physical Exam: General: NAD, VS as above Resp: normal respiratory effort, on room air, coarse in the bases CV: RRR, no murmur, Abd: normal bowel sounds, non tender, soft Extremities: Moves all extremities, Neuro: A&O x3, no gross deficits Results & Data Results & Data Vital Signs (Past 12 Hours) Vital Signs Temp Pulse Resp BP Pulse Ox O2 Del Method 04/04/25 09:45 Room Air 04/04/25 07:50 97.9 F 68 17 152/68 H 90 Room Air PG Care Time/CCT Total # of Minutes Spent Total Time Spent with Patient: Total time spent is greater than 50% in coordination of care (as documented) at patient's floor/unit and/or counseling patient: Coding Level of Care Code 25951 SUB INP/OBS CARE 2/35MIN Diagnoses Narcotic withdrawal F11.93 Extensive stage primary small cell carcinoma of lung C34.90 Pathologic compression fracture of lumbar vertebra M48.56XA Neutropenia D70.9 Neutropenia type: unspecified Dehydration E86.0 Chronic obstructive pulmonary disease J44.9 BPH (benign prostatic hyperplasia) N40.0 GERD without esophagitis K21.9 Hyperlipidemia E78.5 Rigors R68.89 Anorexia R63.0 Hypomagnesemia E83.42 Elevated lactic acid level R79.89 Anxiety and depression F41.9; F32.A Therapeutic opioid-induced constipation (OIC) K59.03; T40.2X5A Syncope R55 Severe protein-calorie malnutrition E43 (4) Neutropenia Neutropenia type: unspecified Qualified Code(s): D70.9 - Neutropenia, unspecified"
[2025-04-04 12:38] VITALS: RESP 16
--- NOTE | 2025-04-04 15:17 | Palliative Care Progress Note ---
Date of Service April 04, 2025 Assessment & Plan (1) Palliative care by specialist: Plan: Palliative care will continue to follow for pain/symptom management as well as ongoing navigation through progression of disease. (2) Therapeutic opioid-induced constipation (OIC): Plan: Improved, last BM 04/01. continue senna/miralax SCHEDULED ADD fleets enema today after radiation Tx If recurrent OIC refractory to senna/miralax/enema consider relistor. Patient should be discharged on SCHEDULED senna/miralax and education on OIC prevention should be reinforced with pt and his son. (3) Cancer related pain: Plan: Pt well known to palliative care team from previous admission and outpt clinic. We have been following for his cancer related back pain, described as a sharp pain that occurs in the center of the back which radiates across the lower back and down both legs. He is not able to identify any propagating factors, but pain is relieved by immobility and does have affect on his daily activities. 03/29: Pt reports pain had been well controlled at home with the duragesic patch as ordered with minimal BTP. He shared that he had been trying to wean off of the duragesic due to concerns for nausea andGI motility/constipation. He shared that he had been only applying a 50mcg patch and on Sunday 03/25 he stopped all opiates due to nausea and constipation. He had been following with our outpt palliative team but has not been taking preventative medications for OIC due to complaints of nausea/vomiting. He also follows with pain management and is on a schedule of outpt injections for his back pain which he has been unable to continue due to difficulties with transportation in addition to hospitalizations. In the ED, pt received one time 0.5mg dilaudid IV which gave him relief of pain. On my assessment he shared that pain was well controlled and that he had s ignificant relief of back and abd pain after moving his bowels x2 yesterday. He did c/o abd cramping, diffuse tremors, feeling "delirious and confused", itching and dramatic increase in his chronic pain since he stopped his opiates 5 days ago. We discussed that these could be signs of withdrawal and discussed need for gradual weaning of opiate medications vs stopping abruptly. Also discussed restarting the duragesic with 50mcg/hr q72h as that seems to be what he had been using most recently. Pt agreeable to restarting duragesic and being more consistent with nausea and OIC preventatives. Radiation oncology has also been consulted to evaluate for possible palliative radiation therapy to the areas of pathologic fractures, appreciate their input. restart duragesic 50mcg/hr TD q72h and oxycodone 5mg PO q4h PRN for BTP. 03/30: Pt reports pain much improved and he is satisfied with current management. Plan for rad-onc simulation for palliative radiation to spine today. He has had no need for PRN medications since TD fentanyl restarted. Discussed with pt that oxycodone is available to him PRN for BTP. 03/31: Pt requiring no PRN for BTP overnight, pt states pain well managed and requests no changes at this time. Continue duragesic 50mcg/hr TD q72h and oxycodone 5mg PO q4h PRN for BTP 04/01: Pt requiring no PRN for BTP overnight, pt states pain well managed and requests no changes at this time. 04/04: Pt requiring minimal PRN for BTP over weekend, pt states pain well man aged and requests no changes at this time. Continue duragesic 50mcg/hr TD q72h and oxycodone 5mg PO q4h PRN for BTP (4) Narcotic withdrawal: Plan: resolved, pt restarted on transdermal fentanyl and counselled on need for weaning of chronic opiate use when appropriate. (5) Anxiety associated with cancer diagnosis: Plan: Pt states that he has long standing anxiety and depression and has been on "mood medications" previously, but they did not help. He shared that his depression had previously been well controlled with marijuana and nonpharmacologic alternative therapies. He shares that he has been experiencing increased anxiety and depression since his last admission. He attributes some of these difficulties with housing and shared living space with his son. He c/o anhedonia and shared that he spends much of his days in bed. He deferred suggestion of psych referral and denied need for mood stabilizing or anxiolytic medication. He expressed that he is experiencing a great deal of stress about logistics /transport to chemotherapy hope that his chemotherapy could continue as an inpatient as he has no way to get back and forth from home to oncology clinic. He states that his next 3d treatment cycle was scheduled to begin today as outpt and he requests this not be delayed, he is hopeful that chemotherapy and palliative radiation can be completed as inpt. Dr Jones made aware of request. 04/01: pt c/o difficulty sleeping at night and that he had a panic attack last night. Discussed anxiolytic medication use PRN for better sleep hygeine but also for better management of his anxiety. Pt agreeable to trial of PRN ativan. He shared that he is anxious about beginning radiation and hopes this will help. Added 0.5mg ativan PO q6h PRN for anxiety 04/04: Improved with only occasional PRN ativan use. Plan as above Plan discussed with pt, BSRN, and attending team. Admission and Anticipated Discharge Date Admission Date: March 29, 2025 Subjective Pt assessed in chair, he reports that his pain is well managed over weekend and he is not feeing any nausea at present. He expressed concern about possible discharge and difficulty with transportation for ongoing radiation/chemotherapy treatments. Physical Exam Constitutional: WD/WN, vitals as above Eyes: PERRL, conjunctivae normal, anicteric sclerae ENMT: Ears: + hearing impairment Neck: trachea midline, no thyromegaly Respiratory: normal respiratory effort, lungs clear to auscultation Auscultation: + diminished lung sounds Cardiovascular: RRR, no murmur, no edema Chest (Breasts): Additional Comments: Mild tenderness noted of the right anterior upper chest. Gastrointestinal (Abdomen): normal bowel sounds, soft, nontender, no hepatosplenomegaly Musculoskeletal: He has tenderness in the area of the mid thoracic spine and lumbar spine. Skin: no rashes, warm and dry Psychiatric: A+Ox3, euthymic affect Results & Data Vital Signs (Past 12 Hours) Vital Signs Temp Pulse Resp BP Pulse Ox O2 Del Method 04/04/25 09:45 Room Air 04/04/25 07:50 36.6 C 68 17 152/68 H 90 Room Air Diagnostic Findings Chest X-Ray 03/29/25 10:46 XR chest 1V portable HISTORY: 69 years-old Male Sepsis COMPARISON: Head CT 03/16/2025 TECHNIQUE: AP view of the chest FINDINGS: Emphysema with chronic fibrotic changes. Asymmetric right hilar prominence again noted. Small nodular foci better seen on the prior PET/CT. No pneumothorax, pleural effusion or overt pulmonary edema. Degenerative changes of the shoulders and spine. IMPRESSION: 1. No acute process of the chest. 2. Emphysema with pulmonary nodules again noted, better seen on the prior PET/CT. ACT 112: Negative or not required by law. The above report was generated using voice recognition software. It may contain grammatical, syntax or spelling errors. Electronically signed by: Ziyad Paredes M.D. 03/29/2025 11:34 AM Abdomen/Pelvis CT 03/29/25 11:[address] WITH IV CONTRAST CT DOSE: 881.28 mGy.cm HISTORY: Acute onset abdominal pain with nausea and vomiting . Small cell lung cancer. diff pain, vomiting TECHNIQUE: Multiaxial CT images of the abdomen and pelvis were performed following the IV administration of 94 cc of Optiray, A dose lowering technique was utilized adhering to the principles of ALARA. COMPARISON STUDY: PET/CT 03/16/2025, CT abdomen and pelvis 02/17/2020 FINDINGS: Emphysema with pulmonary nodules redemonstrated, better characterized on the prior PET/CT. Mild dependent subsegmental bibasilar atelectasis. There is no pneumatosis or pneumoperitoneum. The spleen measures 13.7 cm in length. Unremarkable pancreas, and adrenal glands. Unchanged appearance of the gallbladder fundus suggestive of adenomyomatosis. The liver is within normal limits. Patency of the hepatic and portal veins. There are a few cysts noted within the kidneys. 3 mm nonobstructing calculus of the mid pole left kidney. Exophytic prominence of the inferior pole right kidney measuring 1.6 cm on image 143 series 3 is unchanged. No ureteral calculi or hydronephrosis. Prostatomegaly. Urinary bladder wall thickening with partial distention. Atherosclerosis of the aorta and branch vessels. Mild dilation of the infrarenal abdominal aorta measures 3.1 x 2.9 cm. Abdominal lymphadenopathy similar to prior including gastrohepatic 1.9 x 2.9 cm adenopathy on image 68. Inflammatory stranding surrounding several of the lymph nodes likely related to posttreatment related changes. No bowel obstruction or bowel wall thickening. Colonic diverticulosis without ac ruby diverticulitis. Moderate colonic fecal retention. Biopsy clip of the cecum. Normal appendix. Tiny fat filled umbilical hernia. Osseous metastasis redemonstrated. Pathologic fracture of T12 is again seen. IMPRESSION: 1. No acute intra-abdominal or intrapelvic abnormality identified. 2. No bowel obstruction or bowel wall thickening. 3. Pulmonary nodules with pathologic lymphadenopathy of the abdomen along with osseous metastasis redemonstrated, stable from the March 16, 2025 PET/CT. 4. Pathologic T12 compression deformity again noted. 5. Additional findings as above. ACT 112: Negative or not required by law. The above report was generated using voice recognition software. It may contain grammatical, syntax or spelling errors. Electronically signed by: Ziyad Paredes M.D. 03/29/2025 12:45 PM Venous Doppler Study 03/29/25 14:43 BILATERAL LOWER EXTREMITY VENOUS DOPPLER HISTORY: Acute pain The lower legs stage 4 lung ca, immobility, muscle pain of legs COMPARISON STUDY: None. FINDINGS: There is normal compressibility, flow, and augmentation within the bilateral lower extremity deep venous systems. There is a 1.3 x 2.7 x 0.8 cm popliteal cyst on the left. IMPRESSION: No DVT within the right or left lower extremity. ACT 112: Negative or not required by law. Electronically signed by: Ziyad Paredes M.D. 03/29/2025 4:01 PM Medications Administered Current Inpatient Medications Acetaminophen (Acetaminophen 500 Mg Tab) 1,000 mg PO Q8H PRN PRN Reason: Pain or Fever Stop: 05/02/25 10:41 Last Admin: 04/02/25 11:26 Dose: 1,000 mg Albuterol (Albuterol Hfa 8 Gm Inhaler) 2 puffs INH Q4H PRN PRN Reason: shortness of breath or wheezing Stop: 04/28/25 16:10 Albuterol (Albut/Ipratrop 3mg/0.5mg Neb 3 Ml Vial) 3 ml NEB Q4H PRN; Protocol PRN Reason: shortness of breath or wheezin Stop: 04/28/25 16:10 Enoxaparin Sodium (Enoxaparin Inj 40 Mg/0.4 Ml Syr) 40 mg SQ Q24H [facility] Stop: 04/28/25 17:59 Last Admin: 04/03/25 17:27 Dose: 40 mg Fentanyl (Fentanyl 50 Mcg/Hr Tdsy) 1 patch TD Q3D [facility] Stop: 04/12/25 17:14 Last Admin: 04/01/25 16:52 Dose: 1 patch Finasteride (Finasteride 5 Mg Tab) 5 mg PO DAILY [facility] Stop: 04/29/25 08:59 Last Admin: 04/04/25 08:56 Dose: 5 mg Fluticasone Furoate (Fluticasone Furoate 200mcg 14 Puffs/Inhaler) 1 puffs INH DAILY [facility]; Protocol Stop: 04/29/25 08:59 Last Admin: 04/04/25 08:56 Dose: 1 puffs Fluticasone Propionate (Fluticasone Propionate Na Spr 16 Gm Btl) 2 sprays NA DAILY [facility] Stop: 04/29/25 08:59 Last Admin: 04/04/25 08:57 Dose: 2 sprays Lorazepam (Lorazepam 0.5 Mg Tab) 0.5 mg PO Q6H PRN PRN Reason: Anxiety Stop: 05/01/25 11:45 Last Admin: 04/02/25 20:25 Dose: 0.5 mg Lorazepam (Lorazepam 1 Mg Tab) 1 mg PO HS PRN PRN Reason: Sleep Stop: 05/03/25 12:57 Last Admin: 04/03/25 20:46 Dose: 1 mg Magnesium Hydroxide (Magnesium Hydroxide Susp 30 Ml Udc) 30 ml PO Q6H PRN PRN Reason: Constipation Stop: 05/01/25 11:54 Last Admin: 04/01/25 12:01 Dose: 30 ml Melatonin (Melatonin 3 Mg Tab) 6 mg PO HS PRN PRN Reason: Sleep Stop: 05/01/25 02:28 Last Admin: 04/02/25 20:25 Dose: 6 mg Miscellaneous (Fentanyl Patch Remove & Waste) 1 each N/A Q3D [facility] Stop: 04/28/25 17:14 Last Admin: 04/01/25 16:51 Dose: 1 each Miscellaneous (Check Fentanyl Patch Placement) 1 each N/A QS [facility] Stop: 04/29/25 00:00 Last Admin: 04/04/25 07:47 Dose: 1 each Ondansetron HCl (Ondansetron 4 Mg Od Tab) 4 mg PO Q6H PRN PRN Reason: Nausea Stop: 05/03/25 12:46 Last Admin: 04/04/25 10:49 Dose: 4 mg Oxycodone HCl (Oxycodone Hcl Ir 5 Mg Tab (Immediate Release)) 5 mg PO Q4H PRN PRN Reason: Break through pain Stop: 04/13/25 13:04 Last Admin: 04/04/25 12:57 Dose: 5 mg Pantoprazole Sodium (Pantoprazole 40 Mg Tab) 40 mg PO DAILY [facility] Stop: 05/05/25 08:59 Polyethylene Glycol (Polyethylene (Miralax) 17 Gm Pack) 34 gm PO BID [facility] Stop: 05/01/25 20:59 Last Admin: 04/04/25 15:10 Dose: 34 gm Prochlorperazine (Prochlorperazine Maleate 5 Mg Tab) 5 mg PO Q6H PRN PRN Reason: nausea vomiting Stop: 05/03/25 12:59 Sennosides (Senna 8.6 Mg Tab) 17.2 mg PO DAILY [facility] Stop: 04/29/25 08:59 Last Admin: 04/04/25 15:10 Dose: 17.2 mg Tamsulosin HCl (Tamsulosin Hcl 0.4 Mg Cap) 0.8 mg PO DAILY [facility] Stop: 05/01/25 09:59 Last Admin: 04/04/25 08:56 Dose: 0.8 mg Umeclidinium/Vilanterol (Umeclidinium/Vilanterol 62.5/25mcg 7 Puffs/Inhaler) 1 puffs INH DAILY [facility]; Protocol Stop: 04/29/25 08:59 Last Admin: 04/04/25 08:57 Dose: 1 puffs PG Care Time/CCT Total # of Minutes Spent Total Time Spent with Patient: Total time spent is greater than 50% in coordination of care (as documented) at patient's floor/unit and/or counseling patient: Coding Diagnoses Palliative care by specialist Z51.5 Therapeutic opioid-induced constipation (OIC) K59.03; T40.2X5A Cancer related pain G89.3 Narcotic withdrawal F11.93 Anxiety associated with cancer diagnosis F41.1; C80.1
[2025-04-05] MEDS: PANTOprazole 40 MG TAB PO SCH (09:24)
--- NOTE | 2025-04-05 10:03 | Discharge Summary ---
Discharge Summary Date of Service April 05, 2025 Principal Dx & Hospital Course #1 = Principal Diagnosis (1) Narcotic withdrawal: (2) Extensive stage primary small cell carcinoma of lung: (3) Pathologic compression fracture of lumbar vertebra: (4) Neutropenia: (5) Chronic obstructive pulmonary disease: (6) BPH (benign prostatic hyperplasia): (7) GERD without esophagitis: (8) Hyperlipidemia: (9) Anxiety and depression: (10) Therapeutic opioid-induced constipation (OIC): (11) Severe protein-calorie malnutrition: Plan 69 y/o with active cancer - stage 4 small cell lung cancer with bony mets, COPD, BPH, GERD, LBP, HTN, and depression/anxiety. He presented with fatigue, weakness, poor PO intake, nausea/vomiting, constipation, and syncope. Likely due to his self-discontinuation of all narcotics. Was restarted on narcotics - pain now controlled on 50 mcg fentanyl patch and PRN oxys 5 mgs. Started on radiation therapy for pain control, 2 treatments left after discharge. #Stage 4 small cell lung ca with extensive bony mets | Need for radiation therapy Follows with Dr. Jones - needs outpatient follow up. 2 more radiation sessions this week (04/06 and 04/07) prior to next chemo. Pretreat with ativan/zofran/oxycodone as needed. #Depression/anxiety Not on meds for such. Palliative added Ativan 0.5 mg Q6H PRN and Ativan 1 mg PRN nightly for sleep. Could consider Remeron initiation on an outpatient basis. #Cancer Pain | Opiate-induced constipation | Concern for opioid withdrawal Patient self-discontinued all narcotic therapy due to constipation then presented with concern for withdrawal and intractable pain. Patient doing well with fentanyl patch 50 mcg and oxycodone 5 mg PRN for breakthrough pain. Continue bowel regimen: MiraLAX 34 gm BID, senna daily, and PRN milk of mag. Follow up outpatient palliaitve clinic. COPD - continue home regimen, no longer using home oxygen BPH - continue Flomax and finasteride Dispo: discharge to home today with son after radiation treatment Son updated by phone 04/04 Discussed care with palliative care provider, braydon Mccabe HPI Per Admitting Provider 69yo male with stage 4 small cell lung ca with bone mets - well known to me from 01/2025 hospitalization - along with COPD, BPH, GERD, chronic low back pain, HTN, and depression/anxiety -- who presents with severe fatigue, weakness, sleeping/laying in bed frequently, very poor PO intake, nausea with vomiting intermittently for several weeks, severe constipation, and an episode of syncope yesterday at home. EMS was summoned to his house yesterday but he declined transport to the hospital at that time. Patient was on fentanyl patch 75mcg (started 03/03/25 as outpatient) + oxycodone prn over the last month for severe back pain related to his metastatic disease. However, last FridayMarch 25 he abruptly stopped all narcotics thinking this w ould help his nausea, vomiting, bowel issues, and inability to eat. He has felt even more poorly since then with shivering, shakes, tremors, and inability to ambulate/function at home. He reports "spasms" in his legs b/l. His back pain has worsened significantly. He did have 2 BMs yesterday which made him feel better. He was able to eat a little more yesterday after having these bowel movements. Denies fevers. No dyspnea or BOWEN. He was prescribed O2 at the time of his discharge on 02/26/25 from [facility]. He used the O2 for about 1 week then weaned off, stating his o2 sats on his pul se oximeter were normal. He has not used the O2 since early March. With respect to the syncopal episode yesterday he reports he was very dizzy & lightheaded just prior to the passing out event. He lost consciousness for about 10 minutes. Last chemo was 1.5 weeks ago and [facility]. Tomorrow's scheduled chemo would have been his 4th treatment. Current chemo regimen per records - Carboplatin/etoposide/atezolizumab. While visiting with him in the ER he was having uncontrollable shakes, looked very poorly, was tachycardic, and SBP was in the upper 90s. He received 2.25 L of fluid boluses prior to my visit. Discharge Plan Discharge Items Patient Disposition: Home - Self-Care Reason For Visit: NARCOTIC WITHDRAWAL, STAGE 4 LUNG CA, SEVERE BACK Discharge Diagnosis: Narcotic withdrawal - resolved Lung Cancer Condition on Discharge: Serious Activity: Resume your previous activity Non-emergency contact: Primary Care Provider, Specialist and Oncologist Call non-emergency contact if: you have any medication questions, your symptoms worsen, your pain is not controlled and your temperature is above 101 Follow-up/Referrals: Dinesh Washington MD [Primary Care Provider] - (follow up within one week ) Maya Chow DNP [Nurse Practitioner] - (Palliative care - follow up for pain control, bowel regimen ) Nelly Jones MD [Physician] - (follow up as directed ) Diet: Regular Addtl Attending Provider Instructions: Mr. Swanson, You were hospitalized after having symptoms consistent with narcotic withdrawal - likely from the self discontinuation of your pain medications. Thankfully we have gotten those symptoms under control with the 50mcg fentyl patch and as needed oxycodone every 4 hours. A big concern with narcotics is constipation - we have started you on a bowel regimen to help prevent this. You should take your bowel medications even if you are having regular stools, this is for maintenance not treatment. - Senna 17.2mg daily and miralax 34gm (double dose) twice a day There were also concerns about your anxiety and we have started as needed Ativan - you can use one tablet 0.5mg every q hours as need - you can two tablets (1mg) at night as needed for sleep Prescriptions that were sent in: - Miralax and Senna - these are over the counter medications, and your insurance may not cover them. If that is the case, please purchase them over the counter, generic brand is fine - Ativan as needed for anxiety - oxycodone as needed for breakthrough pain - fentanyl patches - Zofran as needed for nausea You have two more days of radiation to complete. Please premedicate with anxiety/nausea/pain medication as you need. You should follow up with your PCP next week. You should follow up with Dr. Jones and Maya Pruitt in the palliative care office. If you have any issues with you pain control or constipation please contact Maya Alaniz's office. CONTACT YOUR PRIMARY CARE PROVIDER if you experience any of the following: Shortness of breath or difficulty breathing Fevers or chills Feeling tired with normal activity or experiencing dizziness or fainting Difficulty following your treatment plan, or difficulty taking medications CALL 911 OR GO TO THE EMERGENCY DEPARTMENT if you experience any of the following: Severe abdominal pain or nausea/vomiting Severe chest pain, or chest pain that radiates (moves) to your jaw or arm Sudden, severe shortness of breath or difficulty breathing Thank you for allowing us to participate in your care. COLIN Alvarado Pending Studies at Discharge: No Stand-Alone Forms: My [facility] [employer], Smoking Cessation Medications and DC Order Prescriptions: New fentanyl 50 mcg/hr Patch 72 Hour 1 patch transdermal Q3D Qty: 3 0RF lorazepam 0.5 mg Tablet 0.5 mg PO Q6H PRN (Reason: anxiety) Qty: 20 0RF Rx Instructions: may take two tabs at night if needed for anxiety/sleep Continued nystatin 100,000 unit/mL suspension 5 ml PO QID 14 Days Qty: 280 1RF Rx Instructions: After meals and at bedtime for thrush Medical Marijuana 1 inh inhalation DAILY Rx Instructions: Unable to verify OTC meds at this date/time. triamcinolone acetonide 0.1 % cream 1 applic topical BID PRN (Reason: skin irritation) Qty: 80 3RF Rx Instructions: 03/29-no fill history unable to verify albuterol sulfate 90 mcg/actuation HFA aerosol inhaler 2 puff inhalation Q4H PRN (Reason: shortness of breath or wheezing) Qty: 6.7 5RF (DME) nebulizers [facility] See Rx Instructions .Route Qty: 1 0RF Rx Instructions: As directed sodium chloride 7 % Solution For Nebulization 4 ml NEB BID Qty: 240 2RF Rx Instructions: take 1 treatment each morning and 1 treatment each evening. Be sure to take an albuterol neb treatment PRIOR to each saline neb. ipratropium-albuterol 0.5 mg-3 mg(2.5 mg base)/3 mL Solution For Nebulization 3 ml NEB Q4H PRN (Reason: shortness of breath or wheezing or cough) Qty: 180 0RF (DME) Oxygen Home Liters Per Minute See Rx Instructions .ROUTE .MEDSUPPLY Qty: 1 0RF Rx Instructions: 2 liters with sleep/at rest/while sitting; 3 liters with any activity ketoconazole 2 % shampoo 1 applic TOP UD Rx Instructions: 03/29-no fill history unable to verify Wash scalp 2-3 times weekly. Let sit for 3-5 minutes prior to rinsing. fluorouracil 5 % cream 1 applic topical UD Rx Instructions: 03/29-1 applica topical daily. No fill history unable to verify Apply to areas of the face daily at bedtime x 3 weeks as directed. Wash off in AM. tamsulosin 0.4 mg capsule 0.8 mg PO UD Rx Instructions: 0.8mg po daily. 03/29-no fill history unable to verify omeprazole 20 mg capsule,delayed release(DR/EC) 20 mg PO UD Rx Instructions: 20 mg po bid. 03/29-no fill history unable to verify/otc fluticasone propionate 50 mcg/actuation spray,suspension 2 sprays intranasal UD Rx Instructions: 2 spray intranasal daily. 03/29-no fill history unable to verify/otc finasteride 5 mg tablet 5 mg PO UD Rx Instructions: 5mg po daily. 03/29-no fill history unable to verify Trelegy Ellipta 200-62.5-25 mcg blister with device 1 inh inhalation UD Rx Instructions: 1inh inhalation daily. 03/29-no fill history unable to verify sennosides [senna] 8.6 mg tablet 17.2 mg PO DAILY Qty: 60 0RF Rx Instructions: otc unable to verify ondansetron 8 mg tablet,disintegrating 8 mg PO Q8H PRN (Reason: nausea and vomiting) Qty: 30 0RF Changed polyethylene glycol 3350 [Miralax] 17 gram Powder In Packet 34 g PO BID Qty: 100 0RF oxycodone 5 mg Tablet 5 mg PO Q4H PRN (Reason: pain) Qty: 20 0RF Rx Instructions: breakthrough pain Discharge Orders: Discharge Order (Routine); Ordered 04/05/25 Ordered By: Jenny Marcos/Other Patient Handouts: Cancer Constipation Tips Admission Data Admit Date/Time: 03/29/25 14:33 Attending Provider: Jamey Doran Admit Provider: Augustine Charles Primary Care Provider: Dinesh Washington Other Providers: Augustine Charles; Braydon Magallon; Amado Lopez Hospital Stay Data Consultations 03/29/25 13:49 ED Decision to Admit Stat 03/29/25 14:33 Consult Palliative Care Routine 03/30/25 08:00 Consult Radiation Oncology Routine Diagnostic Imagining Performed 03/29/25 11:48 CT abd pelvis IV con only Stat 03/29/25 14:43 US venous doppler LE BI Stat 03/30/25 14:07 CT guide rad therapy chest Routine Pending Results Patient Have Any Pending Studies at Discharge: No Discharge Instructions Given to Patient (Per Discharging Provider) Mr. Swanson, R[place] were hospitalized after having symptoms consistent with narcotic withdrawal - likely from the self discontinuation of your pain medications. Thankfully we have gotten those symptoms under control with the 50mcg fentyl patch and as needed oxycodone every 4 hours. A big concern with narcotics is constipation - we have started you on a bowel regimen to help prevent this. You should take your bowel medications even if you are having regular stools, this is for maintenance not treatment. - Senna 17.2mg daily and miralax 34gm (double dose) twice a day There were also concerns about your anxiety and we have started as needed Ativan - you can use one tablet 0.5mg every q hours as need - you can two tablets (1mg) at night as needed for sleep Prescriptions that were sent in: - Miralax and Senna - these are over the counter medications, and your insurance may not cover them. If that is the case, please purchase them over the counter, generic brand is fine - Ativan as needed for anxiety - oxycodone as needed for breakthrough pain - fentanyl patches - Zofran as needed for nausea You have two more days of radiation to complete. Please premedicate with anxiety/nausea/pain medication as you need. You should follow up with your PCP next week. You should follow up with Dr. Jones and Maya Pruitt in the palliative care office. If you have any issues with you pain control or constipation please contact Maya Alaniz's office. CONTACT YOUR PRIMARY CARE PROVIDER if you experience any of the following: Shortness of breath or difficulty breathing Fevers or chills Feeling tired with normal activity or experiencing dizziness or fainting Difficulty following your treatment plan, or difficulty taking medications CALL 911 OR GO TO THE EMERGENCY DEPARTMENT if you experience any of the following: Severe abdominal pain or nausea/vomiting Severe chest pain, or chest pain that radiates (moves) to your jaw or arm Sudden, severe shortness of breath or difficulty breathing Thank you for allowing us to participate in your care. COLIN Alvarado Total Time Total Time Spent Total Time Spent (In Minutes): Time spent day of discharge 35 minutes including direct patient care, medication reconciliation, documentation, review of labs and images, and coordination of care. Coding Level of Care Code 29236 INP/OBS DISCH >30 MIN Diagnoses Narcotic withdrawal F11.93 Extensive stage primary small cell carcinoma of lung C34.90 Pathologic compression fracture of lumbar vertebra M48.56XA Neutropenia D70.9 Neutropenia type: unspecified Chronic obstructive pulmonary disease J44.9 BPH (benign prostatic hyperplasia) N40.0 GERD without esophagitis K21.9 Hyperlipidemia E78.5 Anxiety and depression F41.9; F32.A Therapeutic opioid-induced constipation (OIC) K59.03; T40.2X5A Severe protein-calorie malnutrition E43
[2025-04-05 12:28] VITALS: BP 133/66; PULSE 82; TEMP 97.3; O2SAT 92
[2025-04-05] MEDS: PROCHLORPERAZINE MALEATE 5 MG TAB PO PRN (15:53)
== END 2025-04-05 16:13 | disposition home or self-care (01) | DRG 896 ==
LOC: ED 10:30 → 2S 14:33 → SUATTDRO 14:33 → 2S 15:19 → 3E 04-03 14:43